=== PATIENT | male | born 1940 | race Caucasian/White ===

== ENCOUNTER 2016-09-09 14:55 | Observation (INO) ==
--- NOTE | 2016-09-09 15:10 | EKG Report ---
Test Performed on : 09/09/2016 3:01:43 PM Test Reason : AMS Blood Pressure : / mmHG Vent. Rate : 084 BPM Atrial Rate : 084 BPM P-R Int : 206 ms QRS Dur : 108 ms QT Int : 382 ms P-R-T Axes : 037 031 191 degrees QTc Int : 451 ms Normal sinus rhythm. with sinus arrhythmia. Septal infarct , age undetermined Cannot rule out Inferior infarct , age undetermined ST \T\ T wave abnormality, consider lateral ischemia Abnormal ECG No previous ECGs available Unconfirmed Result
[2016-09-09] MEDS ORDERED: CATAPRES PO ONE (15:17)
--- NOTE | 2016-09-09 15:29 | Diag Imaging Result Doc PS360 ---
HEAD W/O CONTRAST - 09/09/2016 INDICATION: AMS TECHNIQUE: A CT dose reduction protocol was used. COMPARISON: None FINDINGS: There is some mild microvascular disease in the periventricular white matter. There is also a small rounded hypodensity adjacent to the right lateral ventricle superiorly. This measures about 1.5 cm. No mass effect or hemorrhage. The skull is intact. The sinuses, mastoids, and middle ears are clear. IMPRESSION: Small focal hypodensity in the right periventricular cerebral white matter. Appearance is indeterminate. This likely represents a small, age-indeterminate white matter infarction. A follow-up brain MRI is recommended. Electronically signed by Roldan Mayorga 09/09/2016 3:26 PM
[2016-09-09 15:31] LABS: BE 0.8 mmoll (-3.0-3.0); BLOOD TYPE ARTERIAL; DRAW SITE R RADIAL; METHB 1.3 % (0.0-1.5); O2(CT) 20.9 mL/dL (15.0-23.0); PCO2(98.6) 35 mmHg (35-45); PO2(98.6) 112 mmHg (60-100); SAMPLE BLOOD; SAO2 99.2 % (95.0-100.0); THB 15.4 g/dL (11.5-17.4); pH(98.6) 7.45 (7.35-7.45)
[2016-09-09 15:39] LABS: ALLEN TEST YES; MODALITY CANNULA
[2016-09-09 15:43] LABS: UR AMPHETAMINES QUAL NONE DETECTED (NONE DETECT); UR BARBITUATES QUAL NONE DETECTED (NONE DETECT); UR BENZODIAZEPIN QUAL NONE DETECTED (NONE DETECT); UR CANNABINOIDS QUAL NONE DETECTED (NONE DETECT); UR COCAINE QUAL NONE DETECTED (NONE DETECT); UR MDMA QUAL NONE DETECTED (NONE DETECT); UR METHADONE QUAL NONE DETECTED (NONE DETECT); UR METHAMPHETAMINE QUAL NONE DETECTED (NONE DETECT); UR OPIATES QUAL NONE DETECTED (NONE DETECT); UR OXYCODONE QUAL NONE DETECTED (NONE DETECT); UR PCP QUAL NONE DETECTED (NONE DETECT); UR TCA QUAL NONE DETECTED (NONE DETECT)
[2016-09-09 15:51] LABS: MANUAL DIFF NEEDED? NO
[2016-09-09 15:56] LABS: BASO% 0.5 % (0.0-0.8); HEMATOCRIT 43.2 % (42.0-52.0); MONO% 8.9 % (1.7-9.3)
[2016-09-09 16:22] LABS: BILIRUBIN URINE NEGATIVE (NEGATIVE); BLOOD URINE NEGATIVE (NEGATIVE); CLARITY CLEAR (CLEAR); COLOR YELLOW; GLUCOSE URINE NEGATIVE (NEGATIVE); LEUKOCYTES URINE 1+ (NEGATIVE); NITRITE URINE NEGATIVE (NEGATIVE); PROTEIN URINE NEGATIVE (NEGATIVE); UROBILINOGEN URINE NORMAL
[2016-09-09 16:24] LABS: URINE CAST NONE SEEN /LPF; URINE CRYSTAL NONE SEEN /HPF; URINE CULTURE PL NEEDED? YES; URINE EPITHELIAL CELLS <10 /HPF (<10); URINE SOURCE CLEAN CATCH
[2016-09-09 16:29] LABS: AGAP 12; ALBUMIN 4.2 g/dL (3.5-5.0); ALKALINE PHOSPHATASE 44 U/L (32-122); BUN 9 mg/dL (8-22); CALCIUM 9.3 mg/dL (8.8-10.2); CHLORIDE 106 mmol/L (98-107); CK PROFILE 63 U/L (24-204); COSMO 281; GOT 15 U/L (10-34); GPT 12 U/L (10-44); POTASSIUM 3.5 mmol/L (3.5-5.1); SODIUM 141 mmol/L (136-145); TCO2 23 mmol/L (25-35); TOTAL PROTEIN 7.2 g/dL (6.3-8.3)
[2016-09-09 16:31] LABS: EOS# 0.36 X1000 (0.0-0.7); EOS% 5.9 % (0.0-10.0); IMM GRAN# 0.01 X1000 (0.0-0.04); IMM GRAN% 0.2 % (0.0-0.5); LYMPH# 1.79 X1000 (1.2-3.4); LYMPH% 29.1 % (20.5-51.1); MCH 33.7 PG (27-31); MCHC 34.7 g/dL (33-37); MCV 97.1 FL (81-99); MONO# 0.55 X1000 (0.11-0.59); MPV 11.2 FL (7.4-10.4); NEUT% 55.4 % (42.2-75.2); PLT 168 X1000 (130-400); RBC 4.45 XMIL (4.7-6.1)
[2016-09-09] MEDS ORDERED: APRESOLINE IV ONE (16:38)
--- NOTE | 2016-09-09 17:19 | PROVIDER DOCUMENTATION ---
This chart was entered by Mary Nation Scribe, acting as scribe for Rob Church MD. HPI-Neurological Disorder - General Chief Complaint: Stroke-Like Symptoms Stated Complaint: Slurred speech Time Seen by Provider: 09/09/16 15:12 Source: patient, EMS Allergies/Adverse Reactions: Patient Allergies Allergy/AdvReac Type Severity Reaction Status Date / Time No Known Allergies Allergy Verified 09/09/16 16:25 Home Medications: Home Medication List Medication Instructions Recorded Confirmed Last Taken Type ATORVAstatin [Lipitor] 40 mg PO QHS 09/09/16 09/09/16 Unknown History Diltiazem HCl [Cartia Xt] 100 mg PO DAILY 09/09/16 09/09/16 Unknown History Losartan [Cozaar] 50 mg PO BID 09/09/16 09/09/16 Unknown History Metoprolol/Hydrochlorothiazide 1 each PO DAILY 09/09/16 09/09/16 Unknown History [Metoprolol-Hctz 100-25 mg Tab] - History of Present Illness-Neuro Nature of Presenting Problem: 76 yo M presents to the ER with complaint of slurred speech, resolved prior to EMS arrival. Pt denies any CP or SOB. Upon ER arrival pt states he feels great. Has elevated BP upon arrival. Per therapist pt had R sided weakness that lasted 5 minutes and then resolved. Onset/Duration: reports: 1-3 hours ago Context: reports: impaired speech Character of Deficits: reports: impaired speech Cognitive Baseline: alert, oriented x3 Gait Baseline: walks without assistance Associated Symptoms: reports: slurred speech. denies: chest pain, vomiting Review of Systems - Adult - REVIEW OF SYSTEMS - ADULT Constitutional: denies: chills, fever Eyes: reports: no symptoms reported Ears, Nose, Mouth & Throat: reports: no symptoms reported Cardiovascular: denies: chest pain, palpitations Respiratory: denies: cough, shortness of breath Gastrointestinal: denies: diarrhea, nausea, vomiting Genitourinary: reports: no symptoms reported Musculoskeletal: reports: no symptoms reported Integumentary: reports: no symptoms reported Neurological: reports: slurred speech. denies: dizziness/vertigo, headache/ migraines Psychiatric: reports: no symptoms reported Endocrine: reports: no symptoms reported Hematologic/Lymphatic: reports: no symptoms reported Allergic/Immunologic: reports: no symptoms reported All Other Systems: Reviewed and Negative Past History - Adult - PAST MEDICAL HISTORY-ADULT Review of Records: reports: Nursing Assessment Review, Medications Reviewed Cardiovascular: reports: HTN - IMMUNIZATION STATUS Childhood Immunizations: See Nurse Assessment Flu Vaccine: See Nurse Assessment Physical Exam- Neurological - Physical Exam-Neuro Initial Vital Signs Reviewed: Yes General Appearance: alert, no apparent distress Eye Exam: bilateral eye: normal inspection, PERRL, EOMI HENMT: normocephalic/atraumatic, normal ENT inspection, TMs normal, pharynx normal Head Injury: no evidence of injury. 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 Exam: normal hearing, normal speech, PERRL Neurologic: grossly normal, no motor/sensory deficits Integumentary: normal color, warm/dry Psych/Mental Status: normal mood/affect, normal thought content, normal thought process, oriented x 3 Progress - PLAN OF CARE/RESULTS Progress/Plan/Lab Results: Laboratory Results - last 24 hr 09/09/16 09/09/16 09/09/16 15:09 15:10 15:10 WBC RBC Hgb Hct MCV MCH MCHC RDW Std Deviation Plt Count MPV Immature Gran % (Auto) Neut % (Auto) Lymph % (Auto) [place] % (Auto) Eos % (Auto) Baso % (Auto) Immature Gran # (Auto) Neut # (Auto) Lymph # (Auto) [place] # (Auto) Eos # (Auto) Baso # (Auto) Specimen Type ARTERIAL Sample Site R RADIAL pH 7.45 pCO2 35 pO2 112 H HCO3 25.5 Base Excess 0.8 Oxyhemoglobin 96.2 ABG O2 Sat (Calculated) 20.9 ABG O2 Saturation 99.2 ABG Carboxyhemoglobin 1.80 ABG Methemoglobin 1.3 Edward Test YES A-a O2 Difference 44.0 Total Hemoglobin 15.4 Lactate 1.40 Liter Flow 2.0 Blood Gas Modality CANNULA FiO2 % 28.0 Sodium Potassium Chloride Carbon Dioxide Anion Gap BUN Creatinine Estimated GFR/1.73 m2 BUN/Creatinine Ratio Glucose Calculated Osmolality Calcium Total Bilirubin AST ALT Alkaline Phosphatase Creatine Kinase Troponin T < 0.010 Total Protein Albumin Globulin Albumin/Globulin Ratio Plasma Lactate Urine Source Urine Color Urine Clarity Urine pH Ur Specific [place] Urine Protein Urine Ketones Urine Blood Urine Nitrite Urine Bilirubin Urine Urobilinogen Urine Microscopic RBC Urine WBC Urine Microscopic WBC Ur Epithelial Cells Urine Crystals Urine Bacteria Urine Casts Urine Yeast Urine Glucose Urine Opiates Screen Ur Oxycodone Screen Urine Methadone Screen Ur Barbituates Screen Ur Tricyclics Screen Ur Phencyclidine Scrn Ur Amphetamines Screen U Methamphetamines Scrn Urine MDMA Screen U Benzodiazepines Scrn Urine Cocaine Screen U Cannabinoids Screen Plasma/Serum Ethyl Alc 09/09/16 09/09/16 09/09/16 15:10 15:10 15:10 WBC 6.15 RBC 4.45 L Hgb 15.0 Hct 43.2 MCV 97.1 MCH 33.7 H MCHC 34.7 RDW Std Deviation 13.9 Plt Count 168 MPV 11.2 H Immature Gran % (Auto) 0.2 Neut % (Auto) 55.4 Lymph % (Auto) 29.1 [place] % (Auto) 8.9 Eos % (Auto) 5.9 Baso % (Auto) 0.5 Immature Gran # (Auto) 0.01 Neut # (Auto) 3.41 Lymph # (Auto) 1.79 [place] # (Auto) 0.55 Eos # (Auto) 0.36 Baso # (Auto) 0.03 Specimen Type Sample Site pH pCO2 pO2 HCO3 Base Excess Oxyhemoglobin ABG O2 Sat (Calculated) ABG O2 Saturation ABG Carboxyhemoglobin ABG Methemoglobin Edward Test A-a O2 Difference Total Hemoglobin Lactate Liter Flow Blood Gas Modality FiO2 % Sodium Potassium Chloride Carbon Dioxide Anion Gap BUN Creatinine Estimated GFR/1.73 m2 BUN/Creatinine Ratio Glucose Calculated Osmolality Calcium Total Bilirubin AST ALT Alkaline Phosphatase Creatine Kinase Troponin T Total Protein Albumin Globulin Albumin/Globulin Ratio Plasma Lactate Urine Source CLEAN CATCH Urine Color YELLOW Urine Clarity CLEAR Urine pH 7.0 Ur Specific [place] 1.010 Urine Protein NEGATIVE Urine Ketones NEGATIVE Urine Blood NEGATIVE Urine Nitrite NEGATIVE Urine Bilirubin NEGATIVE Urine Urobilinogen NORMAL Urine Microscopic RBC Not Reportable Urine WBC 1+ A Urine Microscopic WBC 10-20 A Ur Epithelial Cells <10 Urine Crystals NONE SEEN Urine Bacteria 1+ Urine Casts NONE SEEN Urine Yeast NONE SEEN Urine Glucose NEGATIVE Urine Opiates Screen NONE DETECTED Ur Oxycodone Screen NONE DETECTED Urine Methadone Screen NONE DETECTED Ur Barbituates Screen NONE DETECTED Ur Tricyclics Screen NONE DETECTED Ur Phencyclidine Scrn NONE DETECTED Ur Amphetamines Screen NONE DETECTED U Methamphetamines Scrn NONE DETECTED Urine MDMA Screen NONE DETECTED U Benzodiazepines Scrn NONE DETECTED Urine Cocaine Screen NONE DETECTED U Cannabinoids Screen NONE DETECTED Plasma/Serum Ethyl Alc 09/09/16 09/09/16 09/09/16 15:40 15:40 17:30 WBC RBC Hgb Hct MCV MCH MCHC RDW Std Deviation Plt Count MPV Immature Gran % (Auto) Neut % (Auto) Lymph % (Auto) [place] % (Auto) Eos % (Auto) Baso % (Auto) Immature Gran # (Auto) Neut # (Auto) Lymph # (Auto) [place] # (Auto) Eos # (Auto) Baso # (Auto) Specimen Type Sample Site pH pCO2 pO2 HCO3 Base Excess Oxyhemoglobin ABG O2 Sat (Calculated) ABG O2 Saturation ABG Carboxyhemoglobin ABG Methemoglobin Edward Test A-a O2 Difference Total Hemoglobin Lactate Liter Flow Blood Gas Modality FiO2 % Sodium 141 Potassium 3.5 Chloride 106 Carbon Dioxide 23 L Anion Gap 12 BUN 9 Creatinine 0.9 Estimated GFR/1.73 m2 > 60 BUN/Creatinine Ratio 10 Glucose 113 H Calculated Osmolality 281 Calcium 9.3 Total Bilirubin 0.50 AST 15 ALT 12 Alkaline Phosphatase 44 Creatine Kinase 63 51 Troponin T Total Protein 7.2 Albumin 4.2 Globulin 3.0 Albumin/Globulin Ratio 1.0 Plasma Lactate 1.4 Urine Source Urine Color Urine Clarity Urine pH Ur Specific [place] Urine Protein Urine Ketones Urine Blood Urine Nitrite Urine Bilirubin Urine Urobilinogen Urine Microscopic RBC Urine WBC Urine Microscopic WBC Ur Epithelial Cells Urine Crystals Urine Bacteria Urine Casts Urine Yeast Urine Glucose Urine Opiates Screen Ur Oxycodone Screen Urine Methadone Screen Ur Barbituates Screen Ur Tricyclics Screen Ur Phencyclidine Scrn Ur Amphetamines Screen U Methamphetamines Scrn Urine MDMA Screen U Benzodiazepines Scrn Urine Cocaine Screen U Cannabinoids Screen Plasma/Serum Ethyl Alc 09/09/16 17:30 WBC RBC Hgb Hct MCV MCH MCHC RDW Std Deviation Plt Count MPV Immature Gran % (Auto) Neut % (Auto) Lymph % (Auto) [place] % (Auto) Eos % (Auto) Baso % (Auto) Immature Gran # (Auto) Neut # (Auto) Lymph # (Auto) [place] # (Auto) Eos # (Auto) Baso # (Auto) Specimen Type Sample Site pH pCO2 pO2 HCO3 Base Excess Oxyhemoglobin ABG O2 Sat (Calculated) ABG O2 Saturation ABG Carboxyhemoglobin ABG Methemoglobin Edward Test A-a O2 Difference Total Hemoglobin Lactate Liter Flow Blood Gas Modality FiO2 % Sodium Potassium Chloride Carbon Dioxide Anion Gap BUN Creatinine Estimated GFR/1.73 m2 BUN/Creatinine Ratio Glucose Calculated Osmolality Calcium Total Bilirubin AST ALT Alkaline Phosphatase Creatine Kinase Troponin T < 0.010 Total Protein Albumin Globulin Albumin/Globulin Ratio Plasma Lactate Urine Source Urine Color Urine Clarity Urine pH Ur Specific [place] Urine Protein Urine Ketones Urine Blood Urine Nitrite Urine Bilirubin Urine Urobilinogen Urine Microscopic RBC Urine WBC Urine Microscopic WBC Ur Epithelial Cells Urine Crystals Urine Bacteria Urine Casts Urine Yeast Urine Glucose Urine Opiates Screen Ur Oxycodone Screen Urine Methadone Screen Ur [place] Screen Ur Tricyclics Screen Ur Phencyclidine Scrn Ur Amphetamines Screen U Methamphetamines Scrn Urine MDMA Screen U Benzodiazepines Scrn Urine Cocaine Screen U Cannabinoids Screen Plasma/Serum Ethyl Alc Orders Category Date Time Status Admit - [facility] Routine AdmDCTranf 09/09/16 23:[address] [facility] Routine AdmDCTranf 09/09/16 17:37 Ordered Activity - Bed Rest with BRP ORDERED Care 09/09/16 23:28 Active Cardiac Monitoring DIRECTED Care 09/09/16 15:06 Completed Finger Stick Blood Sugar (ED) DIRECTED Care 09/09/16 15:06 Completed Misc. NRSG Communication Order DIRECTED Care 09/09/16 15:06 Active Neurological Check Q4H Care 09/09/16 23:28 Active Oxygen Therapy- ED Nursing DIRECTED Care 09/09/16 15:06 Active Saline Loc NOW Care 09/09/16 15:06 Active Vital Signs Order Q 8-HR .ASSESS Care 09/09/16 23:28 Active Z-Document. for Tele Applied ORDERED Care 09/09/16 23:28 Completed Heart Healthy Diet Diet 09/09/16 17:40 Active HEAD W/O CONTRAST [CT] Stat Exams 09/09/16 15:06 Completed MRI BRAIN W/CONTRAST [MRI] Routine Exams 09/10/16 06:00 Ordered ABG [RESP] Routine Lab 09/09/16 15:09 Completed ALCOHOL BLOOD Stat Lab 09/09/16 15:10 Completed CBC WITH ELECTRONIC DIFF [HEME] Stat Lab 09/09/16 15:10 Completed CK PROFILE [SP CHEM] Stat Lab 09/09/16 15:40 Completed CK PROFILE [SP CHEM] Stat Lab 09/09/16 17:30 Completed COMPREHENSIVE METABOLIC PANEL [CHEM] Stat Lab 09/09/16 15:40 Completed LACTATE, PLASMA [CHEM] Stat Lab 09/09/16 15:40 Completed TROPONIN T Stat Lab 09/09/16 15:10 Completed TROPONIN T Stat Lab 09/09/16 17:[address] W/POSS RFLX CULT [URINALYSIS] Stat Lab 09/09/16 15:10 Completed URINE CULTURE [RM] Routine Lab 09/09/16 16:25 Received UR[address] DRUG SCREEN [address] Stat Lab 09/09/16 15:10 Completed 0.9% Sodium Chloride Inj [Ns] 1,000 ml Med 09/09/16 23:28 Active IV 100 mls/hr ATORVAstatin [Lipitor] Med 09/09/16 23:28 Active 40 mg PO QHS Acetaminophen [Tylenol] Med 09/09/16 23:28 Active 650 mg PO Q6H PRN PRN Aspirin Med 09/09/16 17:38 Discontinued 325 mg PO NOW ONE Clonidine [Catapres] Med 09/09/16 15:17 Discontinued 0.2 mg PO NOW ONE Diltiazem C.d. [Cardizem Cd] Med 09/10/16 09:00 Pending 100 mg PO DAILY Hydralazine [Apresoline] Med 09/09/16 16:38 Discontinued 10 mg IV NOW ONE Hydralazine [Apresoline] Med 09/09/16 23:28 Active 10 mg IV Q6H PRN PRN Losartan [Cozaar] Med 09/09/16 23:28 Active 50 mg PO BID Metoprolol [Lopressor] Med 09/10/16 09:00 Active 100 mg PO DAILY Ondansetron [Zofran] Med 09/09/16 23:28 Active 4 mg IV Q4H PRN PRN Pulse Oximetry Stat Oth 09/09/16 15:06 Completed Telemetry [OM.EQ] Routine Oth 09/09/16 23:28 Active Carotid Ultrasound Routine Ther 09/10/16 06:00 Ordered EKG [EKG] Stat Ther 09/09/16 15:06 Draft EKG [EKG] Stat Ther 09/09/16 17:29 Draft Transfer/Admit Order [TRANSFER] Routine Transfer 09/09/16 17:35 Completed Result Diagrams: 09/09/16 15:10 09/09/16 15:40 - EKG 1 Time of EKG reading by physician:: 15:01 EKG Read and Signed by:: Rob Church EKG Interpretation (*Must complete 3 of following elements*): Abnormal (septal infart, cannot rule out inferior infarct) Rate: 84 Rhythm: normal sinus rhythm with sinus arrhythmia [place]: normal QRS: normal RI Interval: normal ST Wave: non-specific ST changes (ST&T wave abnormality, consider lateral ischemia) 2 Time of EKG reading by physician:: 17:51 EKG Read and Signed by:: Rob Church EKG Interpretation (*Must complete 3 of following elements*): Abnormal (septal infarct) Rate: 69 Rhythm: normal sinus rhythm [place]: normal QRS: normal RI Interval: normal ST Wave: non-specific ST changes (consider inferior ischemia or anterolateral ischemia) - CT/MRI 1 CT Study: Head Impression: See EMR Report (small focal hypodensity in the R periventricular cerebral white matter. appearance is indeterminate. this likely represents a small, age indeterminate white matter infarction. a follow-up brain MRI is recommended. per radiologist) - CONSULTS/PCP/HOSPITALIST Notification #1 *Consult/PCP/Hospitalist*: Dr. Valdez - hospitalist Time Discussed: 17:33 Consult Disposition: Admit Departure - Departure Date of Disposition Decision: 09/09/16 Time of Disposition Decision: 17:25 DIAGNOSIS: TIA (transient ischemic attack) Qualifiers: Transient cerebral ischemia type: unspecified Qualified Code(s): G45.9 - Transient cerebral ischemic attack, unspecified Hypertension Qualifiers: Hypertension type: essential hypertension Qualified Code(s): I10 - Essential ( primary) hypertension Disposition: ADMITTED INPATIENT 09 Certified Medical Emergency: Emergent Condition: Good - Critical Care Note This patient required my direct & personal management of CC.: No This chart was documented by the indicated scribe, (Mary Nation Scribe) and accurately reflects the services I performed and decisions made by me, Rob Church MD, as attested by the provider's signature.
[2016-09-09] MEDS ORDERED: ASPIRIN PO ONE (17:38)
--- NOTE | 2016-09-09 18:00 | EKG Report ---
Test Performed on : 09/09/2016 5:51:00 PM Test Reason : repeat/ monitor changes Blood Pressure : / mmHG Vent. Rate : 069 BPM Atrial Rate : 069 BPM P-R Int : 200 ms QRS Dur : 096 ms QT Int : 446 ms P-R-T Axes : 112 045 204 degrees QTc Int : 477 ms Normal sinus rhythm. Septal infarct (cited on or before 09-SEP-2016) ST \T\ T wave abnormality, consider inferior ischemia ST \T\ T wave abnormality, consider anterolateral ischemia Abnormal ECG When compared with ECG of 09-SEP-2016 15:01, (Unconfirmed) Minimal criteria for Inferior infarct are no longer present Unconfirmed Result
[2016-09-09] MEDS ORDERED: APRESOLINE IV PRN (23:28)
[2016-09-09] MEDS ORDERED: ZOFRAN IV PRN (23:28)
[2016-09-09] MEDS ORDERED: LIPITOR PO SCH (23:28)
[2016-09-09] MEDS ORDERED: LOVENOX SUBQ SCH (23:28)
[2016-09-09] MEDS ORDERED: NS 1,000 ML IV ONE (23:28)
[2016-09-09] MEDS ORDERED: TYLENOL PO PRN (23:28)
[2016-09-10] MEDS: COZAAR PO SCH ×2 (02:03→09:03)
--- NOTE | 2016-09-10 04:06 | HISTORY AND PHYSICAL ---
CHIEF COMPLAINT: Left facial weakness, dysarthria, confusion, and he was at his counselor's office. HISTORY OF PRESENT ILLNESS: This is a 76-year-old male with CAD, status post CABG, who came in for evaluation. He was in his counselor's office today for a routine appointment. He had an acute episode of confusion, dysarthria, and I believe left facial droop. There was concern over a stroke, so EMS was contacted, and he was brought here. Workup in the ER was unremarkable, except he had a significant hypertension on admission, with a blood pressure of over 200 systolic. Other workup in the ER was unremarkable, head CT, although there was a small age-indeterminate white matter infarct in the right periventricular cerebral white matter. When I examined him, which was around 1900, or 1840, he had no deficits noted. The patient was placed in observation for a TIA versus cerebrovascular accident. PAST MEDICAL HISTORY: 1. CAD. 2. Hypertension. 3. Dyslipidemia. 4. Osteoarthritis. PAST SURGICAL HISTORY: He has had CABG. This was in 1999. SOCIAL HISTORY: No tobacco or ethanol. 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 ALLERGIES: Penicillin. MEDICATIONS: Lipitor 40, Cartia 100 daily, losartan 50 b.i.d., and metoprolol 100/25 daily. REVIEW OF SYSTEMS: Otherwise negative 10-point review of systems. PHYSICAL EXAMINATION: VITAL SIGNS: I do not have the initial blood pressure, but reportedly fairly hypotensive on admission. He was given clonidine and hydralazine. GENERAL: A well-developed male, in no acute distress. HEAD: Normocephalic, atraumatic. EYES: Pupils equal, round, reactive to light. Extraocular movements were intact. EARS, NOSE, AND THROAT: Moist mucous membranes. NECK: Supple. CARDIOVASCULAR: Regular rate and rhythm. No murmurs, gallops, or rubs. PULMONARY: Bilateral breath sounds. Clear to auscultation. GASTROINTESTINAL: Soft, nontender, nondistended. Bowel sounds were positive. EXTREMITIES: No clubbing or cyanosis. LYMPHATICS: No peripheral edema. NEUROLOGICAL: Nonfocal. Cranial nerves 2 through 12 were intact. LABORATORY DATA: White count 6, hemoglobin and hematocrit 15 and 53, platelets of 168,000. ABG normal. CMP normal. UA unremarkable. UDS unremarkable. Head CT showed questionable small infarct. EKG unremarkable. ASSESSMENT: A 76-year-old male who presents with an acute neurological deficit, consistent with transient ischemic attack versus a very small cerebrovascular accident, with risk factors for both. 1. Neuro. Transient ischemic attack versus cerebrovascular accident. We will continue to observe, hydrate, pursue MRI in the morning, and carotid and echocardiogram. 2. Coronary artery disease, appears to be stable. Continue regular medications. Will increase aspirin to 325 daily, and follow clinically. 3. Dyslipidemia. We will check lipids and continue his Lipitor for the time being. cc: MD Ashanti Alejo CRNP
[2016-09-10 06:27] LABS: HEMATOCRIT 38.6 % (42.0-52.0); HEMOGLOBIN 13.4 g/dL (14.0-18.0); MCH 33.9 PG (27-31); MCHC 34.7 g/dL (33-37); MCV 97.7 FL (81-99); MPV 10.8 FL (7.4-10.4); RBC 3.95 XMIL (4.7-6.1)
[2016-09-10 06:50] LABS: AGAP 9; ALBUMIN 3.6 g/dL (3.5-5.0); ALKALINE PHOSPHATASE 35 U/L (32-122); BUN 11 mg/dL (8-22); CALCIUM 8.7 mg/dL (8.8-10.2); CHLORIDE 108 mmol/L (98-107); COSMO 283; GOT 13 U/L (10-34); GPT 11 U/L (10-44); HDL 30 mg/dL (35-55); LDL 83 mg/dL; POTASSIUM 3.2 mmol/L (3.5-5.1); SODIUM 142 mmol/L (136-145); TCO2 25 mmol/L (25-35); TOTAL PROTEIN 6.4 g/dL (6.3-8.3); TRIGLYCERIDES 165 mg/dL (39-160); VLDL 33 mg/dL
[2016-09-10] MEDS ORDERED: HYDROCHLOROTHIAZIDE PO SCH (09:00)
[2016-09-10] MEDS ORDERED: ASPIRIN PO SCH (09:00)
[2016-09-10] MEDS ORDERED: LOPRESSOR PO SCH (09:00)
[2016-09-10] MEDS ORDERED: CARDIZEM CD PO SCH (10:30)
[2016-09-10] MEDS ORDERED: KLOR-CON PO ONE (11:02)
--- NOTE | 2016-09-10 15:13 | Extremity Venous Study ---
EXAM: Carotid Ultrasound HISTORY: tia TECHNIQUE: Carotid Doppler ultrasound COMMENT: There is dense irregular plaque in both carotid bulbs. This extends to some extent into the internal carotid arteries bilaterally. There is significant stenosis in both internal carotid arteries proximally with peak systolic velocities in excess of 230 cm/s. There is also elevated Doppler velocities in the mid internal carotid arteries bilaterally with the right peak systolic velocity at 166 cm/s in the left at 176 cm/s. There is antegrade flow in both vertebral arteries. IMPRESSION: Severe atherosclerotic change in the carotid bulbs and internal carotid arteries with significant stenosis bilaterally in the internal carotid arteries (60-79%.) Electronically signed by Byron Eubanks 09/10/2016 3:11 PM
[2016-09-11 08:41] VITALS: BP 192/96
--- NOTE | 2016-09-11 13:26 | ECHO REPORT ---
ORDER DATE: 09/10/2016 INTERPRETING PHYSICIAN: Dr. Melchor Jasso ECHOCARDIOGRAPHIC MEASUREMENTS: Interventricular septum: 1.3 cm. Left ventricular posterior wall: 1.3 cm. Diastolic diameter: 5.3 cm. Left atrium: 4.5 cm. Aortic root: 3.8 cm. SUMMARY OF THE 2-DIMENSIONAL IMAGIN. Normal left ventricular cavity size. Mild left ventricular hypertrophy with mild LV dysfunction. Ejection fraction of 45-50%. 2. Aortic valve leaflets are sclerosed, trileaflet. Mitral valve was normal. Tricuspid valve was normal. Pulmonic valve was normal. 3. There is no aortic stenosis. There is mild aortic regurgitation. There is mild mitral regurgitation. Mild tricuspid regurgitation. Peak velocity across the tricuspid valve was 2.6 m/sec. 4. There was aortic sclerosis noted. 5. There is no pericardial effusion or obvious intracardiac mass or thrombus seen. cc: MD Evan Brown MD
--- NOTE | 2016-09-11 14:15 | DISCHARGE SUMMARY ---
ADMISSION DATE: 09/09/2016 DISCHARGE DATE: 09/10/2016 ADMISSION DIAGNOSES: 1. Acute neurological deficit consistent with transient ischemic attack versus a very small cerebrovascular accident with risk factors for both. 2. Coronary artery disease, stable. 3. Dyslipidemia. DISCHARGE DIAGNOSES: 1. Acute neurological deficit consistent with transient ischemic attack versus a very small cerebrovascular accident with risk factors for both. 2. Coronary artery disease, stable. 3. Dyslipidemia. SUMMARY OF FINDINGS: This is a 76-year-old male who presented to the ER after he went to his counselor's office for routine appointment. Had an acute episode of confusion, dysarthria and some left-sided facial drooping and there was concern of a stroke, so EMS was contacted. Workup in the ER was unremarkable, except he had significant hypertension on admission with a blood pressure of over [address] although was unremarkable with a small age indeterminate white matter infarct in the right periventricular cerebral white matter. Once he arrived to the floor and was admitted, he had no neurological deficits noted. We attempted to do an MRI of his head this morning, but he refused the MRI as he stated that he was claustrophobic, but he refused any medication to keep him calm while getting the MRI also. He has received an echo and carotid results are pending on that, but it is felt that he can safely be discharged home today as he has no deficits currently. DISCHARGE MEDICATIONS: He will be given a prescription for: 1. Aspirin 81 mg 1 p.o. daily #30 with no refills. 2. Plavix 75 mg p.o. daily #30 with no refills. 3. Atorvastatin 40 mg p.o. at bedtime. 4. He will continue the Cardizem 120 mg p.o. daily. 5. Losartan 50 mg p.o. b.i.d. 6. Metoprolol with hydrochlorothiazide 100/25 1 p.o. daily. FOLLOWUP: He will need to follow up with his primary care physician in the next 1-2 weeks, who is XAVI Clark. All discharge instructions have been reviewed with the patient and he verbalizes understanding. TIME SPENT: 30 minutes. Dictated by XAVI Reddy for Evan Valdez MD cc: XAVI Reddy MD Jennifer Beatty, CRNP pt had significant carotid stenosis, bilateral will refer to outpt surgery pt examined, agree with above APENOT MTDD
== END 2016-09-10 16:17 | disposition home or self-care (01) ==
LOC: P.ED 14:55 → INTOOBSV 18:09 → P.MEDSURG 18:09
PROVIDERS: ATTEND Internal Medicine

== ENCOUNTER 2018-02-09 19:19 | Inpatient (IN) ==
[2018-02-09] MEDS ORDERED: MORPHINE IV ONE (20:12)
[2018-02-09] MEDS ORDERED: XYLOCAINE 2% JELLY UROJECT TOP ONE (20:16)
[2018-02-09 20:31] LABS: BASO# 0.02 X1000 (0.0-0.2); BASO% 0.2 % (0.0-0.8); EOS# 0.38 X1000 (0.0-0.7); EOS% 3.8 % (0.0-10.0); HEMATOCRIT 37.6 % (42.0-52.0); IMM GRAN# 0.03 X1000 (0.0-0.04); IMM GRAN% 0.3 % (0.0-0.5); LYMPH% 10.9 % (20.5-51.1); MCH 33.9 PG (27-31); MCHC 34.6 g/dL (33-37); MCV 97.9 FL (81-99); MONO# 0.69 X1000 (0.11-0.59); MONO% 6.9 % (1.7-9.3); MPV 9.9 FL (7.4-10.4); NEUT# 7.83 X1000 (1.4-6.5); NEUT% 77.9 % (42.2-75.2); PLT 191 X1000 (130-400); RBC 3.84 XMIL (4.7-6.1); RDW 13.5 % (11.5-14.5); WBC 10.05 X1000 (4.8-10.8)
[2018-02-09 20:46] LABS: AGAP 13; BUN 22 mg/dL (8-22); CALCIUM 9.3 mg/dL (8.8-10.2); CHLORIDE 104 mmol/L (98-107); COSMO 287; CREATININE 1.1 mg/dL (0.7-1.2); ESTIMATED GFR > 60; GLUCOSE 107 mg/dL (70-104); POTASSIUM 3.3 mmol/L (3.5-5.1); SODIUM 142 mmol/L (136-145); TCO2 25 mmol/L (25-35)
[2018-02-09 21:20] LABS: URINE SOURCE CATH
[2018-02-09 21:32] LABS: BILIRUBIN URINE NEGATIVE (NEGATIVE); BLOOD URINE 4+ (NEGATIVE); CLARITY BLOODY (CLEAR); COLOR YELLOW; GLUCOSE URINE NEGATIVE (NEGATIVE); KETONE URINE TRACE mg/dL (NEGATIVE); LEUKOCYTES URINE 1+ (NEGATIVE); NITRITE URINE NEGATIVE (NEGATIVE); SP GRAVITY URINE 1.015; UROBILINOGEN URINE NORMAL
[2018-02-09 21:54] LABS: URINE EPITHELIAL CELLS <10 /HPF (<10); URINE RBC TNTC /HPF (<10)
[2018-02-09 21:58] LABS: URINE BACTERIA 2+ /HFP; URINE WBC 20-40 /HPF (<10)
[2018-02-09] MEDS: MORPHINE IV PRN (23:09)
[2018-02-09] MEDS ORDERED: MORPHINE ONE (23:10)
--- NOTE | 2018-02-10 00:41 | PROVIDER DOCUMENTATION ---
This chart was entered by Shereen Mcclendon Scribe, acting as scribe for Skyler Albarran MD. HPI-Male Problem - General Chief Complaint: Male Stated Complaint: BLOOD IN URINE Time Seen by Provider: 02/09/18 19:35 Source: patient Allergies/Adverse Reactions: Patient Allergies Allergy/AdvReac Type Severity Reaction Status Date / Time Penicillins Allergy Unknown Verified 02/09/18 19:34 Home Medications: Home Medication List Medication Instructions Recorded Confirmed Last Taken Type Aspirin 325 mg PO DAILY 03/12/17 02/09/18 Unknown History Furosemide 20 mg PO DAILY 03/12/17 02/09/18 Unknown History Sulindac 150 mg PO BID 03/12/17 02/09/18 Unknown History Acetaminophen [Acetaminophen Extra 500 mg PO Q6H PRN PRN 03/20/17 07/23/17 Unknown History Strength] Albuterol Sulfate [Proair Hfa] 2 puff IH BID 07/24/17 07/24/17 Unknown History Diltiazem [Cardizem] 120 mg PO DAILY 07/24/17 02/09/18 Unknown History Montelukast Sodium 10 mg PO HS 07/24/17 07/24/17 Unknown History Sertraline [Zoloft] 25 mg PO DAILY 07/24/17 02/09/18 Unknown History Tamsulosin HCl 0.8 mg PO DAILY 07/24/17 02/09/18 Unknown History - History of Present Illness-Male Nature of Presenting Problem: Pt presents to ED w/ blood in urine that has been present since he was last seen in the ER on 02/02. He was referred to urology then and sts that he has not been able to see yet and the problem has now worsened. He was DX w/ both kidney and bladder stones at the time of the last visit to ED. Location of Complaint: reports: suprapubic, groin, urethral Radiation: reports: none Quality of Pain: reports: aching, burning Severity in ED: reports: moderate Onset/Duration: reports: 1 week ago Timing: reports: still present, getting worse Context/Activities at Onset: reports: none Urinary Symptoms: reports: dysuria, retention Sexual intercourse history: reports: Not Active Contraception: reports: none Associated Symptoms: reports: other (pt has clotted blood coming out of penis ) Associated Symptoms: reports: weakness Similar Symptoms Previously?: Yes Recently seen or treated by another doctor?: Yes (seen in ED on 02/02) Review of Systems - Adult - REVIEW OF SYSTEMS - ADULT Constitutional: reports: other (pt has lower abd pain, bladder spasms and blood coming from penis) Eyes: reports: no symptoms reported Ears, Nose, Mouth & Throat: reports: no symptoms reported Cardiovascular: denies: chest pain, edema Respiratory: reports: no symptoms reported Gastrointestinal: reports: abdominal pain Genitourinary: reports: dysuria, discharge (bloody), flank pain. denies: incontinence Musculoskeletal: reports: no symptoms reported Integumentary: reports: no symptoms reported Neurological: denies: dizziness/vertigo, headache/migraines Psychiatric: reports: no symptoms reported Endocrine: reports: no symptoms reported Hematologic/Lymphatic: reports: no symptoms reported Allergic/Immunologic: reports: no symptoms reported All Other Systems: Reviewed and Negative Past History - Adult - PAST MEDICAL HISTORY-ADULT Review of Records: reports: Nursing Assessment Review Major Childhood Illnesses: reports: denies history Cardiovascular: reports: CAD, HTN, hyperlipidemia, PAD Respiratory: reports: denies history Gastrointestinal: reports: denies history Obstetrical/Gynecological: reports: denies history Genitourinary: reports: denies history Musculoskeletal: reports: denies history Neurological: reports: CVA, TIA Endocrine/Immune: reports: denies history Other Conditions: reports: denies history - PRIOR SURGERIES/PROCEDURES Surgical/Procedure History: reports: reviewed, not pertinent, CABG (year 1999) - IMMUNIZATION STATUS Childhood Immunizations: See Nurse Assessment Flu Vaccine: See Nurse Assessment - FAMILY HISTORY Family History: reviewed, not pertinent - SOCIAL HISTORY Smoking: denies, non-smoker Substance Use: none/never Alcohol Use Frequency: never Living Situation: alone Physical Exam-General - PHYSICAL EXAM-ADULT Initial Vital Signs Reviewed: Yes - CONSTITUTIONAL General Appearance: appears well, alert, mild distress - NECK Neck: non-tender, full range of motion, supple - RESPIRATORY Respiratory: chest non-tender, lungs clear, normal breath sounds, no pleuratic chest pain, no respiratory distress - CARDIOVASCULAR Cardiovascular: normal peripheral pulses, regular rate, rhythm, no edema, no gallop, no JVD, no murmur - GASTROINTESTINAL (ABDOMEN) Abdominal Exam: normal bowel sounds, non tender, soft - GENITOURINARY Male Genitalia: circumcised, other (Pt has blood discharge from his penis) - LYMPHATIC Lymphatic: no adenopathy - MUSCULOSKELETAL Back Exam: normal inspection Extremity: normal range of motion, non-tender, normal gait, normal inspection - SKIN Integumentary: normal color, normal turgor, warm/dry - NEUROLOGIC Neurologic: 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 II-XII nml as tested, grossly normal, no motor/sensory deficits - PSYCHIATRIC Psych/Mental Status: normal mood/affect, normal thought content, normal thought process, oriented x 3 Progress - PLAN OF CARE/RESULTS Progress/Plan/Lab Results: Vital Signs - 8 hr 02/09/18 19:24 02/09/18 21:50 02/10/18 00:14 Temperature 98.1 F 98.4 F Pulse Rate 74 69 70 Respiratory Rate 16 18 18 Blood Pressure 176/90 188/88 180/86 O2 Sat by Pulse Oximetry 98 95 96 Laboratory Results - last 24 hr 02/09/18 02/09/18 02/09/18 20:21 20:21 21:14 WBC 10.05 RBC 3.84 L Hgb 13.0 L Hct 37.6 L MCV 97.9 MCH 33.9 H MCHC 34.6 RDW Std Deviation 13.5 Plt Count 191 MPV 9.9 Immature Gran % (Auto) 0.3 Neut % (Auto) 77.9 H Lymph % (Auto) 10.9 L [place] % (Auto) 6.9 Eos % (Auto) 3.8 Baso % (Auto) 0.2 Immature Gran # (Auto) 0.03 Neut # (Auto) 7.83 H Lymph # (Auto) 1.10 L [place] # (Auto) 0.69 H Eos # (Auto) 0.38 Baso # (Auto) 0.02 Sodium 142 Potassium 3.3 L Chloride 104 Carbon Dioxide 25 Anion Gap 13 BUN 22 Creatinine 1.1 Estimated GFR/1.73 m2 > 60 BUN/Creatinine Ratio 20 Glucose 107 H Calculated Osmolality 287 Calcium 9.3 Urine Source CATH Urine Color YELLOW Urine Clarity BLOODY A Urine pH 9.0 Ur Specific [place] 1.015 Urine Protein 3+(500 mg/dL) A Urine Ketones TRACE Urine Blood 4+ Urine Nitrite NEGATIVE Urine Bilirubin NEGATIVE Urine Urobilinogen NORMAL Urine Microscopic RBC TNTC A Urine WBC 1+ A Urine Microscopic WBC 20-40 A Ur Epithelial Cells <10 Urine Bacteria 2+ Urine Glucose NEGATIVE Orders Category Date Time Status Admit - [facility] Routine AdmDCTranf 02/09/18 22:15 Active Bladder Scan and Record Result ORDERED Care 02/09/18 19:55 Active Ramos Cath Insertion ORDERED Care 02/09/18 20:26 Active Irrigate Bladder DIRECTED Care 02/09/18 21:45 Active Saline Loc DIRECTED Care 02/09/18 22:15 Active Saline Loc NOW Care 02/09/18 20:25 Active Vital Signs Order ARRIVAL TO ROOM Care 02/09/18 22:15 Active Regular Diet Diet 02/09/18 22:21 Active BMP [BASIC METABOLIC PANEL] [CHEM] Stat Lab 02/09/18 20:21 Completed CBC WITH ELECTRONIC DIFF [HEME] Stat Lab 02/09/18 20:[address] W/POSS RFLX CULT [URINALYSIS] Stat Lab 02/09/18 21:14 Completed URINE CULTURE [RM] Routine Lab 02/09/18 21:58 Ordered Lidocaine 2% Jelly Appl [Xylocaine 2% Jelly Uroject] Med 02/09/18 20:16 Discontinued 5 ml TOP NOW ONE Morphine Med 02/09/18 23:10 Discontinued 2 mg .ROUTE .STK-MED ONE Morphine Med 02/09/18 22:21 Active 2 mg IV Q2H PRN PRN Morphine Med 02/09/18 20:12 Discontinued 4 mg IV NOW ONE Transfer/Admit Order [TRANSFER] Routine Transfer 02/09/18 22:19 Ordered Result Diagrams: 02/09/18 20:21 02/09/18 20:21 - REASSESSMENT Reassessment #1 Time Reassessed: 21:17 (Nurse got 50 cc w/ cath, bright red blood) Status: unchanged - CONSULTS/PCP/HOSPITALIST Notification #1 *Consult/PCP/Hospitalist*: Dr. Valdez Time Discussed: 09:55 Consult Disposition: Admit (To [facility]) Departure - Departure Date of Disposition Decision: 02/09/18 Time of Disposition Decision: 22:04 DIAGNOSIS: Bladder stones Disposition: ADMITTED INPATIENT 09 Certified Medical Emergency: Emergent Condition: Stable Referrals and Follow-Ups: None,PCP [Primary Care Provider] - - Critical Care Note This patient required my direct & personal management of CC.: No Attestation - Physician/ HERBIE Attestation Patient care was provided by Advanced Practice Provider:: No The physician spent face to face time with patient:: Yes Advanced Practice Provider documentation review:: Supervising physician onsite and consulted in the evaluation and care of this patient. The physician did have a face to face encounter with the patient. This chart was documented by the indicated scribe, (Shereen Mcclendon, Scribe) and accurately reflects the services I performed and decisions made by me, Skyler Albarran MD, as attested by the provider's signature.
[2018-02-10] MEDS ORDERED: MORPHINE ONE (01:03)
[2018-02-10] MEDS: MORPHINE IV PRN ×2 (01:13→20:42)
[2018-02-10] MEDS: ZOFRAN IV PRN (02:00)
[2018-02-10 08:27] LABS: BASO# 0.01 X1000 (0.0-0.2); BASO% 0.1 % (0.0-0.8); EOS# 0.07 X1000 (0.0-0.7); EOS% 0.7 % (0.0-10.0); HEMATOCRIT 36.5 % (42.0-52.0); HEMOGLOBIN 12.4 g/dL (14.0-18.0); IMM GRAN# 0.03 X1000 (0.0-0.04); IMM GRAN% 0.3 % (0.0-0.5); LYMPH# 0.85 X1000 (1.2-3.4); LYMPH% 8.3 % (20.5-51.1); MCH 33.7 PG (27-31); MCV 99.2 FL (81-99); MONO# 0.86 X1000 (0.11-0.59); MONO% 8.4 % (1.7-9.3); MPV 9.7 FL (7.4-10.4); NEUT# 8.43 X1000 (1.4-6.5); NEUT% 82.2 % (42.2-75.2); PLT 181 X1000 (130-400); RBC 3.68 XMIL (4.7-6.1); RDW 13.6 % (11.5-14.5); WBC 10.25 X1000 (4.8-10.8)
[2018-02-10 08:42] LABS: CALCIUM 8.9 mg/dL (8.8-10.2); CREATININE 1.6 mg/dL (0.7-1.2); POTASSIUM 4.2 mmol/L (3.5-5.1)
[2018-02-10] MEDS: NS 1,000 ML IV SCH (10:18)
[2018-02-10] MEDS: LEVAQUIN 250 MG/D5W 250 MG/50 ML IVPB IV SCH (10:23)
--- NOTE | 2018-02-10 11:50 | Diag Imaging Result Doc PS360 ---
EXAM: CT RENAL STONE SEARCH HISTORY: bladder stones TECHNIQUE: Routine without contrast. Coronal reconstructions COMPARISON: 02/02/2018 FINDINGS: There is new bilateral marked hydroureteronephrosis and bilateral perinephric edema. 1 cm left lower pole calyceal stone is unchanged. No ureterolithiasis is identified. Ureteral masses or strictures amount Ramos catheter within the bladder with several bladder stones similar to the prior study. There is diverticulosis. No evidence for diverticulitis appendix appears normal. Cholelithiasis is again dense. No CT evidence for cholecystitis. There is moderate atherosclerotic calcification including the superior mesenteric artery.. There is no free air or bowel distention. There is lumbar spondylosis/postsurgical change. Evaluation of the solid visceral organs is limited by lack of IV contrast. There is nonspecific soft tissue stranding surrounding the urinary bladder may represent inflammatory change or free fluid. There are dependent changes at the lung bases. IMPRESSION: 1.New bilateral hydronephrosis and significant bilateral perinephric and periureteral edema. No urolithiasis. Cannot exclude ureteral strictures or masses. Consider urology consult. 2.Bladder calculi with Ramos catheter in place. 3.Cholelithiasis. 4.Soft tissue stranding surrounding bladder may be related to free pelvic fluid or inflammatory change. Correlate clinically. 5.Left nephrolithiasis unchanged. This exam was performed using automated exposure control, adjustment of mA or kV according to patient size, and/or use of iterative reconstruction technique. Electronically signed by Jane Su 02/10/2018 11:48 AM
[2018-02-10 11:58] LABS: UR CREAT RANDOM 70.6 mg/dL (14-26); UR SODIUM 131 mmoll
[2018-02-10 12:06] LABS: UR PROT RANDOM > 600.0 mg/dL
[2018-02-10] MEDS ORDERED: TYLENOL PO PRN (12:29)
--- NOTE | 2018-02-10 15:31 | HISTORY AND PHYSICAL ---
PRIMARY CARE PHYSICIAN: Elizabeth Jason. CHIEF COMPLAINT: Increased worsening of blood in urine. HISTORY OF PRESENTING ILLNESS: This is a 77-year-old male, who presents to [facility] ER with complaints of worsening blood in his urine. He was apparently in the emergency room on 02/02/2018 with complaints of frequency, urgency, and blood in urine that had been present for 2 weeks at that time. His workup in the emergency room showed a CT renal stone with an impression of a nonobstructing left renal stone. Multiple stones within the urinary bladder. Cholelithiasis and diverticulosis. He was discharged, and he was to call and make an appointment with a urologist for a cystoscopy or other required tests to repair his bladder bleeding and was told that Dr. Kaur was service station manager for urgent calls. He states that someone did call him at some point and he does not know who, when, and told him that he could follow up with a urologist but states that they did not give him a name and actual appointment time or where to go, according to the patient. Now he presents back with worsening blood in his urine. They did not, last night when he arrived, repeat his renal CT. His laboratory data on arrival showed a BUN of 22 with a creatinine of 1.1. This morning, it had gone up to 25 and 1.6. He is having gross hematuria of approximately 25 mL output since placing his Ramos catheter. He has been given morphine for pain IV. He was accepted by the hospitalist at [facility] [place] last night for transfer, but we did not apparently have a bed available so he is still in the emergency room at this time. We have made an effort to have the patient transferred to [place] and are awaiting a return call there as [facility] does not currently have any beds available. So, we are awaiting a return call on which hospital he will be transferred to for further evaluation and treatment. PAST MEDICAL HISTORY: Coronary artery disease, hypertension, hyperlipidemia, PAD, CVA, TIA. PAST SURGICAL HISTORY: CABG. FAMILY HISTORY: Reviewed and noncontributory. SOCIAL HISTORY: He currently lives alone. Denies any tobacco, alcohol or illicit drug use. ALLERGIES: Penicillin. HOME MEDICATIONS: A current list will be obtained, and we will restart as appropriate. LABORATORY DATA: White blood cell count of 10.05. Hemoglobin 13.0, hematocrit 37.6, platelets 191,000. Sodium 142, potassium 3.3, chloride 104, CO2 of 25. BUN of 22 with a creatinine of 1.1, glucose 107. Repeat this morning showed a sodium of 142, potassium was up to 4.2, chloride 104, CO2 of 29. BUN of 25 with a creatinine of 1.6. Urinalysis showed 4+ blood, too numerous to count red blood cells, 1+ white blood cells, 2+ bacteria. Again, the renal CT from 02/02/2018 showed an impression of a nonobstructing left renal stone. Multiple stones within the urinary bladder. Cholelithiasis and diverticulosis. We are repeating the renal CT at this time. REVIEW OF SYSTEMS: He denies any fever, chills, blurred vision, dizziness, chest pain, coughing, shortness of breath. He denies any abdominal pain, constipation, diarrhea. He denies any burning or hurting with urination. Pain with urination. But again, he is having very little output at this time. PHYSICAL EXAMINATION: VITAL SIGNS: On arrival, he had a temperature of 98.1, a pulse of 74, respirations 16, blood pressure 176/90, saturating 98% on room air. GENERAL: This is a 77-year-old male, who is lying in the bed and answers questions appropriately. HEENT: Normocephalic, atraumatic. Normal ENT inspection. Oropharynx and nares are clear. EYES: Pupils are equal, round, reactive to light and accommodation. Extraocular movements are intact. NECK: Normal inspection. Normal range of motion. LUNGS: Clear to auscultation bilaterally with equal lung expansion and chest wall movement. HEART: Regular rate and rhythm. No murmurs, rubs, or gallops. ABDOMEN: Soft, nontender, nondistended. Bowel sounds are present x4 quadrants. GENITOURINARY: He has an indwelling Ramos catheter with a gross amount of hematuria and very little output noted at this time. MUSCULOSKELETAL: He has 3/5 strength x4 extremities. NEUROLOGICAL: The cranial nerves 2-12 appear grossly intact. ASSESSMENT: 1. Gross hematuria. 2. Bladder stones. 3. Acute kidney injury. 4. Hypertension. PLAN: He is being admitted. At this time, it is still unclear if he is going to go to the [facility] [place] or possibly go to [facility] but, any case, he will be admitted. We are going to check a renal CT stone search at this time. We are going to check a urine creatinine, protein, and sodium. He is on Levaquin 250 mg IV q. 24, normal saline at 100 mL an hour, Zofran 4 mg IV q.4 hours p.r.n. He is on a regular diet at this time, and we will hold him n.p.o. at this time and further orders after seen by attending and after decision made on which hospital he will be transferred to. Dictated by XAVI Reddy for Evan Valdez MD cc: XAVI Reddy MD Martha Casie
--- NOTE | 2018-02-10 15:59 | HISTORY AND PHYSICAL ---
SUBJECTIVE: The patient has no focal complaints except pain. The patient is doing okay. He has had persistent hematuria for probably several weeks. Patient has hematuria significantly and abdominal pain. He has gross hematuria. I think he needs a 3-way Ramos and continue his bladder irrigation. OBJECTIVE: His abdominal exam is unremarkable. He does take anti-platelet therapy in the form of aspirin. He is also on Sulindac. He seems to be doing okay, but I do think he needs Urology. We have repeated his renal colic CT and we will continue to follow closely. DISPOSITION: Pending clinical status. He does have some worsening renal function, but he has not had any fluids overnight, so I have initiated that, empiric antibiotics and we will continue to follow closely. I will consult. DISCHARGE CONDITION: Stable and the patient will need cystoscopy and evaluation for impacted stone. We are planning to do that usually. This is a [id number] encounter note with XAVI Reddy. cc: Evan Valdez MD
[2018-02-10 21:15] LABS: URINE SOURCE CATH
[2018-02-10 21:21] LABS: BILIRUBIN URINE SMALL (NEGATIVE); BLOOD URINE LARGE (NEGATIVE); COLOR RED; GLUCOSE URINE NEGATIVE (NEGATIVE); KETONE URINE 40 mg/dL (NEGATIVE); LEUKOCYTES URINE MODERATE (NEGATIVE); NITRITE URINE POSITIVE (NEGATIVE); PROTEIN URINE 100 mg/dL (NEGATIVE); SP GRAVITY URINE 1.024; TURBIDITY URINE TURBID (CLEAR); UROBILINOGEN URINE 6 mg/dL (NORMAL)
[2018-02-10 21:22] LABS: URINE RBC TNTC /HPF (<10)
[2018-02-11] MEDS: MORPHINE IV PRN ×4 (02:58→20:59)
[2018-02-11] MEDS: NS 1,000 ML IV SCH ×3 (02:59→22:58)
[2018-02-11 06:56] LABS: BASO# 0.01 X1000 (0.0-0.2); BASO% 0.2 % (0.0-0.8); EOS# 0.01 X1000 (0.0-0.7); EOS% 0.2 % (0.0-10.0); HEMATOCRIT 32.4 % (42.0-52.0); HEMOGLOBIN 10.8 g/dL (14.0-18.0); LYMPH# 0.56 X1000 (1.2-3.4); LYMPH% 9.3 % (20.5-51.1); MCH 33.4 PG (27-31); MCHC 33.3 g/dL (33-37); MCV 100.3 FL (81-99); MONO# 0.64 X1000 (0.11-0.59); MONO% 10.6 % (1.7-9.3); MPV 10.3 FL (7.4-10.4); NEUT# 4.79 X1000 (1.4-6.5); NEUT% 79.7 % (42.2-75.2); PLT 144 X1000 (130-400); RBC 3.23 XMIL (4.7-6.1); RDW 13.7 % (11.5-14.5); WBC 6.01 X1000 (4.8-10.8)
[2018-02-11 07:30] LABS: CALCIUM 8.3 mg/dL (8.8-10.2); CREATININE 1.7 mg/dL (0.7-1.2); POTASSIUM 3.5 mmol/L (3.5-5.1)
--- NOTE | 2018-02-11 07:33 | PROGRESS NOTE ---
DATE: 02/10/2018 No overnight events. Mr. Edward was transferred from [facility] today for complaints of hematuria and imaging findings of new bilateral hydronephrosis with significant bilateral perinephric and castillo ureteral edema and bladder calculi for urology consultation. Urology had seen the patient and is planning a uroscopic procedure tomorrow. SUBJECTIVE: Patient had Ramos catheter with gross blood in it. He is complaining of lower abdominal pain. Vital evaluation suggests he is afebrile, temperature of 98.4 degrees, blood pressure 140/60 saturating 100% on room air, and pulse of 67 per minute. OBJECTIVE: On physical examination, air entry bilaterally equal. No wheeze, rhonchi or crackles. He has a midline sternotomy scar. S1 and S2 normal. No murmur or gallop. Abdomen is soft and nontender. Lower extremity edema. He has a Ramos catheter with hematuria. LABORATORY: Today morning was suggestive of normocytic anemia and normal platelet count, normal electrolytes, but now acute kidney injury with high urine sodium and creatinine suggestive of likely postobstructive acute kidney injury. ASSESSMENT AND PLAN: 1. Gross hematuria. 2. Nephrolithiasis and urinary bladder stone. 3. Post obstructive acute kidney injury. 4. History of essential hypertension. 5. History of coronary artery disease status post CABG 18 years ago. 6. History of carotid artery disease. 7. History of anxiety or depression. 8. History of benign prostatic hypertrophy. 9. Continue home antihypertensive medication. 10. Continue IV analgesics for p.r.n. pain. 11. Continue intravenous fluid resuscitation 12. Follow up with CBC and BMP tomorrow. 13. Levofloxacin was started at [facility] likely in the setting of perinephric and periureteral edema, and suspicion for pyelonephritis. 14. Follow up for final urine cultures. 15. Plan of care has been discussed with the patient. All of his questions have been answered. cc: Francisco Eli MD
--- NOTE | 2018-02-11 08:22 | EKG Report ---
Test Performed on : 02/11/2018 08:06:28 AM Test Reason : Pre-OP Blood Pressure : / mmHG Vent. Rate : 074 BPM Atrial Rate : 074 BPM P-R Int : 204 ms QRS Dur : 112 ms QT Int : 396 ms P-R-T Axes : 092 006 147 degrees QTc Int : 439 ms Normal sinus rhythm. Septal infarct (cited on or before 09-SEP-2016) Cannot rule out Inferior infarct , age undetermined ST & T wave abnormality, consider anterolateral ischemia Abnormal ECG When compared with ECG of 23-JUL-2017 09:28, (Unconfirmed) premature supraventricular complexes. are no longer present Questionable change in initial forces of Septal leads Confirmed by Pritesh DAVIS, Edward Carias ([id number]) on 02/11/2018 5:56:49 PM
--- NOTE | 2018-02-11 08:33 | CONSULTATION ---
DATE OF CONSULTATION: 02/10/2018 ATTENDING AND REFERRING PHYSICIAN: Hospitalist. HISTORY OF PRESENT ILLNESS: This 77-year-old male with history of renal lithiasis and bladder stones was admitted with hematuria and abdominal pains. He was also noted to have an increased creatinine to 1.6 with his baseline being 1 to 1.1. The patient states he has a several week history of intermittent gross hematuria that became worse and was associated with upper back and abdominal pain. He was seen in the emergency room, where a CT stone search revealed a known 12 mm left lower pole stone that was nonobstructing, new once bilateral hydro to proximal ureteronephrosis with no obstructing stone seen, and long-standing bladder stones that could easily obstruct the urethra. The patient states that he was given pain medicine and feels much better. He has a history of an enlarged prostate with obstructive voiding with previous episodes of urinary retention. The last in February 2017. He was seen in the Urology Clinic in March 2017, and he was scheduled for cystolitholapaxy, but he did not keep the appointment. The patient states he could not afford to have that done. PAST MEDICAL HISTORY: Coronary artery disease, peripheral vascular disease, hypertension, elevated cholesterol, status post CVA, and several TIAs that had no sequelae. CURRENT MEDICATIONS: Aspirin a day, Flomax 0.4 mg 2 a day, Cardizem, Levaquin, morphine as needed, Zofran as needed, and Zoloft. PAST SURGICAL HISTORY: Coronary artery bypass graft. SOCIAL HISTORY: He denies tobacco or alcohol use. He lives by himself in an apartment. ALLERGIES: He is allergic to penicillin. REVIEW OF SYSTEMS: He denies any recent pulmonary or bowel problems. He denies problems with diabetes. He has had no seizures. He states he felt like he is voiding without difficulty, and he continues on Flomax. PHYSICAL EXAMINATION: General: A normally developed, well-nourished, age apparent, white male, who is overweight, oriented in all ways and cooperative. HEENT: Normal for age. Lungs: Clear. Cardiovascular: Regular rate and rhythm with distant S1, S2. Abdomen: Obese, soft, nontender. No hepatosplenomegaly or masses. Normal bowel sounds. : Uncircumcised male with Ramos catheter in place. The foreskin has been reduced. There is some pericatheter blood. Both testes are down and palpably normal. Rectal: Deferred until surgery. Extremities: No clubbing, cyanosis, or edema. Neuro: No focal deficits. LABORATORY EVALUATION: He has a white count of 10.25, a hemoglobin 12.4, hematocrit 36.5, platelets are 181,000. Serum electrolytes are normal. BUN 25, creatinine 1.6. CT stone search is as noted in the HPI. IMPRESSION: 1. Enlarged prostate with obstructive voiding. 2. Bladder stones. 3. Nonobstructing left renal stones. 4. Bilateral hydroureteronephrosis. 5. Renal insufficiency. PLAN: Cystoscopic exam, cystolitholapaxy, bilateral retrograde ureteral pyelograms if able, and placement of left double-J stents if able. Biopsies as needed. The planned procedure, benefits versus risks, possible complications, including, but not limited to, bleeding, infection, not being able to remove the stones, not being able to do the retrograde pyelograms because of the swelling in the bladder, not being able place double-J stents, need for further surgery was discussed. He seems to understand and desires to proceed. cc: Samy Kaur MD
[2018-02-11] MEDS: FLOMAX PO SCH (09:13)
[2018-02-11] MEDS: ZOLOFT PO SCH (09:13)
[2018-02-11] MEDS: LEVAQUIN 250 MG/D5W 250 MG/50 ML IVPB IV SCH (12:20)
[2018-02-11] MEDS: CARDIZEM CD PO SCH (12:26)
[2018-02-11] MEDS ORDERED: FENTANYL ONE (13:51)
[2018-02-11] MEDS ORDERED: XYLOCAINE-MPF 2% ONE (13:51)
[2018-02-11] MEDS ORDERED: DIPRIVAN 1% ONE (13:51)
[2018-02-11] MEDS ORDERED: NEOSPORIN G.U. IRRIGANT ONE (15:04)
[2018-02-11] MEDS ORDERED: AK-FLUOR ONE (16:34)
[2018-02-11] MEDS ORDERED: SALINE LOCK IV FLUID XX ONE (19:27)
--- NOTE | 2018-02-11 20:18 | PROGRESS NOTE ---
DATE: 02/11/2018 PRIMARY CARE: Evan Valdez MD. SUBJECTIVE: Mr. Edward was down in surgery with Dr. Samy Kaur and apparently they were able to open up the right side I believe and will need to try some on the left side. He is just back from surgery. Has a drain going to the Ramos catheter. OBJECTIVE: Vital Signs: Temperature 97.6, pulse 80, respirations 22, blood pressure 164/64. Lungs: Are clear in all lung moore, anterolateral. Cardiovascular: Regular rhythm and rate without murmur or S3. Abdomen: Soft. Skin: Warm and dry. : Urine output yesterday was a little over a liter, over the course of the day it has been 3400 mL. ASSESSMENT: 1. Gross hematuria. 2. Nephrolithiasis. 3. Urinary bladder stone. 4. Postobstructive acute kidney injury. 5. Dr. Kaur evaluation, enlarged prostate with obstructive voiding. 6. Bladder stones. 7. Nonobstructing left renal stones. 8. Bilateral hydroureter nephrosis with some renal insufficiency. Renal CT 02/10 reviewed. LAB: From today white count 6010, hematocrit 32, platelet count 144,000. Sodium 142, potassium 3.5, chloride 105, BUN 33, creatinine 1.7. Note creatinine was 1.1 on 02/09. So, I think the plan is to see if we can open up the left side tomorrow. REVIEW OF ORDERS: The patient is on diltiazem CD 120 mg daily, levofloxacin 250 mg IV q.24 hours. Normal saline at 100 mL an hour. Zoloft 25 mg a day and Flomax 0.8 mg daily. I do not see any change. cc: Edward Jonas MD
[2018-02-12] MEDS: PERIDEX MT SCH ×3 (00:12→22:12)
[2018-02-12] MEDS: MORPHINE IV PRN ×4 (01:21→22:43)
--- NOTE | 2018-02-12 02:57 | OPERATIVE NOTE ---
PROCEDURE DATE: 02/11/2018 SURGEON: Samy Kaur MD. PREOPERATIVE DIAGNOSES: 1. Bilateral ureteral obstruction. 2. Renal insufficiency. 3. Hematuria. 4. Bladder stones. POSTOPERATIVE DIAGNOSES: 1. Bilateral ureteral obstruction. 2. Renal insufficiency. 3. Hematuria. 4. Bladder stones. PROCEDURE PERFORMED: 1. Cystoscopic exam. 2. Cystolitholapaxy. 3. Bilateral retrograde ureteral pyelograms. 4. Place right double-J stent. 5. Attempt placing left double-J stent. 6. Bladder biopsy with fulguration. ANESTHESIA: General via laryngeal mask. FINDINGS: Cystoscopic exam: Urethra -- greater than 23 Mozambican without stricture. Prostate -- coapting lateral lobes, elevated bladder neck, length approximately 5 cm. Bladder -- there were 4 large stones in the bladder, the largest about 3.5 cm. There was marked edema of the bladder mucosa. The ureteral orifices were in the normal anatomic position but covered with an exudate. No bleeding areas of the bladder. Grade 2 trabeculations, small cellules, and diverticula throughout. No papillary lesions. Right retrograde ureteral pyelogram revealed hydroureteronephrosis with obstruction at the distal ureter on the left. Dye was able to get past the obstructed area, and there was significant hydroureteronephrosis. There was marked J-hooking to both ureters. No filling defects were seen in the ureter. The obstruction appears external. Rectal exam revealed hard stool in the rectal vault. The prostate was 60 to 70 g, smooth, and symmetric. INDICATION FOR PROCEDURE: This 77-year-old male has a history of enlarged prostate with obstructive voiding. He also was noted to have increasing renal insufficiency, and also noted was hematuria. A CT stone search revealed a 10 mm left lower pole stone that was nonobstructing, bilateral hydroureteronephrosis, and 4 large bladder stones. DESCRIPTION OF PROCEDURE: After informed consent was obtained from the patient and him receiving his routine IV antibiotics, he was taken to the main OR cystoscopy room and placed in the supine position. General anesthesia via laryngeal mask was achieved. He was then placed in a low lithotomy position and prepped and draped in the usual sterile fashion for cystoscopic exam. A 21- Mozambican sheath cystoscope was passed through the patient's urethra, prostate, and into the bladder with findings as noted above. A 550 micron laser fiber was placed. The laser was set at 8 Hertz and 8 shaffer, and the stones were fragmented. A total of 9000 joules was used. The fragments were removed from the bladder through bladder irrigation. After the stones were completely removed, an 8-Mozambican cone-tip catheter was passed through the cystoscope and into the bladder, and multiple attempts were made to find the UO which was finally identified on the right side. Contrast was injected. Again, there was a distal obstruction, but dye went through this obstruction without difficulty and up into the kidney. The 8-Mozambican cone-tip catheter was removed. A 0.035 ZIPwire was passed through the cystoscope, engaged the right ureteral orifice, and was able to be manipulated up to the kidney. A 6-Mozambican, 26 cm double-J stent was passed over this wire and up into the kidney. The stent removal string was removed. On the left side, again the UO was eventually found after multiple attempts. Contrast was injected, and there was severe obstruction in the distal ureter, but contrast did go through the site but was never visualized going through the site, but contrast in the proximal ureter was seen and was able to fill the ureter and collecting system which, again, was significantly dilated. A 0.035 ZIPwire was attempted to be passed through the obstructed area without difficulty. A 5-Mozambican open-ended ureteral catheter was also used to try to stabilize the wire but would not advance. The wire and open-ended catheter were removed. The cold cup biopsy forceps were placed, and cold cup biopsies were taken from the left lower posterolateral wall. Hemostasis was achieved with the Bugbee electrode. At completion of the procedure, the left UO was intact. The right UO had the double-J stent in place. There were no bleeding areas seen. However, the bladder mucosa was very friable. The bladder was left distended and the cystoscope removed. A 22-Mozambican, 3-way Ramos catheter was passed through the patient's urethra, prostate, and into the bladder without difficulty, 20 mL sterile water was placed in the Ramos's balloon, and the Ramos was placed to gravity drain. The efflux was davy in color. Continuous bladder irrigation was started, and the efflux completely cleared. A rectal exam was performed. He tolerated the procedure well. Estimated blood loss 5 mL. He was taken to the recovery room in good condition. cc: Samy Kaur MD
[2018-02-12 06:54] LABS: EOS# 0.01 X1000 (0.0-0.7); EOS% 0.1 % (0.0-10.0); HEMATOCRIT 31.8 % (42.0-52.0); HEMOGLOBIN 10.6 g/dL (14.0-18.0); IMM GRAN# 0.03 X1000 (0.0-0.04); IMM GRAN% 0.4 % (0.0-0.5); LYMPH# 0.54 X1000 (1.2-3.4); LYMPH% 6.6 % (20.5-51.1); MCH 33.8 PG (27-31); MCHC 33.3 g/dL (33-37); MCV 101.3 FL (81-99); MONO# 0.82 X1000 (0.11-0.59); NEUT# 6.79 X1000 (1.4-6.5); NEUT% 82.9 % (42.2-75.2); PLT 127 X1000 (130-400); RBC 3.14 XMIL (4.7-6.1); RDW 13.7 % (11.5-14.5); WBC 8.19 X1000 (4.8-10.8)
[2018-02-12] MEDS: NS 1,000 ML IV SCH ×3 (07:18→20:41)
[2018-02-12 07:26] LABS: CALCIUM 7.7 mg/dL (8.8-10.2); CREATININE 1.5 mg/dL (0.7-1.2); POTASSIUM 3.4 mmol/L (3.5-5.1)
[2018-02-12] MEDS ORDERED: DIPRIVAN 1% 0 MG/0 ML BOTTLE ONE (08:03)
[2018-02-12] MEDS ORDERED: XYLOCAINE-MPF 1%/EPI 1:200,000 ONE (08:25)
[2018-02-12] MEDS ORDERED: NS 500 ML ONE (08:27)
[2018-02-12] MEDS ORDERED: KLOR-CON PO ONE ×2 (08:59→21:00)
[2018-02-12] MEDS ORDERED: DIPRIVAN 1% 1,000 MG/100 ML BOTTLE ONE (10:11)
[2018-02-12] MEDS: CARDIZEM CD PO SCH (10:46)
[2018-02-12] MEDS: ZOLOFT PO SCH (10:47)
[2018-02-12] MEDS: FLOMAX PO SCH (10:47)
--- NOTE | 2018-02-12 12:00 | Diag Imaging Result Doc PS360 ---
EXAM: NEPHROSTOGRAM NEW ACCESS INDICATION: Left hydronephrosis TECHNIQUE: COMPARISON: None. FINDINGS: Risks, benefits, and alternatives were discussed with the patient and informed consent was obtained. General anesthesia was provided by the anesthesia department. The patient was placed in prone position and was prepped and draped in sterile fashion. Using ultrasound guidance, a lower pole calyx of the left kidney was accessed with an introducer needle and progressive tissue dilation was performed over a wire. Then, over wire, a 10-Macedonian pigtail catheter was placed. Injection of iodinated contrast confirmed optimal placement in the left renal collecting system. The catheter was sutured with silk suture and a catheter dressing. There were no known complications. IMPRESSION: Technically successful fluoroscopy-guided left nephrostomy. Electronically signed by Johan Bowen 02/12/2018 11:58 AM
--- NOTE | 2018-02-12 12:21 | Diag Imaging Result Doc PS360 ---
EXAM: RETROGRADES 2 OR 3 FILMS HISTORY: BLADDER STONES TECHNIQUE: 165 films submitted COMPARISON: None. FINDINGS: Early films show a right-sided retrograde exam. There is no obstruction to retrograde flow. Small twist in the mid ureter. A wire was placed in the right ureter and a catheter was placed over the wire. The wire was then removed. Left retrograde exam performed. There is a dilated bulbous area distally. Multiple attempts were made to place a wire within the ureter. This was unsuccessful. IMPRESSION: Right ureteral stent placed. Unable to place a stent on the left. Electronically signed by John Hurst 02/12/2018 12:18 PM
[2018-02-12] MEDS: LEVAQUIN 250 MG/D5W 250 MG/50 ML IVPB IV SCH (14:09)
[2018-02-12] MEDS: ZOFRAN IV PRN (22:43)
[2018-02-13] MEDS: ZOFRAN IV PRN (05:47)
[2018-02-13] MEDS: MORPHINE IV PRN (05:47)
[2018-02-13] MEDS: CARDIZEM CD PO SCH (08:31)
[2018-02-13] MEDS: ZOLOFT PO SCH (08:32)
[2018-02-13] MEDS: FLOMAX PO SCH (08:33)
[2018-02-13] MEDS: PERIDEX MT SCH ×2 (08:34→21:45)
[2018-02-13] MEDS ORDERED: SEPTRA DS PO ONE (09:55)
[2018-02-13 10:06] LABS: EOS# 0.01 X1000 (0.0-0.7); EOS% 0.1 % (0.0-10.0); HEMATOCRIT 33.5 % (42.0-52.0); HEMOGLOBIN 11.2 g/dL (14.0-18.0); LYMPH# 0.48 X1000 (1.2-3.4); LYMPH% 6.2 % (20.5-51.1); MCH 33.7 PG (27-31); MCHC 33.4 g/dL (33-37); MCV 100.9 FL (81-99); MONO# 0.53 X1000 (0.11-0.59); MONO% 6.9 % (1.7-9.3); MPV 10.2 FL (7.4-10.4); NEUT# 6.68 X1000 (1.4-6.5); NEUT% 86.8 % (42.2-75.2); PLT 137 X1000 (130-400); RBC 3.32 XMIL (4.7-6.1); RDW 13.7 % (11.5-14.5)
[2018-02-13 10:19] LABS: AGAP 13; BUN 31 mg/dL (8-22); CALCIUM 8.2 mg/dL (8.8-10.2); CHLORIDE 103 mmol/L (98-107); COSMO 286; CREATININE 1.1 mg/dL (0.7-1.2); ESTIMATED GFR > 60; GLUCOSE 103 mg/dL (70-104); POTASSIUM 3.5 mmol/L (3.5-5.1); SODIUM 140 mmol/L (136-145); TCO2 24 mmol/L (25-35)
[2018-02-13] MEDS: LEVAQUIN 250 MG/D5W 250 MG/50 ML IVPB IV SCH (12:02)
[2018-02-13 12:05] LABS: BANDS 4 % (0-1); LYMPHS 2 % (21-51); MONO 6 % (1-9); SEGS 88 % (42-75)
[2018-02-13] MEDS: DOXYCYCLINE 100 MG in NS 250 ML IV SCH (18:28)
[2018-02-13] MEDS: SEPTRA DS PO SCH (21:45)
--- NOTE | 2018-02-13 23:35 | PROGRESS NOTE ---
DATE: 02/13/2018 SUBJECTIVE: He is sitting up in bed, he seems better. He is still getting continuous bladder irrigation. He still has a nephrostomy on the left side. A little bit of a temperature now 100.8, heart rate 64, respiratory 16, blood pressure 161/60.Cardiovascular: Regular rate and rhythm. Pulmonary: Bilateral breath sounds clear to auscultation. GI: Was soft, nontender, nondistended. Bowel sounds are positive. LABORATORY DATA: His creatinine has normalized since his obstruction has been relieved. His creatinine is down to 1.1 from 1.5, potassium is intact, white count is 7.7, hemoglobin and hematocrit 11, 33. PROBLEM LIST: 1. Bladder stones with bilateral ureteral obstruction, he has a stent and now nephrostomy. Continue bladder irrigation till hematuria resolves. 2. Acute kidney injury related to postobstructive uropathy that has also resolved. Continue gentle hydration and follow. 3. Bladder stones likely related to chronic nephrolithiasis, those have been broken apart. 4. Urinary tract infection with resistant microbe. It is Staph epidermidis, it is sensitive to vancomycin which would be my preference to use but he has got some renal insufficiency. Dr. Kaur put him on Bactrim which is reasonable. I am going to put him on some IV doxycycline because he has having a little bit of a fever. 5. Hypertension. Will continue to monitor. 6. Hypertension. Continue his regular medications. 7. Disposition. Need to work on physical therapy and strength training once we have him disconnected from all his various items. cc: Evan Valdez MD
--- NOTE | 2018-02-13 23:38 | PROGRESS NOTE ---
DATE: 02/12/2018 SUBJECTIVE: The patient has no major complaints. OBJECTIVE: Blood pressure was 173/60, heart rate of 63, respiratory rate 18, temperature 97.9 degrees, 100% on 2 L. Cardiovascular: Regular rate and rhythm. Pulmonary: Bilateral breath sounds. Clear to auscultation. Gastrointestinal: Soft, nontender, nondistended. Bowel sounds are positive. Extremities: No clubbing or cyanosis. Lymphatics: No peripheral edema. Neurological: Nonfocal. LABORATORY DATA: White count 8, hemoglobin 10, hematocrit 31, platelets 127,000. Potassium 3.4, creatinine 1.5. PROBLEM LIST: 1. Acute renal failure related to postobstructive uropathy. He seems to be doing okay. We will continue hydration. He has bilateral ureteral obstruction related to bladder stones and inflammation. No evidence of malignancy at this point. He has a ureterostomy, a JJ stent on the right but no access on the left, so plan will be for nephrostomy the following day. 2. Bladder stones. Those have been since removed. 3. Urinary tract infection. We will continue empiric antibiotics. 4. Hypertension. We will continue to follow closely. cc: Evan Valdez MD
[2018-02-14] MEDS: NS 1,000 ML IV SCH ×2 (03:54→13:41)
[2018-02-14] MEDS: DOXYCYCLINE 100 MG in NS 250 ML IV SCH ×3 (04:47→18:20)
[2018-02-14 06:31] LABS: BASO# 0.01 X1000 (0.0-0.2); BASO% 0.2 % (0.0-0.8); EOS# 0.18 X1000 (0.0-0.7); EOS% 3.3 % (0.0-10.0); HEMATOCRIT 29.1 % (42.0-52.0); HEMOGLOBIN 9.8 g/dL (14.0-18.0); LYMPH# 0.57 X1000 (1.2-3.4); LYMPH% 10.5 % (20.5-51.1); MCH 33.4 PG (27-31); MCHC 33.7 g/dL (33-37); MCV 99.3 FL (81-99); MONO# 0.54 X1000 (0.11-0.59); MPV 9.8 FL (7.4-10.4); NEUT# 4.11 X1000 (1.4-6.5); PLT 133 X1000 (130-400); RBC 2.93 XMIL (4.7-6.1); RDW 13.4 % (11.5-14.5); WBC 5.41 X1000 (4.8-10.8)
[2018-02-14 06:50] LABS: AGAP 9; BUN 25 mg/dL (8-22); CALCIUM 7.7 mg/dL (8.8-10.2); CHLORIDE 105 mmol/L (98-107); COSMO 276; CREATININE 0.8 mg/dL (0.7-1.2); ESTIMATED GFR > 60; GLUCOSE 99 mg/dL (70-104); POTASSIUM 3.1 mmol/L (3.5-5.1); SODIUM 136 mmol/L (136-145); TCO2 22 mmol/L (25-35)
[2018-02-14] MEDS: FLOMAX PO SCH (08:23)
[2018-02-14] MEDS: CARDIZEM CD PO SCH (08:23)
[2018-02-14] MEDS: SEPTRA DS PO SCH ×2 (08:23→21:54)
[2018-02-14] MEDS: PERIDEX MT SCH ×2 (08:23→21:54)
[2018-02-14] MEDS: ZOLOFT PO SCH (08:23)
[2018-02-14] MEDS: POTASSIUM CHLORIDE 20 MEQ/SWI 20 MEQ/100 ML IVPB IV SCH ×2 (13:42→16:23)
[2018-02-14] MEDS ORDERED: KLOR-CON PO ONE (17:17)
--- NOTE | 2018-02-15 02:44 | PROGRESS NOTE ---
DATE: 02/14/2018 SUBJECTIVE: The patient has no focal complaints except some abdominal discomfort. OBJECTIVE: Vital Signs: Blood pressure 156/63, heart rate 62, respiratory rate 16, temperature 98 degrees, 96% on 2 L. Cardiovascular: Regular rate and rhythm. Pulmonary: Bilateral breath sounds clear to auscultation. GI: Soft, nontender, nondistended. Bowel sounds were positive. Extremity Examination: No clubbing or cyanosis. Lymphatic Examination: No peripheral edema. Neurological Examination: Nonfocal. Laboratory Data: White count was 5, hemoglobin and hematocrit 9 and 29, platelets of 133,000. Potassium 3.1. PROBLEM LIST: 1. Cystitis. We will continue empiric antibiotics. Culture positive for Staphylococcus epidermidis. He is currently on Bactrim and doxycycline, can be discharged on either. 2. Bladder stones, cystolithiasis, status post stent. We will continue to follow. Repeat evaluation tomorrow. His hematuria has improved. His continuous bladder irrigation has been turned off. Hopefully, we can get that disconnected tomorrow and follow. 3. Acute kidney injury. We will continue to monitor. That has resolved after treatment. 4. Hypertension. Continue regular medications and follow. 5. History of coronary artery disease. We will continue to monitor closely. Hold anticoagulation for now. DISPOSITION: Pending his clinical status. We will continue to closely monitor. cc: Evan Vadlez MD
[2018-02-15] MEDS: NS 1,000 ML IV SCH (04:00)
[2018-02-15] MEDS: DOXYCYCLINE 100 MG in NS 250 ML IV SCH ×2 (05:53→17:31)
[2018-02-15 06:01] LABS: BASO# 0.01 X1000 (0.0-0.2); BASO% 0.2 % (0.0-0.8); EOS# 0.19 X1000 (0.0-0.7); EOS% 3.8 % (0.0-10.0); HEMATOCRIT 29.9 % (42.0-52.0); HEMOGLOBIN 10.2 g/dL (14.0-18.0); LYMPH# 0.54 X1000 (1.2-3.4); LYMPH% 10.8 % (20.5-51.1); MCH 33.3 PG (27-31); MCHC 34.1 g/dL (33-37); MCV 97.7 FL (81-99); MONO# 0.52 X1000 (0.11-0.59); MONO% 10.4 % (1.7-9.3); MPV 10.2 FL (7.4-10.4); NEUT# 3.75 X1000 (1.4-6.5); NEUT% 74.8 % (42.2-75.2); PLT 152 X1000 (130-400); RBC 3.06 XMIL (4.7-6.1); RDW 13.1 % (11.5-14.5); WBC 5.01 X1000 (4.8-10.8)
[2018-02-15 06:49] LABS: AGAP 8; BUN 19 mg/dL (8-22); CALCIUM 7.8 mg/dL (8.8-10.2); CHLORIDE 107 mmol/L (98-107); COSMO 276; CREATININE 0.8 mg/dL (0.7-1.2); ESTIMATED GFR > 60; GLUCOSE 99 mg/dL (70-104); MAGNESIUM 1.8 mg/dL (1.5-2.7); POTASSIUM 3.5 mmol/L (3.5-5.1); SODIUM 137 mmol/L (136-145); TCO2 22 mmol/L (25-35)
[2018-02-15] MEDS ORDERED: MEGACE LIQUID PO SCH (09:00)
[2018-02-15] MEDS: PERIDEX MT SCH ×2 (09:17→19:59)
[2018-02-15] MEDS: SEPTRA DS PO SCH ×3 (09:18→20:01)
[2018-02-15] MEDS: FLOMAX PO SCH (09:18)
[2018-02-15] MEDS: MIRALAX PO SCH (09:18)
[2018-02-15] MEDS: ZOLOFT PO SCH (09:18)
[2018-02-15] MEDS: CARDIZEM CD PO SCH (09:18)
[2018-02-15] MEDS: LACTULOSE PO SCH ×2 (09:24→19:59)
--- NOTE | 2018-02-15 17:31 | PROGRESS NOTE ---
DATE: 02/15/2018 SUBJECTIVE: The patient is resting comfortably in bed. The patient reports that he has been severely depressed and has been having suicidal thoughts. OBJECTIVE: Vital Signs: Temperature 98.3 degrees, blood pressure 165/72, heart rate 65, respirations 18, O2 saturation 95% on room air. General: This is an elderly male lying in bed in no acute distress. Heart: S1, S2 normal. Regular rate and rhythm. Lungs: Clear to auscultation bilaterally. No wheezing, no rales, no rhonchi. Abdomen: Positive bowel sounds. Soft, nontender, nondistended. Extremities: No edema, no cyanosis. Neuro: The patient is alert and oriented x3. The patient appears to have a depressed mood. LABS: Hemoglobin 10, hematocrit 29, platelets 152,000, sodium 137, potassium 3.5, BUN 19, creatinine 0.8, glucose 99, magnesium 1.8. ASSESSMENT AND PLAN: 1. Bilateral ureteral obstruction with hematuria and bladder stones status post cystoscopy with right double-J stent placement and bladder biopsy. Management as per the urologist. 2. Cystitis. Continue with antibiotic therapy. 3. Hypertension. Continue on Cardizem. 4. Benign prostatic hypertrophy. Continue on Flomax. 5. Major depression with suicidal ideation. Will place a sitter in the patient' s room. Will also consult with [facility] for further inpatient evaluation. 6. Will consult physical therapy. cc: Erica Duncan MD MTDD
[2018-02-16] MEDS: DOXYCYCLINE 100 MG in NS 250 ML IV SCH ×2 (05:02→17:18)
[2018-02-16 07:09] LABS: HEMOGLOBIN 10.1 g/dL (14.0-18.0); MCH 33.3 PG (27-31); MCHC 33.7 g/dL (33-37); RBC 3.03 XMIL (4.7-6.1); RDW 13.3 % (11.5-14.5); WBC 4.96 X1000 (4.8-10.8)
[2018-02-16 07:37] LABS: AGAP 10; BUN 14 mg/dL (8-22); CALCIUM 7.8 mg/dL (8.8-10.2); CHLORIDE 108 mmol/L (98-107); COSMO 278; CREATININE 0.8 mg/dL (0.7-1.2); ESTIMATED GFR > 60; GLUCOSE 92 mg/dL (70-104); POTASSIUM 3.5 mmol/L (3.5-5.1); SODIUM 139 mmol/L (136-145); TCO2 21 mmol/L (25-35)
[2018-02-16] MEDS: ZOLOFT PO SCH (09:45)
[2018-02-16] MEDS: SEPTRA DS PO SCH ×2 (09:45→23:38)
[2018-02-16] MEDS: LACTULOSE PO SCH ×2 (09:46→23:38)
[2018-02-16] MEDS: MIRALAX PO SCH (09:46)
[2018-02-16] MEDS: CARDIZEM CD PO SCH (09:46)
[2018-02-16] MEDS: PERIDEX MT SCH ×2 (09:46→23:38)
[2018-02-16] MEDS: FLOMAX PO SCH (09:52)
--- NOTE | 2018-02-16 14:50 | PROGRESS NOTE ---
DATE: 02/16/2018 SUBJECTIVE: The patient is resting comfortably in bed. He states that he is in better spirits today. He denies any suicidal ideation. OBJECTIVE: Vital Signs: Temperature 98.2, blood pressure 151/77, heart rate 71 , respirations 20, O2 saturation 99% on room air. General: This is a chronically ill-appearing elderly male lying in bed in no acute distress. Heart: S1, S2 normal. Regular rate and rhythm. Lungs clear to auscultation bilaterally. Abdomen positive. Bowel sounds soft, nontender, nondistended. Extremities: No edema. No cyanosis. Neurologic: The patient is alert and oriented x3. LABORATORY DATA: Reviewed. ASSESSMENT AND PLAN: 1. Bilateral ureteral obstruction with hematuria and bladder stone status post cystoscopy with right double-J stent placement and bladder biopsy. Management as per the urologist. 2. Cystitis. The urine culture grew out Staphylococcus epidermidis. We will continue on Bactrim. 3. Depression with suicidal ideation. The patient does not appear to have suicidal ideation today. He states that he gets depressed from time to time. We will plan to have [facility] assess the patient prior to discharge. 4. Benign prostatic hypertrophy. Continue on Flomax. 5. Constipation. Continue on scheduled laxative therapy. 6. Continue with physical therapy. cc: Erica Duncan MD MTDD
[2018-02-17] MEDS: LACTULOSE PO SCH ×3 (05:33→21:01)
[2018-02-17] MEDS: DOXYCYCLINE 100 MG in NS 250 ML IV SCH ×2 (05:36→19:19)
[2018-02-17 06:43] LABS: AGAP 13; BUN 12 mg/dL (8-22); CALCIUM 8.2 mg/dL (8.8-10.2); CHLORIDE 107 mmol/L (98-107); COSMO 281; CREATININE 0.8 mg/dL (0.7-1.2); ESTIMATED GFR > 60; GLUCOSE 94 mg/dL (70-104); POTASSIUM 3.5 mmol/L (3.5-5.1); SODIUM 141 mmol/L (136-145); TCO2 21 mmol/L (25-35)
[2018-02-17] MEDS: CARDIZEM CD PO SCH (09:23)
[2018-02-17] MEDS: SEPTRA DS PO SCH ×2 (09:24→21:01)
[2018-02-17] MEDS: FLOMAX PO SCH (09:25)
[2018-02-17] MEDS: ZOLOFT PO SCH (09:27)
[2018-02-17] MEDS: MIRALAX PO SCH (09:32)
[2018-02-17] MEDS: PERIDEX MT SCH ×3 (09:32→21:01)
[2018-02-17] MEDS ORDERED: CALMOSEPTINE OINTMENT TOP PRN (09:48)
[2018-02-17] MEDS ORDERED: CITRATE OF MAGNESIA PO ONE (18:52)
--- NOTE | 2018-02-17 20:01 | Diag Imaging Result Doc PS360 ---
EXAM: ABDOMEN FLAT/UPRIGHT INDICATION: constipation TECHNIQUE: 2 views COMPARISON: 03/21/2017 FINDINGS: There is a fair amount of stool in the colon and rectum suggesting possible mild to moderate constipation. There is no obstructive bowel pattern. There is no evidence of large volume free abdominal gas. Since the prior abdominal radiograph, there has been placement of a right ureteral stent and a left nephrostomy tube. IMPRESSION: Suggestion of mild to moderate constipation. Electronically signed by Johan Bowen 02/17/2018 7:59 PM
--- NOTE | 2018-02-17 20:19 | PROGRESS NOTE ---
DATE: 02/17/2018 SUBJECTIVE: The patient is resting comfortably in bed. No acute events noted overnight. He states that he is in better spirits today. OBJECTIVE: Vital Signs: Temperature 98 degrees, blood pressure 140/72, heart rate 65, respirations 18, O2 saturation 99% on room air. General: This is a chronically ill-appearing elderly male lying in bed in no acute distress. Heart: S1, S2 normal. Regular rate and rhythm. Lungs: Clear to auscultation bilaterally. Abdomen: Positive bowel sounds. Soft, nontender, nondistended. Extremities: No edema, no cyanosis. Neurologic: The patient is alert and oriented x3. LABORATORY DATA: Reviewed. ASSESSMENT AND PLAN: 1. Bilateral ureteral obstruction with hematuria and bladder stone, status post cystoscopy with right double-J stent placement and bladder biopsy. Further management as per the urologist. 2. Cystitis. The urine culture grew out Staphylococcus epidermidis. Continue on Bactrim. 3. Constipation. Continue with scheduled laxative therapy. 4. Situational depression. Continue on Zoloft. 5. Disposition. The patient was assessed by [facility] today and they recommended outpatient follow-up for the patient. The patient is to continue his Zoloft as prescribed. 6. Continue with physical therapy. cc: Erica Duncan MD
[2018-02-18] MEDS: DOXYCYCLINE 100 MG in NS 250 ML IV SCH ×2 (06:29→18:06)
[2018-02-18 06:59] LABS: HEMATOCRIT 29.6 % (42.0-52.0); MCH 33.3 PG (27-31); MCHC 33.8 g/dL (33-37); MCV 98.7 FL (81-99); MPV 10.3 FL (7.4-10.4); RDW 13.4 % (11.5-14.5); WBC 6.86 X1000 (4.8-10.8)
[2018-02-18 07:27] LABS: AGAP 8; BUN 9 mg/dL (8-22); CALCIUM 8.2 mg/dL (8.8-10.2); CHLORIDE 107 mmol/L (98-107); COSMO 270; CREATININE 0.9 mg/dL (0.7-1.2); ESTIMATED GFR > 60; GLUCOSE 91 mg/dL (70-104); POTASSIUM 3.5 mmol/L (3.5-5.1); SODIUM 136 mmol/L (136-145); TCO2 21 mmol/L (25-35)
[2018-02-18] MEDS ORDERED: XYLOCAINE-MPF 2% ONE (08:45)
[2018-02-18] MEDS ORDERED: DIPRIVAN 1% ONE (08:45)
[2018-02-18] MEDS ORDERED: ZOFRAN ONE (08:45)
[2018-02-18] MEDS ORDERED: EPHEDRINE ONE (08:54)
[2018-02-18] MEDS ORDERED: FENTANYL ONE (09:22)
[2018-02-18] MEDS ORDERED: NEOSPORIN G.U. IRRIGANT ONE (09:37)
[2018-02-18] MEDS: ZOLOFT PO SCH (09:42)
[2018-02-18] MEDS: SEPTRA DS PO SCH ×2 (09:42→22:01)
[2018-02-18] MEDS: CARDIZEM CD PO SCH (09:42)
[2018-02-18] MEDS: FLOMAX PO SCH (09:42)
[2018-02-18] MEDS: MIRALAX PO SCH (09:43)
[2018-02-18] MEDS: LACTULOSE PO SCH ×2 (09:43→22:03)
[2018-02-18] MEDS: PERIDEX MT SCH ×2 (09:43→22:03)
--- NOTE | 2018-02-18 10:16 | Diag Imaging Result Doc PS360 ---
EXAM: RETROGRADES 2 OR 3 FILMS 02/18/2018 HISTORY: LEFT RETROGRADE, ATTEMPTED LEFT STENT PLACEMENT TECHNIQUE: One image COMMENT: Contrast injected appears to demonstrate venous structures over the upper pelvis. No contrast is demonstrated in the ureter. IMPRESSION: Contrast extravasation as described. Electronically signed by Byron Eubanks 02/18/2018 10:14 AM
[2018-02-18] MEDS ORDERED: DULCOLAX PR ONE (16:49)
--- NOTE | 2018-02-18 18:15 | PROGRESS NOTE ---
DATE: 02/18/2018 SUBJECTIVE: The patient is resting comfortably in bed. No acute events noted overnight. OBJECTIVE: Vital Signs: Temperature 98.6 degrees, blood pressure 139/56, heart rate 74, respirations 18, O2 saturation 97% on 3 L nasal cannula. General: This is a chronically ill- appearing elderly male lying in bed in no acute distress. Heart: S1, S2 normal. Regular rate and rhythm. Lungs: Equal air entry bilaterally. No wheezing. No rales. No rhonchi. Abdomen: Positive bowel sounds. Soft, nontender, nondistended. Extremities: No edema. No cyanosis. Neurologic: The patient is alert and oriented x3. LABORATORY DATA: Reviewed. ASSESSMENT AND PLAN: 1. Bilateral ureteral obstruction with hematuria and bladder stone status post cystoscopy with right double-J stent placement and bladder biopsy. Continue to monitor closely. Further management as per the urologist. 2. Cystitis secondary to Staphylococcus epidermidis. The patient remains on Bactrim. 3. Constipation. The patient has been refusing some of the laxatives. We will discuss this with him. 4. Depression. Continue on Zoloft. The patient will follow up as outpatient for further psychiatric care. 5. Disposition. The patient is not interested in going to inpatient rehab. We will consult social work administrator for home health to assist the patient. 6. Continue with physical therapy. cc: Erica Duncan MD MTDD
--- NOTE | 2018-02-18 18:46 | OPERATIVE NOTE ---
PROCEDURE DATE: 02/18/2018 SURGEON: Samy Kaur MD PREOPERATIVE DIAGNOSIS: Bilateral ureteral obstruction with an indwelling double-J stent on the right. POSTOPERATIVE DIAGNOSIS: Bilateral ureteral obstruction with an indwelling double-J stent on the right. PROCEDURES PERFORMED: 1. Cystoscopic exam. 2. Attempt placement of left double-J stent (greater than 60 minutes). 3. Left retrograde ureterogram. ANESTHESIA: General via laryngeal mask. FINDINGS: Cystoscopic exam: Urethra-greater than 21 Tongan without stricture. Prostate-coapting lateral lobes, elevated bladder neck, length approximately 4 cm. Bladder-grade 2 to 3 trabeculation, bullous edema consistent with indwelling Ramos catheter, an apparent extrinsic mass on the left side pushing in, double-J stent in place on the right. No papillary lesions noted. Rectal exam reveals a prostate of 50 grams, firm, but smooth and symmetric. INDICATIONS FOR PROCEDURE: This 77-year-old male has a history of renal insufficiency, whose evaluation revealed bilateral hydroureteronephrosis. A double-J stent was placed on the right side, but the left side had severe J-hooking and distal obstruction. A left percutaneous nephrostomy tube was placed about 1 week ago. He now presents for another attempt at placing the double-J stent. DESCRIPTION OF PROCEDURE: After informed consent was obtained from the patient, him receiving IV antibiotics, he was taken to the main OR and placed in the supine position. General anesthesia via laryngeal mask was achieved. He was then placed in a low lithotomy position and prepped and draped in the usual sterile fashion for cystoscopic exam. A 21-Tongan cystoscope was passed through the patient's urethra, prostate, and bladder with findings noted above. A 0.035 ZIPwire was passed through the cystoscope, and several places that appeared to be a ureteral orifice were probed, but the wire did not advance. A 5-Tongan open-ended ureteral catheter was passed over the wire, and again several places that appeared to be ureteral orifice were probed, but the wire would not advanced. One final place, the open-ended ureteral catheter was able to be placed in the opening and the wire advanced. It went down and up, consistent with J-hooking, and then coiled around. Multiple attempts were made to advance the wire up past the distal ureter. This was not successful. The open ended ureteral catheter was removed, and a 5-Tongan curved catheter was placed, and multiple attempts were made to get the wire to go up into the ureter without success. At one point, it appeared the wire had gone through the distal ureter. A contrast was injected and extravasation was noted. The open ended curved catheter and wire were removed. The bladder was drained. Cystoscope was removed. Rectal exam performed. He tolerated the procedure well. The estimated blood loss was zero. He was taken to the recovery room in good condition. cc: Samy Kaur MD
[2018-02-19] MEDS: DOXYCYCLINE 100 MG in NS 250 ML IV SCH ×2 (05:59→18:09)
[2018-02-19] MEDS ORDERED: HEPARIN ONE (07:13)
[2018-02-19] MEDS ORDERED: NS 250 ML ONE (07:14)
[2018-02-19] MEDS ORDERED: CARBOCAINE PF 2% ONE (07:14)
[2018-02-19] MEDS ORDERED: VERSED ONE (07:29)
[2018-02-19] MEDS ORDERED: DIPRIVAN 1% ONE ×3 (07:29)
[2018-02-19] MEDS ORDERED: ROBINUL ONE (07:30)
[2018-02-19] MEDS ORDERED: QUELICIN (DOSE) ONE (07:30)
[2018-02-19] MEDS ORDERED: XYLOCAINE-MPF 2% ONE (07:30)
[2018-02-19] MEDS ORDERED: FENTANYL ONE (07:30)
--- NOTE | 2018-02-19 12:07 | Diag Imaging Result Doc PS360 ---
EXAM: NEPHROSTOMY TUBE EXCHANGE 02/19/2018 HISTORY: Kidney Stone TECHNIQUE: Fluoroscopically guided placement of antegrade ureteral stent, four images, 39 mGy, three minutes 36 seconds fluoroscopy time. COMMENT: The risks and benefits of the procedure including the possibility of bleeding, infection, or reaction to contrast were discussed with the patient and he agreed to the procedure. Following sterile preparation of the pre-existing nephrostomy site, guidewire was passed through the nephrostomy catheter and the catheter removed. Subsequently a straight catheter was placed over the wire and the wire and catheter were advanced into the bladder. The catheter was removed and the double J stent was placed over the wire. There are no immediate complications. IMPRESSION: Successful placement of antegrade stent on the left. Electronically signed by Byron Eubanks 02/19/2018 12:04 PM
[2018-02-19] MEDS ORDERED: DULCOLAX PR ONE (12:15)
[2018-02-19] MEDS: SEPTRA DS PO SCH ×2 (12:33→22:08)
[2018-02-19] MEDS: ZOLOFT PO SCH (12:33)
[2018-02-19] MEDS: FLOMAX PO SCH ×2 (12:33→22:08)
[2018-02-19] MEDS: MIRALAX PO SCH (12:33)
[2018-02-19] MEDS: CARDIZEM CD PO SCH (12:34)
[2018-02-19] MEDS: LACTULOSE PO SCH ×2 (12:34→22:09)
[2018-02-19] MEDS: PERIDEX MT SCH ×2 (12:34→22:09)
--- NOTE | 2018-02-19 21:44 | PROGRESS NOTE ---
DATE: 02/19/2018 SUBJECTIVE: The patient is resting in bed. He underwent nephrostomy tube exchange today. He has been refusing his laxatives today. He complains of abdominal pain. OBJECTIVE: Vital Signs: Temperature 98.6 degrees, blood pressure 147/63, heart rate 82, respirations 18, O2 saturation 98% on room air. General: This is an elderly male lying in bed, in no acute distress. Heart: S1, S2 normal. Regular rate and rhythm. Lungs: Equal air entry bilaterally. No wheezing. No rales. No rhonchi. Abdomen: Positive bowel sounds. Soft, nontender, nondistended. Extremities: No edema. No cyanosis. Neurologic: The patient is alert and oriented x3. LABORATORIES: Reviewed. ASSESSMENT AND PLAN: 1. Status post cystoscopy with right double-J stent placement and bladder biopsy secondary to bilateral ureteral obstruction. The patient had a nephrostomy tube exchange done today. Further management as per Urology. 2. Cystitis secondary to Staphylococcus epidermidis. Continue on Bactrim. 3. Constipation. The patient states that he will start taking the laxatives. We will continue to monitor the patient closely. 4. Situational depression. Continue on Zoloft. 5. Disposition: We will continue to monitor the patient closely. He will likely be discharged home with home health once medically stable. Continue with physical therapy. cc: Erica Duncan MD MTDD
[2018-02-20] MEDS: DOXYCYCLINE 100 MG in NS 250 ML IV SCH ×2 (05:48→18:34)
[2018-02-20 07:08] LABS: AGAP 9; BUN 11 mg/dL (8-22); CALCIUM 7.4 mg/dL (8.8-10.2); CHLORIDE 105 mmol/L (98-107); COSMO 271; CREATININE 0.9 mg/dL (0.7-1.2); ESTIMATED GFR > 60; GLUCOSE 90 mg/dL (70-104); POTASSIUM 3.8 mmol/L (3.5-5.1); SODIUM 136 mmol/L (136-145); TCO2 22 mmol/L (25-35)
[2018-02-20 07:18] LABS: HEMATOCRIT 29.1 % (42.0-52.0); HEMOGLOBIN 9.6 g/dL (14.0-18.0); MCH 33.2 PG (27-31); MCV 100.7 FL (81-99); RBC 2.89 XMIL (4.7-6.1); RDW 13.8 % (11.5-14.5); WBC 6.08 X1000 (4.8-10.8)
[2018-02-20] MEDS: ZOLOFT PO SCH (08:53)
[2018-02-20] MEDS: CARDIZEM CD PO SCH (08:53)
[2018-02-20] MEDS: FLOMAX PO SCH ×2 (08:53→20:14)
[2018-02-20] MEDS: PERIDEX MT SCH ×2 (08:53→22:07)
[2018-02-20] MEDS: SEPTRA DS PO SCH ×2 (08:53→20:14)
[2018-02-20] MEDS: LACTULOSE PO SCH ×2 (08:54→22:07)
[2018-02-20] MEDS: MIRALAX PO SCH (08:54)
--- NOTE | 2018-02-20 11:40 | PROGRESS NOTE ---
DATE: 02/20/2018 SUBJECTIVE: The patient is resting comfortably in bed. No acute events noted overnight. OBJECTIVE: Vital Signs: Temperature 98 degrees, blood pressure 170/73, heart rate 83, respirations 20, oxygen saturation 96% on room air. General: This is a chronically ill-appearing elderly male, lying in bed. Heart: S1, S2 normal. Lungs: Clear to auscultation bilaterally. Abdomen: Positive bowel sounds. Soft, nontender, nondistended. Extremities: No edema. No cyanosis. Neurologic: The patient is alert and oriented x3. LABS: Reviewed. ASSESSMENT AND PLAN: 1. Status post cystoscopy, with right double-J stent placement and bladder biopsy secondary to bilateral ureteral obstruction, with nephrostomy tube exchange. Management as per the urologist. 2. Cystitis secondary to Staphylococcus epidermidis. Continue on Bactrim. 3. Constipation. Improved. The patient finally had a bowel movement. We will continue with laxative therapy. 4. Situational depression. Continue on Zoloft. 5. Disposition. The patient is very weak and can barely walk. We will put in a consult for Sales Product Manager to assist with inpatient rehab placement. cc: Erica Duncan MD MTDD
[2018-02-21] MEDS: DOXYCYCLINE 100 MG in NS 250 ML IV SCH (06:08)
[2018-02-21 06:20] LABS: HEMATOCRIT 28.6 % (42.0-52.0); HEMOGLOBIN 9.5 g/dL (14.0-18.0); MCH 33.2 PG (27-31); MCHC 33.2 g/dL (33-37); MPV 9.7 FL (7.4-10.4); RBC 2.86 XMIL (4.7-6.1); RDW 13.6 % (11.5-14.5); WBC 5.94 X1000 (4.8-10.8)
[2018-02-21 06:42] LABS: AGAP 9; BUN 11 mg/dL (8-22); CALCIUM 7.4 mg/dL (8.8-10.2); CHLORIDE 106 mmol/L (98-107); COSMO 273; CREATININE 0.9 mg/dL (0.7-1.2); ESTIMATED GFR > 60; GLUCOSE 95 mg/dL (70-104); POTASSIUM 3.6 mmol/L (3.5-5.1); SODIUM 137 mmol/L (136-145); TCO2 22 mmol/L (25-35)
[2018-02-21] MEDS: ZOLOFT PO SCH (11:19)
[2018-02-21] MEDS: SEPTRA DS PO SCH ×2 (11:19→22:23)
[2018-02-21] MEDS: FLOMAX PO SCH ×2 (11:19→22:23)
[2018-02-21] MEDS: CARDIZEM CD PO SCH (11:20)
[2018-02-21] MEDS: MIRALAX PO SCH (11:20)
[2018-02-21] MEDS: LACTULOSE PO SCH ×3 (11:21→22:24)
[2018-02-21] MEDS: PERIDEX MT SCH ×2 (11:21→22:24)
[2018-02-21] MEDS ORDERED: LOVENOX SUBQ SCH (14:11)
--- NOTE | 2018-02-21 15:04 | PROGRESS NOTE ---
DATE: 02/21/2018 SUBJECTIVE: The patient is resting comfortably in bed. No acute events noted overnight. OBJECTIVE: Vital Signs: Temperature 97.8 degrees, blood pressure 129/50, heart rate 72, respirations 16, O2 saturation 97% on room air. General: This is a chronically ill-appearing elderly male lying in bed in no acute distress. Heart: S1, S2 normal. Regular rate and rhythm. Lungs: Clear to auscultation bilaterally. Abdomen: Positive bowel sounds. Soft, nontender, nondistended. Extremities: No edema, no cyanosis. Neurologic: The patient is alert and oriented x3. LABS: Reviewed. ASSESSMENT AND PLAN: 1. Status post cystoscopy with right double-J stent placement and bladder biopsy secondary to bilateral ureteral obstruction with nephrostomy tube exchange. Stable. Further management as per the urologist. 2. Cystitis secondary to Staphylococcus epidermidis. Continue on Bactrim. 3. Anemia. Stable. 4. Coronary artery disease. Aware. 5. History of cerebrovascular accident. Aware. 6. Situational depression. Continue on Zoloft. 7. Deconditioning. We will continue with physical therapy. The patient will likely require inpatient rehab placement. 8. Disposition. Will consult Behavioral Health Assistant for inpatient rehab placement. cc: Erica Duncan MD MTDD
[2018-02-22 06:30] LABS: HEMATOCRIT 31.3 % (42.0-52.0); HEMOGLOBIN 10.3 g/dL (14.0-18.0); MCHC 32.9 g/dL (33-37); MCV 100.3 FL (81-99); MPV 9.5 FL (7.4-10.4); RBC 3.12 XMIL (4.7-6.1); RDW 13.7 % (11.5-14.5); WBC 5.93 X1000 (4.8-10.8)
[2018-02-22 07:11] LABS: AGAP 11; BUN 9 mg/dL (8-22); CALCIUM 8.2 mg/dL (8.8-10.2); CHLORIDE 108 mmol/L (98-107); COSMO 278; CREATININE 0.9 mg/dL (0.7-1.2); ESTIMATED GFR > 60; GLUCOSE 97 mg/dL (70-104); POTASSIUM 3.9 mmol/L (3.5-5.1); SODIUM 140 mmol/L (136-145); TCO2 21 mmol/L (25-35)
[2018-02-22] MEDS: ZOLOFT PO SCH (10:14)
[2018-02-22] MEDS: SEPTRA DS PO SCH (10:15)
[2018-02-22] MEDS: CARDIZEM CD PO SCH (10:15)
[2018-02-22] MEDS: FLOMAX PO SCH (10:15)
[2018-02-22] MEDS: LACTULOSE PO SCH (10:16)
[2018-02-22] MEDS: MIRALAX PO SCH (10:16)
[2018-02-22] MEDS: PERIDEX MT SCH (10:16)
[2018-02-22 15:11] VITALS: BP 132/66
--- NOTE | 2018-02-25 19:58 | DISCHARGE SUMMARY ---
ADMISSION DATE: 02/10/2018 DISCHARGE DATE: 02/22/2018 DISCHARGE DIAGNOSES: 1. Status post cystoscopy with right double J stent placement and bladder biopsy secondary to bilateral ureteral obstruction with nephrostomy tube exchange. 2. Cystitis secondary to Staphylococcus epidermidis. 3. Anemia of chronic disease. 4. Coronary artery disease. 5. History of cerebrovascular accident 6. Situational depression. CONSULTATIONS: Dr. Samy Kaur from Urology. PROCEDURES: 1. Renal CT done on admission showed new bilateral hydronephrosis and significant bilateral perinephric and periurethral edema with no urolithiasis, with bladder calculi with Ramos catheter in place, cholelithiasis and left nephrolithiasis unchanged. 2. Retrograde pyelogram showed right ureteral stent placed, unable to place a stent on the left. 3. Nephrostogram for left hydronephrosis showed clinically successful fluoroscopy-guided left nephrostomy. 4. Nephrostomy change done by Dr. Eubanks and there was successful placement of antegrade stent on the left. HOSPITAL COURSE: This is a 77-year-old male who presented to the emergency department complaining of worsening blood in his urine. So in the ER they ordered a CT of the of the kidneys which showed nonobstructing left renal stone and also in the right side, so he was admitted to the hospital and Urology was consulted. Initially, the plan is to do stents on both sides, but they were able to just place successfully one in the right. Patient reports feeling fine after those procedures have been performed. The patient received Bactrim for cystitis secondary to Staphylococcus epidermidis, he was supposed to go home with those medications. Patient even though he was constipated, he was refusing taking laxatives. We continue with Zoloft for treatment of depression. Regarding the disposition, because this patient was feeling not sure about where to go, initially he was okay to go to rehab facility then he refused to go to rehab facility. At the time of discharge, I talked to him as he prefers to go home with home health services. So, we arranged those services for him so he is going to be released in stable condition. DISCHARGE PHYSICAL EXAMINATION: Vital Signs: Temperature 97.9, heart rate 66, respiratory rate 12, blood pressure 132/66, O2 sat 97% on room air. General: This is a chronically ill looking 77- year-old male lying in bed in no acute distress. HEENT: Head is normocephalic, atraumatic. Mucous membranes dry. Neck: No JVD. No carotid bruits. No lymphadenopathy. No thyromegaly. Cardiovascular: S1, S2 heard. No murmurs, gallops or rubs. Regular rate and rhythm. Respiratory: Clear bilaterally to auscultation. No work of breathing or using accessory muscles. Abdomen: Soft, nontender to palpation. Bowel sounds present. No organomegaly. Extremities: No clubbing, cyanosis or edema. Peripheral pulses present in both legs. Neurologic: Patient is alert and oriented x 3. Moves 4 extremities. DISCHARGE DISPOSITION: Home with home health. FOLLOWUP: Follow up with Dr. Kaur in the office in 1 to 2 weeks. MEDICATIONS: 1. Septra DS 1 tablet p.o. daily for 5 days. 2. Lasix 20 mg 1 tablet p.o. daily. 3. Aspirin 325 mg 1 tablet p.o. daily. 4. Tylenol 500 mg p.o. 6 hours as needed. 5. Diltiazem 120 mg 1 tablet p.o. daily. 6. Sertraline 25 mg 1 tablet p.o. daily. 7. Tamsulosin 0.8 mg 1 tablet p.o. daily. 8. ProAir as needed for shortness of breath. 9. Montelukast 1 tablet p.o. daily 10 mg. TIME SPENT: Time discharging this patient is 30 minutes. cc: Bc Devries MD
== END 2018-02-22 17:09 | disposition home health service (06) | DRG 660 ==
LOC: P.ED 19:19 → SUATTDRO 02-10 04:21 → P.EDIPHOLD 02-10 04:21 → 4N 02-10 13:52
PROVIDERS: ATTEND Internal Medicine
CPT/HCPCS: 50430; 50435; 51703; 51798; 74019; 74020; 74176; 74420; 76775; 80048; 81001; 82570; 83735; 84156; 84300; 85025; 85027; 87077; 87088; 87186; 88305; 88312; 88313; 93005; 93010; 94760; 94761; 94799; 96365; 96375; 96376; 97116; 97162; 97530; 99285; A9270; J0330; J0670; J1644; J1650; J1956; J2250; J2270; J2405; J3010; J3480; J7030; J7040; J7050; Q9966; Q9967

== ENCOUNTER 2018-05-06 11:11 | Inpatient (IN) ==
[2018-05-06 12:36] LABS: URINE SOURCE CLEAN CATCH
[2018-05-06 12:37] LABS: BASO# 0.01 X1000 (0.0-0.2); BASO% 0.1 % (0.0-0.8); EOS# 0.09 X1000 (0.0-0.7); EOS% 1.1 % (0.0-10.0); HEMATOCRIT 36.7 % (42.0-52.0); HEMOGLOBIN 11.8 g/dL (14.0-18.0); IMM GRAN# 0.03 X1000 (0.0-0.04); IMM GRAN% 0.4 % (0.0-0.5); LYMPH# 0.99 X1000 (1.2-3.4); LYMPH% 11.8 % (20.5-51.1); MCH 30.5 PG (27-31); MCHC 32.2 g/dL (33-37); MCV 94.8 FL (81-99); MONO# 0.57 X1000 (0.11-0.59); MONO% 6.8 % (1.7-9.3); MPV 9.5 FL (7.4-10.4); NEUT# 6.68 X1000 (1.4-6.5); NEUT% 79.8 % (42.2-75.2); PLT 411 X1000 (130-400); RBC 3.87 XMIL (4.7-6.1); RDW 14.4 % (11.5-14.5); WBC 8.37 X1000 (4.8-10.8)
[2018-05-06 13:01] LABS: CREATININE 1.5 mg/dL (0.7-1.2); POTASSIUM 4.5 mmol/L (3.5-5.1)
[2018-05-06 13:02] LABS: ALB/GLOB RATIO 0.8; ALBUMIN 3.4 g/dL (3.5-5.0); CALCIUM 9.8 mg/dL (8.8-10.2); TOTAL BILIRUBIN 0.47 mg/dL (0.20-1.00); TOTAL PROTEIN 7.5 g/dL (6.3-8.3)
[2018-05-06 13:07] LABS: BILIRUBIN URINE NEGATIVE (NEGATIVE); BLOOD URINE LARGE (NEGATIVE); COLOR ORANGE; GLUCOSE URINE NEGATIVE (NEGATIVE); KETONE URINE NEGATIVE (NEGATIVE); LEUKOCYTES URINE LARGE (NEGATIVE); NITRITE URINE NEGATIVE (NEGATIVE); PH URINE 6.5; PROTEIN URINE 200 mg/dL (NEGATIVE); SP GRAVITY URINE 1.006; TURBIDITY URINE TURBID (CLEAR); UR EPITHELIAL CELLS <10 /HPF (<10); URINE BACTERIA NEGATIVE /HPF; URINE RBC TNTC /HPF (<10); URINE WBC TNTC /HPF (<10); UROBILINOGEN URINE NORMAL (NORMAL)
[2018-05-06 13:17] LABS: URINE CASTS NONE SEEN; URINE CRYSTALS NONE SEEN; URINE SMALL ROUND CELLS NONE SEEN; URINE YEAST NONE SEEN
--- NOTE | 2018-05-06 16:39 | Diag Imaging Result Doc PS360 ---
EXAM: CHEST-2 VIEWS - 05/06/2018 HISTORY: SOB TECHNIQUE: Chest two views COMPARISON: 07/23/2017 FINDINGS: Heart size is normal. There are sternal wires from previous surgery again seen. There is stable mild tortuosity of the thoracic aorta. There is stable right midlung granuloma from old granulomatous disease. The lungs otherwise appear clear. There is no consolidation, pleural effusion, or pneumothorax identified. There is thoracic spondylosis and or ankylosis noted. IMPRESSION: No evidence of acute disease. Electronically signed by Gabriel Cano 05/06/2018 4:37 PM
[2018-05-06] MEDS ORDERED: ROCEPHIN 1 GM in NS 50 ML IV ONE (16:47)
[2018-05-06] MEDS ORDERED: NS 1,000 ML IV ONE (16:47)
[2018-05-06] MEDS ORDERED: MACRODANTIN PO ONE (17:18)
[2018-05-06] MEDS ORDERED: TYLENOL PO PRN (20:30)
--- NOTE | 2018-05-06 21:06 | Diag Imaging Result Doc PS360 ---
EXAM: CT THORAX/ABD/PELVIS W/O CON HISTORY: weight lose. r/o underlying malignacy TECHNIQUE: 1. CT chest without contrast 2. CT abdomen and pelvis without contrast COMPARISON: Abdomen and pelvis from 02/10/2018 FINDINGS: Chest: No pleural effusions. No thoracic aortic aneurysm. Prominent atherosclerosis. No cardiomegaly. No enlarged lymph nodes. There is a calcified granuloma in the right upper lobe. There is an 8 mm nodule medially in the left upper lobe with peripheral calcification. No consolidation. No bronchiectasis. Abdomen and pelvis: There are bilateral ureteral stents on the current exam. The renal pelvises are dilated. These have been placed since the prior study. There are several calcified gallstones. These were present on the prior exam. No change in the liver, spleen, pancreas, or adrenal glands. Prominent atherosclerosis. No aortic aneurysm. Normal appendix. No bowel obstruction. The scattered colonic diverticula. The prostatic calcifications similar to the prior study. IMPRESSION: Chest: Small left upper lobe nodule with peripheral calcifications, otherwise negative exam. Abdomen and pelvis: Interval placement of ureteral stents, otherwise stable exam. This exam was performed using automated exposure control, adjustment of mA or kV according to patient size, and/or use of iterative reconstruction technique. Electronically signed by John Hurst 05/06/2018 9:04 PM
[2018-05-06] MEDS ORDERED: VANCOMYCIN IV PER PHARMACY MISC SCH (21:15)
[2018-05-06 21:34] LABS: PHOSPHORUS 4.1 mg/dL (2.7-4.5); PREALBUMIN 14.3 mg/dL (20-40)
[2018-05-06 21:41] LABS: TSH 2.13 uIUmL (0.27-4.20)
--- NOTE | 2018-05-06 21:50 | HISTORY AND PHYSICAL ---
PRIMARY CARE PHYSICIAN: Dr. Elizabeth Sullivan. PRESENTING COMPLAINT: Loss of appetite and weight loss. HISTORY OF PRESENTING COMPLAINT: Mr. Edward is a 78-year-old gentleman who was last admitted here in January 2018, had a right kidney stone and underwent a cystoscopy with right double-J stent. Bladder pathology has been reviewed, only showed markedly reactive urothelium with ulceration. Anyway, Mr. Edward refers that he also had a history of hypertension that according to him is resolved, depression and previous coronary artery disease status post CABG. Mr. Edward refers that during his last admission he did have issues chewing, and the reason is because he does not have dentures, and he does not have any funds to see any dentist and that his upper teeth are all gone, and because of that, he does not chew well and as a result of that, he is not eating. He said he does have appetite every now and then but for most part his appetite is also low and coupled with the fact that he cannot chew he just made a decision not to be eating. Mr. Edward refers that for the last 2 months, he has lost over 20 pounds and that he is also very tearful for most part. He does not enjoy things that he normally used to do before. He only does what is absolutely necessary. He went to visit his primary care doctor and was found to be in very unhygienic circumstances so he was advised to come to the emergency department. Upon presentation patient was evaluated, and we have been consulted for admission because of excessive weight loss in a short period of time, failure to thrive and depression. PAST MEDICAL HISTORY: 1. Hypertension. 2. Coronary artery disease status post coronary artery bypass graft. 3. Dyslipidemia. 4. Depression. 5. History of TIAs versus CVA. 6. Recurrent UTIs PAST SURGICAL HISTORY: 1. CABG. 2. Recent bilateral placement of IJ stents in ureters. FAMILY HISTORY: Noncontributory. SOCIAL HISTORY: Patient lives alone. Denies any tobacco, alcohol use. He is able to drive, and he is able to do all his ADLs. ALLERGIES: To penicillin. HOME MEDICATIONS: Have been reviewed. Patient is on: 1. Aspirin 325 daily. 2. Diltiazem 120 p.o. daily. 3. Sertraline 25 mg p.o. daily. 4. Montelukast 10 mg p.o. at bedtime. Nitrofurantoin. The patient is not sure how long he has been on that REVIEW OF SYSTEMS: Fourteen-point review of systems conducted with Mr. Edward, unremarkable except for what we have in the HPI. The patient also refers that he has been excessively weak and that any little work that he does he gets extremely tired. He thinks that he has lost about 20 pounds. He denies any night sweats. He denies any GI bleed. No abdominal pain. No chest pain. The patient has complaints of nocturia, frequency urination especially at night and nothing during the day. OBJECTIVE: Vital signs: Blood pressure is 126/80, pulse of 90, respirations are 20, temperature is 98.0 degrees. Patient is saturating 99% on room air. General: Mr. Edward is a 78-year-old male. He is in bed. He looks emaciated with temporal wasting. Mucosa is pink but dry. Anicteric. Acyanotic. Neck: Supple. There is no JVD. No carotid bruit. Head is normocephalic and atraumatic. Respiratory System: There is good air entry bilaterally. No crepitations. No rhonchi. There is no accessory muscle use. Cardiovascular: Regular rate and rhythm. No murmurs, no rubs, no gallop. Gastrointestinal: Abdomen is soft. It is nontender. Bowel sounds are present. There is no hepatosplenomegaly. Extremities: No pedal edema. Distal pulses are present. Central nervous system: Patient is awake, alert, oriented x4. Motor is 5/5 in all extremities. Sensation is intact. Cranial nerves 2 through 12 have been grossly examined unremarkable. Psychiatric: The patient has episode of mood changes, but for most part he seems to be congruent with his thought process. He did not show any remarkable signs of extreme depression. Musculoskeletal: There is an old sternotomy scar noted. LABORATORY DATA: WBC is 8.35, hemoglobin is 11.8, platelet count of 411,000. Chemistry is also reviewed. Sodium is 135, bicarb is 20, creatinine is 1.5, glucose is 106. Troponin is normal. IMAGING STUDIES: A chest x-ray which was done showed no evidence of acute disease. ASSESSMENT AND PLAN: In general, Mr. Edward is a 78 years old, , who seems to be losing weight with poor appetite, presented to the emergency department, and he looks remarkably dry. We are going to admit him for further workup. 1. Failure to thrive with alleged more than 20% weight loss. Etiology is unclear. We will need to rule out any possible organic pathology now. We will do thyroid function tests to rule out any thyroid abnormality. We will also do a CT scan of the chest, abdomen, and pelvis to rule out any possible underlying malignancy. We will get a PSA as well. 2. Depression. The patient obviously has symptoms suggestive of depression. Unsure if there is any other medical condition that could precipitate or could be confounding. We will do a CT scan of the brain in morning and TSH. 3. Normocytic anemia. We will do iron studies as well as B12 and folate and correct any abnormality encountered. 4. Acute kidney injury likely due to volume depletion. We will start the patient on adequate IV hydration and re-evaluate his volume status in the morning. 5. Suspected protein calorie malnutrition. We are going to do prealbumin. We have also consulted dietitian. 6. Poor appetite. I think it is a combination of poor dentition and the possibility of an underlying depression or organic disorder. We are going to start the patient on mechanical soft diet. Dietitian has also been consulted to assist with the patient's nutritional status. 7. History of coronary artery disease status post coronary artery bypass graft noted. 8. Hypertension is controlled. 9. Dyslipidemia, stable. 10. History of recurrent urinary tract infections. The patient also refers to be having frequent urination especially at night that sounds more of prostate pathology than anything. We will do the urine cultures. We will also do a PSA, start the patient on tamsulosin, and depending on whatever the imaging studies shows, then we go from there. Will also consult urology for the stent revision. Patient has previous h/o of MRSA and VSE UTIs. Will emperically start him on antibiotic for what seen to be bilateral hydronephrosis and hydroureter on the CTs until official report is given and or patient seen by urology. cc: MD CARLITA Tabares
[2018-05-06] MEDS: SINGULAIR PO SCH (22:31)
[2018-05-06] MEDS: REMERON PO SCH (22:31)
[2018-05-06] MEDS: LOVENOX SUBQ SCH (22:31)
[2018-05-06] MEDS: NS 1,000 ML IV SCH (22:32)
[2018-05-06] MEDS: MEGACE LIQUID PO SCH (22:32)
[2018-05-06] MEDS: MAXIPIME 1 GM in NS 50 ML IV SCH (22:33)
[2018-05-06] MEDS ORDERED: VANCOMYCIN 1,700 MG in NS 250 ML IV ONE (23:30)
[2018-05-06 23:36] LABS: HEMOGLOBIN A1C 5.4 % (4.8-6.0)
[2018-05-07 00:58] LABS: URINE SOURCE CATH
[2018-05-07 02:04] LABS: BILIRUBIN URINE NEGATIVE (NEGATIVE); BLOOD URINE LARGE (NEGATIVE); COLOR BROWN; GLUCOSE URINE NEGATIVE (NEGATIVE); KETONE URINE TRACE mg/dL (NEGATIVE); LEUKOCYTES URINE LARGE (NEGATIVE); NITRITE URINE NEGATIVE (NEGATIVE); PROTEIN URINE 200 mg/dL (NEGATIVE); SP GRAVITY URINE 1.006; TURBIDITY URINE TURBID (CLEAR); UR EPITHELIAL CELLS <10 /HPF (<10); URINE BACTERIA NEGATIVE /HPF; URINE RBC TNTC /HPF (<10); URINE WBC TNTC /HPF (<10); UROBILINOGEN URINE NORMAL (NORMAL)
[2018-05-07 02:05] LABS: URINE CASTS NONE SEEN; URINE CRYSTALS NONE SEEN; URINE SMALL ROUND CELLS NONE SEEN; URINE YEAST NONE SEEN
[2018-05-07 07:41] LABS: EOS# 0.02 X1000 (0.0-0.7); EOS% 0.2 % (0.0-10.0); HEMATOCRIT 35.9 % (42.0-52.0); HEMOGLOBIN 11.6 g/dL (14.0-18.0); IMM GRAN# 0.02 X1000 (0.0-0.04); IMM GRAN% 0.2 % (0.0-0.5); LYMPH# 0.23 X1000 (1.2-3.4); LYMPH% 1.9 % (20.5-51.1); MCH 30.7 PG (27-31); MCHC 32.3 g/dL (33-37); MONO# 0.64 X1000 (0.11-0.59); MONO% 5.2 % (1.7-9.3); MPV 9.3 FL (7.4-10.4); NEUT# 11.32 X1000 (1.4-6.5); NEUT% 92.5 % (42.2-75.2); PLT 278 X1000 (130-400); RBC 3.78 XMIL (4.7-6.1); RDW 14.5 % (11.5-14.5); WBC 12.23 X1000 (4.8-10.8)
[2018-05-07 07:51] LABS: INR 1.12; PROTIME 15.3 Seconds (11.0-16.0)
[2018-05-07 07:56] LABS: BANDS 6 % (0-1); LYMPHS 2 % (21-51); MONO 2 % (1-9); SEGS 90 % (42-75)
[2018-05-07 08:06] LABS: AGAP 14; ALB/GLOB RATIO 0.7; ALBUMIN 2.7 g/dL (3.5-5.0); ALKALINE PHOSPHATASE 56 U/L (32-122); BUN 22 mg/dL (8-22); CALCIUM 8.2 mg/dL (8.8-10.2); CHLORIDE 110 mmol/L (98-107); CHOLESTEROL 112 mg/dL (0-200); COSMO 286; CREATININE 1.5 mg/dL (0.7-1.2); ESTIMATED GFR 45; GLUCOSE 98 mg/dL (70-104); GOT 9 U/L (10-34); GPT 5 U/L (10-44); HDL 41 mg/dL (35-55); LDL 54 mg/dL; MAGNESIUM 1.8 mg/dL (1.5-2.7); POTASSIUM 3.4 mmol/L (3.5-5.1); SODIUM 142 mmol/L (136-145); TCO2 18 mmol/L (25-35); TOTAL BILIRUBIN 0.45 mg/dL (0.20-1.00); TOTAL PROTEIN 6.4 g/dL (6.3-8.3); TRIGLYCERIDES 85 mg/dL (39-160); VLDL 17 mg/dL
--- NOTE | 2018-05-07 08:09 | Diag Imaging Result Doc PS360 ---
EXAM: CT HEAD W/O CONTRAST 05/07/2018 HISTORY: encephalopathy TECHNIQUE: This exam was performed using automated exposure control, adjustment of mA or kV according to patient size, and/or use of iterative reconstruction technique. COMMENT: There are calcifications in the vertebral and internal carotid arteries. There are patchy subcortical white matter lucencies present in both parietal convexities and in the external capsule and norwood radiata on the right. There is a small lacune present posteriorly in the external capsule on the left. There is no evidence of mass effect or bleed. No abnormal extra-axial fluid collections are present. Compared to 09/09/2016 there has been no significant change. IMPRESSION: Chronic ischemic microvascular changes and old lacunar infarcts. Electronically signed by Byron Eubanks 05/07/2018 8:06 AM
--- NOTE | 2018-05-07 08:57 | EKG Report ---
Test Performed on : 05/07/2018 08:49:18 AM Test Reason : Afib Blood Pressure : / mmHG Vent. Rate : 089 BPM Atrial Rate : 089 BPM P-R Int : 180 ms QRS Dur : 098 ms QT Int : 394 ms P-R-T Axes : 102 022 125 degrees QTc Int : 479 ms Normal sinus rhythm. Septal infarct (cited on or before 09-SEP-2016) ST & T wave abnormality, consider anterolateral ischemia Abnormal ECG When compared with ECG of 11-FEB-2018 08:06, T wave inversion more evident in Anterior leads Unconfirmed Result
[2018-05-07] MEDS: MEGACE LIQUID PO SCH ×4 (08:59→21:45)
[2018-05-07] MEDS: MIRALAX PO SCH (09:00)
[2018-05-07] MEDS: MAXIPIME 1 GM in NS 50 ML IV SCH ×3 (09:02→21:45)
[2018-05-07] MEDS: ASPIRIN PO SCH (09:02)
[2018-05-07] MEDS: CARDIZEM PO SCH (09:02)
[2018-05-07] MEDS: ZOLOFT PO SCH (09:03)
[2018-05-07] MEDS ORDERED: NS 1,000 ML IV ONE (12:47)
[2018-05-07] MEDS: NS 1,000 ML IV SCH ×2 (12:49→22:43)
--- NOTE | 2018-05-07 12:55 | EKG Report ---
Test Performed on : 05/07/2018 12:24:26 PM Test Reason : CODE STROKE Blood Pressure : / mmHG Vent. Rate : 072 BPM Atrial Rate : 072 BPM P-R Int : 196 ms QRS Dur : 100 ms QT Int : 484 ms P-R-T Axes : 043 025 134 degrees QTc Int : 529 ms Sinus rhythm. with premature supraventricular complexes. Septal infarct (cited on or before 09-SEP-2016) ST & T wave abnormality, consider anterolateral ischemia Prolonged QT Abnormal ECG When compared with ECG of 07-MAY-2018 08:49, (Unconfirmed) premature supraventricular complexes. are now present Unconfirmed Result
--- NOTE | 2018-05-07 13:31 | Diag Imaging Result Doc PS360 ---
EXAM: MRI BRAIN W/WO CONTRAST 05/07/2018 HISTORY: possible cva TECHNIQUE: T1 sagittal, axial and post gadolinium axial with coronal reformation, T2, FLAIR, DWI axial and coronal gradient echo. COMMENT: There are no previous MRI studies. There are numerous punctate and patchy areas of increased T2-weighted signal intensity particularly in the right norwood radiata region of the parietal lobe and in the periatrial portion of the left posterior hemisphere. The latter is associated with increased T1 weighted signal intensity in the cortex. The recent CT of the head dated 05/07/2018 also demonstrates a small area of hyperdensity in this area. There is no evidence of diffusion restriction. There is a small lacune in the right middle cerebellar peduncle. There are prominent perivascular spaces in the inferior basal ganglia bilaterally. There is no evidence of abnormal gadolinium enhancement. 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 No evidence of acute intracranial disease. Electronically signed by Byron Eubanks 05/07/2018 1:29 PM
--- NOTE | 2018-05-07 14:23 | PROGRESS NOTE ---
DATE: 05/07/2018 SUBJECTIVE: Called to see patient for code stroke. Blood pressure was low. Additionally, the patient had acute mental status change, felt like he had acute right-sided weakness per nursing staff on the right upper extremity and dysarthria. All of this was acute; it started right around noon. The patient was evaluated with code stroke. When I saw the patient, he had no pronator drift. He had some slowness to speech, but no cleo dysarthria. Extraocular movements were intact. There was no facial asymmetry. He had some left tongue deviation. I did not appreciate any pronator drift. His reflexes are 3+ upper and lower extremity brachioradialis and patellar reflexes. The patient had undergone a head CT this morning and then stat MRI which did not show stroke. OBJECTIVE DATA: Vital Signs: Currently blood pressure 92/50, heart rate 66, respiratory rate 18, temperature 98.4 degrees. He is on room air. Cardiovascular: Regular rate and rhythm. Pulmonary: Bilateral breath sounds. Clear to auscultation. GI: Soft, nontender, nondistended. Bowel sounds are positive. LABS: White count is 12, hemoglobin and hematocrit is 11 and 36. Potassium 3.4, bicarbonate 18, creatinine 1.5. PROBLEM LIST: 1. Cerebrovascular accident versus transient ischemic attack. At this point, I think this is a transient ischemic attack. There is no evidence of ischemia, and his exam I think has improved from what was originally described. He was not hypoglycemic. His blood sugar is 136. We will continue to monitor and follow closely. May get a neurologic opinion if available. 2. Cystitis. We will continue empiric antibiotics. He is on vancomycin and Zosyn. Urology is going to evaluate him. 3. Anemia appears to be stable. Will continue to follow closely. 4. Acute kidney injury, dehydration. We will continue intravenous fluids. 5. Protein calorie malnutrition. We will continue supplementation and follow. DISPOSITION: Pending his clinical status. TIME SPENT: 32 minute critical care note for possible stroke. We will continue to follow. A greater than 30 minute encounter time. cc: Evan Valdez MD
--- NOTE | 2018-05-07 17:32 | CONSULTATION ---
DATE OF CONSULTATION: 05/07/2018 ATTENDING AND REFERRING PHYSICIAN: Hospitalist. HISTORY OF PRESENT ILLNESS: This 78-year-old male was seen here in January with history of renal lithiasis and bladder stones. His creatinine increased to 1.6 (baseline 0.9). His CT scan at that time revealed a 12 mm left lower pole stone that was nonobstructing and bilateral hydroureteronephrosis. Also noted were multiple bladder stones. He underwent cystolitholapaxy and placement of a right double-J stent and multiple attempts at placing the left double-J stent, placing the left double-J stent was not successful. He had a left percutaneous nephrostomy tube placed and then subsequently had antegrade placement of the left double-J stent. He was started on Flomax at 0.4 mg b.i.d. and Proscar 5 mg a day. He had a Ramos catheter and his BUN and creatinine returned to his baseline. He did not continue the Flomax or Proscar at discharge. He has been readmitted with failure to thrive, weight loss and depression. He states he has been having problems voiding over the last 4 weeks. He states recently he started having chills and was seen by his family physician and subsequently admitted. Earlier today, he had symptoms of a stroke and MRI had no acute changes, but is being observed in the [facility]. PAST MEDICAL HISTORY: Hypertension, coronary artery disease, elevated cholesterol, depression, history of TIAs, recurrent urinary infections. Renal lithiasis and bilateral hydroureteronephrosis. CURRENT MEDICATIONS: Documented on the chart and include IV antibiotics for a urinary infection. PAST SURGICAL HISTORY: Coronary artery bypass grafting. Cystoscopic exam with cystolitholapaxy and placement of a right double-J stent with subsequent left percutaneous nephrostomy tube placement and then antegrade placement of left double-J stent. SOCIAL HISTORY: The patient lives alone and takes care of himself. There is no tobacco or alcohol use. ALLERGIES: He is allergic to penicillin. REVIEW OF SYSTEMS: He states that several months ago. He was feeling well and not having any problems. He denies problems with diabetes or seizure activity. He states he is having significant problems voiding but not having any problems with his bowels. PHYSICAL EXAMINATION: General: A normally developed, thin, age apparent, white male, oriented in all ways and cooperative. HEENT: Normal for age. Lungs: Clear. Cardiovascular: Regular rate and rhythm. Abdomen: Mildly protuberant, soft. Mild tenderness in the suprapubic area, but no guarding or rebound. : Normal male with Ramos catheter in place draining very cloudy urine. Both testes are down and palpably normal. Rectal: Deferred. His prostate was 50 to 60 g, but smooth and symmetric. In January of 2018. Extremities: No clubbing, cyanosis, or edema. Neuro: No focal deficits. LABORATORY EVALUATION: He has a white count of 12.23, a hemoglobin 11.6, hematocrit of 35.9 and platelets are 278,000. His serum sodium is 142, potassium 3.4, chloride 110, bicarb 18, BUN 22, creatinine 1.5. A urinalysis from a catheterized specimen had a large leukocytes on the dipstick, jrk-cpyazsmo-qi-count white cells, ugg-vsgoeicp-fn-count red cells, and the culture is pending. CT scan of his abdomen and pelvis revealed the left lower pole nonobstructing stone and the indwelling bilateral double-J stents with some dilation of each collecting system, but no real change from the exam in January. IMPRESSION: 1. High-pressure bladder secondary to an obstructing prostate. 2. Bilateral hydroureteronephrosis with indwelling double-J stents secondary to high pressure bladder that is due to an obstructing prostate. 3. Urinary tract infection probably due to #1 and 2. 4. Left renal stone that is nonobstructing. 5. Bilateral indwelling double-J stents that are scheduled to be changed in May 2018. 6. Apparent transient ischemic attack this morning. RECOMMENDATIONS: 1. Recommend continuing IV antibiotics and then culture specific antibiotics. When the culture and sensitivity results are available. 2. Continue Ramos catheter drainage to decompress his bladder for at least a week. 3. Expect the serum creatinine to return to his baseline which is normal with Ramos catheter drainage. 4. Restart Flomax 0.4 mg b.i.d. and Proscar 5 mg a day. 5. Discuss with the patient transurethral resection of the prostate, but he will consider this. Discussed we cannot change his stents or consider any type of prostate surgery until he is cleared of any medical problems. Thank you for this consultation. cc: Samy Kaur MD
[2018-05-07] MEDS: REMERON PO SCH ×2 (19:55→21:45)
[2018-05-07] MEDS: SINGULAIR PO SCH ×2 (19:55→21:45)
[2018-05-07] MEDS: LOVENOX SUBQ SCH ×2 (19:55→21:44)
[2018-05-07] MEDS: LIPITOR PO SCH ×2 (19:55→21:44)
[2018-05-07] MEDS: FLOMAX PO SCH ×2 (19:56→21:44)
[2018-05-07] MEDS: ELAVIL PO SCH ×2 (19:56→21:43)
[2018-05-07] MEDS ORDERED: CALMOSEPTINE OINTMENT TOP PRN (20:40)
[2018-05-08] MEDS: NS 1,000 ML IV SCH ×4 (04:59→21:44)
[2018-05-08 05:28] LABS: BASO# 0.01 X1000 (0.0-0.2); BASO% 0.1 % (0.0-0.8); EOS# 0.01 X1000 (0.0-0.7); EOS% 0.1 % (0.0-10.0); HEMATOCRIT 28.7 % (42.0-52.0); HEMOGLOBIN 9.1 g/dL (14.0-18.0); IMM GRAN# 0.02 X1000 (0.0-0.04); IMM GRAN% 0.2 % (0.0-0.5); LYMPH# 0.33 X1000 (1.2-3.4); MCH 30.6 PG (27-31); MCHC 31.7 g/dL (33-37); MCV 96.6 FL (81-99); MONO% 2.4 % (1.7-9.3); MPV 9.7 FL (7.4-10.4); NEUT# 7.63 X1000 (1.4-6.5); NEUT% 93.2 % (42.2-75.2); PLT 237 X1000 (130-400); RBC 2.97 XMIL (4.7-6.1); RDW 14.6 % (11.5-14.5)
[2018-05-08 05:36] LABS: AGAP 9; BUN 24 mg/dL (8-22); CHLORIDE 110 mmol/L (98-107); CHOLESTEROL 85 mg/dL (0-200); COSMO 282; CREATININE 1.3 mg/dL (0.7-1.2); ESTIMATED GFR 53; GLUCOSE 102 mg/dL (70-104); HDL 29 mg/dL (35-55); LDL 41 mg/dL; POTASSIUM 3.3 mmol/L (3.5-5.1); SODIUM 139 mmol/L (136-145); TCO2 20 mmol/L (25-35); TRIGLYCERIDES 73 mg/dL (39-160); VLDL 15 mg/dL
[2018-05-08] MEDS: MAXIPIME 1 GM in NS 50 ML IV SCH ×2 (08:26→20:44)
[2018-05-08] MEDS: PROSCAR PO SCH (08:26)
[2018-05-08] MEDS: MIRALAX PO SCH (08:26)
[2018-05-08] MEDS: ASPIRIN PO SCH (08:26)
[2018-05-08] MEDS: FLOMAX PO SCH ×3 (08:26→21:45)
[2018-05-08] MEDS: ZOLOFT PO SCH ×2 (08:26)
[2018-05-08] MEDS: MEGACE LIQUID PO SCH ×3 (08:26→21:44)
[2018-05-08] MEDS: CARDIZEM PO SCH (08:31)
[2018-05-08] MEDS: VANCOMYCIN 1,350 MG in NS 250 ML IV SCH (11:14)
[2018-05-08] MEDS ORDERED: NS 1,000 ML IV SCH (11:30)
--- NOTE | 2018-05-08 12:26 | Diag Imaging Result Doc PS360 ---
CT HEAD W/O CONTRAST - 05/08/2018 INDICATION: facial drooping/slurred speech COMPARISON: 05/07/2018 FINDINGS: The ventricles and sulci are normal in size and contour. There is no intracranial mass or hemorrhage. Stable patchy areas ventricular cerebral white matter lucencies bilaterally right greater than left compatible with chronic microvascular disease. The skull is intact. The sinuses, mastoids, and middle ears are clear. Stable severe vascular calcification of the carotid siphons bilaterally. IMPRESSION: No acute disease or change from prior. This exam was performed using automated exposure control, adjustment of mA or kV according to patient size, and/or use of iterative reconstruction technique Electronically signed by Roldan Mayorga 05/08/2018 12:24 PM
--- NOTE | 2018-05-08 12:43 | Diag Imaging Result Doc PS360 ---
CT ANGIOGRAM HEAD/NECK - 05/08/2018 INDICATION: facial drooping/slurred speech TECHNIQUE: Axial CT images were obtained after administering intravenous contrast. Three-dimensional angiographic images were generated. COMPARISON: Head CT 05/08/2018 FINDINGS: Normal aortic arch. There is some slight vascular disease of the arch and the great vessel origins but no substantial abnormality otherwise. The vertebral arteries are patent bilaterally. There is critical stenosis at the origin of both of the internal carotid arteries with 99% narrowing. On the right side, there is severe vascular disease with calcification of the cavernous and supraclinoid internal carotid artery. No significant stenosis, there is perhaps narrowing of about 25%. The right middle and anterior cerebral arteries are patent. On the left side, there is very poor perfusion of the internal carotid artery distally due to the stenosis. There is heavy plaque buildup with critical stenosis in the carotid canal in the cavernous sinus as well as the supraclinoid process. There is over 90% narrowing at all these levels. There is a patent anterior to indicating artery. Probably most of the perfusion of the left anterior and middle cerebral arteries comes from the right side. The vertebral and basilar arteries are normal. There is persistent origin of the right posterior cerebral artery. The left side is conventional. IMPRESSION: 1. Critical stenosis at the origins of both internal carotid arteries. 2. Critical stenosis diffusely throughout the intracranial left internal carotid artery. 3. Probably most of the perfusion of the left anterior and middle cerebral arteries comes from the right side. This exam was performed using automated exposure control, adjustment of mA or kV according to patient size, and/or use of iterative reconstruction technique Electronically signed by Roldan Mayorga 05/08/2018 12:40 PM
[2018-05-08] MEDS ORDERED: DOPAMINE 800 MG/D5W 800 MG/500 ML IV.SOLN IV SCH ×2 (13:00→23:00)
[2018-05-08] MEDS ORDERED: OFIRMEV 1000 MG/ISOTONIC SOLN 1,000 MG/100 ML BOTTLE IV PRN (14:56)
--- NOTE | 2018-05-08 15:21 | PROGRESS NOTE ---
DATE: 05/08/2018 ADVANCED DIRECTIVE NOTE: 1. The patient has had possible recurrent CVA and has had significant encephalopathy. Prognosis is poor. From what the patient has described previously, he does not have family, namely brothers, sisters, or kids. His closest friend is his power of employment attorney, who reports he has had documentation to support that. He has indicated to him he did not want any life- sustaining measures; the patient has indicated to Mr. Johan Avelar. 2. The patient indicated that he would not want any life-sustaining measures at this point, so he will be a DNR. We will continue to follow. He also refused any aggressive treatments at this point. cc: Evan Valdez MD
--- NOTE | 2018-05-08 16:31 | PROGRESS NOTE ---
DATE: 05/08/2018 SUBJECTIVE: The patient has deteriorated again today. He has had another episode of focal weakness and altered mentation that started around I believe 10:30. He had completely recovered from his episode yesterday, it was about 11:20 when this happened. He has been persistently confused. I cannot get a very good neuro exam on him because he is just not as cooperative as he was previously. We ordered a CT, gave him a bolus of fluids. He is still somewhat confused. OBJECTIVE: VITAL SIGNS: Blood pressure 105/49, heart rate 63, respiratory rate of 20, temperature 98.3, 97% on room air. CARDIOVASCULAR: Regular rate and rhythm. PULMONARY: Bilateral breath sounds. Clear to auscultation. GASTROINTESTINAL: Soft, nontender, nondistended, bowel sounds are positive. LABORATORY DATA: White count 8, hemoglobin and hematocrit 9 and 28, platelets 237. Potassium 3.3, BUN and creatinine 24 and 1.3. PROBLEM LIST: 1. Transient ischemic attack versus recurrent cerebrovascular accident versus carotid artery insufficiency. Repeat scans today did not show acute stroke. It is really unclear what it is causing these episodes, but he has significant carotid stenosis bilaterally and is certainly at risk for stroke. We will continue supportive measures. I am going to try to keep him normotensive or even try to get a little hypertension because I think he cannot tolerate a very low blood pressure. We will continue aspirin. I will discuss with Dr. Marin about anticoagulation in this setting. He has not had an acute stroke. He is at risk for acute stroke, and we will follow. I am not sure the carotid stenosis is a known diagnosis although it seems like it has progressed but the patient was aware of the stenosis and did not want surgical intervention previously. Now, he really cannot make decisions. His POA is Mr. Avelar, who has listed a contact number and I have updated him. 2. Cystitis. Urine culture is negative. Dr. Kaur is following. He is on vancomycin and Zosyn. 3. Anemia appears to be stable. 4. Acute kidney injury. He has improved with hydration. We will continue to follow. 5. Severe protein calorie malnutrition. At this point, he is not alert enough to take anything by mouth. We will continue fluids and follow. DISPOSITION: Not a very good course at this point related to risk for recurrent strokes. I am not sure exactly how he is going to progress, but we will continue to follow closely. I did discuss the case with his POA. He has been made a Do Not Resuscitate. cc: Evan Valdez MD
[2018-05-08] MEDS: SINGULAIR PO SCH ×2 (20:45→21:46)
[2018-05-08] MEDS: LOVENOX SUBQ SCH (20:45)
[2018-05-08] MEDS: LIPITOR PO SCH ×2 (20:45→21:45)
[2018-05-09] MEDS: NS 1,000 ML IV SCH ×3 (05:04→23:14)
[2018-05-09 05:31] LABS: BASO# 0.01 X1000 (0.0-0.2); BASO% 0.2 % (0.0-0.8); EOS# 0.11 X1000 (0.0-0.7); EOS% 2.4 % (0.0-10.0); HEMATOCRIT 29.8 % (42.0-52.0); HEMOGLOBIN 9.4 g/dL (14.0-18.0); LYMPH# 0.38 X1000 (1.2-3.4); LYMPH% 8.2 % (20.5-51.1); MCH 29.7 PG (27-31); MCHC 31.5 g/dL (33-37); MCV 94.3 FL (81-99); MONO# 0.24 X1000 (0.11-0.59); MONO% 5.2 % (1.7-9.3); MPV 9.7 FL (7.4-10.4); PLT 209 X1000 (130-400); RBC 3.16 XMIL (4.7-6.1); RDW 14.5 % (11.5-14.5); WBC 4.64 X1000 (4.8-10.8)
[2018-05-09 05:55] LABS: AGAP 11; BUN 19 mg/dL (8-22); CALCIUM 7.9 mg/dL (8.8-10.2); CHLORIDE 110 mmol/L (98-107); COSMO 277; CREATININE 0.7 mg/dL (0.7-1.2); ESTIMATED GFR > 60; GLUCOSE 111 mg/dL (70-104); MAGNESIUM 1.6 mg/dL (1.5-2.7); PHOSPHORUS 2.6 mg/dL (2.7-4.5); POTASSIUM 2.6 mmol/L (3.5-5.1); SODIUM 137 mmol/L (136-145); TCO2 16 mmol/L (25-35)
[2018-05-09] MEDS ORDERED: ASPIRIN PR SCH (09:00)
[2018-05-09] MEDS: PROSCAR PO SCH (09:52)
[2018-05-09] MEDS: MIRALAX PO SCH ×3 (09:52→10:08)
[2018-05-09] MEDS: ZOLOFT PO SCH (09:52)
[2018-05-09] MEDS: FLOMAX PO SCH ×2 (09:52→20:53)
[2018-05-09] MEDS: MEGACE LIQUID PO SCH ×2 (09:52→20:54)
[2018-05-09] MEDS: MAXIPIME 1 GM in NS 50 ML IV SCH ×2 (09:52→20:54)
[2018-05-09] MEDS: CARDIZEM PO SCH (10:00)
[2018-05-09] MEDS ORDERED: KLOR-CON PO ONE (10:55)
[2018-05-09] MEDS ORDERED: ASPIRIN EC PO SCH (11:00)
[2018-05-09] MEDS ORDERED: POTASSIUM PHOSPHATE 40 MEQ in NS 250 ML IV ONE (11:30)
[2018-05-09] MEDS ORDERED: DOPAMINE 400 MG/D5W 400 MG/500 ML IV.SOLN IV SCH (12:45)
--- NOTE | 2018-05-09 12:56 | PROGRESS NOTE ---
DATE: 05/09/2018 SUBJECTIVE: The patient has no focal complaints. He is sitting up on the commode. No major issues, but he has completely recovered. Speech is restored. He is awake, alert. He has no energy, but again, he has very little blood pressure either. OBJECTIVE: Vital Signs: Currently, blood pressure 134/66, heart rate 71, respiratory rate 18, temperature 98.1 degrees, blood pressure when I saw him there was like 98/60, O2 saturation of 98% on room air. Cardiovascular: Regular rate and rhythm. Pulmonary: Bilateral breath sounds. Clear to auscultation. GI: Soft, nontender, nondistended. Bowel sounds are positive. LABORATORY DATA: White count is 4, hemoglobin and hematocrit 9 and 29, platelets 209,000. Potassium 2.6. Phosphorus is 2.6. PROBLEM LIST: 1. Transient ischemic attack, recurrent. Unclear if he has had a true stroke, although he has no residual deficits. He has significant carotid stenosis bilaterally with over 90% blockage on both sides. I think when he gets hypotensive, he tends to be symptomatic. I put in a Vascular consult and Neurology consult, although there is likely very little to be done. He has not wanted surgeries in the past. Dr. Marin has been consulted. I think he may have been seen by him, but I do not see a note yet, and we will get a Neurology consult tomorrow. I am going to go ahead and put him on aspirin and Plavix just to kind of maximize antiplatelet therapy. There are not really much options. I guess the question is does he need chronic anticoagulation. He is a fall risk, but he is also a stroke risk. Again, the patient does not want to be very aggressive, and has refused surgery in the past. I am not sure if angioplasty or stent may be another option. It is going to be difficult to sort this out because if he gets hypotensive, he gets symptomatic, and I am not sure exactly how we are going to manage that. Currently, he is on a dopamine drip, which at some point we will have to turn off. 2. Cystitis. Clinically has cystitis, but his cultures are negative. That is incorrect. He has gram-positive cocci growing. He is currently on vancomycin and cefepime. We are waiting on his final treatment plans, and we will go from there, so we are just waiting on that. 3. Disposition pending clinical status. Will see what Neurology and Vascular says, and be able to get a more clear disposition. I am going to monitor in CI for now. He is a DO NOT RESUSCITATE, but he is able to eat and take by mouth, so we are just going to resume his regular medications and follow. 4. Hypokalemia. We will supplement and follow. cc: Evan Valdez MD
--- NOTE | 2018-05-09 20:46 | CONSULTATION ---
DATE OF CONSULTATION: 05/09/2018 Mr. Ken Jett is a 78-year-old white male who was felt to have had suffered a transient ischemic attack and failure to thrive. He has been evaluated with head CT, brain MRI and a CT angiogram of the head and neck. The CT angiogram suggested critical stenoses at the takeoff of both internal carotid arteries. We were asked to evaluate him for possible carotid endarterectomy. I have not seen his noninvasive carotid studies at this time. Initially he refused to have any surgical treatment. When talking to him tonight he was open to it and I do feel that he will require left carotid endarterectomy probably followed by right. He has been placed on aspirin and Plavix and I promised him that I would talk more in detail about the procedure and also bring him a pamphlet we have in the office about it and plan to proceed this week. cc: Lashaun Marin MD
[2018-05-09] MEDS: SINGULAIR PO SCH (20:53)
[2018-05-09] MEDS: LIPITOR PO SCH (20:53)
[2018-05-09] MEDS: LOVENOX SUBQ SCH (20:54)
[2018-05-09] MEDS: VANCOMYCIN 1,350 MG in NS 250 ML IV SCH (23:19)
[2018-05-10 05:25] LABS: BASO# 0.01 X1000 (0.0-0.2); BASO% 0.3 % (0.0-0.8); EOS# 0.12 X1000 (0.0-0.7); EOS% 3.1 % (0.0-10.0); HEMATOCRIT 28.4 % (42.0-52.0); HEMOGLOBIN 9.2 g/dL (14.0-18.0); IMM GRAN# 0.02 X1000 (0.0-0.04); IMM GRAN% 0.5 % (0.0-0.5); LYMPH# 0.56 X1000 (1.2-3.4); LYMPH% 14.4 % (20.5-51.1); MCH 30.2 PG (27-31); MCHC 32.4 g/dL (33-37); MCV 93.1 FL (81-99); MONO# 0.21 X1000 (0.11-0.59); MONO% 5.4 % (1.7-9.3); MPV 9.9 FL (7.4-10.4); NEUT# 2.96 X1000 (1.4-6.5); NEUT% 76.3 % (42.2-75.2); PLT 187 X1000 (130-400); RBC 3.05 XMIL (4.7-6.1); RDW 14.4 % (11.5-14.5); WBC 3.88 X1000 (4.8-10.8)
[2018-05-10 05:51] LABS: AGAP 11; BUN 13 mg/dL (8-22); CALCIUM 7.6 mg/dL (8.8-10.2); CHLORIDE 110 mmol/L (98-107); COSMO 276; CREATININE 0.5 mg/dL (0.7-1.2); ESTIMATED GFR > 60; GLUCOSE 101 mg/dL (70-104); POTASSIUM 2.8 mmol/L (3.5-5.1); SODIUM 138 mmol/L (136-145); TCO2 17 mmol/L (25-35)
[2018-05-10] MEDS: NS 1,000 ML IV SCH ×3 (06:29→15:28)
[2018-05-10] MEDS ORDERED: PLAVIX PO SCH ×2 (09:00→12:45)
[2018-05-10] MEDS ORDERED: KLOR-CON PO ONE ×2 (09:40→20:15)
[2018-05-10] MEDS: CARDIZEM PO SCH (09:43)
[2018-05-10] MEDS: ZOLOFT PO SCH (09:45)
[2018-05-10] MEDS: ASPIRIN EC PO SCH (09:45)
[2018-05-10] MEDS: FLOMAX PO SCH ×2 (09:45→20:43)
[2018-05-10] MEDS: PROSCAR PO SCH (09:45)
[2018-05-10] MEDS: MEGACE LIQUID PO SCH ×2 (09:45→20:43)
[2018-05-10] MEDS: POTASSIUM CHLORIDE 20 MEQ/SWI 20 MEQ/100 ML IVPB IV SCH ×2 (12:30→16:49)
--- NOTE | 2018-05-10 13:29 | CONSULTATION ---
DATE OF CONSULTATION: 05/10/2018 REASON FOR CONSULT: TIAs. HISTORY OF PRESENT ILLNESS: This is a 78-year-old male, history of coronary disease status post CABG, hypertension, dyslipidemia who was admitted 05/06/2018 from his primary care physician's office for failure to thrive. He was unkempt and apparently has had diminished appetite and significant weight loss. While here he has been treated for a urinary tract infection but has had a couple of episodes raising the question of TIA. The first event, I believe, occurred 05/07/2018 and was associated with a blood pressure of 92/50. Per the RN he had mental status change with right upper extremity weakness and dysarthria. A code stroke was called and his symptoms resolved rather quickly. Blood sugar was 136. 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 He had a second event 05/08/2018 described as right facial drooping with speech difficulties noted by the RN upon entering the room for check. This may have been associated with some confusion and that confusion may have been somewhat persistent, but I believe the other symptoms were improved rather quickly. Blood pressure documented around the time of that event was, I believe, 105/49. There was a lower pressure reading at 7:30 that morning of 91/41. Other readings have been higher. CT of the head did not show acute findings. CTA of the head and neck showed critical stenoses at the origins of the bilateral internal carotid arteries. He has not had further event documented. His blood pressure has been maintained higher and aspirin and Plavix were started, though currently he is only on low-dose aspirin therapy. He is also on Lipitor. The patient does not recall any events happening while he is here. He says he is unaware. He is not able to give a great history either. He reports no known prior history of stroke or seizure. PAST MEDICAL HISTORY: 1. Coronary disease, status post CABG. 2. Hypertension. 3. Hyperlipidemia. 4. Apparent remote stroke noted on MRI. 5. Left posterior parietal depression. 6. Recurrent UTIs and renal stones. FAMILY HISTORY: He does not recall family having stroke or seizure. SOCIAL HISTORY: He lives alone. He denies any tobacco history. No alcohol or illicits. He does drive. 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 ALLERGIES: Listed to penicillin. CURRENT MEDICATIONS: 1. Aspirin 81 mg daily. 2. Lipitor. Others reviewed in the chart. REVIEW OF SYSTEMS: 12 systems was conducted and is otherwise negative except that detailed in the HPI. He does also report abdominal pain. He also reports presenting to his primary care physician's office for checkup, but with complaints of she isolated shortness of breath with walking. PHYSICAL EXAMINATION: Vital Signs: Afebrile. Blood pressure today has been 120s to 150s systolic/60s to 80s diastolic. Pulse 60's to 70s. Respirations 16. 97% on room air. Mr. Edward is supine on in the bed and appears to be resting with eyes closed as I enter the room. He alerts to voice and regards. He is oriented though he was off by 1 with the date and day of the week. He follows simple and complex commands. Left right and digit distinction preserved. No language disturbance on bedside testing. No dysarthria. Pupils are miotic 2 mm OU and reactive to bright light. Gaze conjugate, extraocular movements are full. Visual moore intact to direct confrontational testing. Face symmetric with equal activation. Facial sensation intact. Tongue is midline. Palate elevates symmetrically. Shoulder shrug full. No drift. Tone equal in the limbs. Strength appears preserved in the arms and legs and symmetric. [id number] and rapid alternating movements intact. He reports symmetric sensation to light touch and pinprick in the arms and legs. Reflexes 2+ at the wrists, biceps, knees and ankles. No clonus. Plantar response is flexor bilaterally. I did not test his gait. DIAGNOSTICS: BUN 13, creatinine 0.5. Blood sugars low 100s. A1c 5.4, calcium 7.6. Triglyceride 73, cholesterol 85, LDL 41. HDL 29. Enterococcus faecalis in the urine. ASSESSMENT AND PLAN: A 78-year-old male with vascular risk factors admitted with failure to thrive with appetite and weight loss. He has had 2 events while hospitalized concerning for TIA both with transient right-sided symptoms, with events being associated with relative hypotension. CTA showed critical stenosis at the origins of both internal carotid arteries. I agree these events are certainly concerning for TIAs. Agree with dual anti- platelet therapy for now, and will defer to surgery regarding recommendations for endarterectomy. I would continue to avoid hypotension as you are doing. Continue frequent neuro checks. Thank you for the consultation. cc: Shelli Smyth MD MTDD
[2018-05-10] MEDS ORDERED: DOPAMINE 400 MG/D5W 400 MG/500 ML IV.SOLN IV SCH (14:15)
[2018-05-10] MEDS ORDERED: DESYREL PO PRN (15:15)
[2018-05-10] MEDS ORDERED: KLONOPIN PO PRN (15:15)
[2018-05-10] MEDS: LIPITOR PO SCH (20:43)
[2018-05-10] MEDS: SINGULAIR PO SCH (20:43)
[2018-05-10] MEDS: LOVENOX SUBQ SCH (20:44)
--- NOTE | 2018-05-10 21:52 | ECHO REPORT ---
ORDER DATE: 05/10/2018 MEASUREMENTS: Left ventricular internal diameter in diastole 4.7, systolic 3.0, septal thickness 0.9, posterior wall thickness 0.9, aortic root 3.6, left atrium 3.6. SUMMARY: 1. Technically difficult study due to limited acoustic window quality. Intravenous echo contrast agent Definity was utilized to enhance endocardial definition. 2. Aortic valve is not well imaged but appears to open adequately on 2-dimensional images. Peak gradient across the aortic valve was less than 10 mmHg. There is trace aortic regurgitation. Mitral and tricuspid valves are without evidence of structural abnormality while pulmonic valve was not well demonstrated. There is trace mitral regurgitation and trace tricuspid regurgitation. Aortic root is normal in size. 3. Normal left ventricular dimension is demonstrated. Estimated left ventricular ejection fraction appears to be at least 60%. No regional wall motion abnormalities are evident. Doppler suggests grade 1 left ventricular diastolic dysfunction. Left atrium, right atrium and right ventricle are normal in size with grossly preserved right ventricular systolic function. 4. No pericardial effusion. 5. Appearance of inferior vena cava suggests normal central venous pressure. cc: MD Evan Crowley MD
[2018-05-11 05:34] LABS: BASO# 0.01 X1000 (0.0-0.2); BASO% 0.3 % (0.0-0.8); EOS% 2.5 % (0.0-10.0); HEMATOCRIT 29.7 % (42.0-52.0); HEMOGLOBIN 9.6 g/dL (14.0-18.0); IMM GRAN# 0.03 X1000 (0.0-0.04); IMM GRAN% 0.8 % (0.0-0.5); LYMPH# 0.68 X1000 (1.2-3.4); LYMPH% 17.1 % (20.5-51.1); MCHC 32.3 g/dL (33-37); MCV 92.8 FL (81-99); MONO# 0.24 X1000 (0.11-0.59); MPV 9.8 FL (7.4-10.4); NEUT# 2.91 X1000 (1.4-6.5); NEUT% 73.3 % (42.2-75.2); PLT 186 X1000 (130-400); RDW 14.2 % (11.5-14.5); WBC 3.97 X1000 (4.8-10.8)
[2018-05-11 05:54] LABS: AGAP 8; BUN 10 mg/dL (8-22); CHLORIDE 111 mmol/L (98-107); COSMO 273; CREATININE 0.7 mg/dL (0.7-1.2); ESTIMATED GFR > 60; GLUCOSE 95 mg/dL (70-104); MAGNESIUM 1.5 mg/dL (1.5-2.7); POTASSIUM 3.6 mmol/L (3.5-5.1); SODIUM 137 mmol/L (136-145); TCO2 18 mmol/L (25-35)
[2018-05-11] MEDS: NS 1,000 ML IV SCH ×2 (06:35→21:16)
[2018-05-11] MEDS: CARDIZEM PO SCH (09:42)
[2018-05-11] MEDS: FLOMAX PO SCH ×2 (09:42→21:15)
[2018-05-11] MEDS: MEGACE LIQUID PO SCH ×2 (09:42→21:15)
[2018-05-11] MEDS: ZOLOFT PO SCH (09:42)
[2018-05-11] MEDS: PROSCAR PO SCH (09:42)
[2018-05-11] MEDS: ASPIRIN EC PO SCH (09:42)
[2018-05-11] MEDS: VANCOMYCIN 1,350 MG in NS 250 ML IV SCH (10:17)
--- NOTE | 2018-05-11 11:30 | CARDIOLOGY CONSULTATION ---
DATE: 05/11/2018 REASON FOR CONSULTATION: Cardiology was consulted for preoperative evaluation for bilateral carotid surgery with right first for severe carotid disease. HISTORY OF PRESENT ILLNESS: A 78-year-old gentleman who has had coronary artery bypass grafting, does not know the coding analyst he follows up with. He also has depression, TIAs in the past. The patient is admitted with weakness and weight loss, and he was admitted and he was having many TIAs. From a cardiac standpoint, the patient denies chest pain. There are no palpitations. His exercise capacity is significantly limited. REVIEW OF SYSTEMS: A 14-point review of systems was done. GI: There is no nausea. There is no vomiting or hematemesis. Central Nervous System: As above. Cardiovascular: As above. Respiratory: There is no history of cough, expectoration, hemoptysis. Constitutional: There is no history of fevers or chills. PAST MEDICAL HISTORY: 1. Hypertension. 2. Coronary artery bypass grafting in 1999. 3. Dyslipidemia. 4. Hypertension. 5. TIAs. 6. Recurrent UTI. 7. Bilateral ureteral stents. PHYSICAL EXAMINATION: Vital Signs: Blood pressure was 126/80. Heart: first and second heart sounds were heard. There was carotid bruit. There was no S3 gallop. Respiratory: Normal air entry. There are no crepitations or rhonchi. Abdomen: Soft, nontender. There was no guarding or rigidity. Bowel sounds were heard. Central Nervous System: Alert, was moving extremities. Detailed central nervous system examination not performed. ASSESSMENT AND PLAN: Mr. Ken Edward is a 78-year-old gentleman with history of coronary artery disease, coronary artery bypass grafting in 1999, history of hypertension, depression, who is admitted with failure to thrive, has had episodes of transient ischemic attack, has severe critical stenosis of bilateral carotid arteries. His echocardiogram revealed preserved left ventricular systolic function. He also has had a stress test done in 2018, which did not reveal any evidence of ischemia. RECOMMENDATIONS: 1. From a cardiac standpoint, he is at a moderate risk. However, given his severe disease, would recommend proceeding with surgery. He is on dopamine at the moment given that he had low blood pressure, has already been started on IV fluids. I have not made any changes at the present time. He has been started on aspirin and Plavix. Would recommend to continue medications. 2. He is on Lipitor 40. Would recommend continuing that. 3. He is on Cardizem, which probably is dropping the blood pressure off. Will stop the Cardizem tablets as well. Thank you for the consult. cc: Melchor Jasso MD
--- NOTE | 2018-05-11 13:09 | EEG REPORT ---
DATE: 05/10/2018 REFERRING PHYSICIAN: Shelli Smyth MD TETRYL NITRATOR OPERATOR: Angela Prado BACKGROUND INFORMATION/TECHNIQUE: This is a digitally recorded portable routine EEG with video. HISTORY: A 78-year-old male with a question of seizure. He has had some recurrent weakness on the right side. EEG is ordered to detect evidence of seizures. EEG FINDINGS: A posterior dominant alpha rhythm is not seen. At maximal alertness, the background consists of mixed alpha and beta range frequencies. No definite persistent focal slowing. No epileptiform discharges. No seizures. Hyperventilation is not performed. Photic stimulation does not alter the record. The patient becomes drowsy but stage II sleep is not seen. The EKG demonstrates regular intervals. IMPRESSION/CLINICAL CORRELATION: Normal routine EEG in the awake and drowsy states. Of note, a normal EEG does not rule out epilepsy. Clinical correlation is recommended. cc: Shelli Smyth MD
--- NOTE | 2018-05-11 17:20 | PROGRESS NOTE ---
DATE: 05/11/2018 SUBJECTIVE: No major overnight events. No recurrent symptoms. I believe the plan is for carotid endarterectomy, left and then right. The patient is brighter today and says he feels better. OBJECTIVE: Vital signs: Afebrile. Blood pressure today is 108-159 systolic. Pulse 60s. General: Mr. Edward is supine in bed, awake, alert, oriented. He does look brighter today. He is spontaneous and interactive. Neurologic: He follows commands. No language disturbance. No dysarthria. Pupils equal, round, and reactive. Gaze conjugate. There is subtle nasolabial fold flattening on the right side compared to the left and actually this was present yesterday. He is spontaneously moving his extremities and there is no obvious deficit. DIAGNOSTICS: Routine EEG personally reviewed and was normal. LABS: Reviewed in the chart. ASSESSMENT AND PLAN: This is a 78-year-old male with vascular risk factors, admitted with failure to thrive, appetite and weight loss. He has had 2 events while hospitalized concerning for TIA, both involving transient right-sided symptoms and both being associated with relative hypotension. CTA showed critical stenosis at the origins of both internal carotid arteries. He has been stable in the past couple of days. We are deferring to surgery regarding endarterectomy recommendations. Continue avoiding hypotension. Continue aspirin and high potency statin. Frequent neuro checks. cc: Shelli Smyth MD MTDD
--- NOTE | 2018-05-11 20:00 | PROVIDER DOCUMENTATION ---
This chart was entered by Shonna Marin Scribe, acting as scribe for Jaime Coats MD. HPI-General Adult - General Chief Complaint: General Adult Stated Complaint: loss of appetite since January Time Seen by Provider: 05/06/18 16:16 Source: patient Allergies/Adverse Reactions: Patient Allergies Allergy/AdvReac Type Severity Reaction Status Date / Time Penicillins Allergy Unknown Verified 02/09/18 19:34 Home Medications: Home Medication List Medication Instructions Recorded Confirmed Last Taken Type Aspirin 325 mg PO DAILY 03/12/17 02/26/18 02/25/18 History 325 MG Furosemide 20 mg PO DAILY 03/12/17 02/26/18 02/25/18 History 20 MG Acetaminophen [Acetaminophen Extra 500 mg PO Q6H PRN PRN 03/20/17 02/26/18 02/25/18 History Strength] 500 MG Albuterol Sulfate [Proair Hfa] 2 puff IH BID 07/24/17 02/26/18 02/25/18 History 2 PUFF Diltiazem [Cardizem] 120 mg PO DAILY 07/24/17 02/26/18 02/25/18 History 120 MG Montelukast Sodium 10 mg PO HS 07/24/17 02/26/18 Unknown History Sertraline [Zoloft] 25 mg PO DAILY 07/24/17 02/26/18 02/25/18 History 25 MG Tamsulosin HCl 0.8 mg PO DAILY 07/24/17 02/09/18 Unknown History Sulfamethoxazole/Tmp D.s. [Septra 1 tab PO BID #14 tab 02/22/18 02/26/18 Unknown Rx Ds] - History of Present Illness -Gen Adult Nature of Presenting Problems: 78 yom presents to the ed with c/o weakness, sob, fatigue and dehydration. pt sts sx have been graduly getting worse and he need help with ADL's. pt sts home health comes out weekly but he need help with more care then they are providing Location of Pain/Injury: reports: generalized (weakness) Quality of Pain: reports: other (weakness) Severity: reports: moderate Onset/Duration: reports: gradual (4 weeks) Timing: reports: still present, intermittent Context/Activities at Onset: reports: light activity Modifying Factors: improves with: nothing Associated Symptoms: reports: malaise, shortness of breath, weakness. denies: back/neck pain, chest pain, cough, diarrhea, dizziness, fatigue, fever/chills, headaches, nausea, vomiting Similar Symptoms Previously?: Yes Recently seen or treated by another doctor?: No Review of Systems - Adult - REVIEW OF SYSTEMS - ADULT Constitutional: reports: fatiangel. denies: chills, fever Eyes: reports: no symptoms reported Ears, Nose, Mouth & Throat: reports: no symptoms reported Cardiovascular: denies: chest pain, palpitations Respiratory: denies: cough, shortness of breath, wheezing Gastrointestinal: reports: see HPI, poor appetite. denies: abdominal pain, diarrhea, nausea, vomiting Genitourinary: reports: no symptoms reported Musculoskeletal: reports: see HPI, muscle weakness. denies: back pain, neck pain Integumentary: reports: no symptoms reported Neurological: denies: dizziness/vertigo, headache/migraines Psychiatric: reports: no symptoms reported Endocrine: reports: no symptoms reported Hematologic/Lymphatic: reports: no symptoms reported Allergic/Immunologic: reports: no symptoms reported All Other Systems: Reviewed and Negative Past History - Adult - PAST MEDICAL HISTORY-ADULT Review of Records: reports: Old Records Reviewed, Nursing Assessment Review, Medications Reviewed, Social history reviewed & non-contributory. Major Childhood Illnesses: reports: denies history Cardiovascular: reports: CAD, HTN, hyperlipidemia, PAD Respiratory: reports: denies history Gastrointestinal: reports: denies history Obstetrical/Gynecological: reports: denies history Genitourinary: reports: denies history Musculoskeletal: reports: denies history Neurological: reports: CVA, TIA Endocrine/Immune: reports: denies history Other Conditions: reports: denies history - PRIOR SURGERIES/PROCEDURES Surgical/Procedure History: reports: reviewed, not pertinent, CABG (year 1999) - IMMUNIZATION STATUS Childhood Immunizations: See Nurse Assessment Flu Vaccine: See Nurse Assessment - FAMILY HISTORY Family History: reviewed, not pertinent - SOCIAL HISTORY Smoking: denies Substance Use: denies Living Situation: family Physical Exam-General - PHYSICAL EXAM-ADULT Initial Vital Signs Reviewed: Yes - CONSTITUTIONAL General Appearance: alert, no apparent distress, other (APPEARS FATIUGED) - EYES Eyes: PERRL/EOMI, pale conjunctivae - HEAD, EARS, NOSE, MOUTH & THROAT HENMT: normocephalic/atraumatic, normal ENT inspection. negative: moist mucous membranes - NECK Neck: non-tender, full range of motion, supple, normal inspection - RESPIRATORY Respiratory: chest non-tender, lungs clear, normal breath sounds - CARDIOVASCULAR Cardiovascular: normal peripheral pulses, regular rate, rhythm, no edema, no gallop, no JVD - GASTROINTESTINAL (ABDOMEN) Abdominal Exam: normal bowel sounds, non tender - LYMPHATIC Lymphatic: no adenopathy - MUSCULOSKELETAL Back Exam: normal inspection, no CVA tenderness, no vertebral tenderness Extremity: normal range of motion, non-tender, normal inspection - SKIN Integumentary: normal color, normal turgor, warm/dry - NEUROLOGIC Neurologic: grossly normal - PSYCHIATRIC Psych/Mental Status: normal mood/affect, normal thought content, normal thought process, oriented x 3 Progress - PLAN OF CARE/RESULTS Progress/Plan/Lab Results: Vital Signs - 8 hr 05/06/18 12:10 Temperature 98.0 F Pulse Rate 90 Respiratory Rate 20 Blood Pressure 126/80 O2 Sat by Pulse Oximetry 99 Laboratory Results - last 24 hr 05/06/18 05/06/18 05/06/18 12:13 12:19 12:19 WBC 8.37 RBC 3.87 L Hgb 11.8 L Hct 36.7 L MCV 94.8 MCH 30.5 MCHC 32.2 L RDW Std Deviation 14.4 Plt Count 411 H MPV 9.5 Immature Gran % (Auto) 0.4 Neut % (Auto) 79.8 H Lymph % (Auto) 11.8 L [place] % (Auto) 6.8 Eos % (Auto) 1.1 Baso % (Auto) 0.1 Immature Gran # (Auto) 0.03 Neut # (Auto) 6.68 H Lymph # (Auto) 0.99 L [place] # (Auto) 0.57 Eos # (Auto) 0.09 Baso # (Auto) 0.01 Sodium 135 L Potassium 4.5 Chloride 100 Carbon Dioxide 20 L Anion Gap 15 BUN 19 Creatinine 1.5 H Estimated GFR/1.73 m2 45 BUN/Creatinine Ratio 13 Glucose 106 H Calculated Osmolality 273 Calcium 9.8 Total Bilirubin 0.47 AST 10 ALT 7 L Alkaline Phosphatase 70 Total Protein 7.5 Albumin 3.4 L Globulin 4.1 Albumin/Globulin Ratio 0.8 Urine Source CLEAN CATCH Urine Color ORANGE Urine Turbidity TURBID Urine pH 6.5 Ur Specific [place] 1.006 Urine Protein 200 A Ur Glucose (Stick) NEGATIVE Ur Ketones (Stick) NEGATIVE Urine Blood LARGE A Urine Nitrite NEGATIVE Urine Bilirubin NEGATIVE Urobilinogen Dipstick NORMAL Urine Leukocytes LARGE A Urine WBC (Auto) TNTC A Urine RBC (Auto) TNTC A U Epithel Cells (Auto) <10 Urine Bacteria (Auto) NEGATIVE Urine Crystals NONE SEEN Small Round Cells NONE SEEN Urine Casts NONE SEEN Urine Yeast-like Cells NONE SEEN Orders Category Date Time Status cxr [CHEST-2 VIEWS] [RAD] Stat Exams 05/06/18 16:17 Completed BLOOD CULTURE [BLDCUL] Stat Lab 05/06/18 17:10 Results CBC WITH ELECTRONIC DIFF [HEME] Stat Lab 05/06/18 12:19 Completed COMPREHENSIVE METABOLIC PANEL [CHEM] Stat Lab 05/06/18 12:19 Completed INFLUENZA SCREEN A/B Stat Lab 05/06/18 17:05 Received URINALYSIS W/POSS RFLX CULT [URINALYSIS] Stat Lab 05/06/18 12:13 Completed URINE CULTURE [RM] Routine Lab 05/06/18 13:08 Received URINE MANUAL MICROSCOPIC [URINALYSIS] Stat Lab 05/06/18 12:13 Completed bnp [PRO B-NATRIURETIC PEPTIDE] Stat Lab 05/06/18 17:10 Received 0.9% Sodium Chloride Inj [Ns] 1,000 ml Med 05/06/18 16:47 Active IV 999 mls/hr CefTRIAXONE [Rocephin] 1 gm Med 05/06/18 16:47 Discontinued 0.9% Sodium Chloride Inj [Ns] 50 ml IV NOW Nitrofurantoin Macrocrystal [Macrodantin] Med 05/06/18 17:18 Discontinued 100 mg PO NOW ONE Result Diagrams: 05/06/18 12:19 05/06/18 12:19 - REASSESSMENT Reassessment #1 Time Reassessed: 18:47 Status: other (SPOKE TO HOSPITALIST CONCERN FOR POSSIBLE VTE/PE AND SUGGEST CTPA TO ENSURE NO CTPA. WILL ORDER. APPREACIATE HOSPITLIAST ASSITANCE.) - XRAY 1 XRAY: Bilateral XRAY Study: Chest Impression: See EMR Report (EXAM: CHEST-2 VIEWS - 05/06/2018 HISTORY: SOB TECHNIQUE: Chest two views COMPARISON: 07/23/2017 FINDINGS: Heart size is normal. There are sternal wires from previous surgery again seen. There is stable mild tortuosity of the thoracic aorta. There is stable right midlung granuloma from old granulomatous disease. The lungs otherwise appear clear. There is no consolidation, pleural effusion, or pneumothorax identified. There is thoracic spondylosis and or ankylosis noted. IMPRESSION: No evidence of acute disease. Electronically signed by Gabriel Cano 05/06/2018 4:37 PM 05/06/18 1637 Interpreting Physician: Gabriel Cano MD Dictated Date/Time: 05/06/18 1034 cc: Jaime Coats MD; None,PCP) Departure - Departure Date of Disposition Decision: 05/06/18 Time of Disposition Decision: 17:40 DIAGNOSIS: Urinary tract infection, Acute kidney injury, Dehydration, Elevated brain natriuretic peptide (BNP) level Disposition: ADMITTED INPATIENT 09 Certified Medical Emergency: Emergent Condition: Stable Referrals and Follow-Ups: None,PCP [Primary Care Provider] - - Critical Care Note This patient required my direct & personal management of CC.: No Attestation - Physician/ HERBIE Attestation Patient care was provided by Advanced Practice Provider:: No The physician spent face to face time with patient:: Yes Advanced Practice Provider documentation review:: Supervising physician onsite and consulted in the evaluation and care of this patient. The physician did have a face to face encounter with the patient. This chart was documented by the indicated scribe, (Shonna Marin Scribe) and accurately reflects the services I performed and decisions made by me, Jaime Coats MD, as attested by the provider's signature.
[2018-05-11] MEDS: ZOFRAN IV PRN (21:15)
[2018-05-11] MEDS: SINGULAIR PO SCH (21:15)
[2018-05-11] MEDS: LOVENOX SUBQ SCH (21:15)
[2018-05-11] MEDS: LIPITOR PO SCH (21:15)
[2018-05-12] MEDS: DOPAMINE 800 MG/D5W 800 MG/500 ML IV.SOLN IV SCH ×2 (03:34→19:18)
[2018-05-12] MEDS: ZOFRAN IV PRN (03:46)
[2018-05-12 05:40] LABS: BASO# 0.01 X1000 (0.0-0.2); BASO% 0.2 % (0.0-0.8); EOS# 0.11 X1000 (0.0-0.7); EOS% 1.8 % (0.0-10.0); HEMATOCRIT 32.7 % (42.0-52.0); HEMOGLOBIN 10.6 g/dL (14.0-18.0); IMM GRAN# 0.04 X1000 (0.0-0.04); IMM GRAN% 0.7 % (0.0-0.5); LYMPH# 0.89 X1000 (1.2-3.4); LYMPH% 14.7 % (20.5-51.1); MCH 29.9 PG (27-31); MCHC 32.4 g/dL (33-37); MCV 92.4 FL (81-99); MONO% 6.6 % (1.7-9.3); MPV 9.8 FL (7.4-10.4); NEUT# 4.61 X1000 (1.4-6.5); PLT 216 X1000 (130-400); RBC 3.54 XMIL (4.7-6.1); RDW 14.3 % (11.5-14.5); WBC 6.06 X1000 (4.8-10.8)
[2018-05-12 06:53] LABS: AGAP 9; BUN 8 mg/dL (8-22); CALCIUM 7.9 mg/dL (8.8-10.2); CHLORIDE 111 mmol/L (98-107); COSMO 276; CREATININE 0.6 mg/dL (0.7-1.2); ESTIMATED GFR > 60; GLUCOSE 98 mg/dL (70-104); POTASSIUM 3.3 mmol/L (3.5-5.1); SODIUM 139 mmol/L (136-145); TCO2 19 mmol/L (25-35)
[2018-05-12] MEDS: PROSCAR PO SCH (09:41)
[2018-05-12] MEDS: MEGACE LIQUID PO SCH ×3 (09:41→21:15)
[2018-05-12] MEDS: ASPIRIN EC PO SCH (09:41)
[2018-05-12] MEDS: FLOMAX PO SCH ×3 (09:41→21:15)
[2018-05-12] MEDS: ZOLOFT PO SCH (09:41)
[2018-05-12] MEDS: VANCOMYCIN 1,350 MG in NS 250 ML IV SCH (09:55)
[2018-05-12] MEDS: NS 1,000 ML IV SCH ×2 (09:55→13:40)
--- NOTE | 2018-05-12 09:59 | PROGRESS NOTE ---
DATE: 05/12/2018 SUBJECTIVE: Mr. Edward reports no more episodes of speech difficulty, limb weakness, gait difficulty. We reviewed the imaging showing significant internal carotid stenosis bilaterally. On exam, he is sitting up at the bedside awake, alert, attentive, appropriate. Speech is not significantly dysarthric. Language function is intact on brief bedside testing. Facial motility is slightly diminished symmetrically. Timing of intervention for carotid stenosis is being discussed. With no new events, I do not think we have to do anything more urgently from neurologic standpoint. Thanks for asking us to see Mr. Edward. cc: MD CARLITA Rollins III
--- NOTE | 2018-05-12 14:09 | Carotid Study ---
DATE: 05/07/2018 PROCEDURE: Bilateral duplex and color flow imaging of the carotid arteries performed using the [employer] Vivid E9 ultrasound system with a 9L-D transducer. REFERRING PHYSICIAN: Evan Valdez MD. INTERPRETING PHYSICIAN: Lashaun Marin MD. TECH: Soco Wagner [facility]. INDICATIONS: A 78-year-old male, transient ischemic attack. OBSERVED DATA RIGHT LEFT Brachial Blood Pressure Carotid Pulse Bruits: Carotid/Sub DIAGRAM OF ULTRASOUND IMAGING R L RIGHT INT EXT INT EXT LEFT Jakob (cm/s) Jakob (cm/s) Subclavian 193/0 Subclavian 208/0 CCA Proximal 97/12 CCA Proximal 65/0 CCA Distal 86/20 CCA Distal 70/0 Bulb 98/13 Bulb 51/0 ICA Proximal 343/63 ICA Proximal 435/52 ICA Mid 160/41 ICA Mid 137/28 ICA Distal 104/37 ICA Distal 71/11 ECA 80/6 ECA 48/0 Vertebral 48/11 Forward flow Vertebral 50/12 ICA/CCA Ratio 3.54 ICA/CCA Ratio 6.35 % Stenosis 80-99% % Stenosis 80-99% PHYSICIAN INTERPRETATION: Critical stenoses bilaterally at the takeoff at the internal carotid arteries left worse than right. Both of these stenoses are hemodynamically significant. cc: MD Evan Rai MD
--- NOTE | 2018-05-12 14:59 | PROGRESS NOTE ---
DATE: 05/12/2018 SUBJECTIVE: Patient has no focal complaints. He is kind of weak, tired. OBJECTIVE: Blood pressure 133/69, heart rate 76, respiratory rate 17, temperature 98.1 degrees, 98% on room air.Cardiovascular: Regular rate and rhythm. Pulmonary: Bilateral breath sounds. Clear to auscultation. GI: Soft, nontender, nondistended. Bowel sounds are positive. Neurological: Nonfocal. LABORATORY DATA: White count 6, hemoglobin and hematocrit 10 and 32, platelets 216,000, potassium 3.3. PROBLEM LIST: 1. Transient ischemic attack with significant bilateral carotid stenosis. He is on aspirin, Lovenox. Plan is for a carotid endarterectomy intervention per Dr. Marin. We have held Plavix anticipating. 2. Coronary artery disease status post coronary artery bypass grafting. Currently, he is stable. Continuing regular medications. We are continuing dopamine at low dose just to maintain normotension and prevent further potential ischemia, although he has not had a full ischemic event. DISPOSITION: Pending his clinical status with [facility] when Dr. Marin sets him up for that hopefully either the end of the week or 1st thing next week. cc: Evan Valdez MD
[2018-05-12] MEDS: SINGULAIR PO SCH ×2 (19:28→21:15)
[2018-05-12] MEDS: LIPITOR PO SCH ×2 (19:28→21:15)
[2018-05-12] MEDS: LOVENOX SUBQ SCH ×2 (19:28→21:15)
[2018-05-13] MEDS: DOPAMINE 800 MG/D5W 800 MG/500 ML IV.SOLN IV SCH (03:25)
[2018-05-13 05:28] LABS: BASO# 0.01 X1000 (0.0-0.2); BASO% 0.2 % (0.0-0.8); EOS% 3.5 % (0.0-10.0); HEMATOCRIT 29.7 % (42.0-52.0); HEMOGLOBIN 9.5 g/dL (14.0-18.0); IMM GRAN# 0.05 X1000 (0.0-0.04); IMM GRAN% 0.9 % (0.0-0.5); LYMPH# 1.18 X1000 (1.2-3.4); LYMPH% 20.8 % (20.5-51.1); MCV 93.7 FL (81-99); MONO# 0.34 X1000 (0.11-0.59); MPV 9.9 FL (7.4-10.4); NEUT% 68.6 % (42.2-75.2); PLT 213 X1000 (130-400); RBC 3.17 XMIL (4.7-6.1); RDW 14.6 % (11.5-14.5); WBC 5.68 X1000 (4.8-10.8)
[2018-05-13 05:43] LABS: AGAP 7; BUN 10 mg/dL (8-22); CALCIUM 7.8 mg/dL (8.8-10.2); CHLORIDE 112 mmol/L (98-107); COSMO 276; CREATININE 0.6 mg/dL (0.7-1.2); ESTIMATED GFR > 60; GLUCOSE 96 mg/dL (70-104); POTASSIUM 3.4 mmol/L (3.5-5.1); SODIUM 139 mmol/L (136-145); TCO2 20 mmol/L (25-35)
[2018-05-13] MEDS: ZOLOFT PO SCH (08:36)
[2018-05-13] MEDS: ASPIRIN EC PO SCH (08:36)
[2018-05-13] MEDS: PROSCAR PO SCH (08:36)
[2018-05-13] MEDS: FLOMAX PO SCH ×2 (08:36→20:01)
[2018-05-13] MEDS: MEGACE LIQUID PO SCH ×2 (08:36→20:01)
--- NOTE | 2018-05-13 09:34 | PROGRESS NOTE ---
DATE: 05/13/2018 SUBJECTIVE: Mr. Jett reports no more episodes of unilateral weakness. OBJECTIVE: He is awake and alert. Speech is not significantly dysarthric. Language function is intact on brief bedside testing. PLAN: No new suggestion from Neurology standpoint. Will defer to Attending and Surgery team decision regarding timing of carotid endarterectomy. Thanks for asking Neurology to see Mr. Edward. cc: MD CARLITA Rollins III
[2018-05-13] MEDS: VANCOMYCIN 1,350 MG in NS 250 ML IV SCH (10:57)
[2018-05-13] MEDS ORDERED: KLOR-CON PO ONE (16:21)
[2018-05-13] MEDS ORDERED: MAALOX PLUS LIQUID PO PRN (16:22)
--- NOTE | 2018-05-13 16:43 | PROGRESS NOTE ---
DATE: 05/13/2018 SUBJECTIVE: The patient is resting in bed. Not in any obvious distress. OBJECTIVE: Vital signs: Temperature is 97.7 degrees, pulse 74, respiratory 17 blood pressure 117/65, oxygen saturation 97%. HEENT: Patient is atraumatic, normocephalic. Cardiovascular: S1, S2. Respiratory: Has evidence of good air entry bilaterally. Abdomen: Soft, nontender. No masses felt. Extremities: Has trace edema in the lower extremities. Central nervous system: No obvious focal deficit noted. ASSESSMENT AND PLAN: 1. Transient ischemic attack. Continue the patient on antiplatelet agent along with statin. Follow up with physical therapy. Neurology is following the patient. Maintain patient on Lovenox for DVT prophylaxis. 2. Carotid artery stenosis. Surgery following. Timing of carotid endarterectomy per surgical team. 3. Coronary artery disease status post coronary artery bypass graft. Stable. 4. Hypertension. Allow for permissive hypertension. cc: Kody Shukla MD MTDD
[2018-05-13] MEDS ORDERED: MILK OF MAGNESIA PO PRN (17:34)
[2018-05-13] MEDS: LOVENOX SUBQ SCH (20:01)
[2018-05-13] MEDS: LIPITOR PO SCH (20:01)
[2018-05-13] MEDS: SINGULAIR PO SCH (20:01)
[2018-05-14] MEDS: DOPAMINE 800 MG/D5W 800 MG/500 ML IV.SOLN IV SCH (05:17)
[2018-05-14 09:07] LABS: AGAP 9; BUN 11 mg/dL (8-22); CALCIUM 7.6 mg/dL (8.8-10.2); CHLORIDE 113 mmol/L (98-107); COSMO 282; CREATININE 0.8 mg/dL (0.7-1.2); ESTIMATED GFR > 60; GLUCOSE 91 mg/dL (70-104); POTASSIUM 3.8 mmol/L (3.5-5.1); SODIUM 142 mmol/L (136-145); TCO2 20 mmol/L (25-35)
[2018-05-14] MEDS: PROSCAR PO SCH (10:22)
[2018-05-14] MEDS: FLOMAX PO SCH ×2 (10:22→21:09)
[2018-05-14] MEDS: MEGACE LIQUID PO SCH ×2 (10:22→21:09)
[2018-05-14] MEDS: ASPIRIN EC PO SCH (10:23)
[2018-05-14] MEDS: ZOLOFT PO SCH (10:23)
[2018-05-14] MEDS: VANCOMYCIN 1,350 MG in NS 250 ML IV SCH (10:23)
--- NOTE | 2018-05-14 11:33 | PROGRESS NOTE ---
DATE: 05/14/2018 SUBJECTIVE: Mr. Edward reports feeling better, feeling stronger, no more episodes of speech difficulty or focal weakness. He reports a very brief period of [id number] dizziness on standing after using bedside commode earlier today. Systolic blood pressures have been recorded 110s to 160s in the last 24 hours, and he has tolerated that range. I do not have any new suggestion from a neurology standpoint. Carotid endarterectomy is being considered. Thanks for asking Neurology to see Mr. Edward. cc: Singh Brito III, MD
[2018-05-14] MEDS: COLACE PO SCH ×2 (11:43→21:09)
[2018-05-14] MEDS: MIRALAX PO SCH ×2 (11:43→21:09)
--- NOTE | 2018-05-14 13:04 | Diag Imaging Result Doc PS360 ---
ABDOMEN FLAT/UPRIGHT - 05/14/2018 INDICATION: constipation COMPARISON: 02/17/2018 FINDINGS: There is significant constipation. There are bilateral nephroureteral stents in good position. There is a Ramos catheter in the pelvis. No small bowel obstruction or free air. Stable soft tissue calcification projecting in the lateral left kidney region. IMPRESSION: Significant constipation. No bowel obstruction. Electronically signed by Roldan Mayorga 05/14/2018 1:02 PM
--- NOTE | 2018-05-14 16:40 | PROGRESS NOTE ---
DATE: 05/14/2018 SUBJECTIVE: The patient is resting comfortably in bed. He complains of constipation. He reports that he has not had a bowel movement since his admission. OBJECTIVE: Vital Signs: Temperature 97.9, blood pressure 124/57, heart rate 66, respirations 16, O2 sats 97% on room air. General: This is a chronically ill-appearing elderly male lying in bed in no acute distress. Heart: S1, S2 normal. Regular rate and rhythm. Lungs: Equal air entry bilaterally. No crackles. No rales. Abdomen: Positive bowel sounds. Soft, nontender, nondistended. Extremities: No edema, no cyanosis. Neurologic: The patient is awake and alert. He is able to move all 4 extremities. LABS: Reviewed. ASSESSMENT AND PLAN: 1. TIA. This is thought to be secondary to bilateral critical carotid artery stenosis. General Surgery is following for possible carotid endarterectomy. Continue on aspirin and Lipitor. 2. Constipation. Will start the patient on scheduled laxative therapy. 3. BPH. Continue on Proscar. 4. Hypertension. Continue on the current antihypertensive regimen. 5. Coronary artery disease status post CABG. Aware. Continue on current cardiac medications. 6. DVT prophylaxis. Continue on Lovenox. cc: Erica Duncan MD MTDD
[2018-05-14] MEDS: LOPRESSOR PO SCH (21:09)
[2018-05-14] MEDS: LACTULOSE PO SCH (21:09)
[2018-05-14] MEDS: DULCOLAX PR SCH ×2 (21:09→21:19)
[2018-05-14] MEDS: LIPITOR PO SCH (21:09)
[2018-05-14] MEDS: LOVENOX SUBQ SCH (21:09)
[2018-05-14] MEDS: SINGULAIR PO SCH (21:09)
[2018-05-15 05:38] LABS: HEMATOCRIT 29.3 % (42.0-52.0); HEMOGLOBIN 9.5 g/dL (14.0-18.0); MCH 30.4 PG (27-31); MCHC 32.4 g/dL (33-37); MCV 93.9 FL (81-99); RBC 3.12 XMIL (4.7-6.1); RDW 14.9 % (11.5-14.5); WBC 6.99 X1000 (4.8-10.8)
[2018-05-15 06:05] LABS: AGAP 10; BUN 11 mg/dL (8-22); CALCIUM 7.9 mg/dL (8.8-10.2); CHLORIDE 111 mmol/L (98-107); COSMO 278; CREATININE 0.7 mg/dL (0.7-1.2); ESTIMATED GFR > 60; GLUCOSE 88 mg/dL (70-104); POTASSIUM 3.7 mmol/L (3.5-5.1); SODIUM 140 mmol/L (136-145); TCO2 19 mmol/L (25-35)
[2018-05-15] MEDS: LACTULOSE PO SCH ×2 (08:19→21:17)
[2018-05-15] MEDS: MEGACE LIQUID PO SCH ×2 (08:19→21:17)
[2018-05-15] MEDS: MIRALAX PO SCH ×2 (08:20→21:17)
[2018-05-15] MEDS: ASPIRIN EC PO SCH (08:20)
[2018-05-15] MEDS: PROSCAR PO SCH (08:20)
[2018-05-15] MEDS: COLACE PO SCH ×2 (08:20→21:17)
[2018-05-15] MEDS: LOPRESSOR PO SCH ×2 (08:21→21:17)
[2018-05-15] MEDS: ZOLOFT PO SCH (08:21)
[2018-05-15] MEDS: FLOMAX PO SCH ×2 (08:21→21:17)
[2018-05-15] MEDS ORDERED: CITRATE OF MAGNESIA PO ONE (08:45)
[2018-05-15] MEDS: VANCOMYCIN 1,350 MG in NS 250 ML IV SCH (11:14)
--- NOTE | 2018-05-15 13:43 | PROGRESS NOTE ---
DATE: 05/15/2018 SUBJECTIVE: The patient is resting comfortably in bed. He complains of constipation despite receiving several laxatives. OBJECTIVE: Vital Signs: Temperature 98 degrees, blood pressure 130/55, heart rate 71, respirations 22, O2 saturations 100% on room air. General: This is an elderly male lying in bed in no acute distress. Heart: S1, S2. Normal. Lungs: Clear to auscultation bilaterally. Abdomen: Positive bowel sounds. Soft, nontender, nondistended. Extremities: No edema, no cyanosis. Neuro: The patient is alert and oriented x4. LABS: White blood cell count 6.9, hemoglobin 9.5, hematocrit 29, platelets 229,000, sodium 140, potassium 3.7, chloride 111, CO2 19, BUN 11, creatinine 0.7. ASSESSMENT AND PLAN: 1. Transient ischemic attack. Continue on aspirin and Lipitor. 2. Bilateral critical carotid artery stenosis. Will await the timing of surgery at the discretion of the general surgeon. 3. Constipation. Will give the patient magnesium citrate today. Continue on the current laxative therapy. 4. Benign prostatic hypertrophy. Continue on Proscar. 5. Hypertension. Continue on the current antihypertensive regimen. 6. Coronary artery disease status post coronary artery bypass graft. Aware. Continue on the current cardiac medications. 7. Deep vein thrombosis prophylaxis. Continue on Lovenox. 8. Disposition. The patient will be discharged to inpatient rehab once medically stable. cc: Erica Duncan MD MTDD
--- NOTE | 2018-05-15 18:53 | GENERAL SURGERY PROGRESS NOTE ---
DATE: 05/15/2018 Mr. Edward is doing generally well. He has no complaints today. He says he feels as good as he did when he came in the hospital. Dr. Marin plans carotid surgery already in the week. cc: Skyler Sidhu MD
[2018-05-15] MEDS: LIPITOR PO SCH (21:17)
[2018-05-15] MEDS: DULCOLAX PR SCH (21:17)
[2018-05-15] MEDS: SINGULAIR PO SCH (21:17)
[2018-05-15] MEDS: LOVENOX SUBQ SCH (21:17)
[2018-05-16 05:57] LABS: HEMATOCRIT 27.7 % (42.0-52.0); MCHC 32.5 g/dL (33-37); MCV 95.5 FL (81-99); MPV 10.3 FL (7.4-10.4); RBC 2.9 XMIL (4.7-6.1); RDW 15.1 % (11.5-14.5); WBC 6.7 X1000 (4.8-10.8)
[2018-05-16 06:27] LABS: AGAP 10; BUN 13 mg/dL (8-22); CALCIUM 7.5 mg/dL (8.8-10.2); CHLORIDE 109 mmol/L (98-107); COSMO 277; CREATININE 0.8 mg/dL (0.7-1.2); ESTIMATED GFR > 60; GLUCOSE 88 mg/dL (70-104); POTASSIUM 3.9 mmol/L (3.5-5.1); SODIUM 139 mmol/L (136-145); TCO2 20 mmol/L (25-35)
[2018-05-16] MEDS: VANCOMYCIN 1,350 MG in NS 250 ML IV SCH (10:58)
[2018-05-16] MEDS: MIRALAX PO SCH ×2 (10:58→21:04)
[2018-05-16] MEDS: LACTULOSE PO SCH ×2 (10:58→21:04)
[2018-05-16] MEDS: MEGACE LIQUID PO SCH ×2 (10:59→21:00)
[2018-05-16] MEDS: ASPIRIN EC PO SCH (10:59)
[2018-05-16] MEDS: FLOMAX PO SCH ×2 (10:59→21:05)
[2018-05-16] MEDS: ZOLOFT PO SCH (10:59)
[2018-05-16] MEDS: LOPRESSOR PO SCH ×2 (10:59→21:04)
[2018-05-16] MEDS: PROSCAR PO SCH (10:59)
[2018-05-16] MEDS: COLACE PO SCH ×2 (10:59→21:04)
[2018-05-16] MEDS ORDERED: CELEXA PO ONE (12:52)
--- NOTE | 2018-05-16 15:52 | PROGRESS NOTE ---
DATE: 05/16/2018 SUBJECTIVE: The patient is resting comfortably in bed. He states that he is very depressed. He said he does not have any family or friends that have been coming to check on him. OBJECTIVE: Vital Signs: Temperature 97.9 degrees, blood pressure 119/53, heart rate 62, respirations 20, O2 saturation is 97% on room air. General: This is an elderly male lying in bed, in no acute distress. Heart: S1, S2 normal. Regular rate and rhythm. Lungs: Clear to auscultation bilaterally. No wheezing. No rales. No rhonchi. Abdomen: Positive bowel sounds. Soft, nontender, nondistended. Extremities: No edema. No cyanosis. Neurologic: The patient is alert and oriented x3. LABS: Reviewed. ASSESSMENT AND PLAN: 1. Bilateral critical carotid artery stenosis. The patient is scheduled to undergo surgery this week. 2. Transient ischemic attack. Continue on aspirin and Lipitor. 3. Benign prostatic hypertrophy. Continue on Proscar. 4. Depression. We will discontinue the Zoloft and start the patient on Celexa. 5. Hypertension. Continue on the current antihypertensive regimen. 6. Coronary artery disease status post coronary artery bypass graft. Aware. Continue on the current cardiac medications. 7. Deep vein thrombosis prophylaxis. We will discontinue the Lovenox since the patient is having gross hematuria. 8. Gross hematuria. Will consult with the Urologist. Lovenox has been discontinued. cc: Erica Duncan MD MTDD
[2018-05-16] MEDS: LIPITOR PO SCH (21:04)
[2018-05-16] MEDS: SINGULAIR PO SCH (21:05)
[2018-05-16] MEDS: DULCOLAX PR SCH (21:14)
[2018-05-17 05:33] LABS: HEMATOCRIT 29.1 % (42.0-52.0); HEMOGLOBIN 9.3 g/dL (14.0-18.0); MCH 30.4 PG (27-31); MCV 95.1 FL (81-99); MPV 10.3 FL (7.4-10.4); RBC 3.06 XMIL (4.7-6.1); RDW 15.6 % (11.5-14.5); WBC 6.18 X1000 (4.8-10.8)
[2018-05-17 06:00] LABS: AGAP 9; BUN 12 mg/dL (8-22); CALCIUM 7.9 mg/dL (8.8-10.2); CHLORIDE 110 mmol/L (98-107); COSMO 279; CREATININE 0.7 mg/dL (0.7-1.2); ESTIMATED GFR > 60; GLUCOSE 95 mg/dL (70-104); POTASSIUM 3.9 mmol/L (3.5-5.1); SODIUM 140 mmol/L (136-145); TCO2 21 mmol/L (25-35)
[2018-05-17] MEDS: LOPRESSOR PO SCH ×2 (08:16→20:22)
[2018-05-17] MEDS ORDERED: NEO-SYNEPHRINE ONE (09:28)
[2018-05-17] MEDS ORDERED: XYLOCAINE-MPF 2% ONE (09:28)
[2018-05-17] MEDS ORDERED: ZOFRAN ONE ×2 (09:28→11:54)
[2018-05-17] MEDS ORDERED: SODIUM CHLORIDE 0.9% 10 ML ONE ×2 (09:28→09:39)
[2018-05-17] MEDS ORDERED: NORCURON ONE (09:28)
[2018-05-17] MEDS ORDERED: QUELICIN (DOSE) ONE (09:28)
[2018-05-17] MEDS ORDERED: DECADRON ONE (09:28)
[2018-05-17] MEDS ORDERED: EPHEDRINE ONE (09:39)
[2018-05-17] MEDS ORDERED: XYLOCAINE 1%/EPI 1:100,000 ONE (09:42)
[2018-05-17] MEDS ORDERED: NS 500 ML ONE (09:42)
[2018-05-17] MEDS ORDERED: XYLOCAINE 1% ONE (09:42)
[2018-05-17] MEDS ORDERED: HEPARIN ONE (09:42)
[2018-05-17] MEDS ORDERED: NS 1,000 ML ONE ×2 (09:43→13:59)
[2018-05-17] MEDS ORDERED: THROMBIN-JMI ONE (09:43)
[2018-05-17] MEDS: VANCOMYCIN 1,350 MG in NS 250 ML IV SCH (09:50)
[2018-05-17] MEDS ORDERED: NITROGLYCERIN 50 MG/D5W 50 MG/250 ML IV.SOLN ONE (10:08)
[2018-05-17] MEDS ORDERED: KEFZOL ONE (10:24)
[2018-05-17] MEDS ORDERED: FENTANYL ONE (10:40)
[2018-05-17] MEDS ORDERED: DIPRIVAN 1% ONE (10:41)
[2018-05-17] MEDS ORDERED: HEPARIN (DOSE) ONE (11:11)
[2018-05-17] MEDS ORDERED: ATROPINE ONE (11:29)
[2018-05-17] MEDS ORDERED: OFIRMEV 1000 MG/ISOTONIC SOLN 1,000 MG/100 ML BOTTLE ONE (11:45)
[2018-05-17] MEDS ORDERED: ROBINUL ONE (11:50)
[2018-05-17] MEDS ORDERED: NEOSTIGMINE ONE (11:50)
[2018-05-17] MEDS: ASPIRIN EC PO SCH (13:31)
[2018-05-17] MEDS: CELEXA PO SCH (13:31)
[2018-05-17] MEDS: FLOMAX PO SCH ×2 (13:31→20:23)
[2018-05-17] MEDS: COLACE PO SCH ×2 (13:31→20:15)
[2018-05-17] MEDS: MEGACE LIQUID PO SCH ×2 (13:32→20:15)
[2018-05-17] MEDS: LACTULOSE PO SCH ×2 (13:32→20:21)
[2018-05-17] MEDS: PROSCAR PO SCH (13:32)
[2018-05-17] MEDS: MIRALAX PO SCH ×2 (13:32→20:15)
[2018-05-17 13:41] LABS: HEMATOCRIT 18.7 % (42.0-52.0)
[2018-05-17 13:42] LABS: HEMOGLOBIN 5.6 g/dL (14.0-18.0)
--- NOTE | 2018-05-17 13:58 | OPERATIVE NOTE ---
PROCEDURE DATE: 05/17/2018 PREOPERATIVE DIAGNOSIS: Critical left carotid stenosis. POSTOPERATIVE DIAGNOSIS: Critical left carotid stenosis. PRINCIPAL PROCEDURE: Left carotid endarterectomy with patch angioplasty. SURGEON: Lashaun Marin MD. ASSURANCE SERVICES MANAGER HEALTH CARE: Dr. Rdaha Sidhu ANESTHESIA: General in addition to local anesthetic. ESTIMATED BLOOD LOSS: 300 mL. DRAINS: TLS drain left neck. INDICATIONS: Ken Edward is a 78-year-old white male who has bilateral critical stenoses of the carotid arteries. It was felt that he possibly could have had a TIA on the day of admission. His left carotid stenosis appears to be symptomatic, and we have recommended a left carotid endarterectomy. FINDINGS: He had a hemorrhagic plaque involving the carotid bulb and extending into the takeoff of the left internal carotid artery. He also had disease down in the common carotid artery. We performed a left carotid endarterectomy using a shunt and performed a patch angioplasty. He had palpable flow into the distal internal carotid artery at the end of the case. DESCRIPTION OF PROCEDURE: The patient was brought to the operating room, placed supine, received general anesthesia, and was intubated. He had a left wrist arterial line. A Ramos catheter tube was already in place. We turned his head to the right. His left neck was prepped and draped in a sterile field. The bed was turned in reverse Trendelenburg. I used an Ioban on the skin. He received Ancef prophylactically. I made an oblique incision along the anterior border of the left sternocleidomastoid muscle with a 15 blade scalpel after local anesthetic was placed. This incision was carried down through the skin and subcutaneous tissue to the platysma muscle. I used cautery to transect the platysma muscle in the soft tissue along the medial aspect of the left sternocleidomastoid muscle. We then used a Gelpi self retaining retractor, forceps and scissors. We identified the common carotid artery inferiorly, and we followed the common carotid artery to its branches of the external and internal carotid arteries. We isolated the superior thyroid artery with a small vessel loop. I isolated the external carotid artery with a large vessel loop. We made sure we saw the hypoglossal nerve. We did transect the ansa cervicalis. We preserved the cranial nerve 10. We mobilized the internal carotid artery past the palpable plaque. The patient was given 5000 units of IV heparin and then we controlled flow through the distal common and internal carotid artery with our vessel loops. I made an arteriotomy on the lateral aspect of the distal common carotid artery with 11 blade scalpel, and then Albert scissors were used to cut through the plaque into the internal carotid artery. I placed a shunt initially proximally and then into the internal carotid artery. I controlled the shunt with the vessel loop proximally and a shunt clamp distally. I then used a Tappan elevator to remove the disease from the arteriotomy site. We removed it proximal to distally, and it feathered nicely distally. We irrigated the arteriotomy site, and any loose debris was removed using fine forceps. I then used a 0.8 cm in width patch. Using a double-armed 6-0 Prolene stitch I sewed this patch to our arteriotomy site. Prior to completing closure of the arteriotomy site, I removed the shunt distally and then proximally. We allowed the common carotid artery and its branches, to be flushed through our arteriotomy site. I completed the arteriotomy with a 6-0 Prolene, and then allowed flow through the external and then the internal carotid arteries. I did have to take several single arm 6-0 stitches to control bleeding from our arteriotomy site. I placed a TLS drain. It was brought out through a separate stab incision in the inferior left neck. It was secured to the skin with a 3-0 silk stitch. I irrigated the wound thoroughly with irrigation, and it was removed with suction. I closed the platysma with a running 2-0 Vicryl stitch. I closed the skin with 4-0 Monocryl subcuticular stitch. Dressings were applied. He will be awoken in the operating room with plans for him to go the recovery room and then to the ICU. cc: Lashaun Marin MD [facility] CENTERKaleb
[2018-05-17] MEDS ORDERED: LR 1,000 ML ONE (14:14)
[2018-05-17] MEDS ORDERED: ZOFRAN IV PRN (14:47)
[2018-05-17 14:48] LABS: HEMATOCRIT 31.7 % (42.0-52.0)
--- NOTE | 2018-05-17 15:11 | PROGRESS NOTE ---
DATE: 05/17/2018 SUBJECTIVE: The patient is resting comfortably in bed. He is scheduled for a carotid endarterectomy today. No acute events noted overnight. OBJECTIVE: Vital Signs: Temperature 98.2 degrees, blood pressure 98/52, heart rate 58, respirations 17, O2 saturations 96% on 3 L nasal cannula. General: This is a chronically ill- appearing elderly male, lying in bed in no acute distress. Head: Normocephalic, atraumatic. Heart: S1, S2, normal, bradycardic. Lungs: Clear to auscultation bilaterally. No wheezing. No rales. No rhonchi. Abdomen: Positive bowel sounds. Soft, nontender, nondistended. Extremities: No edema, no cyanosis. Neurologic: The patient is alert and oriented x4. LABORATORY DATA: Sodium 140, potassium 3.9, chloride 110, CO2 of 21, BUN 12, creatinine 0.7, glucose 95. Hemoglobin 9.3, hematocrit 29, white blood cell count 6.1, platelet count 232,000. ASSESSMENT AND PLAN: 1. Bilateral critical carotid artery stenosis. The patient is scheduled to undergo surgery today. 2. Transient ischemic attack (TIA). Continue on Lipitor. 3. Benign prostatic hypertrophy (BPH). Continue on Proscar. 4. Depression. Continue on Celexa. 5. Coronary artery disease status post coronary artery bypass graft (CABG). Aware. 6. Gross hematuria, improved. We will continue to monitor closely. 7. Deep vein thrombosis (DVT) prophylaxis. We will start the patient on SCDs. cc: Erica Duncan MD
[2018-05-17] MEDS: LR 1,000 ML IV SCH (15:12)
[2018-05-17 16:05] LABS: HEMATOCRIT 31.3 % (42.0-52.0)
[2018-05-17] MEDS: LIPITOR PO SCH (20:20)
[2018-05-17] MEDS: DULCOLAX PR SCH (20:21)
[2018-05-17] MEDS: SINGULAIR PO SCH (20:23)
[2018-05-18] MEDS: NORCO-5 PO PRN ×2 (01:05→23:08)
[2018-05-18 04:48] LABS: HEMOGLOBIN 9.4 g/dL (14.0-18.0); MCH 29.7 PG (27-31); MCHC 31.3 g/dL (33-37); MCV 94.9 FL (81-99); MPV 9.8 FL (7.4-10.4); RBC 3.16 XMIL (4.7-6.1); RDW 16.1 % (11.5-14.5); WBC 7.24 X1000 (4.8-10.8)
[2018-05-18 05:17] LABS: AGAP 9; ALB/GLOB RATIO 0.8; ALKALINE PHOSPHATASE 42 U/L (32-122); BUN 11 mg/dL (8-22); CHLORIDE 110 mmol/L (98-107); COSMO 276; CREATININE 0.6 mg/dL (0.7-1.2); ESTIMATED GFR > 60; GLUCOSE 79 mg/dL (70-104); GOT 9 U/L (10-34); GPT 7 U/L (10-44); SODIUM 139 mmol/L (136-145); TCO2 20 mmol/L (25-35); TOTAL BILIRUBIN 0.33 mg/dL (0.20-1.00); TOTAL PROTEIN 4.5 g/dL (6.3-8.3)
[2018-05-18] MEDS: MEGACE LIQUID PO SCH ×2 (08:28→20:27)
[2018-05-18] MEDS: LACTULOSE PO SCH ×3 (08:28→20:28)
[2018-05-18] MEDS: LOPRESSOR PO SCH ×2 (08:28→20:28)
[2018-05-18] MEDS: FLOMAX PO SCH ×2 (08:28→20:27)
[2018-05-18] MEDS: PROSCAR PO SCH (08:28)
[2018-05-18] MEDS: CELEXA PO SCH (08:28)
[2018-05-18] MEDS: MIRALAX PO SCH ×2 (08:28→20:27)
[2018-05-18] MEDS: COLACE PO SCH ×2 (08:28→20:30)
[2018-05-18] MEDS: ASPIRIN EC PO SCH (08:28)
[2018-05-18] MEDS: VANCOMYCIN 1,350 MG in NS 250 ML IV SCH (09:53)
[2018-05-18] MEDS: LR 1,000 ML IV SCH (11:39)
--- NOTE | 2018-05-18 13:34 | PROGRESS NOTE ---
DATE: 05/18/2018 PRIMARY CARE PHYSICIAN: Dr. Johnson Read SUBJECTIVE: He came in with lost appetite and weight loss. A 78-year-old last admitted in January of 2018. She had a right kidney stone, and underwent cystoscopy with right double-J stent. Bladder pathology was reviewed and only showed marked reactive urothelium with ulceration. Mr. Edward had a history of hypertension, which resolved, history of depression, and previous coronary artery disease status post CABG. Referred during last admission issues of chewing, the reason is because he did not have his dentures. He does not have any funds to see a dentist. His upper teeth are gone, he did not chew well. PAST MEDICAL HISTORY: 1. Hypertension. 2. Coronary artery disease status post CABG bypass graft. 3. Dyslipidemia. 4. Depression. 5. History of TIA's and CVA. 6. Recurrent UTIs. PAST SURGICAL HISTORY: CABG. Recent bilateral placement of IJ stents in the ureters. He was admitted with basically failure to thrive, losing weight, poor appetite, history of depression, normocytic anemia, and acute kidney injury, which they felt likely secondary to volume depletion, and protein calorie malnutrition. He had a brain MRI on 05/07. Chronic ischemic microvascular white matter changes, old left posterior parietal infarct, and localized lacunar necrosis. No evidence of acute intracranial process. Dr. Kaur was consulted. He did have a carotid Doppler study done with critical stenosis bilaterally at the takeoff of the internal carotid arteries, left worse than the right. Both of these stenoses are hemodynamically significant. Head CT done on 05/08 with no acute disease or change from prior CAT scan. CT of the head and neck: Critical stenosis origins of both internal carotid arteries. Critical stenosis diffusely through the intracranial left internal carotid artery. Most of the perfusion in the left anterior middle cerebral artery is coming from the right side. Dr. Marin had evaluated. He has suffered transient ischemic attack and failure to thrive. He evaluated with head CT and brain MRI, and CT angiogram of the head and neck. CT angiogram suggests critical stenosis at the takeoff of both internal carotid arteries. He was evaluated for possible carotid endarterectomy. The plan was to pursue a left carotid endarterectomy probably followed by right. He is on aspirin and Plavix. Dr. Smyth of Neurology saw him. He has had 2 events while in the hospital concerning for TIA's, both transient right- sided symptoms and events being associated with relative hypotension. Continue dual platelet therapy for now trying to avoid hypotension. Cardiology Dr. Jasso has seen. They felt he is at moderate risk given his severe disease. Recommend pursuing surgery. He was on dopamine and given IV fluids. Surgery on 05/17 left carotid endarterectomy with patch angioplasty which he seemed to tolerate well. OBJECTIVE: On exam today, temperature 97.6 degrees, pulse 74, respirations 15, blood pressure 148/70. Pupils are equal. Lungs are clear anterolateral. Cardiovascular regular rate without murmur or S3. Abdomen is soft. Skin is warm and dry. Urine output 2200 mL. ASSESSMENT AND PLAN: 1. Bilateral critical carotid artery stenosis, and underwent left carotid endarterectomy. 2. Transient ischemic attacks apparently 2 events while in the hospital. Continue Lipitor and dual anti-platelet therapy. 3. Benign prostatic hypertrophy. He is on Proscar. We want to watch for hypotension. 4. Depression on Celexa. 5. History of coronary artery disease status post coronary artery bypass graft, aware. 6. Hematuria, which is improved. Continue to monitor. 7. Continue his DVT prophylaxis with sequential compression devices. Dr. Pepito Kaur had seen him back on 05/07. They felt he had a high-pressure bladder secondary to obstructing prostate, bilateral hydroureteronephrosis with indwelling J-stent secondary to high-pressure bladder due to obstructing prostate. Urinary tract infection has been treated. Left renal stone was nonobstructing. Bilateral indwelling double-J stents are scheduled to be changed in May of 2018. REVIEW OF ORDERS: I do not see any change. Lipitor 40 mg a day, Dulcolax 10 mg per rectum at bedtime. Tylenol as needed 500 mg q.6 hours. Aspirin 81 mg a day. Celexa 20 mg a day. Colace 100 mg b.i.d. Proscar 5 mg daily. Lactate Ringer's going at 50 mL an hour. Lactulose 30 mL b.i.d. Megace 400 mg b.i.d. Lopressor 25 mg b.i.d. Singulair 10 mg at bedtime. Polyethylene glycol 17 g p.o. b.i.d. Flomax 0.4 mg b.i.d. Vancomycin 1350 mg IV q.24 hours. LABORATORY DATA: Hematocrit stable at 30. Hemoglobin 9.4. White count 7240 and platelet count 234,000. Electrolytes look good. Creatinine 0.6. Sodium 139, potassium 4.0, chloride 110, BUN 11, and creatinine 0.6. cc: Edward Jonas MD
--- NOTE | 2018-05-18 15:17 | PROGRESS NOTE ---
DATE: 05/18/2018 Mr. Edward is postop day 1 from a left carotid endarterectomy with patch angioplasty. He was hospitalized in the ICU overnight. He remains hemodynamically stable. He has no swelling involving his left neck. I removed his TLS drain. He has no evidence of neurologic deficit. IMPRESSION: I feel that he is doing well status post left carotid endarterectomy postoperative day 1. He can be transferred from the ICU back to CCU. He also needs a right carotid endarterectomy, and we can perform that in the near future as he gets over his left-sided surgery. cc: Lashaun Marin MD
--- NOTE | 2018-05-18 16:00 | PROGRESS NOTE ---
DATE: 05/18/2018 SUBJECTIVE: No major overnight events. Patient had left carotid endarterectomy yesterday, and today is postoperative day 1. He tolerated that well and is recovering well at the moment. He complains of some mild left-sided neck discomfort after therapy today. He has not had any further acute neurologic symptoms. OBJECTIVE: Blood pressures recently 118 to 163 systolic, pulse 50s to 72. Mr. Edward is sitting up in bed, awake, alert, watching TV. He is in no acute distress. He regards he is oriented. No language disturbance. No dysarthria. Follows simple and complex commands. Pupils equal, round, and reactive. Gaze is conjugate. Ocular movements are full. Face symmetric with equal activation. Tongue is midline. He spontaneously moves all limbs, and there is no obvious focal deficit. LABORATORIES: Normal white count, sodium, BUN, creatinine, blood sugars. ASSESSMENT AND PLAN: 1. Recurrent transient ischemic attacks (TIAs) with a transient right-sided neurologic deficits. No further neurologic events in several days. 2. Critical stenosis in the bilateral internal carotid arteries. 3. Left carotid endarterectomy, postoperative day 1. Tolerated procedure well. The patient seems to be doing well clinically. He has had no further neurologic event in several days. He tolerated left carotid endarterectomy, and there are plans for right carotid endarterectomy in the future. He is still on aspirin and statin, hemodynamically stable. I would continue supportive care as you are doing and follow clinically. No further neurologic recommendations at this time. cc: Shelli Smyth MD MTDKaleb
[2018-05-18] MEDS: SINGULAIR PO SCH (20:27)
[2018-05-18] MEDS: LIPITOR PO SCH (20:27)
[2018-05-18] MEDS: DULCOLAX PR SCH (20:28)
[2018-05-19] MEDS: LR 1,000 ML IV SCH (07:10)
[2018-05-19] MEDS: COLACE PO SCH ×2 (08:38→20:10)
[2018-05-19] MEDS: CELEXA PO SCH (08:38)
[2018-05-19] MEDS: PROSCAR PO SCH (08:38)
[2018-05-19] MEDS: LOPRESSOR PO SCH ×2 (08:38→20:07)
[2018-05-19] MEDS: ASPIRIN EC PO SCH (08:38)
[2018-05-19] MEDS: LACTULOSE PO SCH ×2 (08:39→20:13)
[2018-05-19] MEDS: MIRALAX PO SCH ×2 (08:39→20:12)
[2018-05-19] MEDS: MEGACE LIQUID PO SCH ×2 (08:39→20:07)
[2018-05-19] MEDS: FLOMAX PO SCH ×2 (08:39→20:07)
--- NOTE | 2018-05-19 10:56 | PROGRESS NOTE ---
DATE: 05/19/2018 SUBJECTIVE: Mr. Jett had his left carotid endarterectomy and did well from a surgical standpoint. OBJECTIVE: On neurologic exam now, he is initially asleep, easily waked, continued very alert and attentive. Speech is better than when I last saw him, but remains slightly dysarthric. There is no definite language error on brief bedside testing. He has good power in the right limbs. Facial motility is symmetric. Tongue is midline. Visual moore are full tested by confrontational finger counting with close attention to the right field. I do not see evidence of any new neurologic deficit. He appears to be doing well following endarterectomy. I encouraged him to be aggressive with his physical therapy. Thanks for asking Neurology to see Mr. Edward. cc: MD CARLITA Rollins III
--- NOTE | 2018-05-19 12:55 | PROGRESS NOTE ---
DATE: 05/19/2018 SUBJECTIVE: Mr. Jett is feeling well. He is eating lunch at the present time. Breathing comfortably. He remains afebrile. He feels like he is a little stronger. His bowels are moving okay. He is planning on going to rehabilitation or going to [facility]. Plan is to try and go tomorrow morning. OBJECTIVE: Temperature 98.4 degrees, pulse 55, respirations 20, blood pressure 167/66. Lungs are clear in all lung moore.Cardiovascular: Regular rate without murmur or S3. Abdomen is soft. Skin is warm and dry. ASSESSMENT AND PLAN: 1. Status post left carotid endarterectomy. Seems to be healing well. Plan is to do the right at a later time per Dr. Marin. I think he is ready to go to rehabilitation. 2. Deconditioning and weakness. We will continue physical therapy. 3. He has had 2 transient ischemic attacks while here in the hospital on the left side. He is status post left carotid endarterectomy. 4. Depression. Continue Celexa. 5. History of coronary artery disease status post coronary artery bypass graft. No sign of active ischemia. 6. Hematuria. Dr. Kaur had seen him back in April 2014 and felt he had high-pressure bladder secondary to obstructing prostate, bilateral hydroureteronephrosis, indwelling double-J stent secondary to high-pressure bladder due to obstructing prostate. So, we will continue his Ramos catheter. I think he is scheduled to get his stents changed in May or next month. 7. Review of his orders. At the present time he is on Lipitor 40 mg at bedtime, aspirin 81 mg a day, Celexa 20 mg q.a.m., Colace 100 mg b.i.d., Proscar 5 mg daily. He is on lactate Ringer at 50 mL an hour, lactulose 30 mL b.i.d., Megace 400 mg b.i.d., Lopressor 25 mg b.i.d., Singulair 10 mg at bedtime, Flomax 0.4 mg b.i.d., MiraLAX 17 g b.i.d., vancomycin 1350 mg IV q.24 h. cc: Edward Jonas MD
[2018-05-19] MEDS: VANCOMYCIN 1,350 MG in NS 250 ML IV SCH (13:40)
--- NOTE | 2018-05-19 16:40 | PROGRESS NOTE ---
DATE: 05/19/2018 Mr. Edward is postop day 2 left carotid endarterectomy. I think he is doing very well. There is minimal swelling involving his left neck. He is awake and cooperative without neurologic deficit. The plan is to send him to [facility]. I think that is fine as early as tomorrow. He wants to go home for several weeks before proceeding with his right carotid endarterectomy. We can plan to do that. Admit him on the day of surgery for that procedure. He does need a right carotid endarterectomy. cc: Lashaun Marin MD
[2018-05-19] MEDS: SINGULAIR PO SCH (20:07)
[2018-05-19] MEDS: LIPITOR PO SCH (20:07)
[2018-05-19] MEDS: DULCOLAX PR SCH (20:14)
[2018-05-20] MEDS: LR 1,000 ML IV SCH (05:53)
[2018-05-20] MEDS: CELEXA PO SCH (09:02)
[2018-05-20] MEDS: ASPIRIN EC PO SCH (09:02)
[2018-05-20] MEDS: PROSCAR PO SCH (09:02)
[2018-05-20] MEDS: LOPRESSOR PO SCH (09:02)
[2018-05-20] MEDS: FLOMAX PO SCH (09:02)
[2018-05-20] MEDS: MEGACE LIQUID PO SCH (09:02)
[2018-05-20] MEDS: MIRALAX PO SCH (09:03)
[2018-05-20] MEDS: LACTULOSE PO SCH (09:03)
[2018-05-20] MEDS: COLACE PO SCH (09:03)
[2018-05-20 11:15] VITALS: BP 124/48
--- NOTE | 2018-05-20 13:14 | DISCHARGE SUMMARY ---
ADMISSION DATE: 05/06/2018 DISCHARGE DATE: 05/20/2018 PRIMARY CARE PHYSICIAN: Dr. Elizabeth Sullivan HISTORY: He presented on 05/06/2018 with loss of appetite and weight loss. This is a 78-year-old gentleman who was last admitted here in January of 2018, and had a right kidney stone, underwent cystoscopy and right double-J stent. Bladder pathology reviewed only showed marked reactive urothelium and ulceration, but felt it was from a benign prostatic hypertrophy. He had a history of hypertension, depression, and previous coronary artery disease status post CABG bypass. On his last admission, he did have severe issues with chewing and swallowing. He did not have his dentures. He did not have any funds to see any dentist and upper teeth are all gone. Because of that, he did not chew well. As a result of that, he was not eating much. He does have an appetite every now and then, but for the most part his appetite is low coupled with the fact that he has difficulty chewing so he has not been eating well. In the last 2 months, he lost over 20 pounds and also very tearful for the most part so more depression. He visited his primary care physician Dr. Elizabeth Sullivan, and found to be very in unhygienic circumstances and was advised to come to the emergency department. On presentation, he was evaluated, and felt he was having some failure to thrive and depression, and concern about his weight loss. PAST MEDICAL HISTORY: 1. Hypertension. 2. Coronary artery disease status post coronary artery bypass grafting. 3. Dyslipidemia. 4. Depression. 5. History of TIA's versus CVA. 6. Recurrent UTIs. PAST SURGICAL HISTORY: 1. CABG. 2. Recent bilateral replacement of J. J. Stents in the ureter. MEDICATIONS: His medications when he came in: 1. Aspirin 325 mg a day. 2. Cardizem 120 mg daily. 3. Sertraline 25 mg a day. 4. Montelukast which is Singulair 10 mg at bedtime. 5. He was on nitrofurantoin, not sure how long he had been on that. ADMISSION DIAGNOSES: 1. Failure to thrive, allegedly more than 20% weight loss, etiology was unclear. 2. Depression. Unsure if it was just a combination of factors. I did a CT of the brain and checked TSH. They were unremarkable. 3. Normocytic anemia. They did B12 and folate studies and watched his blood counts. 4. Acute kidney injury, probably due to volume depletion. This seemed to improve with IV fluids. 5. Suspected protein calorie malnutrition. We encouraged nutrition through an IV. 6. Poor appetite. 7. History of coronary artery disease status post coronary artery bypass grafting. 8. Hypertension which was followed. 9. Dyslipidemia. 10. History of recurrent urinary tract infections, frequent urination at night. [place] there was more prostate pathology than anything else. HOSPITAL COURSE: We obtained a CT of the head on 05/07/2018. Chronic ischemic microvascular changes, old lacunar infarcts. MRI of the brain on 05/07 chronic ischemic microvascular white matter changes, old left posterior parietal infarct, localized laminar necrosis. No evidence of acute intracranial process. He had carotid Doppler's done on 05/07. He had critical stenosis 80 to 90% on both sides, stenosis bilateral at the takeoff of the internal carotid arteries, left was worse than the right. Both of these areas were hemodynamically significant. Dr. Pepito Kaur was consulted in regards to his bladder, felt like he had a high pressure bladder secondary obstructing prostate. Thought he had bilateral hydroureteronephrosis and indwelling double-J stents. I think they are scheduled to be changed in May, and then the urinary tract infection, probably related to the hydronephrosis and urinary retention. He has a Ramos catheter in. Recommended we continue the IV antibiotics, continue with the catheter for at least a week. We will keep his catheter in until follow up with Dr. Pepito Kaur, and creatinine had improved. He is on Flomax 0.4 mg b.i.d. and Proscar 5 mg a day. Discussed with patient transurethral resection of prostate, but he will consider this later on. I do not want to change his stents or consider any time of prostate surgery until he is improved medically. Dr. Marin was consulted about his carotid stenosis so plans were made for a left carotid endarterectomy. He seemed to have 2 events that corresponded with TIA's on the left side. He had 2 events while in the hospital that was concerning for TIA's with transient right-sided symptoms associated with probably left carotid stenosis. I elected to do the left side, and so carotid endarterectomy was performed. We did have cardiology consultation to approve for surgery. From a cardiac standpoint, he was moderate risk given his severe disease but recommended he proceed with carotid endarterectomy. Surgery was done on 05/17/2018, and he tolerated this well left carotid endarterectomy. He started physical therapy, seemed to be improving, and felt he was ready for discharge on 05/20/2018. We will keep the Ramos catheter in. Follow up with Dr. Pepito Kaur in his office. DISCHARGE MEDICATIONS: His discharge medications will be as follows. He is to get Tylenol p.r.n. 500 mg q.6 hours, aspirin 81 mg a day, Lipitor 40 mg at bedtime, Dulcolax suppository per rectum at bedtime, Celexa 20 mg every morning, Colace 400 mg b.i.d., Proscar 5 mg a day, [place] 5 mg q.4 hours p.r.n., lactulose 30 mL p.o. b.i.d., Milk of Magnesia 30 mL b.i.d. p.r.n. Megace 400 mg p.o. b.i.d., metoprolol or Lopressor 25 mg b.i.d., Singulair 10 mg at bedtime, MiraLAX 17 g p.o. b.i.d., and Flomax 0.4 mg b.i.d. Looking back at the urine, it grew out enterococcus [id number] to [id number] colonies, and was sensitive to vancomycin and got vancomycin while he was here. I think we can stop his IV antibiotics. cc: Edward Jonas MD
[2018-05-20] MEDS: VANCOMYCIN 1,350 MG in NS 250 ML IV SCH (14:03)
--- NOTE | 2018-05-20 15:07 | PROGRESS NOTE ---
DATE: 05/20/2018 Mr. Edward is now postop day 4 status post left carotid endarterectomy. His wound is healing well. He is awake, cooperative, feels good. He is going to be discharged to [facility]. I am going to see him again in about a month to talk to him about a right carotid endarterectomy. cc: Lashaun Marin MD
== END 2018-05-20 15:36 | DRG 629 ==
LOC: SUPCPDRO → ED 11:11 → 3N 21:07 → SUATTDRO 21:07 → 3S 05-07 13:31 → ICU 05-17 13:27 → 4N 05-19 02:32
PROVIDERS: ATTEND Emergency Medicine
CPT/HCPCS: 36430; 70450; 70496; 70498; 70553; 71020; 71046; 71250; 74019; 74020; 74176; 80048; 80053; 80061; 80202; 81001; 82270; 82533; 82550; 82607; 82728; 82746; 82948; 83036; 83540; 83550; 83735; 83880; 84100; 84132; 84134; 84153; 84443; 84484; 85014; 85018; 85025; 85027; 85610; 86850; 86900; 86901; 86920; 87040; 87077; 87088; 87186; 87275; 87276; 87804; 88304; 92610; 93005; 93010; 93306; 93880; 95816; 97110; 97162; 97166; 97530; 99285; A9270; A9579; C1763; C8929; G0103; J0131; J0330; J0461; J0690; J0692; J1100; J1265; J1644; J1650; J2370; J2405; J3010; J3370; J3480; J7030; J7050; J7120; P9016; Q9957; Q9967; S0138; S0179; XXXXX

== ENCOUNTER 2018-06-11 15:01 | Inpatient (IN) ==
[2018-06-11] MEDS ORDERED: NS 1,000 ML IV ONE (15:25)
[2018-06-11] MEDS ORDERED: MORPHINE IV ONE (15:25)
[2018-06-11] MEDS ORDERED: VANCOMYCIN 1 GM/NS 1 GM/250 ML IVPB IV ONE ×2 (15:25→18:00)
[2018-06-11] MEDS ORDERED: ZOFRAN IV ONE (15:25)
[2018-06-11 15:34] LABS: BASO# 0.02 X1000 (0.0-0.2); BASO% 0.4 % (0.0-0.8); EOS% 5.6 % (0.0-10.0); HEMATOCRIT 33.7 % (42.0-52.0); LYMPH# 0.78 X1000 (1.2-3.4); LYMPH% 14.7 % (20.5-51.1); MCH 30.3 PG (27-31); MCHC 32.6 g/dL (33-37); MCV 92.8 FL (81-99); MONO# 0.49 X1000 (0.11-0.59); MONO% 9.2 % (1.7-9.3); MPV 9.8 FL (7.4-10.4); NEUT# 3.72 X1000 (1.4-6.5); NEUT% 70.1 % (42.2-75.2); PLT 218 X1000 (130-400); RBC 3.63 XMIL (4.7-6.1); RDW 16.1 % (11.5-14.5); WBC 5.31 X1000 (4.8-10.8)
[2018-06-11 15:41] LABS: INR 1.1; PROTIME 15.1 Seconds (11.0-16.0)
--- NOTE | 2018-06-11 15:42 | EKG Report ---
Test Performed on : 06/11/2018 3:10:45 PM Test Reason : ams Blood Pressure : / mmHG Vent. Rate : 071 BPM Atrial Rate : 071 BPM P-R Int : 164 ms QRS Dur : 094 ms QT Int : 436 ms P-R-T Axes : 051 010 103 degrees QTc Int : 473 ms Normal sinus rhythm. Septal infarct (cited on or before 09-SEP-2016) ST & T wave abnormality, consider anterior ischemia Abnormal ECG When compared with ECG of 07-MAY-2018 12:24, premature supraventricular complexes. are no longer present T wave inversion no longer evident in Lateral leads QT has shortened Unconfirmed Result
--- NOTE | 2018-06-11 15:53 | Diag Imaging Result Doc PS360 ---
EXAM : CT HEAD/C-SPINE W/O CONTRAST HISTORY: head injury/pain TECHNIQUE: 1. CT head without contrast 2. CT cervical spine without contrast COMPARISON: None. FINDINGS: Head: No parenchymal hemorrhage. No epidural or subdural hematoma. No subarachnoid hemorrhage. There is atrophy with chronic microvascular ischemic changes and small old infarcts. No mass identified on this noncontrasted exam. No hydrocephalus. No skull fracture. Cervical spine: There is good alignment to the cervical spine. No precervical soft tissue swelling. No subluxation. No fracture. Moderate degenerative changes. Prominent atherosclerosis. IMPRESSION: Head: No hemorrhage. No injury. Cervical spine: No acute fracture. This exam was performed using automated exposure control, adjustment of mA or kV according to patient size, and/or use of iterative reconstruction technique. Electronically signed by John Hurst 06/11/2018 3:51 PM
[2018-06-11 15:55] LABS: AGAP 9; ALB/GLOB RATIO 1.1; ALBUMIN 2.9 g/dL (3.5-5.0); ALKALINE PHOSPHATASE 52 U/L (32-122); BUN 16 mg/dL (8-22); CALCIUM 8.5 mg/dL (8.8-10.2); CHLORIDE 109 mmol/L (98-107); CK PROFILE 43 U/L (24-204); COSMO 283; CREATININE 0.9 mg/dL (0.7-1.2); ESTIMATED GFR > 60; GLUCOSE 114 mg/dL (70-104); GOT 16 U/L (10-34); GPT 18 U/L (10-44); MAGNESIUM 1.8 mg/dL (1.5-2.7); POTASSIUM 3.4 mmol/L (3.5-5.1); SODIUM 141 mmol/L (136-145); TCO2 23 mmol/L (25-35); TOTAL BILIRUBIN 0.34 mg/dL (0.20-1.00); TOTAL PROTEIN 5.6 g/dL (6.3-8.3)
--- NOTE | 2018-06-11 15:58 | Diag Imaging Result Doc PS360 ---
EXAM: CHEST-PORTABLE HISTORY: ams TECHNIQUE: Chest single view COMPARISON: 05/06/2018 FINDINGS: The lungs are well expanded. The heart is not enlarged. Sternal wires are present. The vessels are not distended. There are no infiltrates. No effusion identified. There is a granuloma in the mid right lung. IMPRESSION: Negative exam. Electronically signed by John Hurst 06/11/2018 3:56 PM
--- NOTE | 2018-06-11 16:04 | Diag Imaging Result Doc PS360 ---
EXAM: XRAY PELVIS W/HIP 2-3VW RT HISTORY: fall TECHNIQUE: Three views COMPARISON: None. FINDINGS: No fracture or dislocation is appreciated. Ramos catheter stents are noted. There are prostatic calcifications. IMPRESSION: No acute bony abnormality is identified. Electronically signed by Jane Su 06/11/2018 4:01 PM
[2018-06-11 16:15] LABS: URINE SOURCE CATH
[2018-06-11] MEDS ORDERED: ROCEPHIN 1 GM in NS 50 ML IV ONE (16:18)
[2018-06-11] MEDS ORDERED: LASIX IV ONE (16:18)
[2018-06-11 16:28] LABS: BILIRUBIN URINE NEGATIVE (NEGATIVE); BLOOD URINE MODERATE (NEGATIVE); COLOR BROWN; GLUCOSE URINE NEGATIVE (NEGATIVE); KETONE URINE NEGATIVE (NEGATIVE); LEUKOCYTES URINE LARGE (NEGATIVE); NITRITE URINE NEGATIVE (NEGATIVE); PH URINE 6.5; PROTEIN URINE 70 mg/dL (NEGATIVE); SP GRAVITY URINE 1.006; TURBIDITY URINE TURBID (CLEAR); UR EPITHELIAL CELLS >10 /HPF (<10); URINE BACTERIA NEGATIVE /HPF; URINE RBC 20-40 /HPF (<10); URINE WBC TNTC /HPF (<10); UROBILINOGEN URINE NORMAL (NORMAL)
[2018-06-11 16:44] LABS: URINE CASTS NONE SEEN; URINE CRYSTALS NONE SEEN; URINE SMALL ROUND CELLS NONE SEEN; URINE YEAST NONE SEEN
--- NOTE | 2018-06-11 16:49 | PROVIDER DOCUMENTATION ---
This chart was entered by Shonna Marin Scribe, acting as scribe for Akbar Bacon MD. HPI-Neurological Disorder - General Chief Complaint: Hip Pain Stated Complaint: hip pain Time Seen by Provider: 06/11/18 15:09 Source: patient, EMS, other (neighbor that is friend and POA) Allergies/Adverse Reactions: Patient Allergies Allergy/AdvReac Type Severity Reaction Status Date / Time Penicillins Allergy Unknown Verified 06/11/18 15:14 Home Medications: Home Medication List Medication Instructions Recorded Confirmed Last Taken Type Aspirin 325 mg PO DAILY 03/12/17 05/06/18 02/25/18 History 325 MG Acetaminophen [Acetaminophen Extra 500 mg PO Q6H PRN PRN 03/20/17 05/06/18 02/25/18 History Strength] 500 MG Montelukast Sodium 10 mg PO HS 07/24/17 05/06/18 Unknown History Amitriptyline HCl 10 mg PO HS 05/06/18 05/06/18 Unknown History Sertraline HCl 50 mg PO DAILY 05/06/18 05/06/18 Unknown History ATORVAstatin [Lipitor] 40 mg PO QHS tab 05/20/18 Unknown Rx Aspirin EC 81 mg PO DAILY tab 05/20/18 Unknown Rx Bisacodyl [Dulcolax] 10 mg SC QHS supp 05/20/18 Unknown Rx Citalopram [Celexa] 20 mg PO QAM tab 05/20/18 Unknown Rx Docusate Sodium [Colace] 100 mg PO BID cap 05/20/18 Unknown Rx Finasteride [Proscar] 5 mg PO DAILY tab 05/20/18 Unknown Rx Lactulose 30 ml PO BID udc 05/20/18 Unknown Rx Magnesium Hydroxide [Milk of 30 ml PO BID PRN PRN udc 05/20/18 Unknown Rx Magnesia] Megestrol Acetate [Megace Liquid] 400 mg PO BID udc 05/20/18 Unknown Rx Menthol/Zinc Oxide Ointment 0 gm TOP PRN PRN tube 05/20/18 Unknown Rx [Calmoseptine Ointment] Metoprolol [Lopressor] 25 mg PO BID tab 05/20/18 Unknown Rx Polyethylene Glycol 3350 [Miralax] 17 gm PO BID powder, packet 05/20/18 Unknown Rx Tamsulosin [Flomax] 0.4 mg PO BID cap 05/20/18 Unknown Rx - History of Present Illness-Neuro Nature of Presenting Problem: 78 yowm presents to the ed via ems with neighbor who is a friend and POA. per POA pt has had multiple falls recently, has a murray cath since 05/06/18 with hematuria and cloudy urine seen, weakness, SI, depression. pt on exam answers all questions when asked and admits to being depressed. pt has had x2 agencies come out to eval pt for home health assistances and POA sts was declined by both most recent was yesterday. pt has had multiple issues with balance and can not do ADL's by himself anymore Onset/Duration: reports: gradual Timing: reports: still present Context: reports: falling Character of Altered Mental Status: reports: confused, other (SI and depressed) Any recent trauma/injury?: reports: minor (frequent falls) Character of Deficits: reports: new weakness (with ambulation BLE), decreased ability to walk New weakness or altered sensation location:: reports: general (diffuse) Gait Baseline: uses a cane Associated Symptoms: reports: confusion, weakness. denies: short of breath, chest pain, neck/back pain, nausea, slurred speech, vomiting Similar Symptoms Previously?: Yes Recently seen or treated by another doctor?: No Review of Systems - Adult - REVIEW OF SYSTEMS - ADULT ROS:: POA at bedside and gives most hx for pt Constitutional: reports: no symptoms reported Eyes: denies: blurred vision, double vision Ears, Nose, Mouth & Throat: reports: no symptoms reported Cardiovascular: reports: see HPI, edema. denies: chest pain, palpitations Respiratory: denies: cough, shortness of breath, wheezing Gastrointestinal: denies: abdominal pain, diarrhea, nausea, vomiting Genitourinary: reports: see HPI, hematuria, other (murray cath in place) Musculoskeletal: reports: no symptoms reported Integumentary: reports: no symptoms reported Neurological: reports: see HPI, loss of balance. denies: dizziness/vertigo, headache/migraines, seizure, slurred speech, syncope Psychiatric: reports: no symptoms reported Endocrine: reports: no symptoms reported Hematologic/Lymphatic: reports: no symptoms reported Allergic/Immunologic: reports: no symptoms reported All Other Systems: Reviewed and Negative Past History - Adult - PAST MEDICAL HISTORY-ADULT Review of Records: reports: Nursing Assessment Review, Medications Reviewed Major Childhood Illnesses: reports: denies history Cardiovascular: reports: CAD, HTN, hyperlipidemia, PAD Respiratory: reports: denies history Gastrointestinal: reports: denies history Genitourinary: reports: other (murray cath in place) Musculoskeletal: reports: arthritis Hand Dominance: Right Handed Neurological: reports: CVA, TIA Psychiatric: reports: depression Endocrine/Immune: reports: denies history Other Conditions: reports: denies history - PRIOR SURGERIES/PROCEDURES Surgical/Procedure History: reports: reviewed, not pertinent, CABG (year 1999) - IMMUNIZATION STATUS Childhood Immunizations: See Nurse Assessment Flu Vaccine: See Nurse Assessment - FAMILY HISTORY Family History: reviewed, not pertinent - SOCIAL HISTORY Smoking: quit greater than 1 year Substance Use: denies Alcohol Use Frequency: never Living Situation: alone Physical Exam- Neurological - Physical Exam-Neuro Initial Vital Signs Reviewed: Yes General Appearance: appears well, alert, no apparent distress, obese Eye Exam: bilateral eye: normal inspection, PERRL, EOMI HENMT: dental decay, hearing deficit. negative: moist mucous membranes (dry oral) Head Injury: no evidence of injury Neck: full range of motion, normal inspection Respiratory: chest non-tender, rhonchi (scattered). 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 negative: normal turgor (poor turgor) Psych/Mental Status: normal mood/affect, normal thought content, normal thought process, oriented x 3 - Glascow Coma Scale Best Eye Response: (4) open spontaneously Best Verbal Response: (5) oriented Best Motor Response: (6) obeys commands Total Glascow Score: 15 Progress - PLAN OF CARE/RESULTS Progress/Plan/Lab Results: Vital Signs - 8 hr 06/11/18 15:06 Pulse Rate 75 Respiratory Rate 19 Blood Pressure 158/106 O2 Sat by Pulse Oximetry 100 Laboratory Results - last 24 hr 0406/11/18 06/11/18 15:05 15:05 15:05 WBC 5.31 RBC 3.63 L Hgb 11.0 L Hct 33.7 L MCV 92.8 MCH 30.3 MCHC 32.6 L RDW Std Deviation 16.1 H Plt Count 218 MPV 9.8 Immature Gran % (Auto) 0.0 Neut % (Auto) 70.1 Lymph % (Auto) 14.7 L [place] % (Auto) 9.2 Eos % (Auto) 5.6 Baso % (Auto) 0.4 Immature Gran # (Auto) 0.00 Neut # (Auto) 3.72 Lymph # (Auto) 0.78 L [place] # (Auto) 0.49 Eos # (Auto) 0.30 Baso # (Auto) 0.02 PT INR Sodium 141 Potassium 3.4 L Chloride 109 H Carbon Dioxide 23 L Anion Gap 9 BUN 16 Creatinine 0.9 Estimated GFR/1.73 m2 > 60 BUN/Creatinine Ratio 18 Glucose 114 H Calculated Osmolality 283 Calcium 8.5 L Magnesium 1.8 Total Bilirubin 0.34 AST 16 ALT 18 Alkaline Phosphatase 52 Creatine Kinase 43 Troponin T Tri-J-Ubchgnqcukt Pept Total Protein 5.6 L Albumin 2.9 L Globulin 2.7 Albumin/Globulin Ratio 1.1 Plasma Lactate TSH Urine Source Urine Color Urine Turbidity Urine pH Ur Specific [place] Urine Protein Ur Glucose (Stick) Ur Ketones (Stick) Urine Blood Urine Nitrite Urine Bilirubin Urobilinogen Dipstick Urine Leukocytes Urine WBC (Auto) Urine RBC (Auto) U Epithel Cells (Auto) Urine Bacteria (Auto) Urine Crystals Small Round Cells Urine Casts Urine Yeast-like Cells Plasma/Serum Ethyl Alc 06/11/18 06/11/18 06/11/18 15:05 15:05 15:05 WBC RBC Hgb Hct MCV MCH MCHC RDW Std Deviation Plt Count MPV Immature Gran % (Auto) Neut % (Auto) Lymph % (Auto) [place] % (Auto) Eos % (Auto) Baso % (Auto) Immature Gran # (Auto) Neut # (Auto) Lymph # (Auto) [place] # (Auto) Eos # (Auto) Baso # (Auto) PT 15.1 INR 1.10 Sodium Potassium Chloride Carbon Dioxide Anion Gap BUN Creatinine Estimated GFR/1.73 m2 BUN/Creatinine Ratio Glucose Calculated Osmolality Calcium Magnesium Total Bilirubin AST ALT Alkaline Phosphatase Creatine Kinase Troponin T < 0.010 Wsn-Q-Ybaaguleczj Pept 3909 H Total Protein Albumin Globulin Albumin/Globulin Ratio Plasma Lactate TSH Urine Source Urine Color Urine Turbidity Urine pH Ur Specific [place] Urine Protein Ur Glucose (Stick) Ur Ketones (Stick) Urine Blood Urine Nitrite Urine Bilirubin Urobilinogen Dipstick Urine Leukocytes Urine WBC (Auto) Urine RBC (Auto) U Epithel Cells (Auto) Urine Bacteria (Auto) Urine Crystals Small Round Cells Urine Casts Urine Yeast-like Cells Plasma/Serum Ethyl Alc 06/11/18 06/11/18 06/11/18 15:05 15:23 16:05 WBC RBC Hgb Hct MCV MCH MCHC RDW Std Deviation Plt Count MPV Immature Gran % (Auto) Neut % (Auto) Lymph % (Auto) [place] % (Auto) Eos % (Auto) Baso % (Auto) Immature Gran # (Auto) Neut # (Auto) Lymph # (Auto) [place] # (Auto) Eos # (Auto) Baso # (Auto) PT INR Sodium Potassium Chloride Carbon Dioxide Anion Gap BUN Creatinine Estimated GFR/1.73 m2 BUN/Creatinine Ratio Glucose Calculated Osmolality Calcium Magnesium Total Bilirubin AST ALT Alkaline Phosphatase Creatine Kinase Troponin T Fzi-M-Zsaaeetjiuy Pept Total Protein Albumin Globulin Albumin/Globulin Ratio Plasma Lactate 1.5 TSH 3.37 Urine Source CATH Urine Color BROWN Urine Turbidity TURBID Urine pH 6.5 Ur Specific [place] 1.006 Urine Protein 70 A Ur Glucose (Stick) NEGATIVE Ur Ketones (Stick) NEGATIVE Urine Blood MODERATE A Urine Nitrite NEGATIVE Urine Bilirubin NEGATIVE Urobilinogen Dipstick NORMAL Urine Leukocytes LARGE A Urine WBC (Auto) TNTC A Urine RBC (Auto) 20-40 A U Epithel Cells (Auto) >10 A Urine Bacteria (Auto) NEGATIVE Urine Crystals NONE SEEN Small Round Cells NONE SEEN Urine Casts NONE SEEN Urine Yeast-like Cells NONE SEEN Plasma/Serum Ethyl Alc Orders Category Date Time Status Murray Cath Insertion ORDERED Care 06/11/18 15:22 Active Saline Loc NOW Care 06/11/18 15:23 Active CHEST-PORTABLE [RAD] Stat Exams 06/11/18 15:[address] HEAD/C-SPINE W/O CONTRAST [CT] Stat Exams 06/11/18 15:24 Completed XRAY PELVIS W/HIP 2-3VW RT [RAD] Stat Exams 06/11/18 15:24 Completed ALCOHOL BLOOD Stat Lab 06/11/18 15:05 Completed BLOOD CULTURE [BLDCUL] Stat Lab 06/11/18 15:30 Results CBC WITH ELECTRONIC DIFF [HEME] Stat Lab 06/11/18 15:05 Completed CK PROFILE [SP CHEM] Stat Lab 06/11/18 15:05 Completed COMPREHENSIVE METABOLIC PANEL [CHEM] Stat Lab 06/11/18 15:05 Completed LACTATE, PLASMA [CHEM] Stat Lab 06/11/18 15:23 Completed MAGNESIUM [CHEM] Stat Lab 06/11/18 15:05 Completed PRO B-NATRIURETIC PEPTIDE Stat Lab 06/11/18 15:05 Completed PROTIME WITH INR [COAG] Stat Lab 06/11/18 15:05 Completed TROPONIN T Stat Lab 06/11/18 15:05 Completed TSH Stat Lab 06/11/18 15:05 Completed URINALYSIS W/POSS RFLX CULT [URINALYSIS] Stat Lab 06/11/18 16:05 Completed URINE MANUAL MICROSCOPIC [URINALYSIS] Stat Lab 06/11/18 16:05 Completed 0.9% Sodium Chloride Inj [Ns] 1,000 ml Med 06/11/18 15:25 Discontinued IV 999 mls/hr CefTRIAXONE [Rocephin] 1 gm Med 06/11/18 16:18 Discontinued 0.9% Sodium Chloride Inj [Ns] 50 ml IV NOW Furosemide [Lasix] Med 06/11/18 16:18 Discontinued 40 mg IV NOW ONE Morphine Med 06/11/18 15:25 Discontinued 2 mg IV NOW ONE Ondansetron [Zofran] Med 06/11/18 15:25 Discontinued 4 mg IV NOW ONE Vancomycin 1 gm/Ns Med 06/11/18 15:25 Discontinued 1 gm in 250 ml IV NOW EKG [EKG] Stat Ther 06/11/18 15:23 Draft Transfer/Admit Order [TRANSFER] Routine Transfer 06/11/18 16:20 Ordered No TPA or NIH stroke scale done due to not being a CVA Result Diagrams: 06/11/18 15:05 06/11/18 15:05 - REASSESSMENT Reassessment #1 Time Reassessed: 16:18 Status: improving - EKG 1 Time of EKG reading by physician:: 15:10 EKG Read and Signed by:: Akbar Bacon EKG Interpretation (*Must complete 3 of following elements*): Abnormal Rate: 71 Rhythm: nsr [place]: normal QRS: normal SC Interval: normal Comments: septal infarct, age undetermined/st and t wave abnormality - XRAY 1 XRAY: Bilateral XRAY Study: Chest Impression: See EMR Report (EXAM: CHEST-PORTABLE HISTORY: ams TECHNIQUE: Chest single view COMPARISON: 05/06/2018 FINDINGS: The lungs are well expanded. The heart is not enlarged. Sternal wires are present. The vessels are not distended. There are no infiltrates. No effusion identified. There is a granuloma in the mid right lung. IMPRESSION: Negative exam. Electronically signed by John Hurst 06/11/2018 3:56 PM 06/11/18 1556 Interpreting Physician: John Hurst MD Dictated Date/Time: 06/11/18 1556 cc: Akbar Bacon MD; None,PCP) 2 XRAY: Right XRAY Study: Pelvis, Hip Impression: See EMR Report (EXAM: XRAY PELVIS W/HIP 2-3VW RT HISTORY: fall TECHNIQUE: Three views COMPARISON: None. FINDINGS: No fracture or dislocation is appreciated. Murray catheter stents are noted. There are prostatic calcifications. IMPRESSION: No acute bony abnormality is identified. Electronically signed by Jane Su 06/11/2018 4:01 PM 06/11/18 1601 Inter preting Physician: Jane Su MD Dictated Date/Time: 06/11/18 1558 cc: Akbar Bacon MD; Elizabeth Sullivan MD) - CT/MRI 1 CT Study: Cervical Spine, Head Impression: See EMR Report (EXAM : CT HEAD/C-SPINE W/O CONTRAST HISTORY: head injury/pain TECHNIQUE: 1. CT head without contrast 2. CT cervical spine wit hout contrast COMPARISON: None. FINDINGS: Head: No parenchymal hemorrhage. No epidural or subdural hematoma. No subarachnoid hemorrhage. There is atrophy with chronic microvascular ischemic changes and small old infarcts. No mass identified on this noncontrasted exam. No hydrocephalus. No skull fracture. Cervical spine: There is good alignment to the cervical spine. No precervical soft tissue swelling. No subluxation. No fracture. Moderate degenerative changes. Prominent atherosclerosis. IMPRESSION: Head: No hemorrhage. No injury. Cervical spine: No acute fracture. This exam was performed using automated exposure control, adjustment of mA or kV according to patient size, and/or use of iterative reconstruction technique. Electronically signed by John Hurst 06/11/2018 3:51 PM 06/11/18 1551 Interpreting Physician: John Hurst MD Dictated Date/Time: 06/11/18 1548 cc: Akbar Bacon MD; None,PCP) - CONSULTS/PCP/HOSPITALIST Notification #1 *Consult/PCP/Hospitalist*: hospitalist dr fischer Time Discussed: 16:18 Consult Disposition: Admit Departure - Departure Date of Disposition Decision: 06/11/18 Time of Disposition Decision: 16:48 DIAGNOSIS: Frequent falls, Complicated UTI (urinary tract infection) Contusion of right hip and thigh Qualifiers: Encounter type: initial encounter Qualified Code(s): S70.01XA - Contusion of right hip, initial encounter; S70.11XA - Contusion of right thigh, initial encounter Acute exacerbation of CHF (congestive heart failure) Qualifiers: Heart failure type: combined systolic and diastolic Qualified Code(s): I50.43 - Acute on chronic combined systolic (congestive) and diastolic (congestive) heart failure Disposition: ADMITTED INPATIENT 09 Certified Medical Emergency: Emergent Condition: Fair - Critical Care Note This patient required my direct & personal management of CC.: No Attestation - Physician/ HERBIE Attestation Patient care was provided by Advanced Practice Provider:: No The physician spent face to face time with patient:: Yes Advanced Practice Provider documentation review:: Supervising physician onsite and consulted in the evaluation and care of this patient. The physician did have a face to face encounter with the patient. This chart was documented by the indicated scribe, (Shonna Marin Scribe) and accurately reflects the services I performed and decisions made by , Akbar Bacon MD, as attested by the provider's signature.
[2018-06-11] MEDS ORDERED: KLOR-CON PO ONE (17:28)
[2018-06-11] MEDS ORDERED: TYLENOL PO PRN (17:38)
[2018-06-11] MEDS ORDERED: MILK OF MAGNESIA PO PRN (17:38)
[2018-06-11] MEDS ORDERED: VANCOMYCIN IV PER PHARMACY MISC SCH (17:45)
--- NOTE | 2018-06-11 18:46 | HISTORY AND PHYSICAL ---
CHIEF COMPLAINT: Falls. HISTORY OF PRESENT ILLNESS: Mr. Edward is a 78-year-old male with a known history of bilateral carotid artery disease status post left carotid endarterectomy last month by Dr. Marin. He also has a history of kidney stones with failed stent placement, status post nephrostomy tube and Ramos catheter with recurrent E faecalis UTI, followed by Dr. Kaur. He presents today with multiple falls, orthostatic dizziness, and inability to complete activities of daily living. He states that every now and then he gets dizzy when he stands, and yesterday he had 2 falls. He has been experiencing some right hip pain since then. Home health evaluated him today and felt he needed to come in to the ER. Other than the falling and unsteady gait, he does not have any acute complaints. He denies any unilateral weakness. No chest pain or shortness of breath. No abdominal pain, nausea, vomiting, fever or chills. He does have a Ramos catheter that is producing pyuria. In the ER today he had labs and diagnostics done. He was noted to be slightly anemic and hypoproteinemic, with a proBNP of 3909. A subsequent chest x-ray was negative. Of note, last month when he was here for his carotid endarterectomy, he had an echo done which was negative with the exception of mild grade 1 diastolic dysfunction. His vitals are stable. We have been asked to admit him for further treatment and evaluation. PAST MEDICAL HISTORY: 1. Known carotid artery disease bilaterally, status post left carotid endarterectomy, followed by Dr. Marin. 2. Coronary artery disease, status post CABG. 3. Hypertension . 4. Hyperlipidemia. 5. Depression. 6. Failure to thrive. 7. History of kidney stones with double-J stent placement by Dr. Kaur, ultimately requiring a nephrostomy tube, now with an indwelling Ramos catheter. 8. BPH. 9. History of TIA and CVA. PAST SURGICAL HISTORY: 1. Recent left carotid endarterectomy. 2. Recent nephrostomy tube and bilateral double-J stents. SOCIAL HISTORY: He lives alone. He denies tobacco, alcohol or drug use. He states as of late he has not been able to make food for himself. He has been falling a lot and unable really to do most of his activities of daily living without significant help from neighbors or home health. ALLERGIES: Penicillin. HOME MEDICATIONS: Acetaminophen 500 mg p.o. every 6, Celexa 20 mg daily, Colace 400 mg p.o. b.i.d., Singulair 10 mg p.o. at bedtime, [place] 5 1 p.o. every 4 hours as needed, aspirin 81 mg daily, Colace 10 mg rectally as needed at night, Flomax 0.4 mg p.o. b.i.d., lactulose 30 mL p.o. b.i.d., Lipitor 40 mg p.o. at bedtime, Lopressor 25 mg p.o. b.i.d., Megace 400 mg p.o. b.i.d., Milk of Magnesia 30 mL p.o. b.i.d., MiraLAX 17 grams p.o. b.i.d., Proscar 5 mg daily. REVIEW OF SYSTEMS: A 14-point review of systems was obtained and found to be negative with the exception of the HPI. PHYSICAL EXAMINATION: VITAL SIGNS: Blood pressure is 173/72, heart rate 79, respiratory rate 18, O2 saturation 100% on nasal cannula, temperature 97.5. GENERAL: Chronically ill, disheveled and borderline malnourished-appearing 78-year-old male lying in the hospital bed in no acute distress. NEUROLOGIC: He is oriented. He follows commands, without focal deficits. HEENT: Head is atraumatic and normocephalic. Pupils are equal, round and reactive to light. Oral mucosa is moist. NECK: Trachea is midline. Neck is supple. He has a left carotid endarterectomy incision that is clean, dry and intact. There are no bruits in the right or left carotid artery. CHEST: Clear to auscultation. CV: Regular rate and rhythm. S1 and S2 is noted. There are no murmurs. GI: Soft, nondistended, nontender. Bowel sounds positive. EXTREMITIES: Trace to 1+ edema bilaterally. DIAGNOSTIC DATA: A head and C-spine CT did not show anything acute. Hip and pelvis x-ray: No acute bony abnormality. Chest x-ray negative. EKG: Sinus rhythm with nonspecific ST and T changes. WBCs 5.31, hemoglobin 11, hematocrit 33.7, platelet count 218. INR is 1.1. Sodium is 141, potassium 3.4, chloride 109. CO2 is 23, anion gap 9, BUN 16, creatinine 0.9, glucose 114. Calcium 8.5, magnesium 1.8. LFTs negative. Troponin negative. ProBNP 3909. Albumin 2.9, protein 5.6. TSH 3.37. Lactic acid 1.5. UA shows large leukocytes, rbi-xxogymvg-np-count WBCs, 20-40 RBCs. Alcohol level 0. ASSESSMENT/PLAN: 1. Recurrent falls / FTT: Possibly secondary to urinary tract infection and/or protein calorie malnutrition. Will treat his urinary tract infection with vancomycin, as he has had recent Enterococcus faecalis urinary tract infections. Will add a heart-healthy diet and try to increase his protein. Will continue his Megace as well. Will consult Physical Therapy and Social Work. 2. Recent urological instrumentation with Pyuria: For now we will treat his urinary tract infection. He may need consultation with Urology for further input on his Ramos catheter and overall urinary status. 3. Recent carotid endarterectomy on the left, stable: No focal deficits. No bruits heard on the left. Will continue his aspirin. 4. Hypertension: Will continue his metoprolol b.i.d. and add IV if necessary, being mindful of his bilateral carotid artery disease and not to drop his blood pressure too low. Dictated by XAVI Shbaazz for Francisco Eli MD cc: XAVI Shabazz MD I agree with most components of history, physical, assessment and plan. A separate addendum has been dictated. CARLITA
[2018-06-11] MEDS: LOPRESSOR PO SCH ×2 (19:05→20:28)
--- NOTE | 2018-06-11 20:13 | HISTORY AND PHYSICAL ---
ADDENDUM: I agree with most components of history, physical, assessment and plan. In brief Mr. Edward is 78 years old man with past medical history of Enterococcus UTI, hypertension, CABG, hyperlipidemia, TIA, left carotid endarterectomy with patch angioplasty in April 2018, benign prostatic hypertrophy requiring Ramos catheter who came in brought in by his neighbor who is a power of editor publications for complaints of recurrent fall, hematuria and pus looking urine in the Ramos bag and weakness. On arrival he was found to have pyuria and his Ramos catheter was changed in emergency room. SUBJECTIVE: The patient tells me that he did not get a chance to see urologist as an outpatient. Apparently his Ramos catheter was placed at the time of discharge last admission which was on 05/20/2018 and he never saw his urologist. We discussed about urology care, urine infection and I answered all of his questions. Currently he has been afebrile temperature of 98.9 degrees, pulse 72, respiratory rate 15, blood pressure 168/74, saturating 99% room air. PHYSICAL EXAMINATION: Does not appear in any acute distress. Oral cavity is moist. Air entry bilateral equal. No wheeze, rhonchi, crackles. S1, S2 normal. No murmur or gallop. ABDOMEN: Soft, nontender. He has a Ramos catheter in place. He does have bilateral lower extremity edema more prominent on the right than on the left. LABS: No leukocytosis, hypokalemia which is being repleted, normal kidney function. He did have numerous WBCs in his urine and urine culture and blood culture is in lab. ASSESSMENT AND PLAN: 1. Indwelling Ramos catheter associated urinary tract infection. 2. Failure to thrive and generalized weakness. 3. Recurrent fallS. 4. Benign prostatic hypertrophy with indwelling Ramos catheter. 5. Depression. 6. Hyperlipidemia, constipation, coronary artery bypass graft. PLAN: I will start patient on intravenous ceftriaxone, intravenous vancomycin for history of enterococcus urinary tract infection. Follow up with final urine and blood culture results. Will continue with physical therapy and I will place social work consult for need for possible rehab. Plan of care discussed with the patient. All of his questions have been answered. Though patient has a portable DNR level 1 on my encounter patient states that he wants to take it back and he wants to be full code. I have communicated this with the nursing team. cc: Francisco Eli MD MTDD
[2018-06-11] MEDS: DULCOLAX PR SCH (20:24)
[2018-06-11] MEDS: COLACE PO SCH (20:28)
[2018-06-11] MEDS: MIRALAX PO SCH (20:28)
[2018-06-11] MEDS: MEGACE LIQUID PO SCH (20:28)
[2018-06-11] MEDS: LIPITOR PO SCH (20:28)
[2018-06-11] MEDS: FLOMAX PO SCH (20:28)
[2018-06-11] MEDS: SINGULAIR PO SCH (20:28)
[2018-06-12 07:07] LABS: BASO# 0.02 X1000 (0.0-0.2); BASO% 0.4 % (0.0-0.8); EOS# 0.43 X1000 (0.0-0.7); EOS% 8.8 % (0.0-10.0); HEMATOCRIT 30.4 % (42.0-52.0); HEMOGLOBIN 9.9 g/dL (14.0-18.0); IMM GRAN# 0.02 X1000 (0.0-0.04); IMM GRAN% 0.4 % (0.0-0.5); LYMPH# 0.98 X1000 (1.2-3.4); MCH 30.6 PG (27-31); MCHC 32.6 g/dL (33-37); MCV 93.8 FL (81-99); MONO% 8.1 % (1.7-9.3); MPV 9.7 FL (7.4-10.4); NEUT# 3.06 X1000 (1.4-6.5); NEUT% 62.3 % (42.2-75.2); PLT 202 X1000 (130-400); RBC 3.24 XMIL (4.7-6.1); RDW 16.1 % (11.5-14.5); WBC 4.91 X1000 (4.8-10.8)
[2018-06-12 07:26] LABS: AGAP 7; BUN 12 mg/dL (8-22); CALCIUM 7.9 mg/dL (8.8-10.2); CHLORIDE 112 mmol/L (98-107); COSMO 283; CREATININE 0.7 mg/dL (0.7-1.2); ESTIMATED GFR > 60; GLUCOSE 92 mg/dL (70-104); MAGNESIUM 1.8 mg/dL (1.5-2.7); POTASSIUM 3.8 mmol/L (3.5-5.1); SODIUM 142 mmol/L (136-145); TCO2 23 mmol/L (25-35)
[2018-06-12] MEDS: MEGACE LIQUID PO SCH ×2 (10:29→20:54)
[2018-06-12] MEDS: COLACE PO SCH ×2 (10:29→20:54)
[2018-06-12] MEDS: FLOMAX PO SCH ×2 (10:30→20:54)
[2018-06-12] MEDS: CELEXA PO SCH (10:30)
[2018-06-12] MEDS: ASPIRIN EC PO SCH (10:30)
[2018-06-12] MEDS: PROSCAR PO SCH (10:30)
[2018-06-12] MEDS: LOPRESSOR PO SCH ×2 (10:30→20:54)
[2018-06-12] MEDS: MIRALAX PO SCH ×2 (10:30→20:54)
[2018-06-12] MEDS ORDERED: VANCOMYCIN 1,500 MG in NS 250 ML IV SCH (17:00)
[2018-06-12] MEDS: ROCEPHIN 1 GM in NS 50 ML IV SCH (17:19)
--- NOTE | 2018-06-12 17:25 | PROGRESS NOTE ---
DATE: 06/12/2018 INTERVAL HISTORY: No acute events overnight. SUBJECTIVE: He is feeling fine. Denies any chest pain, shortness of breath, nausea, vomiting, abdominal pain. He states he is feeling in fact better since last week or so. He has been eating well. He states that rehab did not help him and he would not like to go back to rehab again, they would like to get stronger remaining inside the hospital. I discussed with him about his urine infection contributing to his falls and answered all of his questions. Currently vitals detect temperature of 97.9 degrees, pulse 62, respiratory rate 20, blood pressure 150/63, saturating 97% on room air. PHYSICAL EXAMINATION: Does not appear in any acute distress. Oral cavity is moist. Air entry bilateral equal, no wheeze, rhonchi, crackles S1, S2 normal. No murmur or gallop. Abdomen soft, nontender. He has a Ramos catheter in place with a lot of thick urine output. He does have bilateral lower extremity edema more prominent on the right than on the left. MICROBIOLOGY: Urine culture is growing gram-negative trinidad. LABS: No leukocytosis, normocytic anemia, normal platelet count, normal electrolytes with resolution of hypokalemia. IMAGING: No new imaging today. On admission had cervical spine CT did not have any hemorrhage or injury. However it did not have any acute fracture. Hip, pelvis x-ray did not have any acute bony abnormality. Chest x-ray had negative exam. ASSESSMENT AND PLAN: 1. Indwelling Ramos catheter associated urinary tract infection with gram-negative trin[place]. Continue patient on intravenous vancomycin and intravenous ceftriaxone until final urine culture and sensitivity comes back since previously he did have history of enterococcal urinary tract infection and also Staphylococcus epidermidis urinary tract infection. Blood culture is also in lab. 2. Failure to thrive and generalized weakness. Continue him on heart healthy diet and physical therapy to help him get stronger for his recurrent falls. 3. History of benign prostatic hypertrophy. Continue home finasteride, tamsulosin and Ramos catheter. Eventually he needs to be seen by urologist for Ramos catheter management, I will consider consulting on Thursday or will send him to Urology Clinic outpatient. Apparently at the time of discharge last month he was supposed to see a urologist which he did not and I am unsure how long he had Ramos catheter which got infected. However it was changed in emergency room this admission. 4. Depression. Currently he appears pleasant and denies any mood disturbance. Continue home citalopram . 5. Others. Continue aspirin and atorvastatin for hyperlipidemia, bisacodyl docusate and milk of magnesia to avoid constipation, megestrol for appetite stimulation. 6. Disposition. Patient remains inside the hospital as I await final urine culture results. At the time of discharge he may become candidate to go to rehab again versus going home with home physical therapy. Plan of care discussed with him. All of his questions have been answered. cc: Francisco Eli MD
[2018-06-12] MEDS: SINGULAIR PO SCH (20:54)
[2018-06-12] MEDS: LIPITOR PO SCH (20:54)
[2018-06-12] MEDS: DULCOLAX PR SCH (20:55)
[2018-06-13] MEDS: ASPIRIN EC PO SCH (08:51)
[2018-06-13] MEDS: LOPRESSOR PO SCH ×2 (08:51→20:08)
[2018-06-13] MEDS: PROSCAR PO SCH (08:51)
[2018-06-13] MEDS: FLOMAX PO SCH ×2 (08:51→20:07)
[2018-06-13] MEDS: CELEXA PO SCH (08:52)
[2018-06-13] MEDS: COLACE PO SCH ×2 (08:53→20:08)
[2018-06-13] MEDS: MEGACE LIQUID PO SCH ×2 (08:53→20:07)
[2018-06-13] MEDS: MIRALAX PO SCH ×3 (08:54→20:10)
[2018-06-13] MEDS ORDERED: LOPRESSOR PO ONE (15:56)
[2018-06-13] MEDS: ROCEPHIN 1 GM in NS 50 ML IV SCH (16:55)
--- NOTE | 2018-06-13 18:55 | PROGRESS NOTE ---
DATE: 06/13/2018 INTERVAL HISTORY: No acute events overnight. His blood pressure was on the higher side, for which I have increase his antihypertensive medication dose to 50 mg twice a day of metoprolol from 25 mg. SUBJECTIVE: He is feeling fine. Denies any new complaints. We discussed about eating and drinking adequately. We discussed about his urinary culture findings and I answered all of his questions currently. PHYSICAL EXAMINATION: Vital Signs: Currently, vital signs show a temperature of 97.9 degrees, pulse 72, respiratory rate 18, blood pressure 177/74, saturating 97% on room air. General: He does not appear to be in any acute distress. Oral Cavity: Moist. Lungs: Air entry bilaterally equal. No wheeze, rhonchi, or crackles. Cardiovascular: S1, S2 normal. No murmur or gallop. Abdomen: Soft, nontender. Genitourinary: He has a Armos catheter in place with urine output with residuals. Extremities: He also has bilateral lower extremity edema, more prominent on the right than on the left. MICROBIOLOGY: Urine culture is growing Enterobacter cloacae species, which is sensitive to levofloxacin. LABS: No CBC or BMP today. ASSESSMENT AND PLAN: 1. Indwelling Ramos catheter associated urinary tract infection with Enterobacter cloacae. Stop intravenous vancomycin. I will stop intravenous ceftriaxone tonight and start patient on oral levofloxacin tomorrow onward, for a total of 14 day course. Blood culture did not show any growth. 2. History of bilateral hydroureteronephrosis, with double-J stent. I will consult urologist tomorrow. According to previous discharge summary, there was a plan of removal of his stent in May; however, the patient never followed up with urologist as an outpatient, and so the compliance is an issue. We will also appreciate recommendation about management of his Ramos catheter. 3. Essential hypertension. Increase his metoprolol dose and add nifedipine for management of his hypertension. This should also help with his nephrolithiasis history. 4. Failure to thrive and generalized weakness. Continue him on diet and physical therapy. He would like to go home with home physical therapy rather than rehabilitation considering it did not help him previously. 5. History of benign prostatic hypertrophy. Continue finasteride, tamsulosin, and Ramos catheter. 6. Other. Continue home citalopram for depression, aspirin and atorvastatin for hyperlipidemia, bisacodyl, docusate, milk of magnesia to avoid constipation, megestrol for appetite stimulation. 7. Disposition. The patient remains inside the hospital as we await physical therapy evaluation tomorrow. If he is stronger and no urological procedure is planned, we will consider discharging him home with home physical therapy, or provide him rehabilitation options. Plan of care discussed with him. All of his questions have been answered. His code status is Full Code. cc: Francisco Eli MD MTDD
[2018-06-13] MEDS: LIPITOR PO SCH (20:07)
[2018-06-13] MEDS: SINGULAIR PO SCH (20:07)
[2018-06-13] MEDS: DULCOLAX PR SCH (20:08)
[2018-06-14 07:53] LABS: BASO# 0.02 X1000 (0.0-0.2); BASO% 0.3 % (0.0-0.8); EOS% 8.5 % (0.0-10.0); HEMATOCRIT 31.9 % (42.0-52.0); HEMOGLOBIN 10.3 g/dL (14.0-18.0); IMM GRAN# 0.02 X1000 (0.0-0.04); IMM GRAN% 0.3 % (0.0-0.5); LYMPH# 1.27 X1000 (1.2-3.4); LYMPH% 21.6 % (20.5-51.1); MCH 29.9 PG (27-31); MCHC 32.3 g/dL (33-37); MCV 92.5 FL (81-99); MONO# 0.34 X1000 (0.11-0.59); MONO% 5.8 % (1.7-9.3); NEUT# 3.73 X1000 (1.4-6.5); NEUT% 63.5 % (42.2-75.2); PLT 237 X1000 (130-400); RBC 3.45 XMIL (4.7-6.1); RDW 15.7 % (11.5-14.5); WBC 5.88 X1000 (4.8-10.8)
[2018-06-14 08:11] LABS: AGAP 8; BUN 12 mg/dL (8-22); CALCIUM 8.3 mg/dL (8.8-10.2); CHLORIDE 107 mmol/L (98-107); COSMO 271; CREATININE 0.7 mg/dL (0.7-1.2); ESTIMATED GFR > 60; GLUCOSE 87 mg/dL (70-104); MAGNESIUM 1.9 mg/dL (1.5-2.7); PHOSPHORUS 3.3 mg/dL (2.7-4.5); POTASSIUM 3.8 mmol/L (3.5-5.1); SODIUM 136 mmol/L (136-145); TCO2 21 mmol/L (25-35)
[2018-06-14] MEDS: ASPIRIN EC PO SCH (08:47)
[2018-06-14] MEDS: LOPRESSOR PO SCH ×2 (08:47→20:46)
[2018-06-14] MEDS: PROSCAR PO SCH (08:47)
[2018-06-14] MEDS: FLOMAX PO SCH ×2 (08:47→20:46)
[2018-06-14] MEDS: CELEXA PO SCH (08:47)
[2018-06-14] MEDS: ADALAT CC PO SCH (08:47)
[2018-06-14] MEDS: LEVAQUIN PO SCH (08:47)
[2018-06-14] MEDS: MEGACE LIQUID PO SCH ×2 (08:49→20:46)
[2018-06-14] MEDS: COLACE PO SCH ×2 (08:49→20:46)
[2018-06-14] MEDS: MIRALAX PO SCH ×2 (08:49→20:45)
--- NOTE | 2018-06-14 19:31 | PROGRESS NOTE ---
DATE: 06/14/2018 INTERVAL HISTORY: No acute event overnight. The patient says he was able to walk in the hallway with the help of physical therapy using a walker. He denies any new complaints. He states that he wants to go home when he can walk by himself without using a walker. I explained to him that considering his multiple medical illnesses and hospitalization he has become weak and that he would need proper nutrition and physical therapy in order to get stronger, however hospital is not the environment for that and I would recommend rehab for him. However he does not want to go to the rehab. After explaining to him about benefit versus risk he agreed to reconsider discharge within next 48 hours. The patient's power of senior trial attorney Johan is at bedside. Plan of care discussed with them. Also discussed with about calling urologist. Currently vitals temperature 97.8 degrees, pulse 62, respiratory rate 19, blood pressure 135/62, saturating 98% on room air. PHYSICAL EXAMINATION: He does not appear in any acute distress. Oral cavity is moist. Air entry bilaterally equal. No wheeze, rhonchi or crackles. S1, S2 normal. No murmur or gallop. Abdomen soft, nontender. He has a Ramos catheter in place with clear urine. He has bilateral lower extremity edema more prominent on the right than on the left however he is able to walk without any trouble. LABS: No leukocytosis, stable hemoglobin, hematocrit and platelet count. His electrolytes are within acceptable range. Microbiology, urine culture growing Enterobacter cloacae which is sensitive to Levaquin and his antibiotics had already been changed. ASSESSMENT AND PLAN: 1. Indwelling Ramos catheter secondary urinary tract infection with Enterobacter cloacae status post change of Ramos. Continue p.o. levofloxacin, continue tamsulosin and finasteride for history of benign prostatic hypertrophy. Urology has been consulted for management of bilateral ureteric stent that patient had for nephrolithiasis in the past to see if he would need any inpatient management of these. 2. Essential hypertension. Continue metoprolol and nifedipine, currently in acceptable range. 3. Failure to thrive and generalized weakness improving on regular diet and physical therapy. He did not want to go to rehab. 4. Others, continue citalopram for depression, aspirin, atorvastatin for hyperlipidemia, bisacodyl docusate and milk of magnesia to avoid constipation, megestrol for appetite stimulation. 5. Disposition. At this point we mutually came up with a plan to keep the patient inside the hospital and allowed him to have inpatient physical therapy until Thursday. If on Thursday patient is feeling stronger then will consider discharging him home with home physical therapy. If he does not get stronger than on Thursday I will consider discharging him to rehab and I will keep director of social media marketing team on board with that plan. Plan of care discussed with patient and power of senior trial attorney. All of the questions have been answered. cc: Francisco Eli MD MTDD
--- NOTE | 2018-06-14 19:36 | CONSULTATION ---
DATE OF CONSULTATION: 06/14/2018 ATTENDING AND REFERRING PHYSICIAN: Hospitalist. HISTORY OF PRESENT ILLNESS: This 78-year-old male was admitted with falling down and failure to thrive. He was noted to have a urinary tract infection as well. The patient was first seen by Urology in January 2018 when he was noted to have significant bilateral hydroureteronephrosis down to the bladder secondary to his enlarged prostate. Incidentally noted was a left lower pole stone and bladder stones. He underwent cystoscopic exam with cystolitholapaxy and a right retrograde ureteral pyelogram and placement of a double-J stent. The left side was very obstructed and a wire could not be placed in the ureter. He underwent left percutaneous placement of a nephrostomy tube and then antegrade placement of the double-J stent. The left percutaneous removed. He had the Ramos catheter in place but it was removed at his discharge and he did not follow up in the Urology Clinic as scheduled. He was subsequently admitted in April with dizziness and falls where he was noted to have severe bilateral carotid stenosis. He underwent placement of a Ramos catheter. His renal function returned towards baseline and he had the left carotid endarterectomy performed. The right side is scheduled in the future. The patient did not keep his followup urological appointment after his hospitalization in April either. The patient states he is feeling better than when he was admitted. PAST MEDICAL HISTORY: Peripheral vascular disease with significant carotid plaquing status post left carotid endarterectomy, history of coronary artery disease, hypertension, elevated cholesterol, depression, history of renal lithiasis, neurogenic bladder probably due to an enlarged prostate. CURRENT MEDICATIONS: Documented on the chart and include Flomax 0.4 mg b.i.d. and Proscar 5 mg a day. The patient states he is taking these medications. PAST SURGICAL HISTORY: Coronary artery bypass grafting, cystoscopic exam with cystolitholapaxy as noted in the HPI, left carotid endarterectomy. SOCIAL HISTORY: The patient lives by himself and his next door neighbor is his guardian and has power of patent prosecution attorney. He denies tobacco or alcohol use. ALLERGIES: He is allergic to penicillin. REVIEW OF SYSTEMS: He states that after he was discharged from the hospital several weeks ago he felt he was doing well but then started having dizziness and falling again. He denies any problems with diabetes or seizure activity. PHYSICAL EXAMINATION: General: A normally developed, thin, age apparent, white male, oriented and cooperative. HEENT: Normal for age. Lungs: Clear. Cardiovascular: Regular rate and rhythm. Abdomen: Mildly protuberant. Soft, nontender. No hepatosplenomegaly or masses. Normal bowel sounds. : Normal male with Ramos catheter in place draining clear urine. Both testes are down and palpably normal. Rectal: Deferred. His prostate was 50 to 60 g, smooth, and symmetric in January 2018. Extremities: No clubbing, cyanosis, or edema. Neurologic: No focal deficits. LABORATORY EVALUATION: Has a white count of 5.88, hemoglobin 10.3, hematocrit 31.9 and platelets are 237,000. Serum electrolytes are normal. BUN 12, creatinine 0.7. His urine culture on the 11 of June grew Enterobacter. IMPRESSION: 1. An obstructing prostate. 2. Neurogenic bladder. 3. Bilateral ureteral obstruction secondary to his enlarged prostate (probably). 4. Indwelling bilateral double-J stents. RECOMMEND: 1. Renal ultrasound to reevaluate the hydronephrosis. 2. A voiding trial after the ultrasound is complete. 3. Continue Flomax 0.4 mg b.i.d. and Proscar 5 mg a day as is being done. 4. He will need to have the double-J stents exchanged when he is cleared for this procedure by his family physician. Thank you for this consultation. cc: Samy Kaur MD
[2018-06-14] MEDS: SINGULAIR PO SCH (20:46)
[2018-06-14] MEDS: LIPITOR PO SCH (20:46)
[2018-06-14] MEDS: DULCOLAX PR SCH (20:46)
--- NOTE | 2018-06-15 08:31 | Diag Imaging Result Doc PS360 ---
EXAM: US RENAL 2 (RETROPER) COMPLETE 06/15/2018 HISTORY: bilat hydro with indwelling JJ stents TECHNIQUE: Renal ultrasound COMMENT: There is marked bilateral hydronephrosis. The right kidney is 12.6 x 5.8 x 6.6 cm and the left kidney is 12.3 x 5.5 x 6 cm. There is a 1.2 cm shadowing calculus in the lower pole of the left collecting system. There are apparent gallstones. The resistive index on the right is 0.79 and on the left 0.78, which is above the normal range and indicative of obstructive hydronephrosis. Respiratory motion may cause and accuracy in the resistive indices however. IMPRESSION: Bilateral hydronephrosis. Left nephrolithiasis. Electronically signed by Byron Eubanks 06/15/2018 8:28 AM
[2018-06-15] MEDS: PROSCAR PO SCH (09:37)
[2018-06-15] MEDS: LOPRESSOR PO SCH ×2 (09:37→21:28)
[2018-06-15] MEDS: ADALAT CC PO SCH (09:38)
[2018-06-15] MEDS: ASPIRIN EC PO SCH (09:38)
[2018-06-15] MEDS: CELEXA PO SCH (09:38)
[2018-06-15] MEDS: LEVAQUIN PO SCH (09:38)
[2018-06-15] MEDS: COLACE PO SCH ×2 (09:38→21:30)
[2018-06-15] MEDS: MEGACE LIQUID PO SCH ×2 (09:38→21:50)
[2018-06-15] MEDS: MIRALAX PO SCH ×2 (09:38→21:33)
[2018-06-15] MEDS: FLOMAX PO SCH ×2 (09:38→21:28)
--- NOTE | 2018-06-15 18:08 | PROGRESS NOTE ---
DATE: 06/15/2018 INTERVAL HISTORY: No acute event overnight. Apparently, Palliative Care Team had discussed with the patient about his health condition and also with the power of litigation attorney associate. The power of litigation attorney associate was in agreement that the patient might need long-term nursing home care considering his high fall risk. However, on discussion with the patient, he did not agree to that. He is persistent with his idea of being able to walk without use of a walker and being independent before he would go home. VITALS: Currently vitals: Temperature 97.9, pulse 66, respiratory rate 18, blood pressure 155/69. Saturating 98% on room air. PHYSICAL EXAMINATION: General: Not in any acute distress. HEENT: Oral cavity is moist. Lungs: Air entry bilaterally equal. No wheezes, rubs or crackles. Cardiovascular: S1 normal. No murmur or gallop. Abdomen: Soft, nontender. No lower extremity edema. His Ramos catheter has been removed. Extremities: He does have only mild lower extremity edema. LABS: No new labs today. ASSESSMENT AND PLAN: 1. Indwelling Ramos catheter associated urinary tract infection with Enterobacter cloacae status post change of Ramos and now removal of Ramos. Continue p.o. levofloxacin. 2. History of benign prostatic hypertrophy, nephrolithiasis and bilateral hydronephrosis status post double-J stent bilaterally. He is status post removal of the Ramos. Continue tamsulosin and finasteride. Urology has recommended outpatient followup for removal of double-J stent in future. 3. Essential hypertension. Continue metoprolol and increase nifedipine. 4. Failure to thrive and generalized weakness on presentation, currently improving. Continue regular diet and physical therapy. 5. Others. Continue citalopram for depression, aspirin and atorvastatin for hyperlipidemia, bisacodyl and milk of magnesia to avoid constipation, megestrol for appetite stimulation. 6. Disposition: Patient remains inside the hospital. I will again revisit the idea of discharge with home physical therapy tomorrow; however, he is at a really high risk of readmission since he has deconditioned because of his age and multiple medical conditions, and he would not want to go to rehab or group home. cc: Francisco Eli MD MTDD
[2018-06-15] MEDS: LIPITOR PO SCH (21:31)
[2018-06-15] MEDS: SINGULAIR PO SCH (21:31)
[2018-06-15] MEDS: DULCOLAX PR SCH (21:32)
[2018-06-16 07:41] LABS: BASO# 0.01 X1000 (0.0-0.2); BASO% 0.2 % (0.0-0.8); EOS% 9.3 % (0.0-10.0); HEMATOCRIT 31.9 % (42.0-52.0); HEMOGLOBIN 10.3 g/dL (14.0-18.0); IMM GRAN# 0.04 X1000 (0.0-0.04); IMM GRAN% 0.7 % (0.0-0.5); LYMPH# 1.19 X1000 (1.2-3.4); LYMPH% 22.1 % (20.5-51.1); MCHC 32.3 g/dL (33-37); MONO# 0.42 X1000 (0.11-0.59); MONO% 7.8 % (1.7-9.3); MPV 9.5 FL (7.4-10.4); NEUT# 3.22 X1000 (1.4-6.5); NEUT% 59.9 % (42.2-75.2); PLT 261 X1000 (130-400); RBC 3.43 XMIL (4.7-6.1); RDW 15.8 % (11.5-14.5); WBC 5.38 X1000 (4.8-10.8)
[2018-06-16 08:05] LABS: AGAP 12; BUN 12 mg/dL (8-22); CALCIUM 8.4 mg/dL (8.8-10.2); CHLORIDE 108 mmol/L (98-107); COSMO 279; CREATININE 0.7 mg/dL (0.7-1.2); ESTIMATED GFR > 60; GLUCOSE 90 mg/dL (70-104); MAGNESIUM 1.9 mg/dL (1.5-2.7); PHOSPHORUS 3.3 mg/dL (2.7-4.5); POTASSIUM 3.3 mmol/L (3.5-5.1); SODIUM 140 mmol/L (136-145); TCO2 20 mmol/L (25-35)
[2018-06-16] MEDS: LEVAQUIN PO SCH (10:46)
[2018-06-16] MEDS: ASPIRIN EC PO SCH (12:15)
[2018-06-16] MEDS: ADALAT CC PO SCH (12:15)
[2018-06-16] MEDS: MIRALAX PO SCH ×2 (12:15→20:48)
[2018-06-16] MEDS: COLACE PO SCH ×2 (12:15→20:45)
[2018-06-16] MEDS: FLOMAX PO SCH ×2 (12:16→20:47)
[2018-06-16] MEDS: CELEXA PO SCH (12:16)
[2018-06-16] MEDS: MEGACE LIQUID PO SCH ×2 (12:17→20:46)
[2018-06-16] MEDS: LOPRESSOR PO SCH ×2 (12:17→20:48)
[2018-06-16] MEDS: PROSCAR PO SCH (12:17)
[2018-06-16] MEDS: KLOR-CON PO SCH ×2 (17:47→21:23)
[2018-06-16] MEDS: LOVENOX SUBQ SCH (17:48)
--- NOTE | 2018-06-16 18:03 | PROGRESS NOTE ---
DATE: 06/16/2018 INTERVAL HISTORY: No acute events. The patient was able to walk with the use of a walker and physical therapy's support in the hallway. SUBJECTIVE: He is feeling fine. Denies any new complaints. He is eating better. He is getting stronger. OBJECTIVE: Vital signs: Temperature of 98.5 degrees, pulse 66, respiratory rate 17, blood pressure 147/66, saturating 99% on room air. General: Not in acute distress. HEENT: He has missing teeth. Oral cavity is moist. Lungs: Air entry bilaterally equal. No wheeze, rhonchi, crackles. Cardiovascular: S1, S2 normal. No murmur, rub, or gallop. Abdomen: Soft, nontender. Extremities: He has mild lower extremity edema. : He has a Ramos catheter which was placed because he had urinary retention. LABS: He does have hypokalemia which is being repleted. ASSESSMENT AND PLAN: 1. Indwelling Ramos catheter associated urinary tract infection with Enterobacter cloacae, status post of change of Ramos catheter. Continue p.o. levofloxacin. 2. History of benign prostatic hypertrophy, nephrolithiasis, and bilateral hydronephrosis, status post double-J stent bilaterally in the past. We have reintroduced Ramos catheter for his persistent urinary retention. We will continue tamsulosin and finasteride. Urologist has recommended TURP and outpatient removal of double-J stent in future. However, patient will think about it and he is not ready for it at the moment. 3. Essential hypertension. Continue metoprolol and nifedipine. His blood pressure is more in acceptable range now. 4. Failure to thrive and generalized weakness on presentation, currently improving. Continue regular diet and physical therapy. 5. Others. Continue citalopram for depression, aspirin and atorvastatin for hyperlipidemia, bisacodyl and milk of magnesia to avoid constipation, megestrol for appetite stimulation, and I will add enoxaparin for DVT prophylaxis. 6. Disposition. Patient is medically ready to be discharged. He does not have any inpatient medical needs and from my perspective, it is okay to discharge the patient. I went there and brought this to the patient's attention. However, patient has this expectation that he should be able to walk by himself, and he should be able to carry out his activities of daily living independently without anyone's help. I told him that his expectations are likely unrealistic considering his medical illnesses and recent hospitalizations. He has become weak and he is at really high risk of falls, so he will need continuous supervision. However, he is in disagreement. He has previously refused to go to rehab, saying that it did not help in the past and he thinks he is not ready to go home with home PT. I also told him that regardless of him going to rehab or home with home PT, he would remain at high risk of falls and he would need continuous supervision. He, however, is in disagreement and tells me that he would like to be in the hospital until the weekend and see how it goes. The patient's power of workers compensation attorney previously was kept informed about his course and he had, in fact, agreed that the patient would need long-term supervision. However, patient himself is not in agreement. cc: Francisco Eli MD MTDD
[2018-06-16] MEDS: DULCOLAX PR SCH (20:47)
[2018-06-16] MEDS: LIPITOR PO SCH (20:47)
[2018-06-16] MEDS: SINGULAIR PO SCH (20:47)
[2018-06-17] MEDS ORDERED: NORVASC PO SCH (11:00)
[2018-06-17] MEDS: ADALAT CC PO SCH (11:40)
[2018-06-17] MEDS: ASPIRIN EC PO SCH (11:41)
[2018-06-17] MEDS: CELEXA PO SCH (11:41)
[2018-06-17] MEDS: COLACE PO SCH ×2 (11:41→22:03)
[2018-06-17] MEDS: MEGACE LIQUID PO SCH ×2 (11:42→22:02)
[2018-06-17] MEDS: LEVAQUIN PO SCH (11:42)
[2018-06-17] MEDS: LOPRESSOR PO SCH ×2 (11:42→22:02)
[2018-06-17] MEDS: FLOMAX PO SCH ×2 (11:42→22:03)
[2018-06-17] MEDS: MIRALAX PO SCH ×2 (11:43→22:03)
[2018-06-17] MEDS: PROSCAR PO SCH (11:43)
--- NOTE | 2018-06-17 12:08 | PROGRESS NOTE ---
DATE: 06/17/2018 SUBJECTIVE: This patient is feeling better. No new complaints, there is a little bit of pinkish urine in the Ramos catheter bag. Apparently, it was yellow yesterday. He feels weaker today compared with yesterday. I will ask for not only physical therapy, but occupational therapy as well. We will try to see if this patient qualifies for a rehab center, but I am not quite sure. He has an Enterobacter urinary tract infection, and we have been treating this patient with levofloxacin which is sensitive. OBJECTIVE: Vital Signs: Temperature 98.1 degrees, pulse 67, respiratory rate 17, blood pressure 149/72, and oxygen saturation 100% on room air. HEENT: Head normocephalic. No trauma. PERRLA. Poor dentition. Neck: Supple. No JVD. Central trachea. Chest: Decreased breath sounds mostly at the bases. No wheezing. No rales. Cardiovascular: RRR. Abdomen: Soft, nontender, and nondistended. No hepatosplenomegaly. Extremities: Mild lower extremity edema. No clubbing. No cyanosis. Genitourinary: He has a Ramos catheter which has been placed because of urinary retention, some pinkish urine and apparently was yellow yesterday. Neurological: Alert and oriented x3. No focal deficits, but generalized weakness mostly at the level of the lower extremities. LABORATORY: No lab work done today. ASSESSMENT AND PLAN: 1. Indwelling Ramos catheter associated urinary tract infection with Enterobacter cloacae, status post change of Ramos catheter. This patient has been placed on levofloxacin which is sensitive. We will continue with the same management. We will continue to monitor. 2. History of BPH, nephrolithiasis and bilateral hydronephrosis status post double-J stent bilaterally in the past. A Armos catheter has been replaced for his persistent urinary retention. We will continue with the same management for now recommended by Urology Department, which also has recommended to do a TURP as an out patient, and removal of the double-J stent in the future. The patient has been notified. 3. Hypertension. Continue with same management. 4. Failure to thrive and generalized weakness on presentation. Apparently, he was improving, but today again he feels more weak again. We will continue with the regular diet, physical therapy, and I will add occupational therapy. Probably, this patient will need to go to a rehab center if he qualifies. 5. Depression. Continue with same treatment. 6. Constipation. Continue with same management. 7. History of coronary artery disease status post CABG. Continue with aspirin, Lipitor, and blood pressure control. cc: Otoniel Mata MD
[2018-06-17] MEDS: SINGULAIR PO SCH (22:03)
[2018-06-17] MEDS: LIPITOR PO SCH (22:03)
[2018-06-17] MEDS: DULCOLAX PR SCH (22:04)
[2018-06-18] MEDS: LOVENOX SUBQ SCH (06:50)
[2018-06-18 07:22] LABS: BASO# 0.02 X1000 (0.0-0.2); BASO% 0.3 % (0.0-0.8); EOS% 4.4 % (0.0-10.0); HEMATOCRIT 31.6 % (42.0-52.0); HEMOGLOBIN 10.2 g/dL (14.0-18.0); IMM GRAN# 0.06 X1000 (0.0-0.04); IMM GRAN% 0.9 % (0.0-0.5); LYMPH# 1.31 X1000 (1.2-3.4); LYMPH% 19.2 % (20.5-51.1); MCH 29.9 PG (27-31); MCHC 32.3 g/dL (33-37); MCV 92.7 FL (81-99); MONO# 0.44 X1000 (0.11-0.59); MONO% 6.5 % (1.7-9.3); MPV 9.5 FL (7.4-10.4); NEUT# 4.69 X1000 (1.4-6.5); NEUT% 68.7 % (42.2-75.2); PLT 275 X1000 (130-400); RBC 3.41 XMIL (4.7-6.1); RDW 16.2 % (11.5-14.5); WBC 6.82 X1000 (4.8-10.8)
[2018-06-18 07:43] LABS: AGAP 8; BUN 26 mg/dL (8-22); CALCIUM 8.3 mg/dL (8.8-10.2); CHLORIDE 110 mmol/L (98-107); COSMO 283; CREATININE 0.8 mg/dL (0.7-1.2); ESTIMATED GFR > 60; GLUCOSE 110 mg/dL (70-104); MAGNESIUM 1.9 mg/dL (1.5-2.7); PHOSPHORUS 2.9 mg/dL (2.7-4.5); POTASSIUM 3.6 mmol/L (3.5-5.1); SODIUM 139 mmol/L (136-145); TCO2 21 mmol/L (25-35)
[2018-06-18] MEDS: COLACE PO SCH (11:34)
[2018-06-18] MEDS: MIRALAX PO SCH (11:35)
[2018-06-18] MEDS: ASPIRIN EC PO SCH (11:39)
[2018-06-18] MEDS: FLOMAX PO SCH (11:39)
[2018-06-18] MEDS: CELEXA PO SCH (11:39)
[2018-06-18] MEDS: LEVAQUIN PO SCH (11:39)
[2018-06-18] MEDS: LOPRESSOR PO SCH (11:39)
[2018-06-18] MEDS: PROSCAR PO SCH (11:40)
[2018-06-18] MEDS: ADALAT CC PO SCH (11:40)
[2018-06-18] MEDS: MEGACE LIQUID PO SCH (11:40)
--- NOTE | 2018-06-18 13:39 | PROGRESS NOTE ---
DATE: 06/18/2018 SUBJECTIVE: The patient is lying comfortably in bed. He is not complaining of pain at this moment. He is having some hematuria. I contacted Dr. Kaur and he told me that he can be discharged home with the Ramos catheter and follow up with him as an outpatient next week. Apparently the best option for this patient is going to be to do a TURP. Dr. Kaur stated that likely this mild bleeding is due to anticoagulation during this hospitalization. This patient will be discharged home today with home health. Like I said, he will go home with the Ramos catheter and we will continue with antibiotics. OBJECTIVE: Vital Signs: Temperature 98.3 degrees, pulse 71, respiratory rate 18, blood pressure 119/57, oxygen saturation 100% on room air. HEENT: Head normocephalic. No trauma. PERRLA. Poor dentition. Neck: Supple. No JVD. Central trachea. Chest: Decreased breath sounds mostly at the bases. No wheezing. No rales. Cardiovascular: Regular rate and rhythm. Abdomen: Soft, nontender, nondistended. No hepatosplenomegaly. Extremities: Trace edema. No clubbing, no cyanosis. Neurological: This patient is alert and oriented x3. No focal deficits but some generalized weakness. LABORATORY DATA: WBC 6.2, hemoglobin 10.2, hematocrit 31.6, platelets 275,000. Sodium 139, potassium 3.6, chloride 110, bicarbonate 21, BUN 26, creatinine 0.8 glucose 110, calcium 8.3, phosphorus 1.9. ASSESSMENT AND PLAN: 1. Indwelling Ramos catheter associated with urinary tract infection with Enterobacter cloacae, status post change of Ramos catheter. Dr. Kaur on board. He will be discharged with levofloxacin and follow up with him as an outpatient. 2. History of benign prostatic hypertrophy. Likely this patient will need to have a transurethral resection of the prostate. He does have some bilateral nephrolithiasis, he has status post double-J stent. Like I mentioned before, followup with Dr. Kaur. 3. Hypertension. Continue with same management. 4. Failure to thrive and generalized weakness. On presentation, this is getting better. He is doing good with a walker during this hospitalization. 5. Depression. Continue with same management. 6. Constipation. I will continue with his home medication. 7. History of coronary artery disease status post coronary artery bypass graft. Continue with aspirin, Lipitor and blood pressure control. cc: Otoniel Mata MD
[2018-06-18 15:19] VITALS: BP 135/58
--- NOTE | 2018-06-18 23:01 | DISCHARGE SUMMARY ---
ADMISSION DATE: 06/11/2018 DISCHARGE DATE: 06/18/2018 ADMISSION DIAGNOSES: 1. Recurrent falls. 2. Czdfqnc-eh-gqqafw. 3. Recent urological instrumentation with pyuria and urinary tract infection. 4. Recent carotid endarterectomy on the left. 5. Hypertension. 6. Generalized weakness. 7. Benign prostatic hypertrophy with indwelling Ramos catheter. 8. Depression. 9. Hyperlipidemia. 10.Constipation. 11.Coronary artery disease with history of coronary artery bypass grafting. DISCHARGE DIAGNOSES: 1. Indwelling Ramos catheter; associated urinary tract infection with Enterobacter cloacae, status post change of Ramos catheter. Followed by Dr. Kaur. Was on Levaquin. 2. History of benign prostatic hypertrophy, nephrolithiasis and bilateral hydronephrosis status post double-J stent bilaterally in the past. Ramos catheter was placed due to persistent urinary retention. 3. Hypertension. 4. Shodfhe-rl-[id number] with generalized weakness on presentation. 5. Depression. 6. Constipation. 7. History of coronary artery disease with coronary artery bypass grafting. CONSULTATIONS: Dr. Samy Kaur for urinary retention, double-J stent possible removal, Ramos catheter. SURGERIES OR PROCEDURES: None other than Ramos catheter change out. HOSPITAL COURSE: On 06/11/2018, Mr. Ken Edward, a 78-year-old male with a history of indwelling Ramos catheter, recurrent urinary tract infections, followed by Dr. Kaur, presented with frequent falls. He was having some orthostatic dizziness, inability to complete activities of daily living, was experiencing some right hip pain. His home health nurse evaluated him on day of admission and felt that he needed to go to the ER. Other than falling with unsteady gait, he did not have any acute complaints. He presented with an indwelling catheter and pyuria. He recently had a carotid endarterectomy last month. Recent echocardiogram showed grade 1 diastolic dysfunction. He was admitted, treated for urinary tract infection. Ramos catheter was replaced. Dr. Kaur is following him. He will go home with home health with an indwelling Ramos catheter, continued antibiotics. The urine that was obtained on 06/11/2018 revealed Enterobacter with a resistance to cefazolin and an intermediate resistance to nitrofurantoin. He has been on Levaquin p.o.. His constipation was treated with MiraLAX. His BPH was treated with Flomax and Proscar. He continued to have pretty excessive generalized weakness and had physical therapy. He is currently requiring a walker for any type of ambulation. He currently refuses having rehabilitation and wants to have home health at home. DISCHARGE VITAL SIGNS: Temperature 98.3 degrees, heart rate 71, respiratory rate 18, blood pressure 119/57, oxygen saturation 100% on room air. DISCHARGE LABS: White blood cell count 6000, hemoglobin 10, hematocrit 31, platelet count 275. Sodium 139, potassium 3.6, BUN 26, creatinine 0.8, glucose 110, calcium 8.3, magnesium 1.9, phosphorus 2.9. PERTINENT IMAGING: On 06/11/2018, he had a head and cervical spine CT; nothing acute on that. He had a hip and pelvic x-ray on the right; nothing acute on that. He had a chest x-ray which was negative for anything acute. On 06/15/2018, he had a renal ultrasound, which showed bilateral hydronephrosis, left nephrolithiasis. EKG on admission showed normal sinus rhythm, rate 71, QTC 473. DISCHARGE MEDICATIONS: 1. Extra Strength Tylenol 500 mg p.o. every 6 hours p.r.n. 2. Celexa 20 mg p.o. daily. 3. Colace 100 mg p.o. twice daily. 4. Montelukast sodium (Singulair) 10 mg p.o. nightly. 5. Malone 5 mg, one tab p.o. q.4h p.r.n. 6. Zoloft 50 mg p.o. daily. 7. Bisacodyl suppository 10 mg per rectum every h.s. 9. Lipitor 40 mg p.o. nightly. 10.Nifedipine extended release 60 mg p.o. daily. 11.Aspirin enteric coated 81 mg p.o. daily. 12.Flomax 0.4 mg p.o. twice daily. 13.Lactulose 30 mL p.o. twice daily p.r.n. 14.Levaquin 500 mg p.o. daily for 5 days. 15.Lopressor 25 mg p.o. twice daily. 16.Megace 400 mg p.o. twice daily. 17.Milk of Magnesia 30 mL p.o. twice daily p.r.n. 18.MiraLAX 17 grams p.o. twice daily. 19.Proscar 5 mg p.o. daily. DISCHARGE DIET: Heart Healthy diet with Ensure. DISCHARGE ACTIVITY: As tolerated. Take care to prevent falls and use the walker with the front wheels for all ambulation. DISCHARGE INSTRUCTIONS: If your condition changes, contact your physician and/or return to the Emergency Department. Changes may include but are not limited to shortness of breath, increased fatigue, excessive bleeding, unexplained weight loss or gain, unimaginable pain, signs or symptoms of infection. DISCHARGE FOLLOWUP: With Dr. Samy Kaur in about 2 weeks. Follow up with primary care provider, Dr. Elizabeth Morejon. DISCHARGE DISPOSITION: Home with home health. Discharge time 35 minutes Dictated by XAVI Keller for Otoniel Mata MD cc: XAVI Keller MD MTDD
== END 2018-06-18 20:00 | disposition home health service (06) | DRG 699 ==
LOC: SUPCPDRO → ED 15:01 → 3N 16:29 → SUATTDRO 16:29
PROVIDERS: ATTEND Internal Medicine
CPT/HCPCS: 51702; 70450; 71010; 71045; 72125; 73502; 76770; 80048; 80053; 80307; 80320; 81001; 82055; 82550; 83605; 83735; 83880; 84100; 84443; 84484; 85025; 85610; 87040; 87077; 87088; 87186; 93005; 96365; 96375; 97110; 97116; 97162; 97165; 97530; 97535; 99285; A9270; G0480; G6040; J0696; J1650; J1940; J2270; J2405; J3370; J7030; J7050; S0138; S0179

== ENCOUNTER 2018-07-29 11:08 | Inpatient (IN) ==
[2018-07-29 11:43] LABS: URINE SOURCE CATH
[2018-07-29 11:49] LABS: EOS# 0.04 X1000 (0.0-0.7); EOS% 0.8 % (0.0-10.0); HEMATOCRIT 32.7 % (42.0-52.0); HEMOGLOBIN 10.8 g/dL (14.0-18.0); LYMPH% 3.9 % (20.5-51.1); MCH 31.1 PG (27-31); MCV 94.2 FL (81-99); MONO# 0.07 X1000 (0.11-0.59); MONO% 1.4 % (1.7-9.3); MPV 9.8 FL (7.4-10.4); NEUT# 4.84 X1000 (1.4-6.5); NEUT% 93.9 % (42.2-75.2); PLT 163 X1000 (130-400); RBC 3.47 XMIL (4.7-6.1); RDW 16.1 % (11.5-14.5); WBC 5.15 X1000 (4.8-10.8)
[2018-07-29 11:50] LABS: UR EPITHELIAL CELLS <10 /HPF (<10); URINE BACTERIA 2+ /HPF; URINE RBC TNTC /HPF (<10); URINE WBC TNTC /HPF (<10)
[2018-07-29 11:52] LABS: BILIRUBIN URINE NEGATIVE (NEGATIVE); BLOOD URINE LARGE (NEGATIVE); COLOR ORANGE; GLUCOSE URINE NEGATIVE (NEGATIVE); KETONE URINE NEGATIVE (NEGATIVE); LEUKOCYTES URINE LARGE (NEGATIVE); NITRITE URINE POSITIVE (NEGATIVE); PROTEIN URINE 200 mg/dL (NEGATIVE); TURBIDITY URINE TURBID (CLEAR); UROBILINOGEN URINE NORMAL (NORMAL)
--- NOTE | 2018-07-29 12:00 | Diag Imaging Result Doc PS360 ---
EXAM: CHEST-PORTABLE 07/29/2018 HISTORY: weakness TECHNIQUE: AP portable upright at 1149 COMMENT: There is a granuloma in the right upper lobe. There are sternotomy wires. There is no evidence of acute cardiac or pulmonary disease and compared to 06/11/2018 there has been no significant change. IMPRESSION: No evidence of acute disease. Electronically signed by Byron Eubanks 07/29/2018 11:57 AM
[2018-07-29 12:05] LABS: INR 1.11; PROTIME 15.2 Seconds (11.0-16.0)
[2018-07-29 12:09] LABS: AGAP 13; ALB/GLOB RATIO 1.3; ALBUMIN 3.1 g/dL (3.5-5.0); ALKALINE PHOSPHATASE 56 U/L (32-122); BUN 16 mg/dL (8-22); CALCIUM 8.1 mg/dL (8.8-10.2); CHLORIDE 104 mmol/L (98-107); CK PROFILE 23 U/L (24-204); COSMO 278; ESTIMATED GFR > 60; GLUCOSE 117 mg/dL (70-104); GOT 10 U/L (10-34); GPT 6 U/L (10-44); LIPASE 31 U/L (13-60); MAGNESIUM 1.4 mg/dL (1.5-2.7); POTASSIUM 3.1 mmol/L (3.5-5.1); SODIUM 138 mmol/L (136-145); TCO2 21 mmol/L (25-35); TOTAL BILIRUBIN 0.66 mg/dL (0.20-1.00); TOTAL PROTEIN 5.5 g/dL (6.3-8.3)
--- NOTE | 2018-07-29 12:56 | Diag Imaging Result Doc PS360 ---
CT ABDOMEN/PELVIS W/O CONTRAST - 07/29/2018 INDICATION: abd pain, acute kidney injury COMPARISON: 05/06/2018 FINDINGS: The lung bases are clear and the heart size is top normal. There are sternotomy wires. There are stable bilateral nephroureteral stents in good position. There is moderately severe bilateral hydronephrosis. Urinary bladder is rather distended. There is moderate diffuse urinary bladder wall thickening with surrounding inflammation similar to prior. There is a Ramos catheter in place, but the catheter tip is down in the junction of the penile and prostatic urethra and the bulb is inflated here. There are several gallstones in the gallbladder. No gallbladder distention or inflammation. There is moderate diffuse constipation. There is some wall thickening of the rectum suggesting proctitis. There are some small bilateral renal stones. There are moderate degenerative changes of the spine. No acute or suspicious bony lesion. IMPRESSION: 1. Ramos catheter and balloon are in the prostatic urethra. 2. Bilateral hydronephrosis. Bilateral renal stones. Bilateral ureter stents. Abnormal urinary bladder. Similar to prior. 3. Severe constipation. Proctitis. 4. Gallstones in the gallbladder. 5. This report was discussed with Dr. Hare on 07/29/2018 at 12:50 PM and was readback. This exam was performed using automated exposure control, adjustment of mA or kV according to patient size, and/or use of iterative reconstruction technique Electronically signed by Roldan Mayorga 07/29/2018 12:54 PM
[2018-07-29] MEDS ORDERED: POTASSIUM CHLORIDE 20% LIQUID PO ONE (13:30)
[2018-07-29] MEDS ORDERED: MAXIPIME 2 GM in NS 100 ML IV ONE (13:30)
[2018-07-29] MEDS ORDERED: TYLENOL PO PRN (13:49)
[2018-07-29] MEDS ORDERED: MAGNESIUM SULFATE 2 GM/S.W.I. 2 GM/50 ML IVPB IV ONE (13:51)
[2018-07-29] MEDS ORDERED: CITRATE OF MAGNESIA PO ONE (13:52)
[2018-07-29] MEDS: NS 1,000 ML IV SCH (14:29)
[2018-07-29] MEDS ORDERED: B & O 15A SUPP PR PRN (14:37)
[2018-07-29] MEDS ORDERED: B & O 15A SUPP PR ONE (14:37)
[2018-07-29] MEDS: ZOFRAN IV PRN (15:00)
--- NOTE | 2018-07-29 15:25 | EKG Report ---
Test Performed on : 07/29/2018 11:21:46 AM Test Reason : ED. No order in [place] Blood Pressure : / mmHG Vent. Rate : 088 BPM Atrial Rate : 088 BPM P-R Int : 182 ms QRS Dur : 096 ms QT Int : 410 ms P-R-T Axes : 032 014 100 degrees QTc Int : 496 ms Poor data quality, interpretation may be adversely affected Sinus rhythm. with premature atrial complexes. Septal infarct (cited on or before 09-SEP-2016) Abnormal ECG When compared with ECG of 11-JUN-2018 15:10, (Unconfirmed) premature atrial complexes. are now present Questionable change in initial forces of Septal leads Nonspecific T wave abnormality, worse in Lateral leads Unconfirmed Result
--- NOTE | 2018-07-29 15:38 | HISTORY AND PHYSICAL ---
PRIMARY CARE PROVIDER: Elizabeth Sullivan. CHIEF COMPLAINT: Bladder spasms. HISTORY OF PRESENT ILLNESS: Mr. Ken Edward is a 78-year-old male with a medical history of kidney stones, double-J stents placed by Dr. Kaur with the most recent being this past , continuous Ramos catheter. He states that last night he had noticed that he had had wetness in his bed. His catheter apparently had become disconnected from each other, and he was having spasms with that. The home health nurse came to his house around 3 a.m. and changed out his Ramos catheter for him. Due to the fact that his catheter was changed, he had no urine output. Imaging here reveals that the bulb was actually along the level in the urethra of the prostate and had to be advanced. He does have urine output now, and his bladder spasms have somewhat decreased. He does have constipation. He has a bowel movement probably about once every 2-3 days. He does take mag citrate in order to try and have a bowel movement. He states that normally it helps. He takes 3 tablets that are for constipation as well. He states his last bowel movement was yesterday. He says he eats okay. He does not eat very large amounts of food. He has continuous nausea. He denies any fevers or chills, mostly complains of the bladder spasms which he states has been on and off for at least 6 months but just was worse yesterday. PAST MEDICAL HISTORY: 1. Carotid artery disease bilaterally with history of left carotid endarterectomy. 2. Coronary artery disease with history of CABG. 3. Hypertension. 4. Hyperlipidemia. 5. Depression. 6. Failure to thrive. 7. Kidney stone history with history of double-J stents, nephrostomy tube, continuous indwelling catheter managed by Dr. Kaur. 8. BPH. 9. History of TIA and CVA. 10.Chronic constipation. 11.Grade 1 diastolic dysfunction. SURGICAL HISTORY: Left carotid endarterectomy, CABG, nephrostomy tube and bilateral double-J stents. On 07/22/2018 Dr. Kaur did another round of bilateral double-J stents due to history of bilateral urethral obstruction and left renal stone. He received shockwave lithotripsy at that time, and those double-J stents were exchanged, of course. SOCIAL HISTORY: He lives alone. He uses a walker and cane. He has home health that comes to help him out. He denies tobacco, alcohol or illicit drug use. He also gets help from his neighbors. FAMILY HISTORY: Father in his mid 60s from [place]. Mother had stomach cancer. ALLERGIES: Penicillin. HOME MEDICATIONS: Not reconciled but he did tell us he takes mag citrate, and he states he takes 3 laxatives in the morning when he has to have a bowel movement as well. REVIEW OF SYSTEMS: A 14-point review of systems are complete and all are negative except for those mentioned above in HPI. His biggest complaints are the bladder spasms. PHYSICAL EXAMINATION: VITAL SIGNS: Temperature 99.4; heart rate 88; respiratory rate 20; blood pressure 135/70; O2 saturation 95% on room air; 6 feet 0 inches tall; 180 pounds; BMI 24.4. GENERAL: Mr. Ken Edward is a 78-year-old male. He is in no acute distress. He is able to answers questions appropriately. He is hard of hearing. HEENT: Atraumatic, normocephalic. Pupils equal, round, and reactive to light. Extraocular movements intact. Mucous membranes are dry. He has got very poor dentition. NECK: Trachea midline. CARDIOVASCULAR: S1, S2. Regular rate and rhythm. No rubs, gallops, or murmurs. No lower extremity edema, +2 dorsalis and radial pulses. Negative JVD or carotid bruits. PULMONARY: Clear to auscultate bilateral breath sounds. No accessory muscle use or work of breathing noted. GASTROINTESTINAL: Soft, tender in the suprapubic region with palpation. He has got positive bowel sounds x4 but mildly hypoactive. EXTREMITIES: Decreased range of motion in all extremities. Strength is about 4 out of 5 in upper and lower. NEUROLOGIC: A and O x3, follows commands. Sensory is intact. SKIN: Warm, dry, intact. LABORATORY DATA: White blood cells 5000, hemoglobin 10, hematocrit 32, platelet count 163,000, INR 1.11, PTT 29, sodium 138, potassium 3.1, BUN 16, creatinine 1.0, glucose 117, calcium 8.1, magnesium 1.4, bilirubin 0.66, AST 10, ALT 6, CK 23, troponin less than 0.01, albumin 3.1, lipase 31. Urinalysis 200 protein, large blood, positive nitrites, large leukocytes, nsz-pjardpmw-fl- count white blood cells, gdx-vmhcrsip-rn-count red blood cells, 2+ bacteria. IMAGING: Chest x-ray no acute disease. Abdominal and pelvic CT Ramos catheter and balloon are in the prostatic urethra, bilateral hydronephrosis with renal stones and bilateral ureteral stents, abnormal urinary bladder, severe constipation with proctitis, gallstones in the gallbladder. ASSESSMENT AND PLAN: 1. Complaints of bladder spasms likely secondary to malplacement of the urinary catheter at the level of the prostate. This has been adjusted, and the bladder spasms have decreased, but he states he has them on and off and has so since the last 6 months. We will order B O suppositories to help decrease those spasms. 2. Urinary tract infection with fever. We will await urine culture, but he has had a history starting in Jun, 2017, of staphylococcus epidermidis; January,, staphylococcus epidermidis; February,, enterococcus faecalis; April,, enterococcus faecalis; May,, Enterobacter; and Jun, 2018, pseudomonas. So, currently, he will be on cefepime. We will continue that until we can get a culture back; and if we have to, we will make adjustments to his antibiotic regimen. We will do IV fluid hydration and follow along. 3. Bilateral hydronephrosis. He most recently had double-J stents changed out by Dr. Kaur, and we will consult him for any further recommendations. 4. Chronic constipation. He is currently constipated with proctitis. He is on cefepime, but we are going to do a good bowel regimen to start getting his bowels moving a little better. This regimen includes lactulose 30 mL p.o. daily and MiraLAX 17 grams p.o. twice daily. We will also order Rachelle-Colace 2 tabs twice a day. He denies taking frequent pain medication. He says maybe once every 2 weeks. 5. Hypokalemia. He is getting 40 of KCl replaced. 6. Hypomagnesemia. He will get 2 grams of IV mag. 7. History of coronary disease. No chest pain. 8. History of hypertension. Just waiting on home medications to be reconciled. 9. BPH. Probably adds to the bladder spasms that he has been having due to the incorrect positioning of the Ramos catheter that was placed as outpatient by home health. 10.Carotid artery disease. The left has had carotid endarterectomy. He is being followed by Dr. Marin, and he will be having a carotid ultrasound repeat. It looks like he saw him yesterday and ordered it for April of next year. So, he is following him for that. There are no signs or symptoms of any new CVA or TIA. 11.Mild Grade 1 diastolic dysfunction. No signs of acute exacerbation. 12.Hyperlipidemia. 13.Failure to thrive. He gets around with a cane or walker. He is not real clear about how often he is getting up and moving around. He has help from neighbors. He has home health that comes to help him, but he does admit to not taking in a whole lot of nutrition. 14.DVT prophylaxis. SCDs. He does have blood in the urine, so we will hold off on blood thinners for now. We will hold aspirin as well. Dictated by XAVI Keller for Jaren Rodrigez MD cc: XAVI Keller Agree with the above. the following is my own face to face evaluation. mild suprapubic tenderness and passing some blood around catheter on exam. will ask urology to see and monitor closely. CARLITA
[2018-07-29] MEDS: MIRALAX PO SCH (21:22)
[2018-07-29] MEDS: PERICOLACE PO SCH (21:22)
[2018-07-30] MEDS: ZOFRAN IV PRN (01:55)
[2018-07-30] MEDS: MAXIPIME 1 GM in NS 50 ML IV SCH ×2 (01:55→15:37)
[2018-07-30 07:01] LABS: INR 1.26; PROTIME 16.8 Seconds (11.0-16.0)
[2018-07-30 07:02] LABS: PTT 42.2 Seconds (22.3-41.8)
[2018-07-30 07:04] LABS: BASO# 0.01 X1000 (0.0-0.2); BASO% 0.1 % (0.0-0.8); EOS# 0.01 X1000 (0.0-0.7); EOS% 0.1 % (0.0-10.0); HEMATOCRIT 29.5 % (42.0-52.0); HEMOGLOBIN 9.6 g/dL (14.0-18.0); IMM GRAN# 0.02 X1000 (0.0-0.04); IMM GRAN% 0.2 % (0.0-0.5); LYMPH# 0.59 X1000 (1.2-3.4); LYMPH% 5.7 % (20.5-51.1); MCH 31.1 PG (27-31); MCHC 32.5 g/dL (33-37); MCV 95.5 FL (81-99); MONO# 0.37 X1000 (0.11-0.59); MONO% 3.6 % (1.7-9.3); MPV 9.5 FL (7.4-10.4); NEUT% 90.3 % (42.2-75.2); PLT 140 X1000 (130-400); RBC 3.09 XMIL (4.7-6.1); RDW 16.4 % (11.5-14.5)
[2018-07-30 07:38] LABS: AGAP 7; ALBUMIN 2.6 g/dL (3.5-5.0); ALKALINE PHOSPHATASE 41 U/L (32-122); BUN 20 mg/dL (8-22); CALCIUM 7.8 mg/dL (8.8-10.2); CHLORIDE 104 mmol/L (98-107); COSMO 277; ESTIMATED GFR > 60; GLUCOSE 110 mg/dL (70-104); GOT 10 U/L (10-34); POTASSIUM 3.9 mmol/L (3.5-5.1); SODIUM 137 mmol/L (136-145); TCO2 26 mmol/L (25-35); TOTAL BILIRUBIN 0.45 mg/dL (0.20-1.00); TOTAL PROTEIN 5.1 g/dL (6.3-8.3)
[2018-07-30 07:39] LABS: GPT 5 U/L (10-44)
[2018-07-30] MEDS: PERICOLACE PO SCH ×2 (11:26→23:41)
[2018-07-30] MEDS: LACTULOSE PO SCH (11:26)
[2018-07-30] MEDS: MIRALAX PO SCH ×2 (11:27→23:41)
[2018-07-30] MEDS: NS 1,000 ML IV SCH (11:28)
--- NOTE | 2018-07-30 16:18 | PROGRESS NOTE ---
DATE: 07/30/2018 INTERVAL HISTORY: The patient reports improvement in his abdominal pain and bladder spasms. Urine significantly less bloody. No acute events overnight. No new complaints. REVIEW OF SYSTEMS: Twelve point review of systems negative except interval history. LABS: WBC 10.3, hemoglobin 9.6, hematocrit 29.5, platelets 140,000, INR 1.26. Sodium 137, potassium 3.9, bicarb 26, BUN 20, creatinine 1.0, glucose 110. VITALS: T-max 99.9 degrees, pulse 56, respirations 12, blood pressure 126/58 O2 saturation 100% on room air . PHYSICAL EXAM: General: No acute distress. Chronically ill appearing. Vitals as above. HEENT: Normocephalic, atraumatic. Slightly dry mucous membranes, no cervical adenopathy. Poor dentition. Cardiovascular: Slightly bradycardic but regular. No murmurs noted. Pulmonary: Clear to auscultation bilaterally. No wheezing, rales or rhonchi. Abdomen: Soft. Suprapubic tenderness largely resolved. Bowel sounds positive. Extremities: Peripheral pulses decreased but intact. No clubbing, cyanosis, edema. Neurologic: Cranial nerves grossly intact. Mild global weakness but no focal deficits. Psychiatric: Normal mood and affect. Awake, alert, oriented x3. Skin: No new rashes or identified. ASSESSMENT AND PLAN: 1. Lower abdominal pain/bladder spasms. Likely secondary to misplacement of urinary catheter and urinary tract infection. Catheter replaced. On antibiotics with cefepime. Will continue that for now and await urine culture results. He has previously had Enterobacter and Pseudomonas as well as Enterococcus. 2. Bilateral hydronephrosis. Had double J stents changed out approximately a week ago. Uncertain if this is remaining since then or if it recurred when his urinary catheter was misplaced. Ask Urology to see if anything needs to be done about this. 3. Chronic constipation. Improving with bowel regimen. Continue to monitor. 4. Hypokalemia improved with repletion, monitor. 5. Hypomagnesemia improved with repletion, continue to monitor. 6. Coronary artery disease stable. Holding aspirin for now but like to make sure he does not need procedures. 7. Hypertension good control currently off of antihypertensives. Continue hold for now and monitor. 8. Benign prostatic hypertrophy contributing to above issues with urine and urinary tract infection. Continue Flomax.
--- NOTE | 2018-07-30 20:48 | CONSULTATION ---
DATE OF CONSULTATION: 07/30/2018 ATTENDING AND REFERRING PHYSICIAN: Hospitalist. HISTORY OF PRESENT ILLNESS: This 78-year-old male with history of neurogenic bladder, urinary retention, bilateral hydroureteronephrosis with history of renal insufficiency that returned to normal after placement of bilateral double-J stents and decompressing bladder with Ramos catheter was admitted with bladder spasms. A CT scan of the abdomen and pelvis revealed the double-J stents in very good position, hydronephrosis that had decreased since January when the stents were placed, severe constipation and proctitis. The patient states he had a Ramos catheter changed at 3 a.m. and had severe spasms with hematuria. He was seen in the emergency room where the CT scan revealed the Ramos balloon had been blown up in the prostatic urethra. The Ramos catheter was repositioned and he states he feels much better. He states he did have significant bleeding around the catheter but it has stopped. The patient states he currently feels well. The patient underwent left extracorporeal shockwave lithotripsy and exchange of his double-J stents on 07/22/2018. Again, the CT scan reveals good results from both of those procedures. PAST MEDICAL HISTORY: Hypertension, coronary artery disease, peripheral vascular disease, elevated cholesterol, depression, history of TIAs and cerebral vascular accident, renal lithiasis, history of renal insufficiency. PAST SURGICAL HISTORY: Left carotid endarterectomy, cystolitholapaxy, placement of a left percutaneous nephrostomy tube with subsequent antegrade placement of the stent and removal of the tube, placement of right double-J stent, exchange of bilateral double-J stents, left extracorporeal shockwave lithotripsy. SOCIAL HISTORY: No tobacco or alcohol use. He lives alone and uses a walker to ambulate. ALLERGIES: He is allergic to penicillin. REVIEW OF SYSTEMS: He denies any recent chest pains, pulmonary problems. He has no history of diabetes or seizures. He states he has a long history of constipation. PHYSICAL EXAMINATION: General: A normally developed, thin, age apparent, white male, oriented in all ways and cooperative. HEENT: Normal for age. Lungs: Clear. Cardiovascular: Regular rate and rhythm. Abdomen: Protuberant, soft, nontender. No hepatosplenomegaly or masses. Normal bowel sounds. : Normal uncircumcised male with Ramos catheter in place draining mildly bloody urine but appears to be clearing. Both testes are down and palpably normal. Rectal: Exam on 22 July reveals a prostate of about 50 g, smooth and symmetric. Extremities: No clubbing, cyanosis, or edema. Neuro: No focal deficits. LABORATORY EVALUATION: Has a white count of 10.3, a hemoglobin 9.6, hematocrit of 29.5, and platelets are 140,000. Serum electrolytes are normal. BUN 20, creatinine 1.0. CT stone search is as noted in the history of present illness. IMPRESSION: 1. Neurogenic bladder with Ramos catheter in good position draining well. 2. Bilateral double-J stents in proper position as evidenced by CT scan and his normal renal function. 3. Severe constipation as noted on the CT scan. 4. Proctitis which itself can cause pelvic spasms. 5. Foly catheter trauma, resolving. RECOMMEND: 1. Continue Ramos drainage. The patient declines to learn clean intermittent catheterization. We are discussing placing a suprapubic tube. 2. Change the double-J stents as scheduled in December 2018. 3. Treat proctitis and constipation. This will help with his spasms. Thank you for this consultation. cc: Samy Kaur MD [facility]
[2018-07-31] MEDS: MAXIPIME 1 GM in NS 50 ML IV SCH ×2 (03:13→16:46)
[2018-07-31] MEDS: NS 1,000 ML IV SCH (06:18)
[2018-07-31 07:10] LABS: AGAP 8; BUN 20 mg/dL (8-22); CALCIUM 7.6 mg/dL (8.8-10.2); CHLORIDE 106 mmol/L (98-107); COSMO 276; CREATININE 0.8 mg/dL (0.7-1.2); ESTIMATED GFR > 60; GLUCOSE 83 mg/dL (70-104); POTASSIUM 3.7 mmol/L (3.5-5.1); SODIUM 137 mmol/L (136-145); TCO2 23 mmol/L (25-35)
[2018-07-31 07:13] LABS: BASO# 0.01 X1000 (0.0-0.2); BASO% 0.2 % (0.0-0.8); EOS# 0.14 X1000 (0.0-0.7); EOS% 2.6 % (0.0-10.0); HEMATOCRIT 29.3 % (42.0-52.0); HEMOGLOBIN 9.5 g/dL (14.0-18.0); LYMPH# 0.62 X1000 (1.2-3.4); LYMPH% 11.5 % (20.5-51.1); MCHC 32.4 g/dL (33-37); MCV 95.8 FL (81-99); MONO# 0.31 X1000 (0.11-0.59); MONO% 5.7 % (1.7-9.3); MPV 10.6 FL (7.4-10.4); NEUT# 4.33 X1000 (1.4-6.5); PLT 122 X1000 (130-400); RBC 3.06 XMIL (4.7-6.1); RDW 16.5 % (11.5-14.5); WBC 5.41 X1000 (4.8-10.8)
[2018-07-31] MEDS ORDERED: NORCO-7.5 PO PRN (11:12)
--- NOTE | 2018-07-31 12:02 | Diag Imaging Result Doc PS360 ---
EXAM: KUB ABDOMEN INDICATION: constipation TECHNIQUE: 2 views COMPARISON: 05/14/2018 FINDINGS: There is a fair amount stool in the colon, which may indicate mild constipation. There is no obstructive bowel pattern. There is mild gaseous distention of the stomach. There is no evidence of large volume free abdominal gas. There are stable bilateral ureteral stents. IMPRESSION: Possible mild constipation. Nonspecific abdomen, otherwise. Electronically signed by Johan Bowen 07/31/2018 12:00 PM
--- NOTE | 2018-07-31 16:27 | PROGRESS NOTE ---
DATE: 07/31/2018 INTERVAL HISTORY: Patient abdominal pain, bladder spasms, essentially resolved. No fevers, chills, eating drinking well. No acute events overnight. REVIEW OF SYSTEMS: 12 -point review of systems as per history. LABS: WBC 5.4, hemoglobin 9.5, hematocrit 29.3, platelets 122,000, basic metabolic panel essentially unremarkable. Urine culture growing gram-negative rods. VITALS: T-max 98.3, pulse 68, respirations 18, blood pressure 143/68, O2 saturation 98% on room air. PHYSICAL EXAM: General: No acute distress chronically ill-appearing vitals as above. HEENT: Normocephalic, atraumatic. Moist mucous membranes. No cervical adenopathy. Poor dentition . Cardiovascular: Minimally bradycardic but regular, no murmurs noted . Pulmonary: Clear to auscultate bilaterally, no wheezing, rales, rhonchi. Abdomen: Soft, nontender, nondistended, bowel sounds positive . Extremities: Peripheral pulses decreased intact, no clubbing, cyanosis or edema . Neurologic: Cranial nerves grossly intact, mild global weakness but no focal deficit moderate globally. Psychiatric: Normal mood and affect, awake, alert, oriented x3 . Skin: No new rashes or lesions identified. ASSESSMENT AND PLAN: 1. Lower abdominal pain bladder spasms likely secondary to misplaced catheter, proctitis and urinary tract infection. Catheter replaced on antibiotics with cefepime. Urine culture growing gram- negative rods. Has had multiple different resistant bacteria in the past. Symptoms are essentially resolved at this point. 2. Bilateral hydronephrosis. Had double-J stents changed out approximately a week prior to admission. Evaluated by Urology and they do not believe any further intervention is needed at this time. 3. Chronic constipation improved with bowel regimen. Continue regimen and monitor. 4. Hypokalemia improved with repletion, monitor, further repletion as needed. 5. Coronary artery disease stable, will restart aspirin as no procedures appear to be likely to be required. 6. Hypertension, did have a good pressures off of medication but appears to be trending up. Remains consistently elevated will start some antihypertensive medications. 7. Benign prostatic hypertrophy contributing to above issues. Continue Flomax. [facility]
[2018-07-31] MEDS: PROCARDIA ER PO SCH (16:46)
[2018-07-31] MEDS: LACTULOSE PO SCH (16:46)
[2018-07-31] MEDS: MIRALAX PO SCH ×2 (16:47→20:15)
[2018-07-31] MEDS: PERICOLACE PO SCH ×2 (16:47→20:15)
[2018-07-31] MEDS: LIPITOR PO SCH (20:14)
[2018-07-31] MEDS: FLOMAX PO SCH (20:14)
[2018-07-31] MEDS: SINGULAIR PO SCH (20:14)
[2018-08-01] MEDS: MAXIPIME 1 GM in NS 50 ML IV SCH ×2 (02:23→14:48)
[2018-08-01] MEDS: NS 1,000 ML IV SCH (02:26)
[2018-08-01 06:47] LABS: EOS# 0.18 X1000 (0.0-0.7); EOS% 3.7 % (0.0-10.0); HEMATOCRIT 31.4 % (42.0-52.0); HEMOGLOBIN 10.4 g/dL (14.0-18.0); IMM GRAN# 0.02 X1000 (0.0-0.04); IMM GRAN% 0.4 % (0.0-0.5); LYMPH# 1.01 X1000 (1.2-3.4); LYMPH% 20.9 % (20.5-51.1); MCH 31.1 PG (27-31); MCHC 33.1 g/dL (33-37); MONO# 0.26 X1000 (0.11-0.59); MONO% 5.4 % (1.7-9.3); MPV 10.6 FL (7.4-10.4); NEUT# 3.37 X1000 (1.4-6.5); NEUT% 69.6 % (42.2-75.2); PLT 140 X1000 (130-400); RBC 3.34 XMIL (4.7-6.1); RDW 15.8 % (11.5-14.5); WBC 4.84 X1000 (4.8-10.8)
[2018-08-01 06:59] LABS: AGAP 8; BUN 12 mg/dL (8-22); CALCIUM 7.9 mg/dL (8.8-10.2); CHLORIDE 104 mmol/L (98-107); COSMO 271; CREATININE 0.7 mg/dL (0.7-1.2); ESTIMATED GFR > 60; GLUCOSE 90 mg/dL (70-104); POTASSIUM 3.2 mmol/L (3.5-5.1); SODIUM 136 mmol/L (136-145); TCO2 24 mmol/L (25-35)
[2018-08-01] MEDS: ZOLOFT PO SCH (10:27)
[2018-08-01] MEDS: PROCARDIA ER PO SCH (10:27)
[2018-08-01] MEDS: FLOMAX PO SCH ×2 (10:27→21:00)
[2018-08-01] MEDS: ASPIRIN PO SCH (10:27)
[2018-08-01] MEDS: POTASSIUM CHLORIDE 20 MEQ/SWI 20 MEQ/100 ML IVPB IV SCH ×2 (10:28→14:49)
[2018-08-01] MEDS: MIRALAX PO SCH ×2 (10:30→21:14)
[2018-08-01] MEDS: PERICOLACE PO SCH ×2 (10:30→21:15)
[2018-08-01] MEDS: LACTULOSE PO SCH (10:31)
--- NOTE | 2018-08-01 14:38 | PROGRESS NOTE ---
DATE: 08/01/2018 INTERVAL HISTORY: The patient reports all his previous symptoms are resolved. No fevers, chills. Eating and drinking well. No acute events overnight. REVIEW OF SYSTEMS: A 12 point review of systems negative except as per Interval History. DIAGNOSTIC STUDIES: WBC 4.8, hemoglobin 10.4, hematocrit 31.4, platelets 140,000. Sodium 136, potassium 3.2, bicarbonate 24, BUN 12, creatinine 0.7. Urine culture growing Pseudomonas resistant to Levaquin. VITALS: Temperature maximum 98.1 degrees, pulse 65, blood pressure 122/59, O2 saturation 97% on room. PHYSICAL EXAMINATION: General: No acute distress. Chronically ill appearing. Vitals: As above. HEENT: Normocephalic, atraumatic. Moist mucous membranes. Poor dentition noted. Neck: No cervical adenopathy. Cardiovascular: Regular rate and rhythm. No murmurs noted. Pulmonary: Clear to auscultation bilaterally. No wheezing, rales, or rhonchi. Abdomen: Soft, nontender, nondistended. Bowel sounds positive. Extremities: Peripheral pulses intact. No clubbing or cyanosis. Neurologic: Cranial nerves grossly intact. Mild global weakness, but no focal deficits identified. Psychiatric: Normal mood and affect. Awake, alert, oriented x3. Skin: No new rashes or lesions identified. ASSESSMENT AND PLAN: 1. Lower abdominal pain, bladder spasms, likely secondary to the misplaced catheter, proctitis, urinary tract infection. Catheter replaced and on antibiotics with cefepime. Urine culture growing Pseudomonas resistant to Levaquin. Will likely have to place PICC line and set up with home intravenous antibiotics, given resistance to Levaquin and numerous UTIs in the past and ongoing indwelling Ramos. 2. Bilateral hydronephrosis. The patient had double-J stents changed out approximately a week prior to admission. CT showed some continued hydronephrosis, but this was evaluated by Urology, and they felt that this was progressing reasonably well. They did not believe any further intervention is needed at this time. 3. Chronic constipation. Improved with bowel regimen. Continue regimen and monitor. 4. Hypokalemia. Low again today. Will further replete and monitor. 5. Coronary artery disease, stable. Patient restarted on his home aspirin. 6. Hypertension. Occasional mild elevations but overall pretty well controlled on just his home nifedipine and Flomax. 7. BPH contributing to above issues. Continue Flomax. [facility]
[2018-08-01] MEDS: SINGULAIR PO SCH (21:00)
[2018-08-01] MEDS: LIPITOR PO SCH (21:00)
[2018-08-02] MEDS: MAXIPIME 1 GM in NS 50 ML IV SCH ×2 (01:55→14:05)
[2018-08-02 06:36] LABS: BASO# 0.01 X1000 (0.0-0.2); BASO% 0.2 % (0.0-0.8); EOS# 0.19 X1000 (0.0-0.7); EOS% 4.5 % (0.0-10.0); HEMATOCRIT 29.7 % (42.0-52.0); HEMOGLOBIN 9.8 g/dL (14.0-18.0); LYMPH# 0.91 X1000 (1.2-3.4); LYMPH% 21.6 % (20.5-51.1); MCH 31.1 PG (27-31); MCV 94.3 FL (81-99); MONO# 0.23 X1000 (0.11-0.59); MONO% 5.5 % (1.7-9.3); MPV 10.2 FL (7.4-10.4); NEUT# 2.87 X1000 (1.4-6.5); NEUT% 68.2 % (42.2-75.2); PLT 142 X1000 (130-400); RBC 3.15 XMIL (4.7-6.1); RDW 15.6 % (11.5-14.5); WBC 4.21 X1000 (4.8-10.8)
[2018-08-02 06:40] LABS: INR 1.05; PROTIME 14.5 Seconds (11.0-16.0)
[2018-08-02 07:10] LABS: AGAP 8; BUN 7 mg/dL (8-22); CALCIUM 7.8 mg/dL (8.8-10.2); CHLORIDE 110 mmol/L (98-107); COSMO 279; CREATININE 0.6 mg/dL (0.7-1.2); ESTIMATED GFR > 60; GLUCOSE 92 mg/dL (70-104); SODIUM 141 mmol/L (136-145); TCO2 23 mmol/L (25-35)
[2018-08-02] MEDS: LACTULOSE PO SCH ×2 (10:47→10:53)
[2018-08-02] MEDS: ASPIRIN PO SCH (10:47)
[2018-08-02] MEDS: FLOMAX PO SCH ×2 (10:47→23:54)
[2018-08-02] MEDS: PERICOLACE PO SCH ×2 (10:47→23:54)
[2018-08-02] MEDS: ZOLOFT PO SCH (10:47)
[2018-08-02] MEDS: PROCARDIA ER PO SCH (10:47)
[2018-08-02] MEDS: MIRALAX PO SCH ×2 (10:48→23:54)
[2018-08-02] MEDS ORDERED: POTASSIUM CHLORIDE 60 MEQ in NS 500 ML IV ONE (14:26)
--- NOTE | 2018-08-02 15:00 | PROGRESS NOTE ---
DATE: 08/02/2018 INTERVAL HISTORY: Patient continues to do well. Reports nightmares last night but otherwise no new complaints. No acute events overnight. Eating and drinking well. No fevers or chills. REVIEW OF SYSTEMS: A 12-point review of systems was negative except as per interval history. LABS: WBC 4.2, hemoglobin 9.8, hematocrit 29.7, platelets 142,000. Sodium 141, potassium 3, chloride 110, bicarb 23, BUN 7, creatinine 0.6, glucose 92. VITALS: T-max 98.4, pulse 68, respirations 16, blood pressure 156/71. PHYSICAL EXAMINATION: General: No acute distress. Chronically ill-appearing. Vitals: As above. HEENT: Normocephalic and atraumatic. Moist mucous membranes. Poor dentition. Neck: No cervical adenopathy. Cardiovascular: Regular rate and rhythm. No murmurs noted. Pulmonary: Clear to auscultation bilaterally. No wheezing, rales, or rhonchi. Abdomen: Soft, nontender, nondistended. Bowel sounds positive. Extremities: Peripheral pulses intact. No clubbing or cyanosis. Neurologic: Cranial nerves grossly intact. Mild global weakness, unchanged, but no focal deficits. Psychiatric: Normal mood and affect. Awake, alert, and oriented x3. Skin: No new rashes or lesions seen. ASSESSMENT AND PLAN: 1. Lower abdominal pain and bladder spasm, likely secondary to a misplaced catheter, proctitis, urinary tract infection. Catheter replaced, on antibiotics with cefepime. Urine culture growing pseudomonas, resistant to Levaquin. Obtaining peripherally inserted central catheter line, which is currently pending. Can likely be discharged home with home health to complete a 2-week course of cefepime tomorrow as long as a peripherally inserted central catheter line can be obtained. Two week course likely prudent given numerous previous urinary tract infections and indwelling hardware. End date of therapy should be 08/12/2018. Could also consider Invanz instead of cefepime if that would be easier and/or cheaper for the patient. 2. Bilateral hydronephrosis. Patient's double-J stent was changed out approximately a week prior to admission. CT showed some continued hydronephrosis but this was evaluated by urology and they felt that this was within acceptable limits given the timeframe. They did not believe that any further intervention is needed at this time. 3. Chronic constipation, improved with bowel regimen. Continue regimen and monitor. 4. Hypokalemia, still fairly low. We will further replete and monitor. 5. Coronary artery disease. Continue home aspirin. 6. Hypertension. Occasional moderate elevation but overall reasonable control. Continue current therapy. 7. Benign prostatic hypertrophy. Continue Flomax.
--- NOTE | 2018-08-02 19:31 | PROVIDER DOCUMENTATION ---
This chart was entered by Rosibel Spring Scribe, acting as scribe for José Miguel Hare MD. HPI-General Adult - General Stated Complaint: WEAKNESS Time Seen by Provider: 07/29/18 11:16 Source: patient Allergies/Adverse Reactions: Patient Allergies Allergy/AdvReac Type Severity Reaction Status Date / Time Penicillins Allergy Unknown Verified 07/22/18 10:59 Home Medications: Home Medication List Medication Instructions Recorded Confirmed Last Taken Type Acetaminophen [Acetaminophen Extra 500 mg PO Q6H PRN PRN 03/20/17 07/15/18 07/18/18 History Strength] Montelukast Sodium 10 mg PO HS 07/24/17 07/15/18 07/18/18 History ATORVAstatin [Lipitor] 40 mg PO QHS tab 05/20/18 07/15/18 07/18/18 Rx Aspirin EC 81 mg PO DAILY tab 05/20/18 07/15/18 07/18/18 Rx Metoprolol [Lopressor] 25 mg PO BID tab 05/20/18 07/15/18 07/18/18 Rx Tamsulosin [Flomax] 0.4 mg PO BID cap 05/20/18 07/15/18 07/18/18 Rx Citalopram [Celexa] 1 tab PO DAILY 06/11/18 07/15/18 07/18/18 History Hydrocodone/APAP 5 mg/325 mg 1 tab PO Q4H PRN PRN 06/11/18 07/15/18 07/18/18 History [[place]-5] Sertraline [Zoloft] 50 mg PO DAILY 06/12/18 07/15/18 07/18/18 History Nifedipine E.r. [Adalat cc] 60 mg PO DAILY #60 tab 06/18/18 07/15/18 07/18/18 Rx Hydrocodone/APAP 7.5 mg/325 mg 1 ea PO Q4H PRN #10 tab 07/22/18 Unknown Rx [[place]-7.5] - History of Present Illness -Gen Adult Nature of Presenting Problems: Patient is a 78 year old male who presents to the ED via EMS with dizziness and generalized upper abdominal pain that started at 0300 this morning. Patient denies fever, cough, and shortness of breath. Location of Pain/Injury: reports: abdomen (generalized upper) Pain Radiation: reports: no radiation Quality of Pain: reports: aching Severity: reports: mild Onset/Duration: reports: this morning (0300) Timing: reports: still present Context/Activities at Onset: reports: light activity Associated Symptoms: reports: dizziness Similar Symptoms Previously?: No Recently seen or treated by another doctor?: No Review of Systems - Adult - REVIEW OF SYSTEMS - ADULT Constitutional: reports: no symptoms reported. denies: chills, fever, fatique Eyes: reports: no symptoms reported Ears, Nose, Mouth & Throat: reports: no symptoms reported Cardiovascular: reports: no symptoms reported Respiratory: reports: no symptoms reported. denies: cough, shortness of breath, wheezing Gastrointestinal: reports: see HPI, abdominal pain (generalized upper). denies: diarrhea, nausea, vomiting Genitourinary: reports: no symptoms reported Musculoskeletal: reports: no symptoms reported Integumentary: reports: no symptoms reported Neurological: reports: see HPI, dizziness/vertigo (dizziness). denies: headache/migraines, numbness, seizure, syncope Psychiatric: reports: no symptoms reported Endocrine: reports: no symptoms reported Hematologic/Lymphatic: reports: no symptoms reported Allergic/Immunologic: reports: no symptoms reported All Other Systems: Reviewed and Negative Past History - Adult - PAST MEDICAL HISTORY-ADULT Review of Records: reports: Old Records Reviewed, Nursing Assessment Review, Medications Reviewed, Social history reviewed & non-contributory. Major Childhood Illnesses: reports: denies history Cardiovascular: reports: CAD, HTN, hyperlipidemia, PAD Respiratory: reports: denies history Gastrointestinal: reports: denies history Obstetrical/Gynecological: reports: denies history Genitourinary: reports: kidney stones Musculoskeletal: reports: denies history Neurological: reports: CVA, TIA Psychiatric: reports: anxiety Endocrine/Immune: reports: denies history Other Conditions: reports: denies history - PRIOR SURGERIES/PROCEDURES Surgical/Procedure History: reports: reviewed, not pertinent, CABG (year 1999) - IMMUNIZATION STATUS Childhood Immunizations: See Nurse Assessment Flu Vaccine: See Nurse Assessment - FAMILY HISTORY Family History: reviewed, not pertinent - SOCIAL HISTORY Smoking: denies Substance Use: denies Physical Exam-General - PHYSICAL EXAM-ADULT Initial Vital Signs Reviewed: Yes - CONSTITUTIONAL General Appearance: alert, no apparent distress. negative: lethargic, slow to respond - HEAD, EARS, NOSE, MOUTH & THROAT HENMT: other (poor dentition). negative: angioedema, hearing deficit - RESPIRATORY Respiratory: chest non-tender, lungs clear, normal breath sounds. negative: crackles, rhonchi, stridor - CARDIOVASCULAR Cardiovascular: normal peripheral pulses, regular rate, rhythm. negative: tachycardia, systolic murmur - GASTROINTESTINAL (ABDOMEN) Abdominal Exam: normal bowel sounds, non tender, soft. negative: guarding, r ebound - MUSCULOSKELETAL Extremity: non-tender, normal inspection. negative: deformity, erythema, swelling - SKIN Integumentary: normal color, normal turgor, warm/dry. negative: cyanosis, ecchymosis, pallor, rash - NEUROLOGIC Neurologic: grossly normal. negative: aphasia, facial droop - PSYCHIATRIC Psych/Mental Status: normal mood/affect, oriented x 3. negative: anxious, paranoid Progress - PLAN OF CARE/RESULTS Result Diagrams: 07/29/18 11:30 07/29/18 11:30 - EKG 1 Time of EKG reading by physician:: 11:21 EKG Read and Signed by:: José Miguel Hare EKG Interpretation (*Must complete 3 of following elements*): Abnormal Rate: 88 Rhythm: sinus rhythm with premature atrial complexes [place]: normal [place] Interval: normal Comments: septal infarct, age undetermined - XRAY 1 XRAY Study: Chest Impression: See EMR Report ( EXAM: CHEST-PORTABLE 07/29/2018 HISTORY: weakness TECHNIQUE: AP portable upright at 1149 COMMENT: There is a granuloma in the right upper lobe. There are sternotomy wires. There is no evidence of acute cardiac or pulmonary disease and compared to 06/11/2018 there has been no significant change. IMPRESSION: No evidence of acute disease. Electronically signed by Byron Eubanks 07/29/2018 11:57 AM 07/29/18 1157 Interpreting Phys ician: Byron Eubanks MD Dictated Date/Time: 07/29/18 1157 cc: José Miguel Hare MD; Elizabeth Sullivan MD) - CT/MRI 1 CT Study: Abdomen, Pelvis Impression: See EMR Report (CT ABDOMEN/PELVIS W/O CONTRAST - 07/29/2018 INDICATION: abd pain, acute kidney injury COMPARISON: 05/06/2018 FINDINGS: The lung bases are clear and the heart size is top normal. There are sternotomy wires. There are stable bilateral nephroureteral stents in good position. There is moderately severe bilateral hydronephrosis. Urinary bladder is rather distended. There is moderate diffuse urinary bladder wall thickening with surrounding inflammation similar to prior. There is a Ramos catheter in place, but the catheter tip is down in the junction of the penile and prostatic urethra and the bulb is inflated here. There are several gallstones in the gallbladder. No gallbladder distention or inflammation. There is moderate diffuse const ipation. There is some wall thickening of the rectum suggesting proctitis. There are some small bilateral renal stones. There are moderate degenerative changes of the spine. No acute or suspicious bony lesion. IMPRESSION: 1. Ramos catheter and balloon are in the prostatic urethra. 2. Bilateral hydronephrosis. Bilateral renal stones. Bilateral ureter stents. Abnormal urinary bladder. Similar to prior. 3. Severe constipation. Proctitis. 4. Gallstones in the gallbladder. 5. This report was discussed with Dr. Hare on 07/29/2018 at 12:50 PM and was readback. This exam was performed using automated exposure control, adjustment of mA or kV according to patient size, and/or use of iterative rec onstruction technique Electronically signed by Roldan Mayorga 07/29/2018 12:54 PM 07/29/18 1254 Interpreting Physician: Roldan Mayorga MD Dictated Date/Time: 07/29/18 1248 cc: José Miguel Hare MD; Elizabeth Sullivan MD) - CONSULTS/PCP/HOSPITALIST Notification #1 *Consult/PCP/Hospitalist*: Dr. Mayorga Time Discussed: 12:54 Reason/Comments: Dr. Hare consulted with Dr. Mayorga about patient's CT #2 Consult: XAVI Álvarez for Hospitalist Time Discussed: 13:28 Reason/Comments: Dr. Hare consulted with Preeti about patient. Consult Disposition: Will see in ED, Admit Departure - Departure Date of Disposition Decision: 07/29/18 Time of Disposition Decision: 13:28 DIAGNOSIS: UTI (urinary tract infection), Weakness, Hypokalemia, Hypomagnesemia Disposition: ADMITTED INPATIENT 09 Certified Medical Emergency: Emergent Condition: Serious Referrals and Follow-Ups: Elizabeth Sullivan MD [Primary Care Provider] - - Critical Care Note This patient required my direct & personal management of CC.: Yes Total Time (mins): 31 Critical Care Statement: This patient required my direct personal management to treat or rule out processes, the absence of which, could potentiallly result in sudden, clinically significant life or limb threatening deterioration. Attestation - Physician/ HERBIE Attestation The physician spent face to face time with patient:: Yes Advanced Practice Provider documentation review:: Supervising physician onsite and consulted in the evaluation and care of this patient. The physician did have a face to face encounter with the patient. This chart was documented by the indicated scribe, (Rosibel Spring Scribe) and accurately reflects the services I performed and decisions made by me, José Miguel Hare MD, as attested by the provider's signature.
[2018-08-02] MEDS: NS 1,000 ML IV SCH (23:53)
[2018-08-02] MEDS: SINGULAIR PO SCH (23:54)
[2018-08-03] MEDS: LIPITOR PO SCH ×2 (00:05→19:52)
[2018-08-03] MEDS: MAXIPIME 1 GM in NS 50 ML IV SCH (03:41)
[2018-08-03] MEDS ORDERED: NS 250 ML ONE (10:23)
[2018-08-03] MEDS: FLOMAX PO SCH ×2 (11:28→19:52)
[2018-08-03] MEDS: ASPIRIN PO SCH (11:28)
[2018-08-03] MEDS: ZOLOFT PO SCH (11:28)
[2018-08-03] MEDS: PERICOLACE PO SCH (11:28)
[2018-08-03] MEDS: LACTULOSE PO SCH (11:28)
[2018-08-03] MEDS: MIRALAX PO SCH (11:28)
[2018-08-03] MEDS: PROCARDIA ER PO SCH (11:29)
[2018-08-03 15:16] LABS: INR 1.04; PROTIME 14.4 Seconds (11.0-16.0)
--- NOTE | 2018-08-03 16:01 | INFECTIOUS DISEASE CONSULT REP ---
DATE: 08/03/2018 CONCLUSION: The patient has a Pseudomonas urinary tract infection. I tried to get from the patient what symptoms he was having with his urinary tract infection, and he was unable to tell me. He did come in the hospital because he started leaking from his bladder and he had a catheter in place, then he had another catheter placed, and it was at the level of his prostate gland. He finally had the catheter placed correctly and his bladder spasms have gotten better. His laboratory studies thus far show a CBC with a white count of 4210, hemoglobin 9.8, platelet count 142,000, creatinine is 0.6. Liver function studies are normal. Urine culture grew Pseudomonas. Chest x-ray shows no acute disease. The patient had a CT scan of the abdomen and pelvis done. It showed that the Ramos catheter and balloon are in the prostatic urethra. There was bilateral hydronephrosis and bilateral renal calculi and bilateral ureter stents. There was an abnormal urinary bladder. He has severe constipation and proctitis. He also had gallstones in his gallbladder. PAST MEDICAL HISTORY: Positive carotid artery disease, coronary artery disease, hypertension, hyperlipidemia, depression, renal calculi with a history of having to place double-J stents and a nephrostomy tube, and continuous indwelling catheter managed by Dr. Kaur. The patient also has benign prostatic hypertrophy, transient ischemic attack, stroke, constipation and grade 1 diastolic dysfunction. PAST SURGICAL HISTORY: Positive for a left carotid endarterectomy, CABG, nephrostomy tube, bilateral double-J stents. The patient also has had shock wave lithotripsy. SOCIAL HISTORY: The patient lives in an apartment. He lives alone. He uses a walker and a crowley. Home health comes to help him out. He does not smoke cigarettes, drink alcoholic beverages or use illicit drugs. He also gets help from his neighbors. FAMILY HISTORY: Positive for myocardial infarction and stomach cancer. ALLERGIES: The patient is allergic to penicillin. In the hospital he was tolerating cefepime well. HOME MEDICATIONS: Aspirin, Lipitor, Celexa, hydrocodone, Lopressor, montelukast, nifedipine, Zoloft and Flomax. PHYSICAL EXAMINATION: Vital Signs: Temperature is 97.6 degrees, pulse 68, respirations 16, blood pressure is 107/60. The patient is 6 feet tall, weighs 180 pounds. General: This is a chronically ill-appearing, elderly male. He is in no acute distress. Head, eyes, ears, nose, and throat: He can hear my spoken words and see near objects. He is missing most of his teeth, and the teeth he does have poor oral hygiene. Neck: No meningismus. Lungs: Clear to auscultation. Cardiovascular: Heart rate was regular. Abdomen: Abdomen and flanks were soft and nontender. Genitalia: Patient has a Ramos catheter in place. Neurologic: The patient is awake. He moved his extremities to request. His memory about his medical history was very poor. There was no tremor. Integument: No rash noted. Thank you for the consultation. cc: Maxwell Sanchez MD
[2018-08-03] MEDS: MAXIPIME 2 GM in NS 100 ML IV SCH ×2 (16:06→22:37)
--- NOTE | 2018-08-03 18:04 | PROGRESS NOTE ---
DATE: 08/03/2018 SUBJECTIVE: This patient is resting comfortably in bed. As per the patient, this is the first time in the last 6 months that he feels fine. I requested an evaluation by Infectious Disease Department. Likely, this patient will be discharged soon, either tomorrow or the day after tomorrow. He needs a PICC line, but he is severely weak. I do not think he can walk, and I do not think he can take care of this medication, which has to be done IV every 8 hours. I had a conversation today with Johan, which is the power of employee benefits attorney. I explained to him the whole situation. I will re-evaluate this patient tomorrow. I will get new lab work and I will talk to his power of employee benefits attorney again to try to clarify if they can take care of this patient at home, or if we need to send this patient to a rehab center or long-term facility. OBJECTIVE: Vital Signs: Temperature 98.3 degrees, pulse 63, respiratory rate 14, blood pressure 149/76, oxygen saturation 99 on room air. HEENT: Head normocephalic. No trauma. PERRLA. Neck: Supple. No JVD. No masses. Central trachea. Chest: Clear to auscultation. No wheezing. No rales. Abdomen: Soft, nontender, nondistended. No hepatosplenomegaly. Extremities: No edema, no clubbing, no cyanosis. He does have global weakness, but no focal deficits. LABORATORY: PT 14.4, INR 1. ASSESSMENT AND PLAN: 1. Bilateral hydronephrosis. This patient's double-J stent was changed out around 1 week prior to admission. CT scan showed hydronephrosis still, but this was evaluated by Urology Department and they did not recommend to do anything else. The double-J stent is in proper position and he has normal renal function. Also, they state that he has a neurogenic bladder with Ramos catheter in good position and draining well, and the patient declined to learn clean intermittent catheterization, so they were discussing placing a suprapubic catheter. They will change his double-J stent in December 2018. 2. Lower abdominal pain and bladder spasm, likely secondary to his catheter, urinary tract infection. He was not complaining of any kind of problem today. We need to obtain a peripherally inserted central catheter line and treat the infection with cefepime, as recommended by Infectious Disease Department. 3. Pseudomonas urinary tract infection. Continue with cefepime. We will place a peripherally inserted central catheter line tomorrow. 4. Chronic constipation, improved with bowel regimen. Continue with the same management. 5. Hypokalemia. I will get a new set of lab work tomorrow. 6. Hypertension, stable. 7. Benign prostatic hypertrophy. Continue with Flomax. Overall, this patient is feeling better. We are going to place a peripherally inserted central catheter line tomorrow. He refused to get the peripherally inserted central catheter line today. I explained to him the whole situation. I am worried about sending this patient home because I am not quite sure who is going to take care of him, and who is going to help him with the medications. I know home health will be set up, but I will talk to his power of employee benefits attorney, Mr. Prado, to clarify the whole situation. I am not quite sure if the patient wants to go to a rehab center or long-term facility. cc: Otoniel Mata MD
[2018-08-03] MEDS: SINGULAIR PO SCH (19:51)
[2018-08-03] MEDS: NS 1,000 ML IV SCH (19:52)
[2018-08-04] MEDS: MAXIPIME 2 GM in NS 100 ML IV SCH ×2 (05:37→15:07)
[2018-08-04 07:09] LABS: AGAP 8; BUN 8 mg/dL (8-22); CALCIUM 7.7 mg/dL (8.8-10.2); CHLORIDE 110 mmol/L (98-107); COSMO 277; CREATININE 0.6 mg/dL (0.7-1.2); ESTIMATED GFR > 60; GLUCOSE 88 mg/dL (70-104); POTASSIUM 3.1 mmol/L (3.5-5.1); SODIUM 140 mmol/L (136-145); TCO2 22 mmol/L (25-35)
[2018-08-04] MEDS: SINGULAIR PO SCH ×2 (07:32→21:39)
[2018-08-04] MEDS: LIPITOR PO SCH ×2 (07:32→21:39)
[2018-08-04] MEDS: PERICOLACE PO SCH ×3 (07:32→21:40)
[2018-08-04] MEDS: FLOMAX PO SCH ×3 (07:33→21:40)
[2018-08-04] MEDS: MIRALAX PO SCH ×3 (07:33→21:40)
[2018-08-04] MEDS ORDERED: KLOR-CON PO ONE (09:29)
[2018-08-04] MEDS: LACTULOSE PO SCH ×2 (11:08→11:38)
[2018-08-04] MEDS: PROCARDIA ER PO SCH (11:08)
[2018-08-04] MEDS: ZOLOFT PO SCH (11:09)
[2018-08-04] MEDS: ASPIRIN PO SCH (11:09)
--- NOTE | 2018-08-04 12:16 | PROGRESS NOTE ---
DATE: 08/04/2018 SUBJECTIVE: The patient is resting comfortably in bed. He will get a PICC line placed today to continue with treatment. Since we do not think this patient can be taking care of himself at home, and also be able to get his IV treatment, we will try to get LTAC for this patient or any other option. I discussed the case with the social staff worker, and also I called . Johan Strange, which is the power of real estate associate attorney. He seems to understand, and he agreed with the plan. I am not quite sure if he will qualify. I will wait for the social staff worker, and the caseworker intake in this case. OBJECTIVE: Vital Signs: Temperature 98.3 degrees, pulse 63, respiratory rate 15, blood pressure 142/69, and oxygen saturation 99 on room air. HEENT: Head normocephalic. No trauma. PERRLA. Neck: Supple. No JVD. No masses. Central trachea. Chest: Clear to auscultation. No wheezing. No rales. Abdomen: Soft, nontender, nondistended. No hepatosplenomegaly. Extremities: No edema. No clubbing. No cyanosis. He does have global weakness, but no focal deficits. LABORATORY: Sodium 140, potassium 3.1, chloride 110, bicarbonate 22, BUN 8, creatinine 0.6, glucose 88, and calcium 7.7. ASSESSMENT AND PLAN: 1. Bilateral hydronephrosis. This patient's double-J stent has been changed around 1 week prior to admission. CT scan showed hydronephrosis still, but this patient was evaluated by Urology Department and they did not recommend to do anything else. The double-J stent is in proper position and he has a normal renal function. Also, they state that he has a neurogenic bladder and Ramos catheter is in good position and draining well. The patient has declined to learn how to do a clean intermittent catheterization to himself, so they also discussed the possibility of placing a suprapubic catheter for this patient. They will change his double-J stent in December of 2018. 2. Lower abdominal pain and bladder spasm, likely secondary to his catheter. He is feeling better. Pseudomonal urinary tract infection. Continue with cefepime. We are getting a PICC line today. 3. Chronic constipation, improve with bowel regimen. Continue with same management. 4. Hypokalemia. I will replace the potassium today. 5. Hypertension, stable. 6. BPH. Continue with Flomax. Overall, this patient is doing good, but I believe he cannot take care of himself at home. Also, I do not think he is able to manage his IV antibiotics so the case has been discussed already with his power of real estate associate attorney, and also the social staff worker. We will try to get some placement for this patient. I believe an LTAC or any other option. cc: Otoniel Mata MD
--- NOTE | 2018-08-04 14:15 | INFECTIOUS DISEASE PROGRESS NO ---
DATE: 08/04/2018 PRESENT ILLNESS: The patient has a Pseudomonas urinary tract infection. MEDICATIONS: The patient is on cefepime 2 g IV every 8 hours. This is day 1 of treatment with that antibiotic. PHYSICAL EXAMINATION: Vital Signs: Temperature is 98.3 degrees, pulse 63, respirations 15, blood pressure 142/69. General: This is a chronically ill-appearing, elderly male. He is in no acute distress. Head, eyes, ears, nose, and throat: Can hear my spoken words and see near objects. He is missing most of his teeth and the rest of the ones he has have poor dental hygiene. Neck: No pain in the neck with movement of it. Lungs: Clear to auscultation. Cardiovascular: Heart rate is regular. Abdomen and flanks: Soft and nontender. Neurologic: The patient is awake. He can move his extremities. There is no tremor. LAB AND X-RAY: There is no new radiographic study today. The patient's creatinine is 0.6. GFR is greater than 60. The patient's urine grew Pseudomonas. ASSESSMENT AND PLAN: My plan is to continue on cefepime 2 g IV every 8 hours for a 2 week treatment course. COMORBIDITIES: The patient has renal calculi. He has had to have stents placed in the past and a nephrostomy tube. The patient also has a continuous indwelling Ramos catheter. The patient has a Pseudomonas urinary tract infection. I plan to continue treatment for a total of 14 days with cefepime 2 g IV every 8 hours. COMORBIDITIES: The patient is elderly and he has a history of having to have stents placed and a continuous indwelling Ramos catheter. cc: Maxwell Sanchez MD
[2018-08-05] MEDS: MAXIPIME 2 GM in NS 100 ML IV SCH ×4 (00:23→22:45)
[2018-08-05] MEDS: NS 1,000 ML IV SCH ×2 (06:20→15:15)
[2018-08-05 07:11] LABS: AGAP 9; BUN 8 mg/dL (8-22); CALCIUM 8.1 mg/dL (8.8-10.2); CHLORIDE 109 mmol/L (98-107); COSMO 279; CREATININE 0.6 mg/dL (0.7-1.2); ESTIMATED GFR > 60; GLUCOSE 90 mg/dL (70-104); POTASSIUM 3.2 mmol/L (3.5-5.1); SODIUM 141 mmol/L (136-145); TCO2 23 mmol/L (25-35)
[2018-08-05] MEDS: PROCARDIA ER PO SCH (10:55)
[2018-08-05] MEDS: ASPIRIN PO SCH (10:55)
[2018-08-05] MEDS: PERICOLACE PO SCH ×2 (10:55→22:44)
[2018-08-05] MEDS: ZOLOFT PO SCH (10:55)
[2018-08-05] MEDS: FLOMAX PO SCH ×2 (10:55→22:43)
[2018-08-05] MEDS: MIRALAX PO SCH ×2 (10:56→22:44)
[2018-08-05] MEDS: LACTULOSE PO SCH (10:56)
[2018-08-05] MEDS: KLOR-CON PO SCH ×2 (11:06→22:43)
--- NOTE | 2018-08-05 15:29 | INFECTIOUS DISEASE PROGRESS NO ---
DATE: 08/05/2018 PRESENT ILLNESS: The patient has a Pseudomonas urinary tract infection. MEDICATIONS: This is the second day of treatment with cefepime. PHYSICAL EXAMINATION: Vital Signs: Temperature is 97.9 degrees, pulse 65, respirations 16, blood pressure 139/64. General: This is a chronically ill-appearing elderly male. He is in no acute distress. Head, eyes, ears, nose, and throat: Patient can hear my spoken words and see near objects. He is missing most of his teeth, and the teeth he does have are in poor dental hygiene. Neck: He does not have any pain when he moves his head or moves his neck. Lungs: Clear to auscultation. Cardiovascular: Heart rate is regular. Abdomen: Soft and nontender. Extremities: Patient has a PICC in his left arm. The site is not erythematous or swollen. Neurologic: The patient is awake. He can move his extremities. There is no tremor. LAB AND RADIOLOGY: The only lab is creatinine 0.6, GFR >60. No new radiology study. ASSESSMENT AND PLAN: The patient has urinary tract infection. Our plan is to send him home on intravenous antibiotics, on cefepime for 12 more days. It will be almost impossible to see the patient in follow-up. COMORBIDITIES: The patient's comorbidities is that he is elderly. He has a history of having stents placed and has a continuous indwelling Ramos. cc: Maxwell Sanchez MD MTDD
--- NOTE | 2018-08-05 17:58 | PROGRESS NOTE ---
DATE: 08/05/2018 SUBJECTIVE: The patient is resting comfortably in bed. PICC line has been placed. Continuing with antibiotics pending placement. OBJECTIVE: Vital Signs: Temperature 97.9, pulse 63, respiratory rate 14, blood pressure 139/64, oxygen saturation 100% on room air. HEENT: Head normocephalic, atraumatic. PERRLA. Neck: Supple. No JVD or masses. Central trachea. Chest: Clear to auscultation. No wheezing or rales. Abdomen: Soft, nontender, nondistended. No hepatosplenomegaly. Extremities: No edema. No clubbing. No cyanosis. Neurologic: He does have global weakness but no focal deficits. LABORATORY DATA: Sodium 141, potassium 3.2, chloride 109, bicarbonate 23, BUN 8, creatinine 0.6, glucose 90, calcium 8.1. ASSESSMENT/PLAN: 1. Bilateral hydronephrosis. This patient's double-J stent had been changed around 1 week prior to admission. CT scan is still showing hydronephrosis, but this patient was evaluated by the Urology department, and they did not recommend to do anything else. The double-J stent is in proper position, and he has normal renal function. His urine is getting clear. I do not see too much hematuria today. The patient has declined to learn how to do a clean intermittent catheterization to himself, so they also discussed the possibility of placing a suprapubic catheter. They will change his double-J stent in December 2018. 2. Lower abdominal pain and bladder spasm, likely secondary to his catheter, resolved. 3. Chronic constipation, improved with bowel regimen 4. Hypokalemia. Will continue replacing the potassium. I will get a magnesium to rule out hypomagnesemia. 5. Hypertension, stable. 6. Benign prostatic hypertrophy. Continue with Flomax. 7. Overall, this patient is doing well. Pending placement. cc: Otoniel Mata MD
[2018-08-05] MEDS: LIPITOR PO SCH (22:43)
[2018-08-05] MEDS: SINGULAIR PO SCH (22:44)
[2018-08-06] MEDS: MAXIPIME 2 GM in NS 100 ML IV SCH ×3 (06:22→23:07)
[2018-08-06 06:52] LABS: AGAP 7; BUN 7 mg/dL (8-22); CALCIUM 8.1 mg/dL (8.8-10.2); CHLORIDE 110 mmol/L (98-107); COSMO 277; CREATININE 0.6 mg/dL (0.7-1.2); ESTIMATED GFR > 60; GLUCOSE 86 mg/dL (70-104); POTASSIUM 3.6 mmol/L (3.5-5.1); SODIUM 140 mmol/L (136-145); TCO2 23 mmol/L (25-35)
[2018-08-06 07:04] LABS: MAGNESIUM 1.8 mg/dL (1.5-2.7); PHOSPHORUS 2.6 mg/dL (2.7-4.5)
[2018-08-06] MEDS: ZOLOFT PO SCH (08:46)
[2018-08-06] MEDS: PERICOLACE PO SCH (08:46)
[2018-08-06] MEDS: MIRALAX PO SCH (08:46)
[2018-08-06] MEDS: PROCARDIA ER PO SCH (08:46)
[2018-08-06] MEDS: FLOMAX PO SCH ×2 (08:46→23:07)
[2018-08-06] MEDS: ASPIRIN PO SCH (08:46)
[2018-08-06] MEDS: LACTULOSE PO SCH (08:46)
--- NOTE | 2018-08-06 13:53 | PROGRESS NOTE ---
DATE: 08/06/2018 SUBJECTIVE: No acute events overnight. OBJECTIVE: Vital Signs: Temperature 98.3 degrees, pulse 91, respiratory rate 18, blood pressure 135/72, and oxygen saturation 100% on room air. HEENT: Head normocephalic. No trauma. PERRLA. Neck: Supple. No JVD. No masses. Central trachea. Chest: Clear to auscultation. No wheezing. No rales. Abdomen: Soft, nontender, and nondistended. No hepatosplenomegaly. Extremities: No edema. Neurological: This patient is sleepy, but arousable. No changes. LABORATORY: Sodium 140, potassium 3.6, chloride 110, bicarbonate 23, BUN 7, creatinine 0.6, glucose 86, calcium 8.1, phosphorus 2.6, and magnesium 1.8. ASSESSMENT AND PLAN: 1. Bilateral hydronephrosis. This patient's double-J stent has been changed around 1 week prior to admission. CT scan still showing hydronephrosis, but he was evaluated by urology department who did not recommend to do anything else. The double-J stents are in the proper position. He has a normal kidney function. His urine is getting clear. I do not see too much hematuria today and yesterday. The patient has declined to learn how to do a clean intermittent catheterization to himself. They also discussed the possibility of placing a suprapubic catheter in the future. They will change his double-J stent in December of 2018. 2. Lower abdominal pain and bladder spasm, likely secondary to his catheter, resolved. 3. Chronic constipation, improved with bowel regimen. 4. Hypokalemia resolved. 5. Hypertension stable. 6. BPH. Continue with Flomax. 7. Overall, this patient is doing well pending placement. cc: Otoniel Mata MD
[2018-08-06] MEDS: NS 1,000 ML IV SCH (14:02)
[2018-08-06] MEDS: LIPITOR PO SCH (23:07)
[2018-08-06] MEDS: SINGULAIR PO SCH (23:07)
[2018-08-07] MEDS: MIRALAX PO SCH ×3 (04:27→23:45)
[2018-08-07] MEDS: PERICOLACE PO SCH ×3 (04:27→23:43)
[2018-08-07] MEDS: MAXIPIME 2 GM in NS 100 ML IV SCH ×3 (05:36→23:43)
[2018-08-07] MEDS: NS 1,000 ML IV SCH ×2 (05:37→23:34)
[2018-08-07] MEDS: PROCARDIA ER PO SCH (08:43)
[2018-08-07] MEDS: FLOMAX PO SCH ×2 (08:43→23:43)
[2018-08-07] MEDS: ZOLOFT PO SCH (08:43)
[2018-08-07] MEDS: ASPIRIN PO SCH (08:43)
[2018-08-07] MEDS: LACTULOSE PO SCH (08:44)
[2018-08-07] MEDS ORDERED: K-PHOS PO ONE (11:49)
[2018-08-07] MEDS ORDERED: POTASSIUM PHOSPHATE 20 MMOL in NS 250 ML IV ONE (13:00)
--- NOTE | 2018-08-07 17:24 | PROGRESS NOTE ---
DATE: 08/07/2018 SUBJECTIVE: No acute events overnight. OBJECTIVE: Temperature 98 degrees, pulse 72, respiratory rate 14, blood pressure 124/71, oxygen saturation 100% on room air. HEENT: Head normocephalic, no trauma. PERRLA. Neck: Supple. No JVD. No masses. Central trachea. Chest: Clear to auscultation. No wheezing, no rales. Abdomen: Soft, nontender, nondistended. No hepatosplenomegaly. Extremities: No edema, no clubbing, no cyanosis. Neurologic: This patient is awake, alert and oriented x3. No focal deficits but generalized weakness. LABORATORY: Sodium 140, potassium 3.6, chloride 110, bicarbonate 23, BUN 7, creatinine 0.6, glucose 86, calcium 8.1, phosphorus 2.6, magnesium 1.8. ASSESSMENT AND PLAN: 1. Bilateral hydronephrosis, this patient's double-J stent has been changed around 1 week prior to admission. CT scan showed hydronephrosis but he was evaluated by Urology Department and did not recommend to do anything else, the double-J stent are in the proper position and he has normal kidney function. His urine is getting clear. He declined to learn how to do a clean intermittent catheterization to himself and they also discussed the possibility of placing a suprapubic catheter in the future, they will change his double-J stent in December 2018. 2. Lower abdominal pain and bladder spasm, resolved. 3. Chronic constipation improved with bowel regimen. 4. Hypokalemia resolved. 5. Hypertension stable. 6. Benign prostatic hypertrophy. Continue with Flomax. 7. Physical deconditioning and generalized weakness. Continue physical therapy. Overall this patient is doing well pending placement. 1. Hypophosphatemia, I will replace the phosphorus. cc: Otoniel Mata MD [facility] [place] [facility]
[2018-08-07] MEDS: SINGULAIR PO SCH (23:43)
[2018-08-07] MEDS: LIPITOR PO SCH (23:43)
[2018-08-08] MEDS: NS 1,000 ML IV SCH ×2 (04:30→14:33)
[2018-08-08] MEDS: ZOFRAN IV PRN (04:30)
[2018-08-08] MEDS: MAXIPIME 2 GM in NS 100 ML IV SCH ×3 (05:46→23:36)
[2018-08-08 06:45] LABS: AGAP 11; BUN 11 mg/dL (8-22); CALCIUM 8.5 mg/dL (8.8-10.2); CHLORIDE 107 mmol/L (98-107); COSMO 282; CREATININE 0.6 mg/dL (0.7-1.2); ESTIMATED GFR > 60; GLUCOSE 93 mg/dL (70-104); MAGNESIUM 1.8 mg/dL (1.5-2.7); PHOSPHORUS 2.9 mg/dL (2.7-4.5); POTASSIUM 3.3 mmol/L (3.5-5.1); SODIUM 142 mmol/L (136-145); TCO2 24 mmol/L (25-35)
[2018-08-08] MEDS ORDERED: KLOR-CON PO ONE (10:53)
[2018-08-08] MEDS: MIRALAX PO SCH ×2 (11:21→23:36)
[2018-08-08] MEDS: PERICOLACE PO SCH ×2 (11:21→23:35)
[2018-08-08] MEDS: FLOMAX PO SCH ×2 (11:21→23:35)
[2018-08-08] MEDS: ZOLOFT PO SCH (11:21)
[2018-08-08] MEDS: ASPIRIN PO SCH (11:21)
[2018-08-08] MEDS: LACTULOSE PO SCH (11:21)
[2018-08-08] MEDS: PROCARDIA ER PO SCH (11:22)
--- NOTE | 2018-08-08 13:33 | PROGRESS NOTE ---
DATE: 08/08/2018 SUBJECTIVE: No acute events overnight. Apparently, this morning, he started having some vomiting x1 and he is feeling a little bit sick to his stomach. We will continue to monitor for now. Vital signs are stable as well as laboratory. Continue with nausea medication as well. OBJECTIVE: Vital Signs: Temperature 98.4 degrees, pulse 81, respiratory rate 18, blood pressure 165/69, oxygen saturation 97% on room air. HEENT: Head normocephalic. No trauma. PERRLA. Neck: Supple. No JVD. No masses. Central trachea. Chest: Clear to auscultation. No wheezing. No rales. Abdomen: Soft, nontender, nondistended. No hepatosplenomegaly. Extremities: No edema, no clubbing, no cyanosis. Neurological Examination: The patient is alert, awake, and oriented x3. No focal deficits but generalized weakness, some abdominal discomfort. Laboratory: Sodium 142, potassium 3.3, chloride 107, bicarbonate 24, BUN 11, creatinine 0.6, glucose 93, calcium 8.5, phosphorus 2.9, magnesium 1.8. ASSESSMENT AND PLAN: 1. Bilateral hydronephrosis. This patient's double-J stent had been changed around 1 week prior to admission. CT scan showed hydronephrosis but he was evaluated by the urology department and they did not recommend to do any kind of new procedure. The double-J stents are in the proper position and he has a normal kidney function. His urine is getting clearer. He declined to learn how to do a clean intermittent catheterization to himself. They also discussed the possibility of placing a suprapubic catheter in the future. They will change his double-J stent in December 2018. 2. Lower abdominal pain and bladder spasm, resolved. 3. Chronic constipation, improved with bowel regimen. 4. Hypokalemia. I will replace the potassium. 5. Hypertension, stable. 6. Benign prostatic hypertrophy. Continue Flomax. 7. Nausea and vomiting. For now, we will continue with the same management. Since this patient is not tolerating too much food today, I will put him on a little bit of fluids. 8. Benign prostatic hypertrophy. Continue with Flomax. 9. Physical deconditioning and generalized weakness. Continue physical therapy. 10. Hypophosphatemia, resolved. 11. Overall, this patient is doing better but today, he started complaining of nausea and vomiting. He is feeling sick to his stomach. I will put him on some fluids. I will replace the potassium and I will monitor this patient. Continue with antiemetics. cc: Otoniel Mata MD
[2018-08-08] MEDS: D5 1/2 NS 1,000 ML IV SCH (14:32)
[2018-08-08] MEDS: LIPITOR PO SCH (23:35)
[2018-08-08] MEDS: SINGULAIR PO SCH (23:35)
[2018-08-09] MEDS: ZOFRAN IV PRN (00:23)
[2018-08-09] MEDS: MAXIPIME 2 GM in NS 100 ML IV SCH ×3 (06:37→23:21)
[2018-08-09 07:01] LABS: BASO# 0.01 X1000 (0.0-0.2); BASO% 0.2 % (0.0-0.8); EOS# 0.39 X1000 (0.0-0.7); EOS% 6.7 % (0.0-10.0); HEMATOCRIT 28.8 % (42.0-52.0); HEMOGLOBIN 9.1 g/dL (14.0-18.0); IMM GRAN# 0.03 X1000 (0.0-0.04); IMM GRAN% 0.5 % (0.0-0.5); LYMPH# 1.24 X1000 (1.2-3.4); LYMPH% 21.2 % (20.5-51.1); MCH 30.5 PG (27-31); MCHC 31.6 g/dL (33-37); MCV 96.6 FL (81-99); MONO# 0.44 X1000 (0.11-0.59); MONO% 7.5 % (1.7-9.3); MPV 9.7 FL (7.4-10.4); NEUT# 3.74 X1000 (1.4-6.5); NEUT% 63.9 % (42.2-75.2); PLT 210 X1000 (130-400); RBC 2.98 XMIL (4.7-6.1); RDW 16.3 % (11.5-14.5); WBC 5.85 X1000 (4.8-10.8)
[2018-08-09 07:15] LABS: AGAP 7; BUN 12 mg/dL (8-22); CALCIUM 7.9 mg/dL (8.8-10.2); CHLORIDE 107 mmol/L (98-107); COSMO 277; CREATININE 0.6 mg/dL (0.7-1.2); ESTIMATED GFR > 60; GLUCOSE 94 mg/dL (70-104); POTASSIUM 3.4 mmol/L (3.5-5.1); SODIUM 139 mmol/L (136-145); TCO2 25 mmol/L (25-35)
[2018-08-09] MEDS: D5 1/2 NS 1,000 ML IV SCH ×2 (09:59→10:11)
[2018-08-09] MEDS: FLOMAX PO SCH ×2 (10:01→20:36)
[2018-08-09] MEDS: PROCARDIA ER PO SCH (10:01)
[2018-08-09] MEDS: LACTULOSE PO SCH (10:01)
[2018-08-09] MEDS: ASPIRIN PO SCH (10:01)
[2018-08-09] MEDS: ZOLOFT PO SCH (10:01)
[2018-08-09] MEDS: PERICOLACE PO SCH ×2 (10:02→20:37)
[2018-08-09] MEDS: MIRALAX PO SCH ×2 (10:02→20:37)
--- NOTE | 2018-08-09 10:07 | Diag Imaging Result Doc PS360 ---
EXAM: CHEST-PORTABLE HISTORY: dyspnea TECHNIQUE: Chest single view COMPARISON: 07/29/2018 FINDINGS: Interval placement of a left-sided PICC line. Tip lies in the superior vena cava and right atrium. The lungs are well expanded. The heart is not enlarged. Sternal wires are present. The vessels are not distended. There are no infiltrates. No effusion identified. There is a right-sided granuloma. IMPRESSION: No pneumonia or congestive failure. Electronically signed by John Hurst 08/09/2018 10:05 AM
[2018-08-09] MEDS: NS 1,000 ML IV SCH (14:46)
[2018-08-09] MEDS: SINGULAIR PO SCH (20:36)
[2018-08-09] MEDS: LIPITOR PO SCH (20:36)
[2018-08-10] MEDS: D5 1/2 NS 1,000 ML IV SCH ×2 (06:38→07:30)
[2018-08-10] MEDS: NS 1,000 ML IV SCH (06:39)
[2018-08-10 07:00] LABS: AGAP 8; CHLORIDE 107 mmol/L (98-107); POTASSIUM 3.3 mmol/L (3.5-5.1); SODIUM 139 mmol/L (136-145); TCO2 24 mmol/L (25-35)
[2018-08-10 07:01] LABS: BUN 12 mg/dL (8-22); CALCIUM 8.2 mg/dL (8.8-10.2); COSMO 277; CREATININE 0.6 mg/dL (0.7-1.2); ESTIMATED GFR > 60; GLUCOSE 95 mg/dL (70-104)
[2018-08-10] MEDS: MAXIPIME 2 GM in NS 100 ML IV SCH ×3 (07:29→21:51)
[2018-08-10] MEDS: ASPIRIN PO SCH (10:15)
[2018-08-10] MEDS: ZOLOFT PO SCH (10:15)
[2018-08-10] MEDS: FLOMAX PO SCH ×2 (10:15→21:51)
[2018-08-10] MEDS: PROCARDIA ER PO SCH (10:15)
[2018-08-10] MEDS: MIRALAX PO SCH ×2 (10:16→21:52)
[2018-08-10] MEDS: LACTULOSE PO SCH (10:16)
[2018-08-10] MEDS: PERICOLACE PO SCH ×2 (10:16→21:51)
[2018-08-10] MEDS ORDERED: KLOR-CON POWDER PACKET PO ONE (10:37)
[2018-08-10] MEDS ORDERED: ZOFRAN IV PRN (13:35)
[2018-08-10] MEDS: LIPITOR PO SCH (21:51)
[2018-08-10] MEDS: SINGULAIR PO SCH (21:51)
[2018-08-11] MEDS: D5 1/2 NS 1,000 ML IV SCH (04:28)
[2018-08-11] MEDS: MAXIPIME 2 GM in NS 100 ML IV SCH ×3 (05:42→22:52)
--- NOTE | 2018-08-11 08:30 | PROGRESS NOTE ---
DATE: 08/09/2018 SUBJECTIVE: This patient had an episode of fever during the night around 03:44 in the morning at 101.3. He still complained of some abdominal discomfort but compared with yesterday he feels better. I contacted Dr. Sanchez, and also I asked for a new x-ray, urine culture and blood culture. The x-ray did not show any pneumonia or congestive failure. He has been tolerating a little bit better his food. OBJECTIVE: Vital Signs: Temperature 97.8, pulse 66, respiratory rate 16, blood pressure 150/78. Oxygen saturation 100% on room air. HEENT: Normocephalic and atraumatic. PERRLA. Neck is supple. No JVD. No masses. Central trachea. Chest clear to auscultation. No wheezing and no rales. Abdomen is soft. Nontender. Nondistended. No hepatosplenomegaly. Extremities: No edema. No clubbing. No cyanosis. Neurological: The patient is alert and awake. He is oriented times 3 with generalized weakness. Abdominal discomfort. LABORATORY: WBC 5.8, hemoglobin 9.1, hematocrit 28.8, and platelets 210,000. Sodium 139, potassium 3.4, chloride 107, bicarbonate 25, BUN 12, creatinine 0.6, glucose 94, calcium 7.9, ASSESSMENT AND PLAN: 1. Bilateral hydronephrosis. This patient's double J stent has been changed around 1 week prior to admission. CT scan showed hydronephrosis. He was evaluated by the Urology Department and they did not recommend to do anything new at this moment. The double-J stent is in the proper position. He has a normal kidney function. His urine is getting clear. Since he has been having problems to urinate, the Urology Department tried to teach him how to do a clean intermittent catheterization to himself but he declined this. Also, they discussed the possibility of placing a suprapubic catheter in the future. They will change the double -J stent in December of 2018. 2. Lower abdominal pain and bladder spasm, resolved. 3. Chronic constipation improved with bowel regimen. 4. Hypokalemia. I will replace the potassium. 5. BPH. Continue Flomax. 6. Nausea and vomiting. This is a little bit better compared with yesterday. He is not vomiting today. He is tolerating some liquids. 7. Physical deconditioning and generalized weakness. Continue the physical therapy. 8. Hypophosphatemia, resolved. 9. Pseudomonas urinary tract infection. This patient has been placed on cefepime. Also, we placed a PICC line. We will continue with the same management. The plan is to continue with Cefepime at home. 10. Overall, this patient is doing a little bit better compared with yesterday when he had an episode of nausea and vomiting. Today, he had fever. It was around 04:00 in the morning. He is still having some abdominal discomfort but getting better. He is tolerating mostly liquids. No nausea today. The problem with this patient is that he cannot take care of himself at home. He has a power of faculty research physician and also a friend that probably can help him. Case has been discussed with a community mental health social worker, and it looks like he does not qualify for placement. For now, we will continue with the same management, and we need to make sure that this patient's blood culture and urine cultures are okay. I discussed the case with the Infectious Disease Department, Dr. Sanchez. He is aware of the case and he will evaluate the patient. cc: Otoniel Mata MD
[2018-08-11] MEDS: ZOLOFT PO SCH (09:57)
[2018-08-11] MEDS: FLOMAX PO SCH ×2 (09:57→22:52)
[2018-08-11] MEDS: PROCARDIA ER PO SCH (09:57)
[2018-08-11] MEDS: ASPIRIN PO SCH (09:57)
[2018-08-11] MEDS: LACTULOSE PO SCH (10:11)
[2018-08-11] MEDS: PERICOLACE PO SCH ×2 (10:11→22:52)
[2018-08-11] MEDS: MIRALAX PO SCH ×2 (10:12→22:52)
[2018-08-11] MEDS ORDERED: PHENERGAN PO PRN (11:31)
[2018-08-11] MEDS ORDERED: MYLICON DROPS PO PRN (11:41)
--- NOTE | 2018-08-11 11:59 | Diag Imaging Result Doc PS360 ---
KUB ABDOMEN - 08/11/2018 INDICATION: nausea, vomiting. COMPARISON: 07/31/2018 FINDINGS: There are stable bilateral nephroureteral stents in good position. There is significant constipation with severe fecal impaction of the entire descending colon. No significant rectal gas or stool. There is top normal size small bowel. IMPRESSION: Severe constipation with fecal impaction of the descending colon. Electronically signed by Roldan Mayorga 08/11/2018 11:57 AM
--- NOTE | 2018-08-11 12:04 | INFECTIOUS DISEASE PROGRESS NO ---
DATE: 08/09/2018 PRESENT ILLNESS: The patient has a Pseudomonas urinary tract infection. This morning, the patient had a temperature up to 102 degrees. MEDICATIONS: This is the 4th day of treatment with cefepime. PHYSICAL EXAMINATION: Vital Signs: Temperature earlier was 102. Now it is 98. Pulse 58, respirations 14, blood pressure 147/63. General: This is a chronically ill-appearing elderly male. He is in no acute distress. Head, eyes, ears, nose, and throat: He can hear my spoken words and see near objects. He does not have any white coating on his tongue. Neck: The patient is not experiencing any neck pain when he moves his head or his neck. Lungs: Clear to auscultation. Cardiovascular: Heart rate is regular. Abdomen: Soft and nontender. Extremities: The patient has a PICC in his left arm. The site is not erythematous or draining. Neurologic: The patient is awake. He can carry on a coherent conversation. He can move his extremities. He does not have a tremor. LAB AND X-RAY: Chest x-ray shows no pneumonia or congestive heart failure. Blood cultures are pending. CBC: There are no other laboratory studies. ASSESSMENT AND PLAN: Patient has Pseudomonas urinary tract infection. My plan is to continue with cefepime. Blood cultures have been ordered and also a urine culture will be repeated. In the meantime, I will continue with cefepime. Blood cultures and a urine culture have been ordered in addition to the chest x-ray. COMORBIDITIES: The patient is elderly. He has had stents placed in his ureters and a continuous indwelling Ramos catheter. cc: Maxwell Sanchez MD
[2018-08-11] MEDS: ZANTAC PO SCH (13:07)
--- NOTE | 2018-08-11 19:27 | INFECTIOUS DISEASE PROGRESS NO ---
DATE: 08/11/2018 PRESENT ILLNESS: The patient has a Pseudomonas urinary tract infection. MEDICATIONS: The patient is receiving cefepime. The patient has received 10 days of treatment with cefepime. PHYSICAL EXAMINATION: Vital Signs: Temperature is 98 degrees, pulse 67, respirations 16, blood pressure 119/66. General: This is a chronically ill-appearing, elderly male. He is in no acute distress. Head, Eyes, Ears, Nose, Throat: He can hear my spoken words and see near objects. He is missing most of his teeth and the teeth he does have show poor dental hygiene. He does not have any white coating on his tongue. Neck: There is no pain in the neck when the patient moves his neck or his head. Lungs: Clear to auscultation. Cardiovascular: Heart rate is regular. Abdomen: Soft and nontender. Extremities: Patient has a PICC in the left arm. The site is not erythematous or purulent. Neurologic: The patient is alert. He can move his extremities. There is no tremor. LAB AND X-RAY: There is no new lab for today and no new radiographic study for today. ASSESSMENT AND PLAN: The patient has Pseudomonas urinary tract infection. He has stents in his ureters. The patient has had 10 days of intravenous cefepime, and so he will only need 4 more days of treatment to complete a 2-week treatment course. COMORBIDITIES: The patient is elderly. He has had stents placed in both ureters and he has an indwelling Ramos catheter. cc: Maxwell Sanchez MD
--- NOTE | 2018-08-11 19:51 | PROGRESS NOTE ---
DATE: 08/11/2018 INTERVAL HISTORY: The patient still with complaints of nausea, although no vomiting despite increasing Zofran. No abdominal pain. No reflux. No new medications. No diarrhea, although he does state bowel movements are loose; he is only having 1 to 2 a day. No other new complaints. No acute events overnight. REVIEW OF SYSTEMS: Twelve point review of systems negative except as per interval history. IMAGING: Abdominal x-ray showing ongoing severe constipation with colonic fecal impaction. VITAL SIGNS: T-max 98.0, pulse 71, respirations 14, blood pressure 126/62, O2 saturation 99% on room air. PHYSICAL EXAMINATION: General: No acute distress. Chronically ill appearing. Vital signs: As above. HEENT: Normocephalic, atraumatic. Moist mucous membranes. Poor dentition. Cardiovascular: Regular rate and rhythm. No murmurs, rubs, or gallops. Pulmonary: Clear to auscultation bilaterally. No wheezing, rales, or rhonchi. Abdomen: Soft, nondistended. Minimal diffuse tenderness without rebound or guarding. Bowel sounds decreased but present. Extremities: Peripheral pulses intact. No clubbing or cyanosis. Neurologic: Cranial nerves grossly intact. Moderate global weakness, but no focal deficits identified. Psychiatric: Normal mood and affect. Awake, alert, oriented x3. Skin: No new rashes or lesions identified. ASSESSMENT AND PLAN: 1. Bilateral hydronephrosis. Patient with double-J stents placed approximately a week prior to admission. CT showed ongoing hydronephrosis, but Urology evaluated and felt this was an expected finding for his recent stents and note that no acute intervention was needed. Stents to be replaced in December. Patient has refused intermittent self catheterization. 2. Lower abdominal pain and bladder spasms, resolved. 3. Chronic constipation. The patient's bowel movements have picked up with bowel regimen and this was thought to be improved, but x-ray today showing extensive constipation and fecal impaction. Already on pretty extensive p.o. regimen. Will likely have to give enemas to attempt to clean him out. This may be the source of his nausea. 4. Benign prostatic hypertrophy. Continue Flomax. 5. Nausea and vomiting. Some improvement with a change in anti medics, but may be related to severe constipation as above. Will likely have to give enemas to try to clean him out. 6. Pseudomonas urinary tract infection. The patient has been on cefepime. PICC line in place. Plans for home IV antibiotics in place. 7. Disposition. We will try to resolve fecal impaction. Suspect this will resolve his nausea without vomiting. This can be done and then hopeful for discharge tomorrow.
[2018-08-11] MEDS: LIPITOR PO SCH (22:52)
[2018-08-11] MEDS: SINGULAIR PO SCH (22:52)
[2018-08-12] MEDS: D5 1/2 NS 1,000 ML IV SCH (01:52)
[2018-08-12] MEDS: MAXIPIME 2 GM in NS 100 ML IV SCH ×2 (06:03→14:18)
--- NOTE | 2018-08-12 09:31 | PROGRESS NOTE ---
DATE: 08/12/2018 SUBJECTIVE: The patient was admitted on 07/29/2018 with bladder spasms. His primary doctor is Dr. Elizabeth Escalante. A 78-year-old with a medical history of kidney stones, double-J stents placed per Dr. Kaur. Most recent being the before admission. He has continuous Ramos catheter. States that the night before admission on 07/29/2018, he had wetness in his bed. The catheter apparently had been disconnected from each other and he was having bladder spasms. The health nurse came to the house about 3 a.m. and change the Ramos catheter for him. Due to the fact the catheter was changed, he had no urine output. Imaging here reveals the bulb was actually along the level of the urethra and the prostate had advanced. He did have some urine output on presentation. The bladder spasm somewhat decreased. He did have some constipation. PAST MEDICAL HISTORY: 1. Carotid artery disease bilaterally with history of left carotid endarterectomy. 2. Coronary artery disease with history of CABG. 3. Hypertension. 4. Hyperlipidemia. 5. Depression. 6. Failure to thrive. 7. Kidney stone history with a history of double-J stent, nephrostomy tube and continuous indwelling catheter per Dr. Kaur. 8. Benign prostatic hypertrophy. 9. History of TIA and CVA. 10. Chronic constipation. 11. Grade 1 diastolic dysfunction, congestive heart failure. OBJECTIVE: General: He is doing better. Feels good. Vital Signs: Today temperature is 98.0, pulse 74, respirations 20, blood pressure 142/61. HEENT: Pupils are equal round. Lungs: Clear in all lung moore. Cardiovascular: Regular rhythm and rate without murmur. URINE OUTPUT: Looks like it was almost 5.5 L. ASSESSMENT AND PLAN: 1. Bilateral hydronephrosis, double-J stent had been changed about a week prior to admission. CT scan showing hydronephrosis, but he was evaluated by urology department. Nothing else. No further intervention. Double-J stents are in the proper position. He has normal kidney function. His urine is getting clear and hematuria has decreased. The patient has declined to learn how to do intermittent catheterizations and so they discussed the possibility of placing a suprapubic catheter. They changed the double-J stent in December 2018. 2. Lower abdominal pain, bladder spasm this is resolved. 3. Chronic constipation, which is improved. 4. Hypokalemia. He was supplemented and this resolved. 5. Hypertension, stable. 6. Benign prostatic hypertrophy. He is on Flomax so we are looking at discharge planning, so hopefully can be discharged today. We will see what the plans are. cc: Edward Jonas MD
[2018-08-12] MEDS: ASPIRIN PO SCH (10:31)
[2018-08-12] MEDS: ZOLOFT PO SCH (10:31)
[2018-08-12] MEDS: FLOMAX PO SCH (10:31)
[2018-08-12] MEDS: PROCARDIA ER PO SCH (10:31)
[2018-08-12] MEDS: LACTULOSE PO SCH (10:34)
[2018-08-12] MEDS: PERICOLACE PO SCH (10:34)
[2018-08-12] MEDS: ZANTAC PO SCH (10:34)
[2018-08-12] MEDS: MIRALAX PO SCH (10:34)
--- NOTE | 2018-08-12 13:52 | DISCHARGE SUMMARY ---
ADMISSION DATE: 07/29/2018 DISCHARGE DATE: 08/12/2018 HOSPITAL COURSE: A patient of Dr. Elizabeth Sullivan. A 78-year-old male with medical history of kidney stones. A double-J stent placed by Dr. Kaur most recently being this past . He has a continuous Ramos catheter. States that the night before admission on 07/29/2018, he had wetness in the bed, and the catheter appeared to be disconnected having spasms in his bladder. Home health came to the house about 3 a.m., changed his Ramos catheter. No urine output, so came here to the emergency room. The ball was actually along the level of the urethra of the prostate and was advanced and had pretty good output. His bladder spasm seemed to decrease some, so was admitted. PAST MEDICAL HISTORY: 1. Carotid artery disease bilateral with history of left carotid endarterectomy. 2. Coronary artery disease with history of CABG. 3. Hypertension. 4. Hyperlipidemia. 5. Depression. 6. Failure to thrive. 7. Kidney stone history with history of double-J stent, nephrostomy tube, continuous indwelling catheter managed per Dr. Kaur. 8. Benign prostatic hypertrophy. 9. History of TIA and CVA. 10. Chronic constipation. 11. Grade 1 diastolic left ventricular dysfunction ADMISSION DIAGNOSES: 1. Complains of bladder spasms secondary to malplacement of urinary catheter at the level of prostate and bladder spasm. Diminished and is doing much better. Continue his Ramos catheter. 2. Urinary tract infection, treated. Cultures grew Pseudomonas and the patient was treated with cefepime, and will need another 3 days of cefepime. So, we will set this up for him to go home. 3. Bilateral hydronephrosis. He has double-J stents placed per Dr. Kaur. 4. History of chronic constipation and start him on some MiraLAX and Colace and Rachelle Colace. He refused the enemas, but we will send him home with these prescriptions. 5. Hypokalemia. This was replaced. 6. Hypomagnesemia. This was supplemented. 7. History of coronary artery disease. No chest pain. 8. History of hypertension. 9. Benign prostatic hypertrophy. Aware. DISCHARGE MEDICATIONS: Aspirin 325 mg a day, Lipitor 40 mg at bedtime, [place] 7.5 q. 4 hours p.r.n. pain, lactulose 30 mL p.o. daily, Singulair 10 mg a day, Procardia ER 60 mg a day, MiraLAX 17 g p.o. b.i.d., Zantac 150 mg a day, Rachelle Colace 2 p.o. b.i.d., Zoloft 50 mg a day, Mylicon drops 40 mg daily p.r.n. indigestion, Flomax 0.4 mg b.i.d. He will continue cefepime. Has a PICC line in and go home with cefepime. He will have a total I think just a couple more days. cc: Edward Jonas MD
--- NOTE | 2018-08-12 15:38 | INFECTIOUS DISEASE PROGRESS NO ---
DATE: 08/12/2018 PRESENT ILLNESS: Patient has a Pseudomonas urinary tract infection. MEDICATIONS: The patient is receiving cefepime. This is day 11 of treatment with cefepime. PHYSICAL EXAMINATION: Vital Signs: Temperature is 98 degrees, pulse 74, respirations 20, blood pressure 142/61. General: This is a chronically ill-appearing, elderly male. He is in no acute distress. Head, eyes, ears, nose, and throat: He can hear my spoken words and see near objects. He is missing most of his teeth and the teeth he does have are in poor state of dental hygiene. Neck: He does not have any pain in the neck when he moves his head or neck. Lungs: Clear to auscultation. Cardiovascular: Heart rate is regular. Abdomen: Abdomen and flanks soft and nontender. Extremities: Patient has a PICC in the left arm. The site is not erythematous or purulent. Neurologic: The patient is alert. He can move his extremities. There is no tremor. LAB AND X-RAY: There is no new lab or radiographic studies planned for today. ASSESSMENT AND PLAN: The patient has Pseudomonas urinary tract infection. This is day 11 of treatment with cefepime. He will need 3 more days of treatment to complete a 2-week treatment course. The patient is supposed to be going home today. I had discussed with the social media coordinator yesterday that the patient will only need from today 3 more doses of cefepime to complete the 14- day treatment course. I have also put in a note for the social media coordinator that the patient should have his PICC removed after the last dose of cefepime by the nurse who will be coming to the patient's home. COMORBIDITIES: The patient is elderly. He has had stents placed in his ureters and he has a chronic indwelling Ramos catheter. cc: Maxwell Sanchez MD
[2018-08-12 15:47] VITALS: BP 133/64
--- NOTE | 2018-08-12 22:33 | PROGRESS NOTE ---
DATE: 08/10/2018 INTERVAL HISTORY: Patient still with some nausea but no vomiting. No diarrhea, fevers, chills, dyspnea, chest pain or cough. No recurrence of his abdominal pain. No acute events overnight. No other new complaints. REVIEW OF SYSTEMS: A 12-point review of systems is negative except as per interval history. LABORATORY DATA: Sodium 139, potassium 3.3, BUN 12, creatinine 0.6. PHYSICAL EXAMINATION: Vital Signs: T max 98.4, pulse 60, respirations 16, blood pressure 132/58, 02 saturation 97% on room air. General: No acute distress, chronically ill appearing. HEENT: Normocephalic, atraumatic. Moist mucous membranes. Poor dentition. Neck: No cervical adenopathy. Cardiovascular: Regular rate and rhythm. No murmurs, rubs, or gallops noted. Pulmonary: Clear to auscultation bilaterally. No wheezes, rales, or rhonchi. Abdomen: Soft, nontender, nondistended. Bowel sounds positive. Extremities: Peripheral pulses intact. No clubbing or cyanosis. Neurologic: Cranial nerves grossly intact. Globally weak but no focal deficits. Psychiatric: Normal mood and affect. Awake, alert and oriented x3. Skin: No new rashes or lesions identified. ASSESSMENT/PLAN: 1. Bilateral hydronephrosis. The patient's double-J stent was changed 1 week prior to admission. Still with some hydronephrosis on admission, but was evaluated by Urology, and they felt it was reasonable given his history and recent procedure. They did not feel additional intervention was needed. Stents remain in position. Kidney function has been reasonable. Will need to have his stents replaced in December. 2. Urinary tract infection with Pseudomonas. The patient is on cefepime, which will continue to the . Patient with PICC line in place. If nausea issues can be resolved, then will plan on discharge home with IV antibiotics. 3. Lower abdominal pain and bladder spasm, resolved. 4. Chronic constipation, improved with bowel regimen. 5. Hypokalemia. Still some low potassium. Will further replete and monitor. 6. Hypertension. Reasonable control. Continue current therapy. 7. Benign prostatic hypertrophy. Continue Flomax. 8. Nausea. No vomiting with this nausea. Will increase his Zofran and monitor. 9. Physical deconditioning and generalized weakness. Patient declined by long-term acute care. Patient refuses rehab. The current plan is to discharge home with home health, possibly tomorrow if his nausea is improved.
--- NOTE | 2018-08-13 10:45 | INFECTIOUS DISEASE PROGRESS NO ---
DATE: 08/10/2018 PRESENT ILLNESS: Patient has a Pseudomonas urinary tract infection. MEDICATIONS: This is 7th day of treatment with cefepime. PHYSICAL EXAMINATION: Vital Signs: Temperature is 98.4 degrees, pulse 60, respirations 16, blood pressure 132/58. General: This is a chronically ill-appearing, elderly male. He is in no acute distress. Head, eyes, ears, nose, and throat: He can hear my spoken words and see near objects. He has poor oral hygiene. There is no drainage coming from his nose or ears. Neck: He does not have any pain in the neck when he moves his head or neck. Lungs: Clear to auscultation. Cardiovascular: Heart rate is regular. Abdomen: Abdomen and flanks soft and nontender. Extremities: Patient has a PICC in the left arm. The site is not erythematous or purulent. LAB AND X-RAY: There is no new radiographic studies, Repeat urine culture is negative. Blood cultures were drawn today. The result of course is pending. ASSESSMENT AND PLAN: The patient has Pseudomonas urinary tract infection. The plan is to send the patient home tomorrow. He will need 7 more days of treatment to complete a 2-week treatment course. COMORBIDITIES: The patient is elderly. He has a history of having stents placed he has also has a continuous indwelling Ramos catheter. cc: Maxwell Sanchez MD
== END 2018-08-12 18:20 | disposition home health service (06) | DRG 699 ==
LOC: SUPCPDRO → ED 11:08 → SUATTDRO 13:52 → 4N 14:26
PROVIDERS: ATTEND Emergency Medicine
CPT/HCPCS: 36569; 36584; 71010; 71045; 74000; 74018; 74176; 80048; 80053; 81001; 82550; 83690; 83735; 84100; 84484; 85025; 85610; 85730; 87040; 87077; 87088; 87186; 87324; 87449; 93005; 94760; 94761; 94799; 96365; 96375; 97110; 97116; 97162; 97530; 99285; A9270; J0692; J2405; J3475; J3480; J7030; J7040; J7050

== ENCOUNTER 2018-09-27 10:36 | Inpatient (IN) ==
[2018-09-27] MEDS ORDERED: BOOSTRIX VACCINE IM ONE (11:03)
--- NOTE | 2018-09-27 11:04 | PROVIDER DOCUMENTATION ---
HPI-Head Injury - General Chief Complaint: Head Injury Stated Complaint: fall Time Seen by Provider: 09/27/18 10:37 Source: patient Allergies/Adverse Reactions: Patient Allergies Allergy/AdvReac Type Severity Reaction Status Date / Time Penicillins Allergy Unknown Verified 07/22/18 10:59 Home Medications: Home Medication List Medication Instructions Recorded Confirmed Last Taken Type Acetaminophen [Acetaminophen Extra 500 mg PO Q6H PRN PRN 03/20/17 07/30/18 07/18/18 History Strength] Montelukast Sodium 10 mg PO HS 07/24/17 07/30/18 07/18/18 History ATORVAstatin [Lipitor] 40 mg PO QHS tab 05/20/18 07/30/18 07/18/18 Rx Metoprolol [Lopressor] 25 mg PO BID tab 05/20/18 07/30/18 07/18/18 Rx Tamsulosin [Flomax] 0.4 mg PO BID cap 05/20/18 07/30/18 07/18/18 Rx Citalopram [Celexa] 1 tab PO DAILY 06/11/18 07/30/18 07/18/18 History Sertraline [Zoloft] 50 mg PO DAILY 06/12/18 07/30/18 07/18/18 History Nifedipine E.r. 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 States, "I have been losing my balance and falling a lot for about 4 months now. I was walking with my walker to empty my catheter and lost my balance again and fell onto my left side and hit my head on the shower." Denies LOC or any other pain or injuries. No chest pain, SOB, or syncope. Review of Systems - Adult - REVIEW OF SYSTEMS - ADULT Constitutional: reports: no symptoms reported Eyes: reports: no symptoms reported Ears, Nose, Mouth & Throat: reports: no symptoms reported Cardiovascular: reports: no symptoms reported Respiratory: reports: no symptoms reported Gastrointestinal: reports: no symptoms reported Genitourinary: reports: no symptoms reported Musculoskeletal: reports: no symptoms reported Integumentary: reports: see HPI (skin tear- scalp) Neurological: reports: see HPI (loss of balance/head injury) Psychiatric: reports: no symptoms reported Endocrine: reports: no symptoms reported Hematologic/Lymphatic: reports: no symptoms reported Allergic/Immunologic: reports: no symptoms reported All Other Systems: Reviewed and Negative Past History - Adult - PAST MEDICAL HISTORY-ADULT Review of Records: reports: Old Records Reviewed, Nursing Assessment Review, Med ications Reviewed, Social history reviewed & non-contributory. Major Childhood Illnesses: reports: denies history Cardiovascular: reports: CAD, HTN, hyperlipidemia, PAD Respiratory: reports: denies history Gastrointestinal: reports: denies history Obstetrical/Gynecological: reports: denies history Genitourinary: reports: kidney stones Musculoskeletal: reports: denies history Neurological: reports: CVA, TIA Psychiatric: reports: anxiety Endocrine/Immune: reports: denies history Other Conditions: reports: denies history - PRIOR SURGERIES/PROCEDURES Surgical/Procedure History: reports: reviewed, not pertinent, CABG (year 1999) - IMMUNIZATION STATUS Childhood Immunizations: See Nurse Assessment Flu Vaccine: See Nurse Assessment - FAMILY HISTORY Family History: reviewed, not pertinent - SOCIAL HISTORY Smoking: non-smoker Physical Exam- Neurological - Physical Exam-Neuro Initial Vital Signs Reviewed: Yes General Appearance: alert, no apparent distress. negative: lethargic, slow to respond Eye Exam: bilateral eye: normal inspection, PERRL, EOMI HENMT: moist mucous membranes Head Injury: negative: Carolina's Sign, raccoon eyes Neck: non-tender, full range of motion, supple, normal inspection. negative: C- spine tenderness (no stepoff) Respiratory: chest non-tender, lungs clear, normal breath sounds, no pleuratic chest pain, no respiratory distress, no accessory muscle use, other (no ecchymoses noted to torso). negative: pain on inspiration, splinting, crepitus Cardiovascular: normal peripheral pulses, regular rate, rhythm, no edema, no gallop, no JVD, no murmur Abdominal Exam: normal bowel sounds, non tender, soft, other (indwelling urinary catheter in place and draining well). 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 negative: abnormal pupil po sition, abnormal speech, facial asymmetry, facial droop Motor/Sensory: no motor deficit, no sensory deficit Neurologic: grossly normal, no motor/sensory deficits Integumentary: normal color, warm/dry, other (skin tear noted to upper occipital region of scalp, bleeding controlled). negative: cyanosis, diaphoresis, jaundice, mottled, pallor Psych/Mental Status: normal mood/affect, normal thought content, normal thought process, other (Pt alert to place and self) - Glascow Coma Scale Best Eye Response: (4) open spontaneously Best Verbal Response: (5) oriented Best Motor Response: (6) obeys commands Progress - PLAN OF CARE/RESULTS Progress/Plan/Lab Results: Vital Signs - 8 hr 09/27/18 10:40 Pulse Rate 73 Respiratory Rate 18 Blood Pressure 117/69 O2 Sat by Pulse Oximetry 98 Laboratory Results - last 24 hr 09/27/18 09/27/18 09/27/18 11:40 11:40 11:40 WBC 6.56 RBC 3.28 L Hgb 9.9 L Hct 30.5 L MCV 93.0 MCH 30.2 MCHC 32.5 L RDW Std Deviation 13.8 Plt Count 350 MPV 9.4 Immature Gran % (Auto) 1.4 H Neut % (Auto) 78.9 H Lymph % (Auto) 11.3 L Lasalle % (Auto) 4.9 Eos % (Auto) 3.2 Baso % (Auto) 0.3 Immature Gran # (Auto) 0.09 H Neut # (Auto) 5.18 Lymph # (Auto) 0.74 L Lasalle # (Auto) 0.32 Eos # (Auto) 0.21 Baso # (Auto) 0.02 PT 15.6 INR 1.22 PTT (Actin FS) 52.8 H Sodium 140 Potassium 3.7 Chloride 105 Carbon Dioxide 22 L Anion Gap 13 BUN 16 Creatinine 0.8 Estimated GFR/1.73 m2 > 60 BUN/Creatinine Ratio 20 Glucose 95 Calculated Osmolality 280 Calcium 9.0 Magnesium 1.8 Total Bilirubin 0.26 AST 20 ALT 18 Alkaline Phosphatase 71 Total Protein 6.4 Albumin 2.9 L Globulin 3.5 Albumin/Globulin Ratio 0.8 Urine Source Urine Color Urine Turbidity Urine pH Ur Specific Gifford Urine Protein Ur Glucose (Stick) Ur Ketones (Stick) Urine Blood Urine Nitrite Urine Bilirubin Urobilinogen Dipstick Urine Leukocytes Urine WBC (Auto) Urine RBC (Auto) U Epithel Cells (Auto) Urine Bacteria (Auto) Urine Crystals Small Round Cells Urine Casts Urine Yeast-like Cells 09/27/18 11:40 WBC RBC Hgb Hct MCV MCH MCHC RDW Std Deviation Plt Count MPV Immature Gran % (Auto) Neut % (Auto) Lymph % (Auto) Lasalle % (Auto) Eos % (Auto) Baso % (Auto) Immature Gran # (Auto) Neut # (Auto) Lymph # (Auto) Lasalle # (Auto) Eos # (Auto) Baso # (Auto) PT INR PTT (Actin FS) Sodium Potassium Chloride Carbon Dioxide Anion Gap BUN Creatinine Estimated GFR/1.73 m2 BUN/Creatinine Ratio Glucose Calculated Osmolality Calcium Magnesium Total Bilirubin AST ALT Alkaline Phosphatase Total Protein Albumin Globulin Albumin/Globulin Ratio Urine Source CATH Urine Color ORANGE Urine Turbidity TURBID Urine pH 6.5 Ur Specific Gifford 1.011 Urine Protein 100 A Ur Glucose (Stick) NEGATIVE Ur Ketones (Stick) NEGATIVE Urine Blood LARGE A Urine Nitrite POSITIVE A Urine Bilirubin NEGATIVE Urobilinogen Dipstick NORMAL Urine Leukocytes LARGE A Urine WBC (Auto) TNTC A Urine RBC (Auto) TNTC A U Epithel Cells (Auto) <10 Urine Bacteria (Auto) NEGATIVE Urine Crystals Not Reportable Small Round Cells Not Reportable Urine Casts NONE SEEN Urine Yeast-like Cells NONE SEEN Orders Category Date Time Status Apply Steri Strips DIRECTED Care 09/27/18 12:51 Active Cleanse wound with ORDERED Care 09/27/18 10:59 Active Misc. NRSG Communication Order DIRECTED Care 09/27/18 12:41 Active Nursing- Obtain EKG ONCE Care 09/27/18 10:58 Active Saline Loc NOW Care 09/27/18 10:59 Active CHEST-2 VIEWS [RAD] Stat Exams 09/27/18 10:[address] HEAD/C-SPINE W/O CONTRAST [CT] Stat Exams 09/27/18 10:57 Completed BLOOD CULTURE [BLDCUL] Stat Lab 09/27/18 12:41 Uncollected CBC WITH DIFF [HEME] Stat Lab 09/27/18 11:40 Completed COMPREHENSIVE METABOLIC PANEL [CHEM] Stat Lab 09/27/18 11:40 Completed MAGNESIUM [CHEM] Stat Lab 09/27/18 11:40 Completed PROTIME WITH INR [COAG] Stat Lab 09/27/18 11:40 Completed PTT [COAG] Stat Lab 09/27/18 11:40 Completed UA NIMS W/REFLEX CULT [URINALYSIS] Stat Lab 09/27/18 11:40 Completed URINE CULTURE [RM] Routine Lab 09/27/18 12:49 Ordered URINE MANUAL MICROSCOPIC [URINALYSIS] Stat Lab 09/27/18 11:40 Completed Ciprofloxacin 400 mg/D5w [Cipro 400 mg/D5w] Med 09/27/18 12:41 Active 400 mg in 200 ml IV NOW Diph,Pertuss(Acell),Tet Vac/Pf [Boostrix Vaccine] Med 09/27/18 11:03 Discontinued 0.5 ml IM .ONCE ONE EKG [EKG] Stat Ther 09/27/18 10:58 Ordered Result Diagrams: 09/27/18 11:40 09/27/18 11:40 - REASSESSMENT Reassessment #1 Time Reassessed: 12:56 Status: other (Anemia stable as compared to prior results. Pt in agreement with admission plan. Spoke with power of contracts attorney who states that pt has been on Omnicef since Thursday for UTI.) - EKG 1 Time of EKG reading by physician:: 12:09 EKG Read and Signed by:: Kp Cole EKG Interpretation (*Must complete 3 of following elements*): Abnormal Rate: 65 Rhythm: NSR- septal infarct, age undetermined QRS: normal - XRAY 1 XRAY Study: Chest ([facility] - [address], [address] [address] [facility] - [address] [place] [address] Department of Imaging Patient: INDY RODRIGUEZ Date: 09/27/18MR#: [id number] : 1940ADM Status: PRE ERAcct#: [id number] Age/Sex: 78/MRoom/Bed: Loc: ED Ordering Physician: Trevor Zarate Family Physician: Elizabeth Sullivan MD Reason for Procedure: frequent falls Signed EXAM: CHEST-2 VIEWS 09/27/2018 HISTORY: frequent falls TECHNIQUE: PA and lateral chest COMMENT: There is a calcified granuloma in the right upper lobe. The heart size and primary vascularity are within normal limits. Compared to 08/09/2018, the inspiration is better. The PICC line has been removed. IMPRESSION: No evidence of acute disease. Electronically signed by Byron Eubanks 09/27/2018 11:33 AM 09/27/18 1133 Interpreting Physician: Byron Eubanks MD Dictated Date/Time: 09/27/18 1132 cc: Trevor Zarate; Elizabeth Sullivan MD) - CT/MRI 1 CT Study: Head ([facility] - [address] [facility], [address] [place] [id number] [facility] - [address] [place] [address] Department of Imaging Patient: INDY RODRIGUEZ Date: 09/27/18MR#: [id number] : 1940ADM Status: PRE ERAcct#: [id number] Age/Sex: 78/MRoom/Bed: Loc: ED Ordering Physician: Trevor Zarate Family Physician: Elizabeth Sullivan MD Reason for Procedure: fall, head injury Signed EXAM: CT HEAD/C-SPINE W/O CONTRAST 09/27/2018 HISTORY: fall, head injury TECHNIQUE: This exam was performed using automated exposure control, adjustment of mA or kV according to patient size, and/or use of iterative reconstruction technique. COMMENT: There is no evidence of mass effect, bleed, abnormal extra-axial fluid collection, or hydrocephalus. There is abnormal lucency in the periventricular white matter of both frontal lobes and also in the norwood radiata region and centrum semiovale ovale on the right. These findings were also present on 06/11/2018. There are vascular calcifications in the vertebral and internal carotid arteries. The calv arium is intact. The visualized paranasal sinuses are clear. Cervical spine: There is no evidence of acute fracture or subluxation. There is no evidence of prevertebral soft tissue swelling. There is facet arthropathy on the left side at C2-3 C3-4 C4-5 and C5-6 and to some extent at C7-T1. There is facet arthropathy on the left side primarily at the C4-5 level. IMPRESSION: Chronic ischemic changes. No evidence of acute intracranial disease. Degenerative facet changes as described. Electronically signed by Byron Eubanks 09/27/2018 11:52 AM 09/27/18 1152 Interpreting Physician: Byron Eubanks MD Dictated Date/Time: 09/27/18 1149 cc: Trevor Zarate; Elizabeth Sullivan MD) - CONSULTS/PCP/HOSPITALIST Notification #1 *Consult/PCP/Hospitalist*: SHERLYN Henning DATA INTEGRITY CONSULTANT Time Discussed: 12:57 Reason/Comments: admission- UTI (failed outpatient treatment), frequent falls Consult Disposition: Will see in ED, Admit (to Dr. Jonas) Departure - Departure Date of Disposition Decision: 09/27/18 Time of Disposition Decision: 12:58 DIAGNOSIS: Frequent falls, Failure of outpatient treatment Urinary tract infection Qualifiers: Urinary tract infection type: catheter-associated UTI Indwelling urinary catheter type: indwelling urethral catheter Encounter type: subsequent encounter Qualified Code(s): T83.511D - Infection and inflammatory reaction due to indwelling urethral catheter, subsequent encounter; N39.0 - Urinary tract infection, site not specified Disposition: ADMITTED INPATIENT 09 Certified Medical Emergency: Emergent Condition: Stable Referrals and Follow-Ups: Elizabeth Sullivan MD [Primary Care Provider] - - Critical Care Note This patient required my direct & personal management of CC.: No Attestation - Physician/ HERBIE Attestation Patient care was provided by Advanced Practice Provider:: Yes Advanced Practice Provider:: Trevor Zarate Advanced Practice Provider documentation review:: The Mid-level provider casey bullard, treatment plan and medical decision making was reviewed by the physician who agrees with all treatment and medical decision making by the MLP. The physician spent face to face time with patient:: No Advanced Practice Provider documentation review:: Supervising physician onsite and consulted in the evaluation and care of this patient. The physician did not have a face to face encounter with the patient.
--- NOTE | 2018-09-27 11:35 | Diag Imaging Result Doc PS360 ---
EXAM: CHEST-2 VIEWS 09/27/2018 HISTORY: frequent falls TECHNIQUE: PA and lateral chest COMMENT: There is a calcified granuloma in the right upper lobe. The heart size and primary vascularity are within normal limits. Compared to 08/09/2018, the inspiration is better. The PICC line has been removed. IMPRESSION: No evidence of acute disease. Electronically signed by Byron Eubanks 09/27/2018 11:33 AM
--- NOTE | 2018-09-27 11:54 | Diag Imaging Result Doc PS360 ---
EXAM: CT HEAD/C-SPINE W/O CONTRAST 09/27/2018 HISTORY: fall, head injury TECHNIQUE: This exam was performed using automated exposure control, adjustment of mA or kV according to patient size, and/or use of iterative reconstruction technique. COMMENT: There is no evidence of mass effect, bleed, abnormal extra-axial fluid collection, or hydrocephalus. There is abnormal lucency in the periventricular white matter of both frontal lobes and also in the norwood radiata region and centrum semiovale ovale on the right. These findings were also present on 06/11/2018. There are vascular calcifications in the vertebral and internal carotid arteries. The calvarium is intact. The visualized paranasal sinuses are clear. Cervical spine: There is no evidence of acute fracture or subluxation. There is no evidence of prevertebral soft tissue swelling. There is facet arthropathy on the left side at C2-3 C3-4 C4-5 and C5-6 and to some extent at C7-T1. There is facet arthropathy on the left side primarily at the C4-5 level. IMPRESSION: Chronic ischemic changes. No evidence of acute intracranial disease. Degenerative facet changes as described. Electronically signed by Byron Eubanks 09/27/2018 11:52 AM
[2018-09-27 12:01] LABS: URINE SOURCE CATH
[2018-09-27 12:05] LABS: BASO# 0.02 X1000 (0.0-0.2); BASO% 0.3 % (0.0-0.8); EOS# 0.21 X1000 (0.0-0.7); EOS% 3.2 % (0.0-10.0); HEMATOCRIT 30.5 % (42.0-52.0); HEMOGLOBIN 9.9 g/dL (14.0-18.0); IMM GRAN# 0.09 X1000 (0.0-0.04); IMM GRAN% 1.4 % (0.0-0.5); LYMPH# 0.74 X1000 (1.2-3.4); LYMPH% 11.3 % (20.5-51.1); MCH 30.2 PG (27-31); MCHC 32.5 g/dL (33-37); MONO# 0.32 X1000 (0.11-0.59); MONO% 4.9 % (1.7-9.3); MPV 9.4 FL (7.4-10.4); NEUT# 5.18 X1000 (1.4-6.5); NEUT% 78.9 % (42.2-75.2); PLT 350 X1000 (130-400); RBC 3.28 XMIL (4.7-6.1); RDW 13.8 % (11.5-14.5); WBC 6.56 X1000 (4.8-10.8)
[2018-09-27 12:21] LABS: BILIRUBIN URINE NEGATIVE (NEGATIVE); BLOOD URINE LARGE (NEGATIVE); COLOR ORANGE; GLUCOSE URINE NEGATIVE (NEGATIVE); KETONE URINE NEGATIVE (NEGATIVE); LEUKOCYTES URINE LARGE (NEGATIVE); NITRITE URINE POSITIVE (NEGATIVE); PH URINE 6.5; PROTEIN URINE 100 mg/dL (NEGATIVE); SP GRAVITY URINE 1.011; TURBIDITY URINE TURBID (CLEAR); UR EPITHELIAL CELLS <10 /HPF (<10); URINE BACTERIA NEGATIVE /HPF; URINE RBC TNTC /HPF (<10); URINE WBC TNTC /HPF (<10); UROBILINOGEN URINE NORMAL (NORMAL)
[2018-09-27 12:22] LABS: INR 1.22; PROTIME 15.6 Seconds (11.0-16.0); PTT 52.8 Seconds (22.3-41.8)
[2018-09-27 12:29] LABS: AGAP 13; ALB/GLOB RATIO 0.8; ALBUMIN 2.9 g/dL (3.5-5.0); ALKALINE PHOSPHATASE 71 U/L (32-122); BUN 16 mg/dL (8-22); CHLORIDE 105 mmol/L (98-107); COSMO 280; CREATININE 0.8 mg/dL (0.7-1.2); ESTIMATED GFR > 60; GLUCOSE 95 mg/dL (70-104); GOT 20 U/L (10-34); GPT 18 U/L (10-44); MAGNESIUM 1.8 mg/dL (1.5-2.7); POTASSIUM 3.7 mmol/L (3.5-5.1); SODIUM 140 mmol/L (136-145); TCO2 22 mmol/L (25-35); TOTAL BILIRUBIN 0.26 mg/dL (0.20-1.00); TOTAL PROTEIN 6.4 g/dL (6.3-8.3); URINE CASTS NONE SEEN; URINE YEAST NONE SEEN
[2018-09-27] MEDS ORDERED: CIPRO 400 MG/D5W 400 MG/200 ML IVPB IV ONE (12:41)
--- NOTE | 2018-09-27 13:22 | ED EKG INTERP ---
This chart was entered by Rosibel Spring Scribe, acting as scribe for Kp Cole MD. EKG Interpretation - EKG Time of EKG reading by physician:: 11:55 EKG Read and Signed by:: Kp Cole EKG Interpretation (*Must complete 3 of following elements*): Abnormal Rate: 65 Rhythm: normal sinus rhythm Croghan: normal DC Interval: normal Comments: septal infarct, age undetermined Attestation - Physician/ HERBIE Attestation Patient care was provided by Advanced Practice Provider:: Yes Advanced Practice Provider:: Trevor Zarate Advanced Practice Provider documentation review:: The Mid-level provider documentation, treatment plan and medical decision making was reviewed by the physician who agrees with all treatment and medical decision making by the P. The physician spent face to face time with patient:: No Advanced Practice Provider documentation review:: Supervising physician onsite and consulted in the evaluation and care of this patient. The physician did not have a face to face encounter with the patient. This chart was documented by the indicated scribe, (Rosibel Spring Scribe) and accurately reflects the services I performed and decisions made by Douglas olguin Donald C., MD, as attested by the provider's signature.
[2018-09-27] MEDS ORDERED: ZOFRAN IV PRN (13:43)
--- NOTE | 2018-09-27 13:56 | EKG Report ---
Test Performed on : 09/27/2018 11:55:49 AM Test Reason : frequent falls Blood Pressure : / mmHG Vent. Rate : 065 BPM Atrial Rate : 065 BPM P-R Int : 182 ms QRS Dur : 106 ms QT Int : 458 ms P-R-T Axes : 111 060 111 degrees QTc Int : 476 ms Normal sinus rhythm. Septal infarct (cited on or before 09-SEP-2016) Abnormal ECG When compared with ECG of 29-JUL-2018 11:21, premature atrial complexes. are no longer present Questionable change in initial forces of Septal leads Nonspecific T wave abnormality, improved in Lateral leads Unconfirmed Result
--- NOTE | 2018-09-27 16:17 | HISTORY AND PHYSICAL ---
PRIMARY CARE PHYSICIAN: Dr. Elizabeth Sullivan. HISTORY OF PRESENT ILLNESS: This is a 78-year-old male with a past medical history of kidney stones, double-J stents placed per Dr. Kaur, most recently being I think back in July. He has a continuous Ramos catheter. He has been a little more dizzy and weak and today he fell and so they sent him to the emergency room. He denies chest pain. Denies any new focal neurologic deficits. Denies fever or chills. PAST MEDICAL HISTORY: 1. Carotid artery disease bilateral, history of left carotid endarterectomy. 2. Coronary artery disease with history of CABG. 3. Hypertension. 4. Hyperlipidemia. 5. Depression. 6. Failure to thrive. 7. Kidney stone history with history of double-J stents, nephrostomy tube, and continuous indwelling catheter managed by Dr. Kaur. 8. Benign prostatic hypertrophy. 9. History of TIA and CVA. 10. Chronic constipation. 11. Grade 1 diastolic dysfunction. PAST SURGICAL HISTORY: 1. Left carotid endarterectomy. 2. CABG bypass surgery. 3. Nephrostomy tube and bilateral double-J stents on 07/22/2018, Dr. Kaur. He changed out the double-J stents. History of bilateral urethral obstruction and left renal stone. Received shockwave lithotripsy at the time. SOCIAL HISTORY: He says he lives at the [facility]. He walks with a walker. FAMILY HISTORY: Father in his 60s from myocardial infarction. Mother had a history of stomach cancer. ALLERGIES: Penicillin. REVIEW OF SYSTEMS: He denies any change in weight or fever or chills but he does state he is weaker and his balance is worse. He, I think, tried to empty out his catheter with his walker and he fell. He bumped his head, on top of his head. PHYSICAL EXAMINATION: VITAL SIGNS: In the emergency room temp 98 degrees, pulse 60, respirations 18, blood pressure 139/69. Weight is 140 pounds. HEENT: Pupils are equal and round. LUNGS: Clear in all lung moore. CARDIOVASCULAR: Regular rhythm and rate without murmur or S3. SKIN: He has a laceration on the top of his head which is Steri-Stripped and he has some scattered areas of ecchymosis on his arms. LABORATORY DATA: White count 6,560, hematocrit 30, hemoglobin 9.9, platelet count 350,000. Sodium 140, potassium 3.7, chloride 105, BUN 16, creatinine 0.8, calcium is 9.0, AST 20, ALT 18, albumin was 2.9. ProTime is 15.6, INR 1.2, PTT is 52. Hie-tmofcghe-ca-count white blood cells. Too numerous to count red blood cells. He has indwelling Ramos catheter. Chest x-ray: No evidence of acute disease, no infiltrate. Head and cervical spine: Chronic ischemic changes. No evidence of acute intracranial disease. Degenerative facet changes described. ASSESSMENT AND PLAN: 1. He fell. It sounds like some of this is deconditioning and general weakness. He does not give a history nor sign of active urinary tract infection. He does have a lot of white blood cells and red blood cells and I believe he is probably colonized. Looking back at his cultures, back on 09/22/2018 he had Pseudomonas aeruginosa and looking back at 06/11/2018 he had Enterobacter cloacae. He has had enterococcal faecalis back in April as well. I am going to ask Dr. Sanchez to kind of follow along because I think this is colonization. I do not think this is a true infection. We will check cultures and see what they grow. I do not have any antibiotics I want to start right now. 2. History of coronary artery disease status post coronary artery bypass graft. 3. History of peripheral vascular disease. He has carotid artery disease, left carotid endarterectomy. 4. Hypertension. Will watch his blood pressure. 5. Hyperlipidemia. 6. Depression. 7. He has had trouble with just general weakness and deconditioning, failure to thrive. I think he is at the [facility] right now. We will ask physical therapy to look and will see what social care wants know. 8. History of kidney stones, history of double-J stents, nephrostomy tube, and continuous indwelling catheter. 9. Benign prostatic hypertrophy. 10. History of transient ischemic attack and cerebrovascular accident. 11. History of chronic constipation. 12. He has grade 1 diastolic dysfunction. We will get him evaluated by physical therapy, watch him on a control systems technician, see what his blood pressure does, and see if we can get him out of the hospital fairly soon. REVIEW OF MEDICATIONS: It looks like he is on Lipitor 40 mg a day, acetaminophen 500 mg p.o. q.6 hours p.r.n., aspirin 325 mg a day. He takes cefdinir or Omnicef 300 mg p.o. b.i.d., Celexa 1 tablet daily, lactulose 30 mL a day, Lopressor 25 mg b.i.d., montelukast or Singulair 10 mg at bedtime, nifedipine 60 mg p.o. daily, MiraLAX 17 g p.o. b.i.d., Rachelle-Colace 2 tablets b.i.d., Zoloft 50 mg a day, and Flomax 0.4 mg daily. cc: Edward Jonas MD
[2018-09-27] MEDS: NS 1,000 ML IV SCH (16:31)
[2018-09-28] MEDS: NS 1,000 ML IV SCH (05:40)
[2018-09-28 07:27] LABS: HEMATOCRIT 25.4 % (42.0-52.0); HEMOGLOBIN 8.1 g/dL (14.0-18.0); LYMPH% 20.7 % (20.5-51.1); MCH 30.1 PG (27-31); MCHC 31.9 g/dL (33-37); MCV 94.4 FL (81-99); MPV 9.1 FL (7.4-10.4); NEUT% 68.1 % (42.2-75.2); PLT 319 X1000 (130-400); RBC 2.69 XMIL (4.7-6.1); RDW 13.7 % (11.5-14.5)
[2018-09-28 07:28] LABS: BASO# 0.01 X1000 (0.0-0.2); BASO% 0.2 % (0.0-0.8); EOS# 0.26 X1000 (0.0-0.7); EOS% 4.6 % (0.0-10.0); IMM GRAN# 0.08 X1000 (0.0-0.04); IMM GRAN% 1.4 % (0.0-0.5); LYMPH# 1.16 X1000 (1.2-3.4); MONO# 0.28 X1000 (0.11-0.59); NEUT# 3.81 X1000 (1.4-6.5)
[2018-09-28 07:56] LABS: AGAP 11; ALBUMIN 2.9 g/dL (3.5-5.0); ALKALINE PHOSPHATASE 64 U/L (32-122); BUN 14 mg/dL (8-22); CALCIUM 8.3 mg/dL (8.8-10.2); CHLORIDE 107 mmol/L (98-107); COSMO 279; CREATININE 0.7 mg/dL (0.7-1.2); ESTIMATED GFR > 60; GLUCOSE 88 mg/dL (70-104); GOT 15 U/L (10-34); GPT 14 U/L (10-44); POTASSIUM 3.7 mmol/L (3.5-5.1); SODIUM 140 mmol/L (136-145); TCO2 22 mmol/L (25-35); TOTAL BILIRUBIN 0.21 mg/dL (0.20-1.00); TOTAL PROTEIN 5.7 g/dL (6.3-8.3)
[2018-09-28] MEDS ORDERED: LEVAQUIN 500 MG in NS 100 ML IV SCH (09:30)
--- NOTE | 2018-09-28 10:37 | INFECTIOUS DISEASE CONSULT REP ---
DATE: 09/27/2018 CONCLUSION: Patient has an asymptomatic urinary tract infection. RECOMMENDATIONS: I agree with Dr. Jonas's decision not to treat the patient with antibiotics. DISCUSSION: The patient at home, fell and hit his head. He was brought in to the to the emergency room. I was asked see the patient because his urinalysis shows white cells and red cells, but no bacteria. The patient does have a history of having urinary tract infections. I asked the patient now does he have any dysuria, suprapubic pain, flank pain, or changes in the color of his urine and he said no to all of those questions. His studies thus far show a CBC with a white count of 5600, hemoglobin 8.1, and platelet count 319,000. Creatinine is 0.8 GFR is greater than 60. Liver, liver function studies are normal. As mentioned above, the urinalysis showed white cells and red cells, but no bacteria. Blood and urine cultures are pending. Chest x- ray shows a right upper lobe calcified granuloma which has been present in the past. CT scan of the head and spine show chronic ischemic changes in the head and degenerative facet changes in the spine. PAST MEDICAL HISTORY: Positive for carotid artery disease, coronary artery disease, hypertension, hyperlipidemia, depression, renal calculi with a history of having to place double-J stents and a nephrostomy tube. The patient does have a continuous indwelling Ramos catheter. The patient also has benign prostatic hypertrophy, transient ischemic attacks, stroke, constipation, and grade 1 diastolic dysfunction. PAST SURGICAL HISTORY: Positive for left carotid endarterectomy,coronary artery bypass grafting , artery bypass grafting, nephrostomy tube, bilateral double-J stents, and history of shock wave lithotripsy. SOCIAL HISTORY: The patient lives in an apartment. He lives alone. He uses a walker and a cane and home health comes out to help him. He does not smoke cigarettes, drink alcoholic beverages or use illicit drugs. FAMILY HISTORY: Positive for myocardial infarction and stomach cancer. ALLERGIES: The patient is allergic to penicillin. However in the hospital he tolerated cefepime well. HOME MEDICATIONS: Include the following: Aspirin, acetaminophen, Lipitor, Omnicef, Celexa, lactulose, metoprolol, montelukast, Nifedipine, MiraLAX, Rachelle-Colace, Zoloft and Flomax. PHYSICAL EXAMINATION: Vital Signs: Temperature is 98 degrees, pulse 61, respirations 20, blood pressure 146/62. The patient is 5 feet 7 inches tall, weighs 131 pounds. General: This is a chronically ill and malnourished-appearing, elderly male. He is in no acute distress. Head, eyes, ears, nose, and throat: He can hear my spoken words and see near objects. He has poor oral hygiene and a foul odor to his breath. Neck: No meningismus. Lungs: Clear to auscultation. Cardiovascular: Heart rate is regular. Abdomen and Flanks: Soft and nontender. Genitalia: The patient has a Ramos catheter in place. Neurologic: The patient was sleeping. He was arousable. He moved his extremities to request. His sensation was intact to touch. His memory about his medical history was decreased. Integument: No rash noted. Thank you for the consult. I am signing off of the patient's case now. I am available to help on a p.r.n. basis. cc: Maxwell Sanchez MD
--- NOTE | 2018-09-28 16:15 | PROGRESS NOTE ---
DATE: 09/28/2018 SUBJECTIVE: The patient is resting comfortably in bed. He states that he wants to go home. No acute events noted overnight. OBJECTIVE: Vital Signs: Temperature 98.1 degrees, blood pressure 163/70, heart rate 63, respirations 20, O2 saturation is 98% on room air. General: This is a chronically ill-appearing elderly male, lying in bed in no acute distress. Heart: S1, S2. Normal. Lungs: Equal air entry bilaterally. No wheezing. No rales. No rhonchi. Abdomen: Positive bowel sounds. Soft, nontender, nondistended. Extremities: No edema, no cyanosis. Neurologic: The patient is alert and oriented x3. LABORATORY DATA: Hemoglobin 8.1, hematocrit 25, platelets 319,000. Sodium 140, potassium 3.7, chloride 107, CO2 of 22, BUN 14, creatinine 0.7, glucose 88. ASSESSMENT AND PLAN: 1. Asymptomatic urinary tract infection. As per Dr. Sanchez, we will not treat this urinary tract infection since he is asymptomatic. We will monitor the patient overnight and likely discharge him home tomorrow. 2. Hypertension. We will restart the Lopressor. 3. Situational depression. Continue on Zoloft. 4. BPH. Continue on Flomax. 5. We will consult Physical Therapy. cc: Erica Duncan MD
[2018-09-28] MEDS ORDERED: LIPITOR PO SCH (21:00)
[2018-09-28] MEDS ORDERED: SINGULAIR PO SCH (21:00)
[2018-09-28] MEDS: MIRALAX PO SCH (21:12)
[2018-09-28] MEDS: LOPRESSOR PO SCH (21:13)
[2018-09-29 07:47] LABS: HEMATOCRIT 29.4 % (42.0-52.0); HEMOGLOBIN 9.4 g/dL (14.0-18.0); MCV 93.9 FL (81-99); RBC 3.13 XMIL (4.7-6.1); RDW 13.9 % (11.5-14.5); WBC 5.65 X1000 (4.8-10.8)
[2018-09-29 07:48] LABS: BASO# 0.01 X1000 (0.0-0.2); BASO% 0.2 % (0.0-0.8); EOS# 0.35 X1000 (0.0-0.7); EOS% 6.2 % (0.0-10.0); IMM GRAN# 0.06 X1000 (0.0-0.04); IMM GRAN% 1.1 % (0.0-0.5); LYMPH# 1.24 X1000 (1.2-3.4); LYMPH% 21.9 % (20.5-51.1); MONO% 5.3 % (1.7-9.3); NEUT# 3.69 X1000 (1.4-6.5); NEUT% 65.3 % (42.2-75.2); PLT 324 X1000 (130-400)
[2018-09-29 08:08] LABS: AGAP 9; BUN 13 mg/dL (8-22); CALCIUM 8.3 mg/dL (8.8-10.2); CHLORIDE 105 mmol/L (98-107); COSMO 275; CREATININE 0.8 mg/dL (0.7-1.2); ESTIMATED GFR > 60; GLUCOSE 85 mg/dL (70-104); POTASSIUM 3.5 mmol/L (3.5-5.1); SODIUM 138 mmol/L (136-145); TCO2 24 mmol/L (25-35)
[2018-09-29] MEDS ORDERED: LACTULOSE PO SCH (09:00)
[2018-09-29] MEDS ORDERED: ASPIRIN PO SCH (09:00)
[2018-09-29] MEDS ORDERED: CELEXA PO SCH (09:00)
[2018-09-29] MEDS ORDERED: ZOLOFT PO SCH (09:00)
[2018-09-29] MEDS ORDERED: ADALAT CC PO SCH (09:00)
[2018-09-29] MEDS ORDERED: FLOMAX PO SCH (09:00)
[2018-09-29] MEDS: MIRALAX PO SCH (10:05)
[2018-09-29] MEDS: LOPRESSOR PO SCH (10:06)
[2018-09-29 14:39] VITALS: BP 118/52
--- NOTE | 2018-10-12 06:53 | DISCHARGE SUMMARY ---
ADMISSION DATE: 09/28/2018 DISCHARGE DATE: 09/29/2018 FINAL DISCHARGE DIAGNOSES: 1. Asymptomatic urinary tract infection. 2. Hypertension. 3. Situational depression. 4. Benign prostatic hypertrophy with a chronic Ramos catheter. HOSPITAL COURSE: Mr. Edward is a 78-year-old male with a history of multiple medical problems who was brought to the ER with the chief complaint of dizziness. The patient was admitted to the hospitalist service. The patient was noted to have a urinary tract infection on the urine studies that were done; however, the patient was asymptomatic. The patient was seen by Dr. Sanchez who agreed with no antibiotic therapy since the patient was asymptomatic. multicultural services librarian was consulted for assistance with discharge planning and the patient decided that he wanted hospice involved upon discharge. The patient was ultimately cleared for discharge home on 09/29/2018. DISCHARGE MEDICATIONS: 1. Tylenol 500 mg oral every 6 hours p.r.n. for pain. 2. Singulair 10 mg p.o. at bedtime. 3. Lipitor 40 mg p.o. at bedtime. 4. Metoprolol 25 mg oral twice a day. 5. Celexa 20 mg p.o. daily. 6. Zoloft 50 mg p.o. daily. 7. Aspirin 325 mg oral daily. 8. MiraLAX 17 g oral twice a day. 9. Rachelle-Colace 2 tablets oral twice a day. 10. Lactulose 30 mL oral daily. 11. Flomax 0.4 mg oral daily. 12. Nifedipine 30 mg p.o. daily. DISCHARGE DIET: Low-sodium, low-cholesterol diet. ACTIVITY: As tolerated. FOLLOWUP INSTRUCTIONS: The patient will need to follow up with Dr. Elizabeth Sullivan in 1 week. cc: Erica Duncan MD
== END 2018-09-29 18:20 | disposition hospice, home (50) | DRG 696 ==
LOC: SUPCPDRO → ED 10:36 → 3N 10:36 → SUATTDRO 14:49
PROVIDERS: ATTEND Internal Medicine